=== PATIENT | female | born 1955 | race Caucasian/White ===

== ENCOUNTER → 2016-09-30 | Outpatient (CLI) | payer BC ==
[2016-09-30 11:46] LABS: Basophils # (A) 0.1 k/uL (0-0.2); Basophils % (A) 1 %; CH 28.7; CHCM 32.3; Eosinophils # (A) 0.1 k/uL (0-0.7); Eosinophils % (A) 1 %; HCT 46.2 % (34.0-46.0); HGB 14.9 gm/dL (11.4-16.0); Luc # (Auto) 0.12; Luc % (Auto) 1; Lymphocytes # (A) 3.8 k/uL (1.0-4.8); Lymphocytes % (A) 37 %; MCH 28.7 pg (25.0-35.0); MCHC 32.3 g/dL (31.0-37.0); Mean Platelet Volume 8.8; Monocytes # (A) 0.5 k/uL (0-1.0); Monocytes % (A) 4 %; Neutrophils # (A) 5.8 k/uL (1.3-7.7); Neutrophils % (A) 56 %; RBC 5.19 m/uL (3.80-5.40); RDW 12.9 % (11.5-15.5); WBC 10.4 k/uL (3.8-10.6); WBC (Perox) 10.03
[2016-09-30 12:04] LABS: Prothrombin Time 10.1 sec (9.0-12.0)
[2016-09-30 12:06] LABS: ALT 67 U/L (9-52); AST 30 U/L (14-36); Alkaline Phosphatase 97 U/L (38-126); Anion Gap 10 mmol/L; Blood Urea Nitrogen 25 mg/dL (7-17); Calcium 9.7 mg/dL (8.4-10.2); Carbon Dioxide 28 mmol/L (22-30); Chloride 104 mmol/L (98-107); Glucose 110 mg/dL (74-99); Non-African American GFR(MDRD) 56 (>60 ml/min/1.73 sqM); Potassium 4.3 mmol/L (3.5-5.1); Sodium 142 mmol/L (137-145); Total Bilirubin 0.9 mg/dL (0.2-1.3); Total Protein 7.3 g/dL (6.3-8.2)
[2016-09-30 12:08] LABS: Partial Thromboplastin Time 20.8 sec (22.0-30.0)
[2016-09-30 14:03] LABS: Hemoglobin A1C 6.3 % (4.2-6.1)
== END | disposition home or self-care (01) ==
LOC: LABPAT 10:56
PROVIDERS: ATTEND Family Medicine
DX: Z01.812 Encounter for preprocedural laboratory examination (principal); E11.9 Type 2 diabetes mellitus without complications; E55.9 Vitamin D deficiency, unspecified; Z01.810 Encounter for preprocedural cardiovascular examination
CPT/HCPCS: 80053; 82306; 83036; 85025; 85610; 85730; 87070

== ENCOUNTER → 2016-10-07 | Outpatient (CLI) | payer BC | END | disposition home or self-care (01) | LOC: LABWHC1 11:02 | PROVIDERS: ATTEND Family Medicine | DX: R94.5 Abnormal results of liver function studies (principal) | CPT/HCPCS: 36415; 84460; 86850; 86900; 86901 ==

== ENCOUNTER → 2016-10-09 | Outpatient (CLI) | payer BC ==
--- NOTE | 2016-10-10 10:12 | XR ---
EXAMINATION TYPE: XR chest 2V DATE OF EXAM: 10/09/2016 5:15 PM COMPARISON: NONE HISTORY: Preprocedural exam, preop TECHNIQUE: Frontal and lateral views of the chest are obtained. FINDINGS: There is no focal air space opacity, pleural effusion, or pneumothorax seen. The cardiac silhouette size is within normal limits. Surgical clips present in the right upper quadrant. The os seous structures are intact. IMPRESSION: No acute cardiopulmonary process.
== END | disposition home or self-care (01) ==
LOC: RADXRMAIN 16:48
PROVIDERS: ATTEND Family Medicine
DX: Z01.818 Encounter for other preprocedural examination (principal)
CPT/HCPCS: 71020

== ENCOUNTER 2016-10-17 07:44 | Inpatient (IN) | payer BC ==
[2016-10-16 08:54] VITALS: BMI 40.3
[~2016-10-17 07:44] MED LIST: ACETAMINOPHEN TAB 500 MG TAB PO ONE; DEXAMETHASONE SOD PHOSPHATE 10 MG/ML 1 ML VIAL IV ONE; HYDROmorphone 1 MG/ML 1 ML SYRINGE IVP PRN; LACTATED RINGERS 1,000 ML IV SCH; LIDOCAINE 1% 20 ML VIAL (10MG/ML) FOR IV START INTRADERMA PRN; MELOXICAM 7.5 MG TAB PO ONE; MIDAZOLAM 2 MG/2 ML VIAL IV PRN; ONDANSETRON 4 MG/2 ML VIAL IVP ONE; SCOPOLAMINE 1.5MG/72HR PATCH TRANSDERM ONE; TRANEXAMIC ACID 1,000 MG in SODIUM CHLORIDE 0.9% 100 ML IVPB ONE; ceFAZolin 2 GM in SODIUM CHLORIDE 0.9% 100 ML IVPB ONE
[2016-10-17] MEDS ORDERED: VANCOMYCIN 1,500 MG in SODIUM CHLORIDE 0.9% 250 ML IVPB STA (10:03)
[2016-10-17] MEDS ORDERED: MIDAZOLAM 2 MG/2 ML VIAL IV ONE (12:51)
[2016-10-17] MEDS ORDERED: HYDROmorphone (PF) 1 MG/ML ONE (14:06)
[2016-10-17] MEDS ORDERED: ePHEDrine 50 MG/ML 1 ML AMP ONE (14:06)
[2016-10-17] MEDS ORDERED: ONDANSETRON 4 MG/2 ML VIAL ONE (14:06)
[2016-10-17] MEDS ORDERED: SODIUM CHLORIDE 0.9% IRRIG 1,000 ML BTL IRRIGATION ONE (14:06)
[2016-10-17] MEDS ORDERED: SODIUM CHLORIDE 0.9% 100 ML BAG ONE (14:06)
[2016-10-17] MEDS ORDERED: PROPOFOL 10 MG/ML 20 ML VIAL IV ONE (14:06)
[2016-10-17] MEDS ORDERED: TRANEXAMIC ACID 1,000 MG/10 ML VIAL ONE (14:06)
[2016-10-17] MEDS ORDERED: PHENYLEPHRINE-0.9% NACL SYG 1 MG/10 ML SYRINGE ONE (14:06)
[2016-10-17] MEDS ORDERED: MIDAZOLAM 2 MG/2 ML VIAL ONE (14:06)
[2016-10-17] MEDS ORDERED: HEPARIN SODIUM,PORCINE 10,000 UNIT/ML 1 ML VIAL ONE (14:06)
[2016-10-17] MEDS ORDERED: ceFAZolin 3,000 MG in SODIUM CHLORIDE 0.9% IRRIGATIO 3,000 ML IRRIGATION ONE (14:43)
[2016-10-17] MEDS: ROPIVACAINE 246.25 MG, EPINEPHrine 0.5 MG, KETOROLAC 30 MG, cloNIDine HCL/PF 80 MCG, WA... MISCELLANE ONE ×10 (14:49→15:41)
[2016-10-17] MEDS ORDERED: LACTATED RINGERS 1,000 ML IV ONE ×2 (14:59→15:45)
--- NOTE | 2016-10-17 16:01 | P.OP ---
Date of Procedure: 10/17/16 Preoperative Diagnosis: Severe osteoarthritis of the right hip Postoperative Diagnosis: Severe osteoarthritis of the right hip Procedure(s) Performed: Right total hip arthroplasty with a direct anterior approach Implants: Starkey and nephew Anthology stem size 3 standard Starkey & Nephew R3, 3 hole acetabular shell, 52 mm Starkey [employer] Nephew reflection 6.5 mm cancellus screw, 25 mm 2 Starkey [employer] Nephew R3, XLPE 20 acetabular liner Starkey & Nephew Oxinium femoral head 36 m, +12 All components were press-fit. The articulation is ceramic on polyethylene. Anesthesia: spinal Surgeon: Brody Barcenas Director Women #1: Guillermina Cagle Estimated Blood Loss (ml): 500 (199 returned with cell saver) Pathology: other (Femoral head) Condition: stable Disposition: PACU Indications for Procedure: After failure of conservative treatment we discussed the surgical and nonsurgical treatment options at length. Patient wishes to proceed with a total hip arthroplasty with a direct anterior approach. Complications specific to this procedure were discussed at length, including but not limited to infection, leg length discrepancy, dislocation, and nerve injury. Patient is aware of all these complications and informed consent was obtained Operative Findings: The operative findings are consistent with severe osteoarthritis of the right hip. Description of Procedure: Patient was seen and evaluated in the preoperative area, consent was reviewed, and the surgical site was marked with a skin marker. Patient was then brought to the operating room and given prophylactic antibiotics intravenously. 1 g of Tranexamic acid was also given. A spinal anesthetic was administered by the anesthesia department. A [place] catheter was then placed by the nursing staff. The patient was then placed on the hana table with the bony prominences well- padded. The hip area was then prepped and draped in usual sterile fashion. A universal timeout was then performed, which confirmed the patient's name, surgical site, ALLERGIES, and procedure being performed. Next the incision site was located at 1 cm distal and 1 cm lateral to the anterior superior iliac spine. The skin and subcutaneous tissues were sharply incised. Incision was carefully dissected down to the fascia overlying the tensor fascia brandy muscle. This fascia was then incised in line with the incision. Next, using blunt finger dissection, the tensor fascia brandy muscle was dissected off its investing fascia. The muscle was then carefully retracted laterally with a cobra retractor over the lateral neck of the femur. Next, the circumflex vessels were identified and cauterized using the AquaMantis device. The anterior hip capsule was then exposed. The capsule was then opened and an inverted T fashion. Retention sutures were placed in the inferior arms of the capsule. Cobra retractors were then placed intracapsularly. The proximal femur was then visualized. The femoral neck was then osteotomized appropriate level above the lesser trochanter. Small amount of traction was placed with the hana table. A small wedge of bone was then removed from the remaining femoral head. Next, using a corkscrew femoral head was easily removed from the acetabulum. On gross visual inspection, the femoral head had complete loss of articular cartilage in multiple periarticular osteophytes. Attention was then turned to the acetabulum. the acetabulum was exposed and any remaining labrum was excised. Sequential reaming of the acetabulum was performed using fluoroscopic guidance. When the appropriate size was reached, a trial was then placed. The position and fit of the trial was checked with fluoroscopy. The trial was then removed. Then, using fluoroscopic guidance, the final implant was impacted at 20 of anteversion and 40 of abduction, and fully seated in the acetabulum. 2 screws were then placed in the acetabulum. Again fluoroscopy was used to check position of the screws. Next, the liner was then impacted, with a 20 elevated liner located in the anterior superior quadrant. Component locking was confirmed. Attention was then directed to the femur. With the aid of the Olimpia table, the femur was externally rotated to approximately 130, extended, and abducted under the opposite leg. A side hook was then placed under the proximal femur, and the side hook elevator was used to elevate the proximal femur. Retractors were then placed. A capsular release was performed, as well as a release of the conjoined tendon, which afforded excellent visualization of the proximal femur. Next, a box osteotome was used to lateralize the proximal femur. A laborer steel handling was then used to locate the femoral canal. Sequential broaching was then performed with appropriate size which afforded excellent fixation in the proximal femur. The calcar was then planed. A trial was then placed with appropriate head and neck, and the hip was gently reduced with the aid of the Olimpia table. Fluoroscopy was then used to check position of the components, as well as to ensure equal leg lengths. The hip was then gently dislocated and the trials were then removed. Final implants were then impacted and the hip was again reduced. Final fluoroscopic x-rays confirmed that the components were in anatomic position, as well as equal leg lengths. The hip was also taken through range of motion, and found to be stable. The hip was then copiously irrigated with antibiotic solution with pulsatile lavage. The hip was then irrigated with Irrisept solution. The soft tissues were then injected with ropivacaine solution. A second dose of 1 g of Tranexamic acid was given. the fascia was then closed with 2-0 strata fix suture. The subcutaneous tissue was closed with 3-0 Vicryl. The subcuticular tissue was closed with 30 strata fix suture. The skin was then closed with Dermabond tape. The patient was then transferred to the recovery room in stable condition. The Asst. Guillermina Cagle was required due to the complexity of surgery, and the need for skilled surgical services director for positioning, draping, exposure, retraction, and closure of the wound.and closure of the wound.
[2016-10-17] MEDS ORDERED: HYDROmorphone 1 MG/ML 1 ML SYRINGE IVP PRN ×3 (16:20)
[2016-10-17] MEDS ORDERED: NALOXONE 0.4 MG/ML 1 ML VIAL IV PRN (16:20)
[2016-10-17] MEDS ORDERED: DIAZEPAM 5 MG TAB PO PRN ×2 (16:20)
[2016-10-17] MEDS ORDERED: HYDROcodone/APAP 5-325MG 1 EACH TAB PO PRN ×2 (16:20)
[2016-10-17] MEDS ORDERED: ONDANSETRON 4 MG/2 ML VIAL IVP PRN (16:20)
[2016-10-17] MEDS ORDERED: MAGNESIUM HYDROXIDE 2,400 MG/10 ML CUP PO PRN (16:20)
--- NOTE | 2016-10-17 16:53 | XR ---
EXAMINATION TYPE: XR Hip Limited RT DATE OF EXAM: 10/17/2016 4:43 PM COMPARISON: NONE HISTORY: 61-year-old female status post hip surgery, assess surgical alignment FINDINGS: Frontal view shows postsurgical changes of right hip total arthroplasty. Both acetabular cup and femo ral short stem components of the prosthesis are well seated without periprosthetic fracture. Alignmen t is grossly anatomic. Some soft tissue gas related to recent operation. IMPRESSION: Uncomplicated postoperative appearance right total hip arthroplasty.
[2016-10-17] MEDS: SENNOSIDES-DOCUSATE SODIUM 1 EACH TAB PO SCH (19:37)
[2016-10-17] MEDS: SODIUM CHLORIDE 0.9% 1,000 ML IV SCH (19:38)
[2016-10-17] MEDS: ASPIRIN 325 MG TAB PO SCH (20:25)
[2016-10-17] MEDS: ceFAZolin 2 GM in SODIUM CHLORIDE 0.9% 100 ML IVPB SCH (23:52)
[2016-10-18] MEDS: SODIUM CHLORIDE 0.9% 1,000 ML IV SCH ×2 (04:33→21:52)
--- NOTE | 2016-10-18 07:41 | XR ---
EXAMINATION TYPE: XR Hip Complete RT DATE OF EXAM: 10/17/2016 4:09 PM COMPARISON: NONE HISTORY: Postop There is a prosthetic hip in near anatomic alignment. There is soft tissue edema and emphysema. IMPRESSION: 1. Postoperative change. Appears in near-anatomic alignment.
--- NOTE | 2016-10-18 07:42 | FL ---
EXAMINATION TYPE: FL guidance operating room DATE OF EXAM: 10/17/2016 4:09 PM HISTORY: Flouroscopy time 60 seconds of fluoroscopy provided. IMPRESSION: 1. Fluoroscopy time.
[2016-10-18 08:16] LABS: Basophils % (A) 0 %; CH 28.5; CHCM 31.6; Eosinophils % (A) 0 %; HCT 29.5 % (34.0-46.0); HDW 2.32; Luc # (Auto) 0.11; Luc % (Auto) 1; Lymphocytes # (A) 2.2 k/uL (1.0-4.8); Lymphocytes % (A) 25 %; MCV 90.5 fL (80.0-100.0); Mean Platelet Volume 7.7; Monocytes # (A) 0.4 k/uL (0-1.0); Monocytes % (A) 5 %; Neutrophils # (A) 6.1 k/uL (1.3-7.7); Neutrophils % (A) 69 %; RBC 3.25 m/uL (3.80-5.40); RDW 13.5 % (11.5-15.5); WBC 8.8 k/uL (3.8-10.6)
[2016-10-18 08:20] LABS: HGB 9.4 gm/dL (11.4-16.0)
--- NOTE | 2016-10-18 09:07 | P.PN ---
Subjective Principal diagnosis: s/p JADE right This is a pleasant 61 year old female status post right total hip arthroplasty. Today's postoperative day #1. The patient complains of some burning at her proximal incision. She's not yet been up ambulating with physical therapy. She states that she's had some difficulty with pain control. She otherwise denies any other complaints. No fevers, chills, shortness of breath or lightheadedness. Objective - Vital Signs Vital signs: Vital Signs Temp 97.4 F L 10/18/16 02:00 Pulse 65 10/18/16 02:00 Resp 18 10/18/16 02:00 BP 106/50 10/18/16 02:00 Pulse Ox 97 10/18/16 02:00 Intake & Output 10/17/16 10/18/16 10/18/16 18:59 06:59 18:59 Intake Total 2802 875 Output Total 670 420 Balance 2132 455 Weight 106.594 kg Intake: IV 2802 875 Sodium Chloride 0.9% 1, 675 000 ml @ 75 mls/hr IV . [id number] [facility] Rx#:[id number] ceFAZolin 2 gm In Sodium 200 Chloride 0.9% 100 ml @ 100 mls/hr IVPB ONCE ONE Rx#:[id number] Output: Urine 170 420 Estimated Blood Loss 500 - Exam The patient does not appear in acute distress. Alert and orientated 3. Dressing is clean dry and intact. Incision appears fine with no erythema or active drainage. Calf is soft and nontender. She is able to perform active knee motion. Good foot and ankle motion without difficulty. Sensation and circulatory status is intact. - Labs CBC & Chem 7: 10/18/16 07:08 Labs: Abnormal Lab Results - Last 24 Hours (Table) 10/18/16 Range/Units 07:08 RBC 3.25 L (3.80-5.40) m/uL Hgb 9.4 L D (11.4-16.0) gm/dL Hct 29.5 L (34.0-46.0) % Assessment and Plan (1) Primary osteoarthritis of right hip Status: Acute (2) Status post right hip replacement Status: Acute Plan: Continue with routine postoperative care. We'll increase her [place] to 7.5 mg. Anticoagulation with aspirin. Appreciate input from medicine. Anticipate discharge to home with home care likely tomorrow.
[2016-10-18] MEDS ORDERED: HYDROcodone/APAP 7.5-325MG 1 EACH TAB PO PRN (09:09)
[2016-10-18] MEDS: MELOXICAM 7.5 MG TAB PO SCH (09:58)
[2016-10-18] MEDS: ASPIRIN 325 MG TAB PO SCH ×2 (09:58→21:50)
[2016-10-18] MEDS: ceFAZolin 2 GM in SODIUM CHLORIDE 0.9% 100 ML IVPB SCH (09:59)
[2016-10-18] MEDS: hydrOXYzine PAMOATE 25 MG CAP PO PRN ×3 (10:03→23:47)
[2016-10-18] MEDS: HYDROcodone/APAP 7.5-325MG 1 EACH TAB PO PRN ×3 (10:04→23:46)
[2016-10-18] MEDS ORDERED: ALBUTEROL NEBULIZED 2.5 MG/3 ML INHALATION PRN (14:42)
[2016-10-18] MEDS: SENNOSIDES-DOCUSATE SODIUM 1 EACH TAB PO SCH (21:50)
[2016-10-18] MEDS: ALPRAZolam 0.25 MG TAB PO SCH (21:52)
--- NOTE | 2016-10-18 21:57 | CONS ---
DATE OF CONSULTATION: REASON FOR CONSULTATION: Recommendations regarding antihypertensive medications. Patient is a very pleasant female who came in for right hip arthroplasty. Patient successfully underwent surgery. Patient is clinically doing well. Patient does have history of hypertension. Patient is hypotensive at this point of time. Patient underwent right hip arthroplasty. Patient denied any fever or chills. Patient denied nausea, vomiting, dysuria. REVIEW OF SYSTEMS: CONSTITUTIONAL: No fever, no malaise, no fatigue. HEENT: No recent visual problems or hearing problems. Denied any sore throat. CARDIOVASCULAR: No chest pain, orthopnea, PND, no palpitations, no syncope. PULMONARY: No shortness of breath, no cough, no hemoptysis. GASTROINTESTINAL: No diarrhea, no nausea, no vomiting, no abdominal pain. Normoactive bowel sounds. NEUROLOGICAL: No headaches, no weakness, no numbness. HEMATOLOGICAL: Denies any bleeding or petechiae. GENITOURINARY: Denies any burning micturition, frequency, or urgency. MUSCULOSKELETAL/RHEUMATOLOGICAL: Denies any joint pain, swelling, or any muscle pain. ENDOCRINE: Denies any polyuria or polydipsia. The rest of the 14 point review of systems is negative. Home medications include: 1. Alprazolam. 2. Albuterol. 3. Aspirin. 4. Cholecalciferol. 5. Hydrocodone/acetaminophen. 6. Lisinopril. 7. Hydrochlorothiazide. 8. Omeprazole. 9. Senna. Past medical history is significant for: 1. Asthma without any acute exacerbation at present. 2. Gastroesophageal reflux disease. 3. Hyperlipidemia. 4. Hypertension. 5. Osteoarthritis. 6. section. 7. Cholecystectomy. 8. Hernia repair. 9. Joint replacement surgery. 10. Anxiety disorder. Patient never smoked. Denied any alcohol abuse or any drug abuse. FAMILY HISTORY: Significant for cancer. PHYSICAL EXAMINATION: VITAL SIGNS: Temperature 98.0. Pulse of 70, respiratory rate of 16. Blood pressure is 114/55. Saturating at 98% on 2 L of oxygen by nasal cannula. GENERAL: The patient is alert and oriented x3, not in any acute distress. Well developed, well nourished. HEENT: Pupils are round and equally reacting to light. EOMI. No scleral icterus. No conjunctival pallor. Normocephalic, atraumatic. No pharyngeal erythema. No thyromegaly. CARDIOVASCULAR: S1 and S2 present. No murmurs, rubs, or gallops. PULMONARY: Chest is clear to auscultation, no wheezing or crackles. ABDOMEN: Soft, nontender, nondistended, normoactive bowel sounds. No palpable organomegaly. MUSCULOSKELETAL: Defer to Orthopedic Surgery. EXTREMITIES: No cyanosis, clubbing, or pedal edema. NEUROLOGICAL: Gross neurological examination did not reveal any focal deficits. SKIN: No rashes. LABORATORY DATA: Hemoglobin is 9.4. ASSESSMENT AND PLAN: 1. Right hip arthroplasty with possible mild acute blood loss anemia from surgery. 2. Hypertension. Patient is actually hypotensive, which is not unexpected post surgery. Patient is on IV fluids, which can be continued at this point of time. Hold off on lisinopril and hydrochlorothiazide at this point of time. Will decide on continuation or complete discontinuation of these medications upon discharge. 3. Gastroesophageal reflux disease. 4. Asthma without any acute exacerbation. 5. Hyperlipidemia. For above-mentioned chronic medical problems, I can go ahead and continue her home medications. Regarding right hip arthroplasty, pain management and DVT prophylaxis as per primary service. Thank you for letting me participate in this patient's care. Will continue to follow the patient on an as-needed basis. Patient's primary care physician is Dr. Sukumar White.
[2016-10-19] MEDS: hydrOXYzine PAMOATE 25 MG CAP PO PRN (05:52)
[2016-10-19] MEDS: HYDROcodone/APAP 7.5-325MG 1 EACH TAB PO PRN ×3 (05:52→20:08)
[2016-10-19] MEDS: ASPIRIN 325 MG TAB PO SCH ×2 (08:20→19:32)
[2016-10-19] MEDS: MELOXICAM 7.5 MG TAB PO SCH (08:20)
[2016-10-19] MEDS: PANTOPRAZOLE 40 MG TABLET PO SCH (08:21)
--- NOTE | 2016-10-19 08:21 | P.PN ---
Subjective Principal diagnosis: Right total hip arthroplasty This is a 61 year-old female post right total hip arthroplasty. This is post- op day 2. The patient was evaluated at the bedside today. The patient denies nausea, vomiting, abdominal pain, shortness of breath, and chest pain this morning. She states her pain is controlled better this morning. The patient has been up with physical therapy but she says she is moving slowly. She wishes to spend one more day in the hospital since she does not have anyone at home to help her and to make sure her pain is controlled. Objective - Vital Signs Vital signs: Vital Signs Temp 98.1 F 10/19/16 07:00 Pulse 68 10/19/16 07:00 Resp 17 10/19/16 07:00 BP 103/51 10/19/16 07:00 Pulse Ox 96 10/19/16 07:00 Intake & Output 10/18/16 10/19/16 10/19/16 18:59 06:59 18:59 Intake Total 1210 Output Total 350 400 Balance 860 -400 Intake: IV 450 Sodium Chloride 0.9% 1, 450 000 ml @ 75 mls/hr IV . [id number] [facility] Rx#:[id number] Intake, IV Titration 100 Amount ceFAZolin 2 gm In Sodium 100 Chloride 0.9% 100 ml @ 100 mls/hr IVPB Q8HR [facility] Rx#:[id number] Oral 660 Output: Urine 350 400 Uretheral ([place]) 350 Other: Voiding Method Toilet Toilet # Voids 2 - Exam The patient does not appear in acute distress. Alert and orientated x3. Dressing is clean dry and intact. Incision appears fine with no erythema or active drainage. Calf is soft and nontender. Good foot and ankle motion without difficulty. Sensation and circulatory status is intact. - Labs CBC & Chem 7: 10/18/16 07:08 Labs: Abnormal Lab Results - Last 24 Hours (Table) 10/18/16 Range/Units 07:08 RBC 3.25 L (3.80-5.40) m/uL Hgb 9.4 L D (11.4-16.0) gm/dL Hct 29.5 L (34.0-46.0) % Assessment and Plan (1) Primary osteoarthritis of right hip Status: Acute (2) Status post right hip replacement Status: Acute Plan: 1. Continue pain control 2. Anticoagulation with Aspirin 3. Continue physical therapy and ambulation 4. Anticipate discharge home with homecare tomorrow
[2016-10-19] MEDS: SODIUM CHLORIDE 0.9% 1,000 ML IV SCH ×2 (08:22→19:22)
[2016-10-19] MEDS: ALPRAZolam 0.25 MG TAB PO SCH ×2 (08:22→19:28)
[2016-10-19 14:16] VITALS: RESP 16
[2016-10-19] MEDS: SENNOSIDES-DOCUSATE SODIUM 1 EACH TAB PO SCH (19:32)
[2016-10-20] MEDS: HYDROcodone/APAP 7.5-325MG 1 EACH TAB PO PRN ×3 (01:13→15:04)
[2016-10-20 07:20] LABS: Basophils % (A) 1 %; CH 28.3; Eosinophils # (A) 0.4 k/uL (0-0.7); Eosinophils % (A) 5 %; HCT 29.4 % (34.0-46.0); HDW 2.27; HGB 9.4 gm/dL (11.4-16.0); Hypochromasia Slight; Luc # (Auto) 0.19; Luc % (Auto) 2; Lymphocytes # (A) 3.1 k/uL (1.0-4.8); Lymphocytes % (A) 39 %; MCH 29.2 pg (25.0-35.0); MCHC 31.9 g/dL (31.0-37.0); MCV 91.7 fL (80.0-100.0); Mean Platelet Volume 7.3; Monocytes # (A) 0.5 k/uL (0-1.0); Monocytes % (A) 6 %; Neutrophils # (A) 3.8 k/uL (1.3-7.7); Neutrophils % (A) 47 %; RBC 3.21 m/uL (3.80-5.40); RDW 13.2 % (11.5-15.5); WBC (Perox) 8.81
--- NOTE | 2016-10-20 07:45 | P.DS ---
Providers Date of admission: 10/17/16 07:44 Expected date of discharge: 10/20/16 Attending physician: Brody Barcenas Consults: 10/17/16 16:20 Consult Physician Routine Consulting Provider: Shahab Andrade Consult Reason/Comments: medical management Do you want consulting provider notified?: Yes Primary care physician: Sukumar White - Discharge Diagnosis(es) (1) Primary osteoarthritis of right hip Current Visit: Yes Status: Acute (2) Status post right hip replacement Current Visit: Yes Status: Acute Hospital Course: This is a pleasant 61-year-old female last seen in our office with complaints of right hip pain. The patient has known history of degenerative arthritis of the right hip. After discussion and consideration the patient elected to proceed with right total hip arthroplasty. The patient was seen preoperatively medically cleared for surgery by her primary care physician. Patient was admitted to [facility] on 10/17/2016 and underwent right total hip arthroplasty. The procedure was performed without competitions or sequelae. The patient has done well postoperatively. She is been progressing with physical therapy. Her pain is been reasonably controlled. She is seen and evaluated at bedside today. She complains of some burning at the incision. Her pain is controlled. Vital signs are stable. Incision looks fine with no erythema or active drainage. Dermabond dressing is intact. She does have a linear blister approximately 2 cm in length along the lateral aspect of the prineo tape at the mid incision. There is moderate soft tissue swelling and ecchymosis as expected postoperatively. Thigh and calf are soft and nontender. She has sustained dorsiflexion plantar flexion. Dorsalis pedis pulse 2+ out of 4+. Sensation is intact. Patient is orthopedically stable for discharge to home with home care today. Pertinent Studies: Laboratory Tests 10/18/16 10/20/16 07:08 06:34 WBC 8.8 8.0 RBC 3.25 L 3.21 L Hgb 9.4 L D 9.4 L Hct 29.5 L 29.4 L MCV 90.5 Patient Condition at Discharge: Good Plan - Discharge Summary New Discharge Prescriptions: Aspirin 325 mg PO BID #60 tab HYDROcodone/APAP 7.5-325MG [[place] 7.5] 1 - 2 each PO Q6HR PRN #90 tab PRN Reason: Pain Sennosides-Docusate Sodium [Senokot-S] 2 tab PO DAILY #60 tablet Discharge Medication List ALPRAZolam [Xanax] 0.25 mg PO BID 10/16/16 [History] Albuterol Sulfate [Proair Hfa] 2 puff INHALATION RT-Q6H PRN 10/16/16 [History] Cholecalciferol [Vitamin D3] 2,000 unit PO DAILY 10/16/16 [History] Lisinopril-Hctz 10-12.5 mg [Zestoretic 10-12.5] 1 tab PO DAILY 10/16/16 [History ] Omeprazole 20 mg PO DAILY 10/16/16 [History] Aspirin 325 mg PO BID #60 tab 10/18/16 [Rx] HYDROcodone/APAP 7.5-325MG [[place] 7.5] 1 - 2 each PO Q6HR PRN #90 tab 10/18/16 [ Rx] Sennosides-Docusate Sodium [Senokot-S] 2 tab PO DAILY #60 tablet 10/18/16 [Rx] Follow up Appointment(s)/Referral(s): Brody Barcenas DO [Doctor of Osteopathic Medicine] - 11/02/16 8:30 am Activity/Diet/Wound Care/Special Instructions: Weightbearing as tolerated with walker Daily dressing changes Keep incision clean and dry [facility] with questions or concerns [phone] Discharge Disposition: HOME WITH HOME HEALTH SERVICES
[2016-10-20] MEDS: ASPIRIN 325 MG TAB PO SCH (09:56)
[2016-10-20] MEDS: ALPRAZolam 0.25 MG TAB PO SCH (09:56)
[2016-10-20] MEDS: PANTOPRAZOLE 40 MG TABLET PO SCH (09:56)
[2016-10-20] MEDS: MELOXICAM 7.5 MG TAB PO SCH (09:56)
[2016-10-20] MEDS: SODIUM CHLORIDE 0.9% 1,000 ML IV SCH (12:28)
[2016-10-20 15:21] VITALS: BP 156/73; PULSE 78; TEMP 97.6
--- NOTE | 2016-10-20 19:16 | PN ---
Patient is admitted after right hip arthroplasty. Patient successfully underwent surgery and patient's blood pressure is doing well. Patient will continue on her home medications. Patient has a small blister because of the tape, for which patient was given Keflex by Orthopedic Surgery. I do not believe we need to do any further intervention at this point of time. REVIEW OF SYSTEMS: CARDIOVASCULAR: No chest pain, no orthopnea, no PND, no palpitations. PULMONARY: Denied any shortness of breath. No cough or hemoptysis. GASTROINTESTINAL: No diarrhea, nausea or vomiting. No abdominal pain. Normoactive bowel sounds. NEUROLOGIC: No headaches, no weakness, no numbness. DERMATOLOGIC: As described in HPI. Medications were reviewed. PHYSICAL EXAMINATION: VITAL SIGNS: Temperature 97.6, pulse of 78, respiratory rate of 16, blood pressure 156/73. Saturating at 95% on room air. GENERAL: The patient is alert and oriented x3, not in any acute distress. Well developed, well nourished. HEENT: Pupils are round and equally reacting to light. EOMI. No scleral icterus. No conjunctival pallor. Normocephalic, atraumatic. No pharyngeal erythema. No thyromegaly. CARDIOVASCULAR: S1 and S2 present. No murmurs, rubs, or gallops. PULMONARY: Chest is clear to auscultation, no wheezing or crackles. ABDOMEN: Soft, nontender, nondistended, normoactive bowel sounds. No palpable organomegaly. MUSCULOSKELETAL: Defer to Orthopedic surgery. Patient's surgical site area appears clean. EXTREMITIES: No cyanosis, clubbing, or pedal edema. NEUROLOGICAL: Gross neurological examination did not reveal any focal deficits. DERMATOLOGIC: As mentioned above. Laboratory data was reviewed. ASSESSMENT AND PLAN: 1. Right hip arthroplasty with possible acute blood loss anemia. 2. Hypertension. 3. Gastroesophageal reflux disease. 4. Asthma. 5. Hyperlipidemia. 6. Rash/injury secondary to tape, for which patient is getting Keflex, although patient does not have any cellulitis. Discharge medication reconciliation was reviewed. Patient is okay to be discharged from medical perspective. No further recommendations at this point of time. Patient will need to follow with her primary care physician, Dr. Sukumar White, in about a week.
== END 2016-10-20 20:00 | disposition home health service (06) | DRG 470 ==
LOC: 2ORMAIN 07:44 → 3SUR 16:16
PROVIDERS: ADMIT Orthopaedic Surgery; ATTEND Orthopaedic Surgery
PROC: 0SR904A Replacement of Right Hip Joint with Ceramic on Polyethylene Synthetic Substitute, Uncemented, Open Approach (ICD-10-PCS; principal; 2016-10-17 09:10)
DX: M16.11 Unilateral primary osteoarthritis, right hip (principal); I10 Essential (primary) hypertension; E78.5 Hyperlipidemia, unspecified; Z88.5 Allergy status to narcotic agent; Z79.899 Other long term (current) drug therapy; F41.9 Anxiety disorder, unspecified; J45.909 Unspecified asthma, uncomplicated; K21.9 Gastro-esophageal reflux disease without esophagitis; Z79.82 Long term (current) use of aspirin; L24.5 Irritant contact dermatitis due to other chemical products; T50.995A Adverse effect of other drugs, medicaments and biological substances, initial encounter
CPT/HCPCS: 73501; 73502; 85025; 86850; 86891; 86900; 86901; 88300; 94760

== ENCOUNTER → 2016-11-29 | Outpatient (CLI) | payer BC ==
[2016-11-29 16:16] LABS: Basophils # (A) 0.1 k/uL (0-0.2); Basophils % (A) 1 %; CH 27.6; CHCM 31.8; Eosinophils # (A) 0.1 k/uL (0-0.7); Eosinophils % (A) 1 %; HCT 38.4 % (34.0-46.0); HDW 2.84; Hypochromasia Slight; Luc # (Auto) 0.34; Luc % (Auto) 3; Lymphocytes # (A) 2.5 k/uL (1.0-4.8); Lymphocytes % (A) 22 %; MCHC 33.2 g/dL (31.0-37.0); MCV 87.2 fL (80.0-100.0); Mean Platelet Volume 7.9; Monocytes # (A) 0.5 k/uL (0-1.0); Monocytes % (A) 4 %; Neutrophils # (A) 7.9 k/uL (1.3-7.7); Neutrophils % (A) 69 %; RDW 13.6 % (11.5-15.5); WBC 11.4 k/uL (3.8-10.6)
[2016-11-29 16:20] LABS: HGB 12.7 gm/dL (11.4-16.0)
[2016-11-29 20:39] LABS: Erythrocyte Sedimentation Rate 62 mm/hr (0-20)
== END | disposition home or self-care (01) ==
LOC: LABWHC1 15:51
PROVIDERS: ATTEND Orthopaedic Surgery
DX: M25.551 Pain in right hip (principal); M16.11 Unilateral primary osteoarthritis, right hip; Z47.1 Aftercare following joint replacement surgery; Z96.641 Presence of right artificial hip joint
CPT/HCPCS: 36415; 85025; 85652; 86140

== ENCOUNTER 2016-11-30 22:47 | Inpatient (IN) | payer BC ==
[2016-11-30] MEDS ORDERED: SODIUM CHLORIDE 0.9% 1,000 ML IV ONE (23:12)
[2016-11-30] MEDS ORDERED: HYDROcodone/APAP 10-325MG 1 EACH TAB PO ONE (23:13)
[2016-11-30] MEDS: SODIUM CHLORIDE 0.9% 1,000 ML IV SCH (23:52)
--- NOTE | 2016-12-01 00:08 | XR ---
EXAMINATION TYPE: XR Hip Complete RT DATE OF EXAM: 12/01/2016 12:02 AM COMPARISON: 10/17/2016 HISTORY: Hip pain TECHNIQUE: 2 views FINDINGS: AP and frog-leg views show a right hip prosthesis. Components appear in anatomic position. I see no fracture. IMPRESSION: Right hip prosthesis without change in appearance compared to last exam.
[2016-12-01 00:22] LABS: Basophils % (A) 0 %; CH 27.3; CHCM 31.5; Eosinophils # (A) 0.1 k/uL (0-0.7); Eosinophils % (A) 0 %; HDW 2.84; HGB 11.9 gm/dL (11.4-16.0); Hypochromasia Slight; Luc # (Auto) 0.29; Luc % (Auto) 1; Lymphocytes # (A) 2.9 k/uL (1.0-4.8); Lymphocytes % (A) 13 %; MCH 27.3 pg (25.0-35.0); MCHC 31.4 g/dL (31.0-37.0); Mean Platelet Volume 7.8; Monocytes % (A) 5 %; Neutrophils # (A) 18.2 k/uL (1.3-7.7); Neutrophils % (A) 81 %; RBC 4.36 m/uL (3.80-5.40); RDW 13.4 % (11.5-15.5); WBC 22.6 k/uL (3.8-10.6); WBC (Perox) 23.48
--- NOTE | 2016-12-01 00:35 | ED ---
Wound/Laceration HPI - General Chief Complaint: Wound/Laceration Stated Complaint: Hip Pain Time Seen by Provider: 11/30/16 22:58 Source: patient Mode of arrival: ambulatory Limitations: no limitations - History of Present Illness Initial Comments: The patient is a 61-year-old female who presents to ED with a chief complaint of right hip wound. Patient states that she had hip replacement surgery performed on Oct 17. This was performed by Dr. Barcenas (sp?) via anterior approach. The patient states that she initially developed redness around the surgical site this past week. She followed up with Dr. Barcenas in his office and he prescribed a Prednisone taper as well as Keflex 500 mg 4 times a day. The patient states that she has taken 2 doses of prednisone as well as 6 doses of Keflex. She notes that the redness in her leg hasn't increased in size since she started these medications. She denies any purulent drainage in this area but states that her pain has grown worse. The patient notes that she has been having fevers and chills. Patient states that she's been feeling more fatigued than usual. She notes that her hemoglobin A1c was borderline in the past but that she has not officially been diagnosed with diabetes. Patient denies any cough or shortness of breath. Denies any chest pain. Denies any nausea, vomiting, diarrhea. She does note that she has been having increased urinary frequency recently. - Related Data Home Medications Medication Instructions Recorded Confirmed ALPRAZolam [Xanax] 0.25 - 0.5 mg PO BID PRN 10/16/16 11/30/16 Albuterol Sulfate [Proair Hfa] 2 puff INHALATION RT-Q6H PRN 10/16/16 11/30/16 Cholecalciferol [Vitamin D3] 2,000 unit PO DAILY 10/16/16 11/30/16 Lisinopril-Hctz 10-12.5 mg 1 tab PO DAILY 10/16/16 11/30/16 [Zestoretic 10-12.5] Cephalexin [Keflex] 500 mg PO QID 11/30/16 11/30/16 HYDROcodone/APAP 7.5-325MG [[place] 1 tab PO Q4-6H PRN 11/30/16 11/30/16 7.5] predniSONE See Taper PO DAILY 11/30/16 11/30/16 Allergies Allergy/AdvReac Type Severity Reaction Status Date / Time morphine Allergy Severe turn red, Verified 11/30/16 23:22 skin peels, SOB, feels like burning inside adhesive tape Allergy red welts, Verified 11/30/16 23:22 fitzgerald meperidine [From Demerol] Allergy headaches Verified 11/30/16 23:22 Review of Systems ROS Statement: Those systems with pertinent positive or pertinent negative responses have been documented in the HPI. ROS Other: All systems not noted in ROS Statement are negative. Constitutional: Reports: fever, chills. Denies: weakness Eyes: Denies: eye pain ENT: Denies: ear pain, throat pain Respiratory: Denies: cough, dyspnea, wheezes, stridor Cardiovascular: Denies: chest pain, palpitations, dyspnea on exertion Endocrine: Reports: fatigue Gastrointestinal: Denies: abdominal pain, nausea, vomiting, diarrhea, constipation Genitourinary: Reports: urgency, dysuria, frequency. Denies: hematuria Musculoskeletal: Denies: back pain Skin: Reports: change in color (erythema surround site of recent hip surgery), other (swelling and tenderness in region of recent hip replacement surgery) Neurological: Denies: headache, weakness, numbness, paresthesias, confusion Psychiatric: Denies: anxiety, depression Past Medical History Past Medical History: Asthma, GERD/Reflux, Hyperlipidemia, Hypertension, Osteoarthritis (OA) Additional Past Medical History / Comment(s): hx palpitations, reactive airway disease, hx pancreatitis, History of Any Multi-Drug Resistant Organisms: None Reported Past Surgical History: Section, Cholecystectomy, Hernia Repair, Joint Replacement Additional Past Surgical History / Comment(s): total left hip replacement Past Anesthesia/Blood Transfusion Reactions: Family History of Problems w/ Anesthesia, Postoperative Nausea & Vomiting (PONV) Additional Past Anesthesia/Blood Transfusion Reaction / Comment(s): dad-had CVA during back surgery , sister-PONV Past Psychological History: Anxiety Smoking Status: Never smoker Past Alcohol Use History: Rare Past Drug Use History: None Reported - Past Family History Brother(s) Family Medical History: Cancer General Exam Limitations: no limitations General appearance: alert, in no apparent distress Head exam: Present: atraumatic, normocephalic Eye exam: Present: normal appearance, PERRL, EOMI, other (patient wears glasses) . Absent: scleral icterus, conjunctival injection Pupils: Present: normal accommodation ENT exam: Present: normal exam, mucous membranes dry Neck exam: Present: normal inspection, full ROM. Absent: tenderness Respiratory exam: Present: normal lung sounds bilaterally. Absent: respiratory distress, wheezes, rales, rhonchi, stridor Cardiovascular Exam: Present: normal rhythm, tachycardia, normal heart sounds GI/Abdominal exam: Present: soft. Absent: distended, tenderness, guarding, rebound Extremities exam: Present: other (Large amount of erythema surrounding surgical scar from recent hip replacement surgery. This area is tender to palpation) Back exam: Present: normal inspection, full ROM Neurological exam: Present: alert, oriented X3 Psychiatric exam: Present: normal affect, normal mood Skin exam: Present: warm, dry, erythema, other (erythema noted on anterior aspect of right hip around site of past surgery) Course Vital Signs 11/30/16 22:49 Temperature 98.5 F Pulse Rate 101 H Respiratory 18 Rate Blood Pressure 134/60 O2 Sat by Pulse 96 Oximetry Medical Decision Making - Medical Decision Making Patient is a 61-year-old female who presents to the ED with a chief complaint of right-sided hip pain. Patient notes that she has also had erythema and swelling in this region. Patient states that this has grown worse over the course of the past week. Patient states she followed up with her orthopedic doctor yesterday and was prescribed Prednisone as well as Keflex. Patient states that she's been taking these medications as directed; however, the erythema continues to spread. Patient is borderline diabetic. States that she' s been having fevers and chills. Patient does also state urinary frequency and dysuria. Concern for possible infection status post right hip replacement. Check x-ray of right hip. Bolus patient with IV fluids. Check CBC, BMP, mag. Check ESR and CRP. Provide patient with morphine for pain control. Check urinalysis and urine culture as well. 1:03 AM Spoke with patient and updated her of findings. The patient's WBC count has doubled over the course of the past 24 hours. Suspect infection in the right hip. Will cover with Zosyn and Vancomycin. Spoke with Dr. Pennington in the ED regarding case and he recommended CT R Hip, which I will order at this point in time. Patient will need to be hospitalized for further evaluation by Dr. Barcenas and treatment of infection. - Lab Data Result diagrams: 11/30/16 23:45 11/30/16 23:45 Lab Results 11/30/16 11/30/16 11/30/16 Range/Units 23:45 23:45 23:45 WBC 22.6 H (3.8-10.6) k/uL RBC 4.36 (3.80-5.40) m/uL Hgb 11.9 (11.4-16.0) gm/dL Hct 38.0 (34.0-46.0) % MCV 87.0 (80.0-100.0) fL MCH 27.3 (25.0-35.0) pg MCHC 31.4 (31.0-37.0) g/dL RDW 13.4 (11.5-15.5) % Plt Count 574 H (150-450) k/uL Neutrophils % 81 % Lymphocytes % 13 % Monocytes % 5 % Eosinophils % 0 % Basophils % 0 % Neutrophils # 18.2 H (1.3-7.7) k/uL Lymphocytes # 2.9 (1.0-4.8) k/uL Monocytes # 1.0 (0-1.0) k/uL Eosinophils # 0.1 (0-0.7) k/uL Basophils # 0.0 (0-0.2) k/uL Hypochromasia Slight PT (9.0-12.0) sec INR (<1.1) APTT (22.0-30.0) sec Sodium 144 (137-145) mmol/L Potassium 4.2 (3.5-5.1) mmol/L Chloride 104 (98-107) mmol/L Carbon Dioxide 26 (22-30) mmol/L Anion Gap 14 mmol/L BUN 30 H (7-17) mg/dL Creatinine 1.20 H (0.52-1.04) mg/dL Est GFR (MDRD) Af Amer 56 (>60 ml/min/1.73 sqM) Est GFR (MDRD) Non-Af 46 (>60 ml/min/1.73 sqM) Glucose 127 H (74-99) mg/dL Plasma Lactic Acid Oziel 1.4 (0.7-2.0) mmol/L Calcium 10.3 H (8.4-10.2) mg/dL Magnesium 2.0 (1.6-2.3) mg/dL Total Bilirubin 0.4 (0.2-1.3) mg/dL AST 14 (14-36) U/L ALT 23 (9-52) U/L Alkaline Phosphatase 105 (38-126) U/L C-Reactive Protein 79.3 H (<10.0) mg/L Total Protein 7.6 (6.3-8.2) g/dL Albumin 4.2 (3.5-5.0) g/dL Urine Color Urine Appearance (Clear) Urine pH (5.0-8.0) Ur Specific [place] (1.001-1.035) Urine Protein (Negative) Urine Glucose (UA) (Negative) Urine Ketones (Negative) Urine Blood (Negative) Urine Nitrite (Negative) Urine Bilirubin (Negative) Urine Urobilinogen (<2.0) mg/dL Ur Leukocyte Esterase (Negative) Urine RBC (0-5) /hpf Urine WBC (0-5) /hpf Ur Squamous Epith Cells (0-4) /hpf Urine Bacteria (None) /hpf Hyaline Casts (0-2) /lpf Urine Mucus (None) /hpf 11/30/16 11/30/16 Range/Units 23:45 23:55 WBC (3.8-10.6) k/uL RBC (3.80-5.40) m/uL Hgb (11.4-16.0) gm/dL Hct (34.0-46.0) % MCV (80.0-100.0) fL MCH (25.0-35.0) pg MCHC (31.0-37.0) g/dL RDW (11.5-15.5) % Plt Count (150-450) k/uL Neutrophils % % Lymphocytes % % Monocytes % % Eosinophils % % Basophils % % Neutrophils # (1.3-7.7) k/uL Lymphocytes # (1.0-4.8) k/uL Monocytes # (0-1.0) k/uL Eosinophils # (0-0.7) k/uL Basophils # (0-0.2) k/uL Hypochromasia PT 9.8 (9.0-12.0) sec INR 1.0 (<1.1) APTT 22.9 (22.0-30.0) sec Sodium (137-145) mmol/L Potassium (3.5-5.1) mmol/L Chloride (98-107) mmol/L Carbon Dioxide (22-30) mmol/L Anion Gap mmol/L BUN (7-17) mg/dL Creatinine (0.52-1.04) mg/dL Est GFR (MDRD) Af Amer (>60 ml/min/1.73 sqM) Est GFR (MDRD) Non-Af (>60 ml/min/1.73 sqM) Glucose (74-99) mg/dL Plasma Lactic Acid Oziel (0.7-2.0) mmol/L Calcium (8.4-10.2) mg/dL Magnesium (1.6-2.3) mg/dL Total Bilirubin (0.2-1.3) mg/dL AST (14-36) U/L ALT (9-52) U/L Alkaline Phosphatase (38-126) U/L C-Reactive Protein (<10.0) mg/L Total Protein (6.3-8.2) g/dL Albumin (3.5-5.0) g/dL Urine Color Yellow Urine Appearance Cloudy H (Clear) Urine pH 5.5 (5.0-8.0) Ur Specific [place] 1.030 (1.001-1.035) Urine Protein 1+ H (Negative) Urine Glucose (UA) Negative (Negative) Urine Ketones Negative (Negative) Urine Blood Negative (Negative) Urine Nitrite Negative (Negative) Urine Bilirubin Negative (Negative) Urine Urobilinogen 2.0 (<2.0) mg/dL Ur Leukocyte Esterase Negative (Negative) Urine RBC 2 (0-5) /hpf Urine WBC 2 (0-5) /hpf Ur Squamous Epith Cells 9 H (0-4) /hpf Urine Bacteria Occasional H (None) /hpf Hyaline Casts 36 H (0-2) /lpf Urine Mucus Occasional H (None) /hpf Disposition Clinical Impression: Cellulitis, Sepsis Disposition: ADMITTED IP TO THIS HOSP Condition: Good Time of Disposition: 01:05 Decision to Admit Reason: Admit from EC Decision Date: 12/01/16 Decision Time: 01:05
[2016-12-01] MEDS ORDERED: IV VANCOMYCIN PER PHARMACY 1 EACH MISC MISCELLANE PRN (00:36)
[2016-12-01 00:45] LABS: C Reactive Protein 79.3 mg/L (<10.0); Calcium 10.3 mg/dL (8.4-10.2); Partial Thromboplastin Time 22.9 sec (22.0-30.0); Potassium 4.2 mmol/L (3.5-5.1); Prothrombin Time 9.8 sec (9.0-12.0); Total Bilirubin 0.4 mg/dL (0.2-1.3); Total Protein 7.6 g/dL (6.3-8.2)
[2016-12-01 00:54] LABS: Appearance,Urine Cloudy (Clear); Bacteria,Urine Occasional /hpf; Bilirubin,Urine Negative (Negative); Glucose,Urine (UA) Negative (Negative); Ketones,Urine Negative (Negative); Leukocyte Esterase,Urine Negative (Negative); Mucus,Urine Occasional /hpf; Nitrite,Urine Negative (Negative); PH, Urine 5.5 (5.0-8.0); Particle Count 7870; Protein,Urine 1+ (Negative); RBC,Urine 2 /hpf (0-5); Squamous Epithelial Cell,Urine 9 /hpf (0-4); UA Billing (MACRO vs. MICRO) MICRO; WBC,Urine 2 /hpf (0-5)
[2016-12-01] MEDS ORDERED: VANCOMYCIN 1,750 MG in SODIUM CHLORIDE 0.9% 250 ML IVPB ONE (01:00)
[2016-12-01] MEDS ORDERED: NALOXONE 0.4 MG/ML 1 ML VIAL IV PRN (01:07)
[2016-12-01] MEDS ORDERED: HYDROcodone/APAP 5-325MG 1 EACH TAB PO PRN (01:07)
[2016-12-01 01:43] LABS: Erythrocyte Sedimentation Rate 80 mm/hr (0-20)
--- NOTE | 2016-12-01 01:59 | CT ---
EXAM: CT Right Lower Extremity Without Intravenous Contrast, Hip. CLINICAL HISTORY: Reason: Infection of right hip, cellulitis v abscess TECHNIQUE: Axial computed tomography images of the right hip without intravenous contrast. CTDI is 46.00 mGy and DLP is 1466.40 mGy-cm This CT exam was performed using one or more of the following dose reduction techniques: automated exposure control, adjustment of the mA and/or kV according to patient size, and/or use of iterative reconstruction technique. COMPARISON: Right hip radiographs of the same evening FINDINGS: Bones/joints: Evaluation is limited by right hip replacement hardware artifact. Allowing for this the osseous structures appear intact without acute fracture or dislocation. The hardware appears intact. Soft tissues: There does appear to be abnormality in the soft tissues anterior to the proximal femur, where there is a region of slight hypodensity on the order of 4.9 x 3.6 cm on axial image 52, and that itself does not demonstrate the same appearance as adjacent musculature. There is some fat stranding that is seen extending inferior to this level within the anterior compartment of the thigh. IMPRESSION: Possible fluid collection in the soft tissues anterior to the proximal femur, of uncertain chronicity and may in part be postoperative; the differential for which could include a hematoma or seroma although an abscess is not excluded the appropriate clinical setting. Correlate clinically to guide further imaging follow-up as clinically indicated.
[2016-12-01] MEDS ORDERED: PIPERACILLIN-TAZOBACTAM 3.375 GM in DEXTROSE/WATER 1 50ML.BAG IVPB ONE (02:00)
[2016-12-01] MEDS ORDERED: HYDROcodone/APAP 7.5-325MG 1 EACH TAB PO PRN (08:39)
--- NOTE | 2016-12-01 09:06 | P.CNOR ---
History of Present Illness - HPI Consult date: 12/01/16 History of present illness: This is a 61-year-old female who is status post total right hip arthroplasty with anterior approach by Dr. Brody Barcenas on 10/17/2016. She has been followed in the office over the past week or so with increased swelling and redness to the right hip. She was placed on antibiotics and prednisone. She states that she has had little improvement and feels that the redness is increasing. She is admitted through the emergency department last evening for IV antibiotics. We're consulted for orthopedic evaluation. Past Medical History Past Medical History: Asthma, GERD/Reflux, Hyperlipidemia, Hypertension, Osteoarthritis (OA) Additional Past Medical History / Comment(s): hx palpitations, reactive airway disease, hx pancreatitis, History of Any Multi-Drug Resistant Organisms: None Reported Past Surgical History: Section, Cholecystectomy, Hernia Repair, Joint Replacement Additional Past Surgical History / Comment(s): total left hip replacement December 2011, Right Hip replacement October 2016 Past Anesthesia/Blood Transfusion Reactions: Family History of Problems w/ Anesthesia, Postoperative Nausea & Vomiting (PONV) Additional Past Anesthesia/Blood Transfusion Reaction / Comm: dad-had CVA during back surgery , sister-PONV Past Psychological History: Anxiety Smoking Status: Never smoker Past Alcohol Use History: Rare Past Drug Use History: None Reported - Past Family History Brother(s) Family Medical History: Cancer Medications and Allergies Home Medications Medication Instructions Recorded Confirmed Type ALPRAZolam [Xanax] 0.25 - 0.5 mg PO BID PRN 10/16/16 11/30/16 History Albuterol Sulfate [Proair Hfa] 2 puff INHALATION RT-Q6H PRN 10/16/16 11/30/16 History Cholecalciferol [Vitamin D3] 2,000 unit PO DAILY 10/16/16 11/30/16 History Lisinopril-Hctz 10-12.5 mg 1 tab PO DAILY 10/16/16 11/30/16 History [Zestoretic 10-12.5] Cephalexin [Keflex] 500 mg PO QID 11/30/16 11/30/16 History HYDROcodone/APAP 7.5-325MG [[place] 1 tab PO Q4-6H PRN 11/30/16 11/30/16 History 7.5] predniSONE See Taper PO DAILY 11/30/16 11/30/16 History Allergies Allergy/AdvReac Type Severity Reaction Status Date / Time morphine Allergy Severe turn red, Verified 11/30/16 23:22 skin peels, SOB, feels like burning inside adhesive tape Allergy red welts, Verified 11/30/16 23:22 fitzgerald meperidine [From Demerol] Allergy headaches Verified 11/30/16 23:22 Physical Examination This is a pleasant 61-year-old female in no acute distress. She is alert and oriented 3. Exam of the right right hip reveals swelling, erythema and increased warmth to the large area about the anterior lateral hip. Incision is well-healed. There is no drainage. There is minimal pain with logroll of the hip. The patient is able to flex and rotate the hip independently with minimal discomfort. She has full foot and ankle motion without difficulty or pain. Neurovascular status to the right lower extremity is intact. Results - Labs Result Diagrams: 11/30/16 23:45 11/30/16 23:45 Assessment and Plan (1) Cellulitis Status: Acute (2) Status post right hip replacement Status: Acute Plan: The clinical findings are discussed the patient. She'll be taken to surgery today for incision and drainage as well as irrigation with antibiotic solution of the right hip. We will consult infectious disease for IV antibiotic management.
[2016-12-01] MEDS ORDERED: ALBUTEROL NEBULIZED 2.5 MG/3 ML INHALATION PRN (09:23)
[2016-12-01] MEDS ORDERED: ALPRAZolam 0.5 MG TAB PO PRN (09:23)
[2016-12-01] MEDS: LISINOPRIL-HCTZ 10-12.5 MG 1 EACH TAB PO SCH (10:00)
[2016-12-01] MEDS ORDERED: HYDROmorphone 1 MG/ML 1 ML SYRINGE IVP PRN ×3 (12:04→13:51)
[2016-12-01] MEDS ORDERED: IV FLUID CONTINUATION 200 ML IV ONE (12:34)
[2016-12-01] MEDS ORDERED: DEXAMETHASONE SOD PHOS (MDV) 100 MG/10 ML VIAL IV ONE (12:48)
[2016-12-01] MEDS ORDERED: ONDANSETRON 4 MG/2 ML VIAL IVP ONE (12:48)
[2016-12-01] MEDS ORDERED: fentaNYL (PF) 50 MCG/ML 2 ML AMP ONE (12:59)
[2016-12-01] MEDS ORDERED: PROPOFOL 10 MG/ML 20 ML VIAL IV ONE (12:59)
[2016-12-01] MEDS ORDERED: SUCCINYLCHOLINE CHLORIDE VIAL 200 MG/10 ML VIAL IV ONE (12:59)
[2016-12-01] MEDS ORDERED: MIDAZOLAM 2 MG/2 ML VIAL ONE (12:59)
[2016-12-01] MEDS ORDERED: ceFAZolin 3,000 MG in SODIUM CHLORIDE 0.9% IRRIGATIO 3,000 ML IRRIGATION ONE (13:22)
--- NOTE | 2016-12-01 13:36 | P.OP ---
Date of Procedure: 12/01/16 Preoperative Diagnosis: Hematoma right hip Postoperative Diagnosis: Seromoma right hip Procedure(s) Performed: Incision and drainage of superficial seroma right hip Anesthesia: ARACELY Surgeon: Brody Barcenas Pesticide Chemist #1: Guillermina Cagle Estimated Blood Loss (ml): 100 Pathology: other (Cultures 2) Condition: stable Disposition: PACU Indications for Procedure: This is a 61-year-old female who had a total hip arthroplasty done on 2016 she did well postoperatively, but on Sunday presented to the office with pain and swelling in her right thigh. She had mild redness and swelling around her incision site, no drainage. She was placed on Keflex and instructed to come to the emergency room if the redness increased. She presented yesterday with increased swelling and redness to her right thigh and was then admitted. After discussing the surgical and nonsurgical treatment options with her at length, I recommended an incision and drainage of her right thigh with cultures to rule out an infection. Informed consent was obtained. Operative Findings: The operative findings show a large hematoma of her right hip. Description of Procedure: Patient was seen and evaluated in the preoperative area. The consent was reviewed and her right hip was marked with a skin marker. The patient was then brought to the operating room and given a general anesthetic by the anesthesia department. The right hip was then prepped and draped in usual sterile fashion. A universal timeout was then performed, which confirmed the patient's name, ALLERGIES, surgical site, and consent. The hip was then opened using the prior incision skin and subcutaneous tissue sharply incised. A large seroma was encountered and evacuated. There was NO evidence of purulence. Cultures were then obtained. The Seroma appeared to be only superficial. The fascia was then opened overlying the hip as well. No fluid or purulence was encountered in the hip joint. Deep cultures were obtained. Next, using 3000 L of antibiotic solution, the hip was irrigated with pulsatile lavage. After thorough irrigation, a medium suction drain was placed. The fascia was then closed with 2-0 Vicryl. The skin was closed with 3 -0 Vicryl followed by jade. A sterile dressing was then applied and patient was transferred to the recovery room in stable condition. Asst. JUANCHO Vega was required due the complexity surgery the need for skilled surgical supply assistant.
[2016-12-01] MEDS ORDERED: hydrOXYzine PAMOATE 25 MG CAP PO PRN ×2 (13:51)
[2016-12-01] MEDS ORDERED: ONDANSETRON 4 MG/2 ML VIAL IVP PRN (13:51)
[2016-12-01] MEDS ORDERED: SENNOSIDES-DOCUSATE SODIUM 1 EACH TAB PO PRN (13:51)
[2016-12-01] MEDS: HYDROmorphone 1 MG/ML 1 ML SYRINGE IVP ONE ×2 (13:54→14:00)
[2016-12-01] MEDS ORDERED: LACTATED RINGERS 1,000 ML IV ONE (14:16)
[2016-12-01 14:20] VITALS: BMI 40.1
[2016-12-01] MEDS: HYDROmorphone 1 MG/ML 1 ML SYRINGE IVP PRN ×2 (16:40→20:24)
[2016-12-01] MEDS: SODIUM CHLORIDE 0.9% 1,000 ML IV SCH ×3 (16:45→23:35)
--- NOTE | 2016-12-01 18:26 | P.CONS ---
History of Present Illness - Reason for Consult Consult date: 12/01/16 - Chief Complaint Pain right hip with fever - History of Present Illness 61-year-old female who presents to hospital with increasing pain and swelling and erythema to the right anterior hip area radiating through her thigh to her buttocks. It associated with fever and chill. Increasing pain and becoming quite uncomfortable. The patient does have a history of the 2016 right total hip arthroplasty via the anterior approach. She does relate that this hip was felt a bit different than the left hip. The left apparently was done with a bit of robotic assistance through a standard lateral incision. Anterior incision was elicited full and uncomfortable after surgery. She's now developed evidence of the acute change. She was seen in the outpatient setting and given a burst of steroid and antibiotic therapy. This did not allow improvement, actually had significant worsening and She Is Now Admitted. Going to the Operating Room for Incision and Drainage to the Site. Is noted she's had some fever and chills and redness and discomfort of the site. She however is not having difficulties with the left total hip arthroplasty. And she is denying difficult such as headache, visual change, [place] mild discomforts, dysphagia, chest pains or pressures, no shortness of breath breath cough or sputum production, no nausea or emesis or diarrhea recurred. No urinary symptoms. Review of Systems HEENT:Denies headache or acute visual change. Denies sinus or mouth discomforts. Denies neck stiffness or pain. Denies significant oral cavity pain. Denies difficulty on swallowing. Lungs: Denies significant shortness of breath, cough, sputum production, or hemoptysis. Cardiovascular: Denies significant shortness of breath, chest pain, chest wall pain, orthopnea, dyspnea on exertion, syncope Gastrointestinal:Denies nausea, vomiting, diarrhea, constipation, hematemesis, melena, hematochezia. No no significant change of bowel habit noticed. Musculoskeletal: As per the HPI Skin: As per the HPI Neuro: Denies headache or visual change. Denies any new onset weakness or difficulty with ambulation. Denies falls or seizures. Psychiatric:Denies anxiety or depression. Endocrine: Denies significant fatigue, denies significant weight loss or weight gain. Past Medical History Past Medical History: Asthma, GERD/Reflux, Hyperlipidemia, Hypertension, Osteoarthritis (OA) Additional Past Medical History / Comment(s): hx palpitations, reactive airway disease, hx pancreatitis, History of Any Multi-Drug Resistant Organisms: None Reported Past Surgical History: Section, Cholecystectomy, Hernia Repair, Joint Replacement Additional Past Surgical History / Comment(s): total left hip replacement December 2011, Right Hip replacement October 2016 Past Anesthesia/Blood Transfusion Reactions: Family History of Problems w/ Anesthesia, Postoperative Nausea & Vomiting (PONV) Additional Past Anesthesia/Blood Transfusion Reaction / Comm: dad-had CVA during back surgery , sister-PONV Past Psychological History: Anxiety Additional Psychological History / Comment(s): for 10 years. Continues to work for a [employer]. No tobacco use. No recreational drug use. No international travel. No animal exposures. Does have exposure to her 2 grandchildren. Smoking Status: Never smoker Past Alcohol Use History: Rare Past Drug Use History: None Reported - Past Family History Brother(s) Family Medical History: Cancer Medications and Allergies Home Medications and Allergies Comment(s): Current Medications Hydrocodone Bitart/Acetaminophen ([place] 7.5-325) 2 each PO Q6H PRN PRN Reason: Pain Scale 6 to 10 Hydrocodone Bitart/Acetaminophen ([place] 7.5-325) 1 each PO Q6H PRN PRN Reason: Pain Scale 1 to 5 Albuterol Sulfate (Ventolin Nebulized) 2.5 mg INHALATION RT-Q6H PRN PRN Reason: Shortness Of Breath Alprazolam (Xanax) 0.5 mg PO BID PRN PRN Reason: Anxiety Aspirin (Aspirin) 325 mg PO BID [facility] Cholecalciferol (Vitamin D3) 2,000 unit PO DAILY [facility] Enoxaparin Sodium (Lovenox) 40 mg SQ DAILY [facility] Lisinopril/HCTZ (Zestoretic 10-12.5) 1 each PO DAILY [facility] Last Admin: 12/01/16 10:00 Dose: Not Given Hydromorphone HCl (Dilaudid) 0.25 mg IVP Q3HR PRN PRN Reason: Pain Scale 1 to 3 Hydromorphone HCl (Dilaudid) 0.5 mg IVP Q3HR PRN PRN Reason: Pain Scale 4 to 6 Hydromorphone HCl (Dilaudid) 1 mg IVP Q3HR PRN PRN Reason: Pain Scale 7 to 10 Last Admin: 12/01/16 16:40 Dose: 1 mg Hydroxyzine Pamoate (Vistaril) 50 mg PO Q6HR PRN PRN Reason: Moderate Nausea/Anxiety Hydroxyzine Pamoate (Vistaril) 25 mg PO Q6HR PRN PRN Reason: Mild Nausea/Anxiety Sodium Chloride (Saline 0.9%) 1,000 mls @ 125 mls/hr IV .Q8H [facility] Last Admin: 12/01/16 16:45 Dose: Not Given Vancomycin HCl 1,750 mg/ (Sodium Chloride) 250 mls @ 125 mls/hr IVPB Q16H [facility] Naloxone HCl (Narcan) 0.2 mg IV Q2M PRN PRN Reason: Opioid Reversal Ondansetron HCl (Zofran) 4 mg IVP DAILY PRN PRN Reason: Nausea And Vomiting Pantoprazole Sodium (Protonix) 40 mg PO AC-BRKFST HEMA Senna/Docusate Sodium (Senokot-S) 2 each PO HS PRN PRN Reason: Constipation Home Medications Medication Instructions Recorded Confirmed Type ALPRAZolam [Xanax] 0.25 - 0.5 mg PO BID PRN 10/16/16 11/30/16 History Albuterol Sulfate [Proair Hfa] 2 puff INHALATION RT-Q6H PRN 10/16/16 11/30/16 History Cholecalciferol [Vitamin D3] 2,000 unit PO DAILY 10/16/16 11/30/16 History Lisinopril-Hctz 10-12.5 mg 1 tab PO DAILY 10/16/16 11/30/16 History [Zestoretic 10-12.5] Cephalexin [Keflex] 500 mg PO QID 11/30/16 11/30/16 History HYDROcodone/APAP 7.5-325MG [[place] 1 tab PO Q4-6H PRN 11/30/16 11/30/16 History 7.5] predniSONE See Taper PO DAILY 11/30/16 11/30/16 History Allergies Allergy/AdvReac Type Severity Reaction Status Date / Time morphine Allergy Severe turn red, Verified 11/30/16 23:22 skin peels, SOB, feels like burning inside adhesive tape Allergy red welts, Verified 11/30/16 23:22 fitzgerald meperidine [From Demerol] Allergy headaches Verified 11/30/16 23:22 Physical Exam Vitals: Vital Signs Temp Pulse Pulse Pulse Pulse Pulse Resp 12/01/16 15:20 72 12/01/16 15:00 70 12/01/16 14:19 73 16 12/01/16 14:05 71 16 12/01/16 13:50 97.8 F 77 20 12/01/16 12:42 98.2 F 78 16 12/01/16 07:00 97.6 F 74 18 12/01/16 03:18 97.9 F 69 16 12/01/16 02:11 97.3 F L 72 18 BP BP BP Pulse Ox 12/01/16 15:20 115/62 12/01/16 15:00 116/82 96 12/01/16 14:19 140/64 97 12/01/16 14:05 127/60 97 12/01/16 13:50 127/60 97 12/01/16 12:42 144/63 94 L 12/01/16 07:00 126/70 97 12/01/16 03:18 111/63 95 12/01/16 02:11 127/60 98 Intake and Output 12/01/16 12/01/16 12/01/16 06:59 14:59 22:59 Intake Total 1451 Output Total 100 Balance 1351 Intake: IV 1451 Sodium Chloride 0.9% 1, 1200 000 ml @ 125 mls/hr IV . Q8H [facility] Rx#:[id number] Output: Estimated Blood Loss 100 Other: Voiding Method Toilet # Voids 1 4 Weight 106 kg 106 kg Patient Weight 12/02/16 06:59 Weight 106 kg Pleasant 61-year-old woman who does have obesity, is uncomfortable because of her hip but does not appear to be acutely ill HEENT: Anicteric conjunctiva are pink and moist nasal mucosa grossly intact without significant lesions, there is no thrush. Neck: The neck is supple without significant lymphadenopathy or thyromegaly. Lungs: Good bilateral air entry without significant crackles or wheezing. There is no significant bronchial sounds. There is no egophony or dullness. Heart: Regular rate and rhythm with an audible S1-S2, no S3 no S4. There is no significant murmur click or rub, PMI was nondisplaced. Abdomen: Obese, Positive bowel sounds soft and nontender without palpable masses or organomegaly. There was no guarding or rebound. Extremities: The upper extremities have excellent pulses they are symmetric, no significant petechiae or telangiectasia. No splinter hemorrhages were noted. The left lower extremity shows the well healed incision from her prior left total hip arthroplasty. Evidence of any inflammation or tenderness at the site. Right leg shows evidence of the prior right total hip arthroplasty. Surgical incision is well-healed. There is some surrounding erythema but does track laterally. It is warm and tender to touch. She has minimal tenderness to range of motion to the leg. [place] is only minimally tender. There are no open lesions or blisters. Neuro: Awake alert oriented to person place and time. There are no acute new gross focal sensory motor deficits. Results CBC & Chem 7: 11/30/16 23:45 11/30/16 23:45 Labs: Laboratory Results WBC 22.6 k/uL (3.8-10.6) H 11/30/16 23:45 RBC 4.36 m/uL (3.80-5.40) 11/30/16 23:45 Hgb 11.9 gm/dL (11.4-16.0) 11/30/16 23:45 Hct 38.0 % (34.0-46.0) 11/30/16 23:45 MCV 87.0 fL (80.0-100.0) 11/30/16 23:45 MCH 27.3 pg (25.0-35.0) 11/30/16 23:45 MCHC 31.4 g/dL (31.0-37.0) 11/30/16 23:45 RDW 13.4 % (11.5-15.5) 11/30/16 23:45 Plt Count 574 k/uL (150-450) H 11/30/16 23:45 Neutrophils % 81 % 11/30/16 23:45 Lymphocytes % 13 % 11/30/16 23:45 Monocytes % 5 % 11/30/16 23:45 Eosinophils % 0 % 11/30/16 23:45 Basophils % 0 % 11/30/16 23:45 Neutrophils # 18.2 k/uL (1.3-7.7) H 11/30/16 23:45 Lymphocytes # 2.9 k/uL (1.0-4.8) 11/30/16 23:45 Monocytes # 1.0 k/uL (0-1.0) 11/30/16 23:45 Eosinophils # 0.1 k/uL (0-0.7) 11/30/16 23:45 Basophils # 0.0 k/uL (0-0.2) 11/30/16 23:45 Hypochromasia Slight 11/30/16 23:45 ESR 80 mm/hr (0-20) H 11/30/16 23:45 PT 9.8 sec (9.0-12.0) 11/30/16 23:45 INR 1.0 (<1.1) 11/30/16 23:45 APTT 22.9 sec (22.0-30.0) 11/30/16 23:45 Sodium 144 mmol/L (137-145) 11/30/16 23:45 Potassium 4.2 mmol/L (3.5-5.1) 11/30/16 23:45 Chloride 104 mmol/L (98-107) 11/30/16 23:45 Carbon Dioxide 26 mmol/L (22-30) 11/30/16 23:45 Anion Gap 14 mmol/L 11/30/16 23:45 BUN 30 mg/dL (7-17) H 11/30/16 23:45 Creatinine 1.20 mg/dL (0.52-1.04) H 11/30/16 23:45 Est GFR (MDRD) Af Amer 56 (>60 ml/min/1.73 sqM) 11/30/16 23:45 Est GFR (MDRD) Non-Af 46 (>60 ml/min/1.73 sqM) 11/30/16 23:45 Glucose 127 mg/dL (74-99) H 11/30/16 23:45 Plasma Lactic Acid [place]iel 1.4 mmol/L (0.7-2.0) 11/30/16 23:45 Calcium 10.3 mg/dL (8.4-10.2) H 11/30/16 23:45 Magnesium 2.0 mg/dL (1.6-2.3) 11/30/16 23:45 Total Bilirubin 0.4 mg/dL (0.2-1.3) 11/30/16 23:45 AST 14 U/L (14-36) 11/30/16 23:45 ALT 23 U/L (9-52) 11/30/16 23:45 Alkaline Phosphatase 105 U/L (38-126) 11/30/16 23:45 C-Reactive Protein 79.3 mg/L (<10.0) H 11/30/16 23:45 Total Protein 7.6 g/dL (6.3-8.2) 11/30/16 23:45 Albumin 4.2 g/dL (3.5-5.0) 11/30/16 23:45 Urine Color Yellow 11/30/16 23:55 Urine Appearance Cloudy (Clear) H 11/30/16 23:55 Urine pH 5.5 (5.0-8.0) 11/30/16 23:55 Ur Specific [place] 1.030 (1.001-1.035) 11/30/16 23:55 Urine Protein 1+ (Negative) H 11/30/16 23:55 Urine Glucose (UA) Negative (Negative) 11/30/16 23:55 Urine Ketones Negative (Negative) 11/30/16 23:55 Urine Blood Negative (Negative) 11/30/16 23:55 Urine Nitrite Negative (Negative) 11/30/16 23:55 Urine Bilirubin Negative (Negative) 11/30/16 23:55 Urine Urobilinogen 2.0 mg/dL (<2.0) 11/30/16 23:55 Ur Leukocyte Esterase Negative (Negative) 11/30/16 23:55 Urine RBC 2 /hpf (0-5) 11/30/16 23:55 Urine WBC 2 /hpf (0-5) 11/30/16 23:55 Ur Squamous Epith Cells 9 /hpf (0-4) H 11/30/16 23:55 Urine Bacteria Occasional /hpf (None) H 11/30/16 23:55 Hyaline Casts 36 /lpf (0-2) H 11/30/16 23:55 Urine Mucus Occasional /hpf (None) H 11/30/16 23:55 Microbiology 11/30/16 23:55 Urine,Voided Urine Culture - Preliminary Assessment and Plan (1) Status post right hip replacement Status: Acute (2) Cellulitis of right hip Narrative/Plan: Pleasant 61 year old female presents to emergency center with complaints of significant pain and discomfort to her right hip. It has markedly increased over time despite a course of antibiotic and steroid therapy. She's having increasing erythema and discomfort and constantly has been admitted for further intervention. She'll go to the operative today for an incision and drainage in for evaluation to the site. Imaging study reveals evidence of a more superficial process. We discussed the possibility of some fat necrosis into her somewhat generous fat layer as a potential etiology. Seroma, abscess or deeper infection are all possibilities. She however is without significant fever here in hospital. She does have leukocytosis however she also did get a burst of steroid therapy before admission. Given the high risk at this time for a deep infection antibiotic therapy with vancomycin is being utilized for now until there is further data. Cultures will be followed CBC will be followed Pain control appears to be adequate with addition of some Dilaudid which she is tolerated in the past but not morphine Protein supplementation as indicated and we will monitor. Status: Acute
[2016-12-01] MEDS: ENOXAPARIN 40 MG/0.4 ML SYRINGE SQ SCH (20:26)
[2016-12-01] MEDS: PANTOPRAZOLE 40 MG TABLET PO SCH (20:26)
[2016-12-01] MEDS: ASPIRIN 325 MG TAB PO SCH (20:44)
[2016-12-01] MEDS: VANCOMYCIN 1,750 MG in SODIUM CHLORIDE 0.9% 250 ML IVPB SCH (21:38)
[2016-12-02] MEDS ORDERED: HYDROmorphone 1 MG/ML 1 ML SYRINGE ONE (02:40)
[2016-12-02] MEDS: PANTOPRAZOLE 40 MG TABLET PO SCH (07:43)
[2016-12-02] MEDS: HYDROmorphone 1 MG/ML 1 ML SYRINGE IVP PRN ×3 (07:43→23:18)
[2016-12-02] MEDS: LISINOPRIL-HCTZ 10-12.5 MG 1 EACH TAB PO SCH (07:44)
[2016-12-02] MEDS: ENOXAPARIN 40 MG/0.4 ML SYRINGE SQ SCH (07:44)
[2016-12-02] MEDS: CHOLECALCIFEROL 1,000 UNIT TAB PO SCH (07:44)
[2016-12-02] MEDS: ASPIRIN 325 MG TAB PO SCH ×2 (07:44→20:11)
[2016-12-02 08:19] LABS: Basophils # (A) 0.1 k/uL (0-0.2); Basophils % (A) 1 %; CH 27.1; CHCM 30.6; Eosinophils # (A) 0.1 k/uL (0-0.7); Eosinophils % (A) 1 %; HCT 30.8 % (34.0-46.0); HDW 2.79; Hypochromasia Moderate; Luc # (Auto) 0.22; Luc % (Auto) 2; Lymphocytes # (A) 3.1 k/uL (1.0-4.8); Lymphocytes % (A) 25 %; MCH 27.5 pg (25.0-35.0); MCV 88.8 fL (80.0-100.0); Mean Platelet Volume 8.5; Monocytes # (A) 0.5 k/uL (0-1.0); Monocytes % (A) 4 %; Neutrophils # (A) 8.3 k/uL (1.3-7.7); Neutrophils % (A) 68 %; RBC 3.47 m/uL (3.80-5.40); RDW 13.5 % (11.5-15.5); WBC 12.4 k/uL (3.8-10.6); WBC (Perox) 12.96
--- NOTE | 2016-12-02 08:28 | HP ---
DATE OF ADMISSION: 12/01/2016 PRESENTING COMPLAINT: Infected right hip incision. HISTORY OF PRESENTING COMPLAINT: This is a 61-year-old patient of Dr. White, who underwent on 10/17/[address] Barcenas right total hip arthroplasty with a direct anterior approach. Patient had some swelling post surgery, which was felt to be normal. The patient in the last 3 to 4 days started having increasing swelling, redness of the area, went and saw Dr. Barcenas. He put her on Keflex and prednisone and Lasix three to four days continued to worse. The patient started developing chills, fever and decided to come in. Patient is taken to the OR today by Dr. Barcenas and I&D of seroma was carried out. Patient has a drain in place. Patient's chronic stable medical conditions include asthma, GERD, hyperlipidemia, hypertension, osteoarthritis. REVIEW OF SYSTEMS: CONSTITUTIONAL: Tired. HEENT: None. RESPIRATORY: None. CARDIOVASCULAR: None. GASTROINTESTINAL: Heartburn. GENITOURINARY: None. MUSCULOSKELETAL: Aches and pains in the joints. DERMATOLOGICAL: Redness of the right hip incision joints. PSYCHIATRY: None. NEUROLOGICAL: None. Past medical history of asthma, GERD, hyperlipidemia, hypertension, osteoarthritis. PAST SURGICAL HISTORY: , cholecystectomy, hernia repair, left total hip replacement, right total hip replacement in October 2016. SOCIAL HISTORY: Nonsmoker, anxious, employed. FAMILY HISTORY: Cancer type unknown. HOME MEDICATIONS: 1. Prednisone taper for the last 4 days. 2. Zestoretic 10/12.5, 1 tablets p.o. daily. 3. [place] 7.5, 1 tablet q.4 p.r.n. 4. Vitamin D3 2000 units p.o. daily. 5. Keflex 500 mg p.o. q.i.d. 6. ProAir 2 puffs q.6 p.r.n. 7. Xanax 0.25 to 0.5 mg p.o. b.i.d. p.r.n. ALLERGIES TO MORPHINE, ADHESIVE TAPE AND DEMEROL. On examination, vital signs on presentation: Temperature 98.5, pulse 101, respiration 18, blood pressure 130/60, pulse ox 96% room air. GENERAL APPEARANCE: Well built, BMI of 40.1, sitting up, tired appearing. EYES: Pupils equal. Conjunctivae normal. HEENT: Oral cavity normal. NECK: JVD not raised. Mass not palpable. RESPIRATORY: Effort normal. Lungs are clear. CARDIOVASCULAR: First and second sounds normal. No edema. ABDOMEN: Soft, nontender. Liver and spleen not palpable. LYMPHATIC: No lymph node palpable in neck or axillae. PSYCHIATRY: Alert and oriented x3. Mood and affect normal. EXTREMITIES: Patient has a dressing over the right lateral hip with Hemovac drain in place. INVESTIGATIONS: White count 22.6, hemoglobin 11.9, platelets 574. Potassium 4.2. BUN 30, creatinine 1.2. ASSESSMENT: 1. Infected right hip incision site with cellulitis. Underlying seroma has been removed with incision and drainage and has a drain in place. 2. Morbid obesity, body mass index 40.1. 3. Mild intermittent asthma. 4. Gastroesophageal reflux disease. 5. Hyperlipidemia. 6. Essential hypertension. 7. Primary osteoarthritis of multiple joints, bilateral. PLAN: Patient is currently on vancomycin. Home medications are resumed. Care was discussed with the patient. Consultation was made to Dr. Barcenas from orthopedics and Dr. Cartagena from ID. Questions were answered. Will give DVT prophylaxis.
[2016-12-02 08:32] LABS: HGB 9.5 gm/dL (11.4-16.0)
[2016-12-02 08:39] LABS: Anion Gap 11 mmol/L; Blood Urea Nitrogen 22 mg/dL (7-17); Calcium 8.7 mg/dL (8.4-10.2); Carbon Dioxide 22 mmol/L (22-30); Chloride 107 mmol/L (98-107); Glucose 133 mg/dL (74-99); Magnesium 1.9 mg/dL (1.6-2.3); Non-African American GFR(MDRD) >60 (>60 ml/min/1.73 sqM); Potassium 4.3 mmol/L (3.5-5.1); Sodium 140 mmol/L (137-145)
[2016-12-02] MEDS: SODIUM CHLORIDE 0.9% 1,000 ML IV SCH ×3 (08:41→17:49)
--- NOTE | 2016-12-02 11:33 | P.PN ---
Progress Note - Text Patient is a very pleasant 61-year-old female who is seen and examined at bedside for follow-up evaluation after undergoing incision and drainage of superficial seroma of the right hip performed by Dr. Brody Barcenas yesterday, 12/02/2016. Postoperatively, patient is having some discomfort at the surgical site but states her pain has been well-controlled. She's been taking Dilaudid as prescribed as needed for relief of her symptoms. She's been able to ambulate without significant difficulty. Her dressing has remained clean, dry, and intact. A drain at the surgical site remains intact as well. She continues to be followed by Dr. Cartagena in infectious disease and Dr. Busby in medicine. She has no new complaints this morning. Physical Exam Total Hip Arthroplasty: Status post surgical day number 1 Patient is examined sitting at the bedside Patient is awake and alert, and oriented 3 Vital signs stable Good chest excursion with deep inspiration and expiration Abdomen soft nontender No signs or symptoms of DVT; no calf pain Dressing of the right hip is clean, dry, and intact; no erythema, purulence, or signs of infection Drain intact at the right hip incision site Full range of motion of ankles bilaterally Dorsiflexion, plantarflexion, and extensor hallucis longus positive sustained bilaterally Neurovascularly intact bilateral lower extremities Capillary refill less than 2 seconds bilateral lower extremities Assessment: Status post day 1 incision and drainage of right hip seroma Status post right hip total arthroplasty performed on 10/17/2016 Plan: 1. Patient to continue to be weight-bear as tolerated on the lower extremity; patient may work with physical therapy to increase mobility and ambulation 2. Continue pain control 3. We will plan to keep her drain intact over the weekend 4. Dr. Busby in Medicine to continue following the patient for their other medical issues 5. Dr. Cartagena in infectious disease to continue following the patient 6. We'll continue to follow the patient 7. Patient will most likely remain in the hospital over the weekend with plans to discharge to home as early as this coming Sunday 8. Patient can follow-up with Dr. Brody Barcenas at [facility] following discharge
[2016-12-02] MEDS: HYDROcodone/APAP 7.5-325MG 1 EACH TAB PO PRN (13:14)
[2016-12-02] MEDS: VANCOMYCIN 1,750 MG in SODIUM CHLORIDE 0.9% 250 ML IVPB SCH (14:06)
--- NOTE | 2016-12-02 19:47 | PN ---
DATE OF SERVICE: 12/02/2016 PRESENTING COMPLAINT: Infected right hip incision. INTERVAL HISTORY: Patient is status post infected right hip incision. Some amount was drained. Hemovac remains in place. Some pain is present. The patient out of bed. No fever. Tolerating a diet. Review of systems done for constitutional, cardiovascular, GI, pulmonary; relevant findings as above. Current medications include IV vancomycin. On examination, temperature 98.3, pulse 80, respiration 16, blood pressure 100/50, pulse ox 97% on room air. GENERAL APPEARANCE: Sitting up, comfortable. Eyes: Pupils equal. Conjunctivae normal. NECK: JVD not raised. Mass not palpable. RESPIRATORY: Effort normal. LUNGS: Clear. CARDIOVASCULAR: First and second sounds normal. No edema. ABDOMEN: Soft, nontender. Liver and spleen not palpable. EXTREMITIES: Dressing over the right hip incision with Hemovac drain in place. INVESTIGATIONS: White count 12.4, hemoglobin 9.5, potassium 4.3, BUN 22, creatinine 0.91. Blood cultures negative. Wound cultures pending. ASSESSMENT: 1. Infected right hip incision site with cellulitis ( ) amount that was drained. Hemovac in place. Cultures are pending. 2. Morbid obesity, body mass index of 40.1. 3. Mild intermittent asthma. 4. Gastroesophageal reflux disease. 5. Hyperlipidemia. 6. Essential hypertension. 7. Primary osteoarthritis multiple joints, bilateral. PLAN: Care was discussed with the patient. Await culture results. In the meantime, continue current medication and treatment plan.
[2016-12-03] MEDS: HYDROmorphone 1 MG/ML 1 ML SYRINGE IVP PRN (04:02)
[2016-12-03] MEDS: VANCOMYCIN 1,750 MG in SODIUM CHLORIDE 0.9% 250 ML IVPB SCH ×2 (05:35→22:26)
[2016-12-03] MEDS: ASPIRIN 325 MG TAB PO SCH ×2 (07:55→20:41)
[2016-12-03] MEDS: PANTOPRAZOLE 40 MG TABLET PO SCH (07:55)
[2016-12-03] MEDS: LISINOPRIL-HCTZ 10-12.5 MG 1 EACH TAB PO SCH (07:55)
[2016-12-03] MEDS: ENOXAPARIN 40 MG/0.4 ML SYRINGE SQ SCH (07:56)
[2016-12-03] MEDS: SODIUM CHLORIDE 0.9% 1,000 ML IV SCH ×3 (08:22→19:15)
[2016-12-03] MEDS: CHOLECALCIFEROL 1,000 UNIT TAB PO SCH (09:01)
[2016-12-03] MEDS: HYDROcodone/APAP 7.5-325MG 1 EACH TAB PO PRN ×2 (09:42→19:15)
--- NOTE | 2016-12-03 11:30 | P.PN ---
Progress Note - Text Patient is a very pleasant 61-year-old female who is seen and examined at bedside for follow-up evaluation after undergoing incision and drainage of superficial seroma of the right hip performed by Dr. Brody Barcenas Sunday, . Postoperatively, patient continues to have some discomfort at the surgical site but states her pain has been well-controlled with Dilaudid IV. Pain was attempted to be controlled with oral medications but was not providing adequate relief of her symptoms. She's been able to ambulate without significant difficulty. Her dressing has remained clean, dry, and intact. Drain at the surgical site was accidentally removed yesterday while the patient was ambulating. She continues to be followed by Dr. Cartagena in infectious disease and Dr. Busby in medicine. She has no new complaints this morning. She continues to receive IV vancomycin as prescribed. Physical Exam S/P Total Hip Arthroplasty with incision and drainage of seroma: Status post surgical day number 1 Patient is examined sitting at the bedside Patient is awake and alert, and oriented 3 Vital signs stable Good chest excursion with deep inspiration and expiration Abdomen soft nontender No signs or symptoms of DVT; no calf pain Dressing of the right hip is clean, dry, and intact; no erythema, purulence, or signs of infection [place] intact over the incision and the right hip with no active drainage; no evidence of significant erythema, purulence, or drainage; no obvious sign of infection. Drain previously removed at the right hip incision site Full range of motion of ankles bilaterally Dorsiflexion, plantarflexion, and extensor hallucis longus positive sustained bilaterally Neurovascularly intact bilateral lower extremities Capillary refill less than 2 seconds bilateral lower extremities Pertinent studies: Anaerobic culture: Preliminary results show no growth after 24 hours Gram stain: Preliminary results show rare polymorphonuclear leukocytes, rare gram-positive cocci, and rare gram-negative bacilli Blood culture: No growth after 48 hours Assessment: Status post day 2 incision and drainage of right hip seroma Status post right hip total arthroplasty performed on 10/17/2016 Plan: 1. Patient to continue to be weight-bear as tolerated on the lower extremity; patient may work with physical therapy to increase mobility and ambulation 2. Continue pain control; patient currently needing Dilaudid IV for pain control 3. Dr. Busby in Medicine to continue following the patient for their other medical issues 4. Dr. Cartagena in infectious disease to continue following the patient; patient will continue vancomycin IV per recommendations 5. We'll continue to follow the patient 6. Patient will most likely remain in the hospital over the weekend with plans to discharge to home as early as this coming Sunday 7. Patient can follow-up with Dr. Brody Barcenas at [facility] following discharge
[2016-12-03] MEDS ORDERED: LACTULOSE 20 GM/30 ML CUP PO ONE (15:05)
--- NOTE | 2016-12-03 17:54 | P.PN ---
Subjective Principal diagnosis: Pain right hip with fever 61-year-old female who presents to hospital with increasing pain and swelling and erythema to the right anterior hip area radiating through her thigh to her buttocks. It associated with fever and chill. Increasing pain and becoming quite uncomfortable. The patient does have a history of the 2016 right total hip arthroplasty via the anterior approach. She does relate that this hip was felt a bit different than the left hip. The left apparently was done with a bit of robotic assistance through a standard lateral incision. Anterior incision was elicited full and uncomfortable after surgery. She's now developed evidence of the acute change. She was seen in the outpatient setting and given a burst of steroid and antibiotic therapy. This did not allow improvement, actually had significant worsening and She Is Now Admitted. Going to the Operating Room for Incision and Drainage to the Site. Is noted she's had some fever and chills and redness and discomfort of the site. She however is not having difficulties with the left total hip arthroplasty. And she is denying difficult such as headache, visual change, Salazar mild discomforts, dysphagia, chest pains or pressures, no shortness of breath breath cough or sputum production, no nausea or emesis or diarrhea recurred. No urinary symptoms. Was taken to the operating room for incision and drainage of the site. Fortunately a seroma was found. No evidence of any gross purulence was found. No evidence of any involvement down to the hip joint. Patient is now doing somewhat better. The pain and swelling to the thigh is improved. She's having no fever, chills or rigors. Objective - Vital Signs Vital signs: Vital Signs Temp 96.5 F L 12/03/16 15:34 Pulse 87 12/03/16 15:34 Resp 16 12/03/16 15:34 BP 140/62 12/03/16 15:34 Pulse Ox 94 L 12/03/16 15:34 Intake & Output 12/02/16 12/03/16 12/03/16 18:59 06:59 18:59 Intake Total 500 Output Total 90 Balance -90 500 Intake: Oral 500 Output: Drainage 90 Right Hip 90 Other: Voiding Method Toilet Toilet # Voids 1 1 3 - Exam Pleasant 61-year-old woman who does have obesity, is uncomfortable because of her hip but does not appear to be acutely ill HEENT: Anicteric conjunctiva are pink and moist nasal mucosa grossly intact without significant lesions, there is no thrush. Neck: The neck is supple without significant lymphadenopathy or thyromegaly. Lungs: Good bilateral air entry without significant crackles or wheezing. There is no significant bronchial sounds. There is no egophony or dullness. Heart: Regular rate and rhythm with an audible S1-S2, no S3 no S4. There is no significant murmur click or rub, PMI was nondisplaced. Abdomen: Obese, Positive bowel sounds soft and nontender without palpable masses or organomegaly. There was no guarding or rebound. Extremities: The upper extremities have excellent pulses they are symmetric, no significant petechiae or telangiectasia. No splinter hemorrhages were noted. The left lower extremity shows the well healed incision from her prior left total hip arthroplasty. Evidence of any inflammation or tenderness at the site. Right leg shows evidence of the recent surgical incision and drainage. The MECHELLE drain has fallen out. The firmness to the thighs improved. The warmth and erythema and tenderness of also improved Neuro: Awake alert oriented to person place and time. There are no acute new gross focal sensory motor deficits. - Labs CBC & Chem 7: 12/02/16 07:42 12/02/16 07:42 Labs: Microbiology - Last 24 Hours (Table) 12/01/16 13:25 Gram Stain - Preliminary Hip - Right Wound Culture - Preliminary 12/01/16 13:25 Anaerobic Culture - Preliminary Hip - Right 12/01/16 13:25 Gram Stain - Preliminary Hip - Right Wound Culture - Preliminary Laboratory Results WBC 12.4 k/uL (3.8-10.6) H 12/02/16 07:42 RBC 3.47 m/uL (3.80-5.40) L 12/02/16 07:42 Hgb 9.5 gm/dL (11.4-16.0) L D 12/02/16 07:42 Hct 30.8 % (34.0-46.0) L 12/02/16 07:42 MCV 88.8 fL (80.0-100.0) 12/02/16 07:42 MCH 27.5 pg (25.0-35.0) 12/02/16 07:42 MCHC 31.0 g/dL (31.0-37.0) 12/02/16 07:42 RDW 13.5 % (11.5-15.5) 12/02/16 07:42 Plt Count 448 k/uL (150-450) 12/02/16 07:42 Neutrophils % 68 % 12/02/16 07:42 Lymphocytes % 25 % 12/02/16 07:42 Monocytes % 4 % 12/02/16 07:42 Eosinophils % 1 % 12/02/16 07:42 Basophils % 1 % 12/02/16 07:42 Neutrophils # 8.3 k/uL (1.3-7.7) H 12/02/16 07:42 Lymphocytes # 3.1 k/uL (1.0-4.8) 12/02/16 07:42 Monocytes # 0.5 k/uL (0-1.0) 12/02/16 07:42 Eosinophils # 0.1 k/uL (0-0.7) 12/02/16 07:42 Basophils # 0.1 k/uL (0-0.2) 12/02/16 07:42 Hypochromasia Moderate 12/02/16 07:42 ESR 80 mm/hr (0-20) H 11/30/16 23:45 PT 9.8 sec (9.0-12.0) 11/30/16 23:45 INR 1.0 (<1.1) 11/30/16 23:45 APTT 22.9 sec (22.0-30.0) 11/30/16 23:45 Sodium 140 mmol/L (137-145) 12/02/16 07:42 Potassium 4.3 mmol/L (3.5-5.1) 12/02/16 07:42 Chloride 107 mmol/L (98-107) 12/02/16 07:42 Carbon Dioxide 22 mmol/L (22-30) 12/02/16 07:42 Anion Gap 11 mmol/L 12/02/16 07:42 BUN 22 mg/dL (7-17) H 12/02/16 07:42 Creatinine 0.91 mg/dL (0.52-1.04) 12/02/16 07:42 Est GFR (MDRD) Af Amer >60 (>60 ml/min/1.73 sqM) 12/02/16 07:42 Est GFR (MDRD) Non-Af >60 (>60 ml/min/1.73 sqM) 12/02/16 07:42 Glucose 133 mg/dL (74-99) H 12/02/16 07:42 Plasma Lactic Acid [place]iel 1.4 mmol/L (0.7-2.0) 11/30/16 23:45 Calcium 8.7 mg/dL (8.4-10.2) 12/02/16 07:42 Magnesium 1.9 mg/dL (1.6-2.3) 12/02/16 07:42 Total Bilirubin 0.4 mg/dL (0.2-1.3) 11/30/16 23:45 AST 14 U/L (14-36) 11/30/16 23:45 ALT 23 U/L (9-52) 11/30/16 23:45 Alkaline Phosphatase 105 U/L (38-126) 11/30/16 23:45 C-Reactive Protein 79.3 mg/L (<10.0) H 11/30/16 23:45 Total Protein 7.6 g/dL (6.3-8.2) 11/30/16 23:45 Albumin 4.2 g/dL (3.5-5.0) 11/30/16 23:45 Urine Color Yellow 11/30/16 23:55 Urine Appearance Cloudy (Clear) H 11/30/16 23:55 Urine pH 5.5 (5.0-8.0) 11/30/16 23:55 Ur Specific [employer] 1.030 (1.001-1.035) 11/30/16 23:55 Urine Protein 1+ (Negative) H 11/30/16 23:55 Urine Glucose (UA) Negative (Negative) 11/30/16 23:55 Urine Ketones Negative (Negative) 11/30/16 23:55 Urine Blood Negative (Negative) 11/30/16 23:55 Urine Nitrite Negative (Negative) 11/30/16 23:55 Urine Bilirubin Negative (Negative) 11/30/16 23:55 Urine Urobilinogen 2.0 mg/dL (<2.0) 11/30/16 23:55 Ur Leukocyte Esterase Negative (Negative) 11/30/16 23:55 Urine RBC 2 /hpf (0-5) 11/30/16 23:55 Urine WBC 2 /hpf (0-5) 11/30/16 23:55 Ur Squamous Epith Cells 9 /hpf (0-4) H 11/30/16 23:55 Urine Bacteria Occasional /hpf (None) H 11/30/16 23:55 Hyaline Casts 36 /lpf (0-2) H 11/30/16 23:55 Urine Mucus Occasional /hpf (None) H 11/30/16 23:55 Microbiology 12/01/16 13:25 Hip - Right Gram Stain - Preliminary 12/01/16 13:25 Hip - Right Wound Culture - Preliminary 12/01/16 13:25 Hip - Right Anaerobic Culture - Preliminary 12/01/16 00:45 Blood Blood Culture - Preliminary No Growth after 48 hours 11/30/16 23:45 Blood Blood Culture - Preliminary No Growth after 48 hours 12/01/16 13:25 Hip - Right Gram Stain - Preliminary 12/01/16 13:25 Hip - Right Wound Culture - Preliminary 11/30/16 23:55 Urine,Voided Urine Culture - Final 12/01/16 13:25 Hip - Right Anaerobic Culture - Preliminary Assessment and Plan (1) Status post right hip replacement Status: Acute (2) Cellulitis of right hip Narrative/Plan: Pleasant 61 year old female presents to emergency center with complaints of significant pain and discomfort to her right hip. It has markedly increased over time despite a course of antibiotic and steroid therapy. She's having increasing erythema and discomfort and constantly has been admitted for further intervention. She'll go to the operative today for an incision and drainage in for evaluation to the site. Imaging study reveals evidence of a more superficial process. We discussed the possibility of some fat necrosis into her somewhat generous fat layer as a potential etiology. Seroma, abscess or deeper infection are all possibilities. She however is without significant fever here in hospital. She does have leukocytosis however she also did get a burst of steroid therapy before admission. Given the high risk at this time for a deep infection antibiotic therapy with vancomycin is being utilized for now until there is further data. Cultures will be followed The significant leukocytosis is improving has decreased to 12.4. She's had some anemia develop with her surgery and fluids. The significant cellulitis of the thigh is responding well to current antibiotic therapy. If cultures do remain negative with a not be planning on outpatient intravenous antibiotic therapy. Status: Acute
[2016-12-03] MEDS ORDERED: VANCOMYCIN TROUGH DUE 1 EACH MISC MISCELLANE ONE (21:00)
[2016-12-04] MEDS: HYDROcodone/APAP 7.5-325MG 1 EACH TAB PO PRN ×3 (04:29→21:09)
[2016-12-04] MEDS: PANTOPRAZOLE 40 MG TABLET PO SCH (08:27)
[2016-12-04] MEDS: LISINOPRIL-HCTZ 10-12.5 MG 1 EACH TAB PO SCH (08:28)
[2016-12-04] MEDS: CHOLECALCIFEROL 1,000 UNIT TAB PO SCH (08:28)
[2016-12-04] MEDS: ASPIRIN 325 MG TAB PO SCH ×2 (08:28→21:09)
[2016-12-04] MEDS: ENOXAPARIN 40 MG/0.4 ML SYRINGE SQ SCH (08:28)
[2016-12-04 09:40] LABS: Anion Gap 9 mmol/L; Blood Urea Nitrogen 13 mg/dL (7-17); Calcium 8.9 mg/dL (8.4-10.2); Carbon Dioxide 26 mmol/L (22-30); Chloride 108 mmol/L (98-107); Glucose 107 mg/dL (74-99); Non-African American GFR(MDRD) 59 (>60 ml/min/1.73 sqM); Potassium 4.6 mmol/L (3.5-5.1); Sodium 143 mmol/L (137-145)
--- NOTE | 2016-12-04 09:49 | PN ---
DATE OF SERVICE: 12/03/2016 PRESENTING COMPLAINT: Infected right hip incision. INTERVAL HISTORY: Patient is status post infected right hip incision and seroma was drained. Pain and swelling has gone down. Patient walking better. No fever, tolerating a diet. Patient has not had a bowel movement for four or five days. Patient sister and brother in law at the bedside. Review systems done for constitutional, cardiovascular, GI pertinent relevant findings above. Patient up to the bathroom. Current medications are reviewed and include IV vancomycin. On examination, temperature 96.5, pulse 87, respiration 16, blood pressure 140/62, pulse ox 94% on room air. GENERAL APPEARANCE: Sitting up, comfortable. EYES: Pupils equal. Conjunctivae normal. NECK: JVD not raised. Mass not palpable. RESPIRATORY: Effort normal. Lungs are clear. CARDIOVASCULAR: First and second sounds normal. No edema. ABDOMEN: Soft, nontender. Liver and spleen not palpable. EXTREMITIES: Dressing of the right hip, decreased redness and swelling. INVESTIGATIONS: No blood work from today. Blood cultures were negative. Wound cultures are coming back negative until now. ASSESSMENT: 1. Infected right hip incision site with cellulitis and seroma that was drained, clinically continues to improve. 2. Morbid obesity, body mass index 40.1. 3. Mild intermittent asthma. 4. Gastroesophageal reflux disease. 5. Hyperlipidemia. 6. Essential hypertension. 7. Primary osteoarthritis, multiple joints bilateral. PLAN: ( ) negative. Overall doing much better. Hopefully patient can be switched over to oral antibiotics as soon as there is no deep infection and also cultures are rather benign appearing. Repeat labs in the morning.
[2016-12-04 09:50] LABS: Basophils % (A) 0 %; CH 26.6; CHCM 29.9; Eosinophils # (A) 0.4 k/uL (0-0.7); Eosinophils % (A) 4 %; HCT 32.4 % (34.0-46.0); HDW 2.81; Hypochromasia Marked; Luc # (Auto) 0.11; Luc % (Auto) 1; Lymphocytes # (A) 3.8 k/uL (1.0-4.8); Lymphocytes % (A) 37 %; MCH 27.5 pg (25.0-35.0); MCHC 30.8 g/dL (31.0-37.0); Mean Platelet Volume 8.8; Monocytes # (A) 0.4 k/uL (0-1.0); Monocytes % (A) 4 %; Neutrophils # (A) 5.5 k/uL (1.3-7.7); Neutrophils % (A) 53 %; RBC 3.64 m/uL (3.80-5.40); RDW 13.3 % (11.5-15.5); WBC 10.2 k/uL (3.8-10.6); WBC (Perox) 10.63
--- NOTE | 2016-12-04 11:54 | P.PN ---
Subjective Principal diagnosis: Status post I&D right hip This is a pleasant 61-year-old female who is status post I&D of the right hip. Today's postoperative day #3. The patient was seen and evaluated at bedside with Dr. Brody Barcenas. Patient has no new complaints at this time. She's been up ambulating. Objective - Vital Signs Vital signs: Vital Signs Temp 96.6 F L 12/04/16 07:00 Pulse 82 12/04/16 07:00 Resp 19 12/04/16 08:00 BP 164/78 12/04/16 07:00 Pulse Ox 95 12/04/16 07:00 Intake & Output 12/03/16 12/04/16 12/04/16 18:59 06:59 18:59 Other: Voiding Method Toilet Toilet # Voids 3 2 # Bowel Movements 2 - Exam The patient does not appear in acute distress. She is alert and orientated 3. Breathing appears nonlabored. Dressing is clean dry and intact. She has good active range of motion at her foot and ankle. Calf is soft. Sensation and circulatory status is intact. Gram stain findings are noted. No growth is noted to date. Final cultures are pending. - Labs CBC & Chem 7: 12/04/16 08:18 12/04/16 08:18 Labs: Abnormal Lab Results - Last 24 Hours (Table) 12/04/16 12/04/16 Range/Units 08:18 08:18 RBC 3.64 L (3.80-5.40) m/uL Hgb 10.0 L (11.4-16.0) gm/dL Hct 32.4 L (34.0-46.0) % MCHC 30.8 L (31.0-37.0) g/dL Plt Count 502 H (150-450) k/uL Chloride 108 H (98-107) mmol/L Glucose 107 H (74-99) mg/dL Microbiology - Last 24 Hours (Table) 12/01/16 13:25 Gram Stain - Final Hip - Right Wound Culture - Final 12/01/16 13:25 Anaerobic Culture - Preliminary Hip - Right 12/01/16 13:25 Gram Stain - Final Hip - Right Wound Culture - Final 12/01/16 13:25 Anaerobic Culture - Preliminary Hip - Right Assessment and Plan (1) Cellulitis of right hip Status: Acute (2) Status post right hip replacement Status: Acute Plan: The patient is status post incision and drainage of the right hip. Dr. Cartagena is following the patient closely. We will await final cultures. Antibiotics on discharge will be determined by infectious disease. Continue with weightbearing as tolerated. Aspirin 325 mg twice a day.
[2016-12-04] MEDS: SODIUM CHLORIDE 0.9% 1,000 ML IV SCH ×3 (12:07→21:10)
[2016-12-04] MEDS: VANCOMYCIN 1,750 MG in SODIUM CHLORIDE 0.9% 250 ML IVPB SCH (14:39)
--- NOTE | 2016-12-04 20:29 | P.PN ---
Subjective Principal diagnosis: Pain right hip with fever 61-year-old female who presents to hospital with increasing pain and swelling and erythema to the right anterior hip area radiating through her thigh to her buttocks. It associated with fever and chill. Increasing pain and becoming quite uncomfortable. The patient does have a history of the 2016 right total hip arthroplasty via the anterior approach. She does relate that this hip was felt a bit different than the left hip. The left apparently was done with a bit of robotic assistance through a standard lateral incision. Anterior incision was elicited full and uncomfortable after surgery. She's now developed evidence of the acute change. She was seen in the outpatient setting and given a burst of steroid and antibiotic therapy. This did not allow improvement, actually had significant worsening and She Is Now Admitted. Going to the Operating Room for Incision and Drainage to the Site. Is noted she's had some fever and chills and redness and discomfort of the site. She however is not having difficulties with the left total hip arthroplasty. And she is denying difficult such as headache, visual change, Salazar mild discomforts, dysphagia, chest pains or pressures, no shortness of breath breath cough or sputum production, no nausea or emesis or diarrhea recurred. No urinary symptoms. Was taken to the operating room for incision and drainage of the site. Fortunately a seroma was found. No evidence of any gross purulence was found. No evidence of any involvement down to the hip joint. Patient is now doing somewhat better. The pain and swelling to the thigh is improved. She's having no fever, chills or rigors. Cultures remained negative. Objective - Vital Signs Vital signs: Vital Signs Temp 98.8 F 12/04/16 15:00 Pulse 78 12/04/16 15:00 Resp 19 12/04/16 15:00 BP 145/67 12/04/16 15:00 Pulse Ox 94 L 12/04/16 15:00 Intake & Output 12/04/16 12/04/16 12/05/16 06:59 18:59 06:59 Intake Total 2250 Balance 2250 Intake: IV 800 Sodium Chloride 0.9% 1, 800 000 ml @ 125 mls/hr IV . Q8H [facility] Rx#:[id number] Intake, IV Titration 250 Amount Vancomycin 1,750 mg In 250 Sodium Chloride 0.9% 250 ml @ 125 mls/hr IVPB Q16H [facility] Rx#:[id number] Oral 1200 Other: Voiding Method Toilet # Voids 2 3 # Bowel Movements 2 - Exam Pleasant 61-year-old woman who does have obesity, is uncomfortable because of her hip but does not appear to be acutely ill HEENT: Anicteric conjunctiva are pink and moist nasal mucosa grossly intact without significant lesions, there is no thrush. Neck: The neck is supple without significant lymphadenopathy or thyromegaly. Lungs: Good bilateral air entry without significant crackles or wheezing. There is no significant bronchial sounds. There is no egophony or dullness. Heart: Regular rate and rhythm with an audible S1-S2, no S3 no S4. There is no significant murmur click or rub, PMI was nondisplaced. Abdomen: Obese, Positive bowel sounds soft and nontender without palpable masses or organomegaly. There was no guarding or rebound. Extremities: The upper extremities have excellent pulses they are symmetric, no significant petechiae or telangiectasia. No splinter hemorrhages were noted. The left lower extremity shows the well healed incision from her prior left total hip arthroplasty. Evidence of any inflammation or tenderness at the site. Right leg shows evidence of the recent surgical incision and drainage. The MECHELLE drain has fallen out. The firmness to the thighs improved. The warmth and erythema and tenderness of also improved the extensive edema to the right thigh is definitely improved there is no much softer tissue turgor. Neuro: Awake alert oriented to person place and time. There are no acute new gross focal sensory motor deficits. - Labs CBC & Chem 7: 12/04/16 08:18 12/04/16 08:18 Labs: Abnormal Lab Results - Last 24 Hours (Table) 12/04/16 12/04/16 Range/Units 08:18 08:18 RBC 3.64 L (3.80-5.40) m/uL Hgb 10.0 L (11.4-16.0) gm/dL Hct 32.4 L (34.0-46.0) % MCHC 30.8 L (31.0-37.0) g/dL Plt Count 502 H (150-450) k/uL Chloride 108 H (98-107) mmol/L Glucose 107 H (74-99) mg/dL Microbiology - Last 24 Hours (Table) 12/01/16 13:25 Gram Stain - Final Hip - Right Wound Culture - Final 12/01/16 13:25 Anaerobic Culture - Preliminary Hip - Right 12/01/16 13:25 Gram Stain - Final Hip - Right Wound Culture - Final Laboratory Results WBC 10.2 k/uL (3.8-10.6) 12/04/16 08:18 RBC 3.64 m/uL (3.80-5.40) L 12/04/16 08:18 Hgb 10.0 gm/dL (11.4-16.0) L 12/04/16 08:18 Hct 32.4 % (34.0-46.0) L 12/04/16 08:18 MCV 89.0 fL (80.0-100.0) 12/04/16 08:18 MCH 27.5 pg (25.0-35.0) 12/04/16 08:18 MCHC 30.8 g/dL (31.0-37.0) L 12/04/16 08:18 RDW 13.3 % (11.5-15.5) 12/04/16 08:18 Plt Count 502 k/uL (150-450) H 12/04/16 08:18 Neutrophils % 53 % 12/04/16 08:18 Lymphocytes % 37 % 12/04/16 08:18 Monocytes % 4 % 12/04/16 08:18 Eosinophils % 4 % 12/04/16 08:18 Basophils % 0 % 12/04/16 08:18 Neutrophils # 5.5 k/uL (1.3-7.7) 12/04/16 08:18 Lymphocytes # 3.8 k/uL (1.0-4.8) 12/04/16 08:18 Monocytes # 0.4 k/uL (0-1.0) 12/04/16 08:18 Eosinophils # 0.4 k/uL (0-0.7) 12/04/16 08:18 Basophils # 0.0 k/uL (0-0.2) 12/04/16 08:18 Hypochromasia Marked 12/04/16 08:18 ESR 80 mm/hr (0-20) H 11/30/16 23:45 PT 9.8 sec (9.0-12.0) 11/30/16 23:45 INR 1.0 (<1.1) 11/30/16 23:45 APTT 22.9 sec (22.0-30.0) 11/30/16 23:45 Sodium 143 mmol/L (137-145) 12/04/16 08:18 Potassium 4.6 mmol/L (3.5-5.1) 12/04/16 08:18 Chloride 108 mmol/L (98-107) H 12/04/16 08:18 Carbon Dioxide 26 mmol/L (22-30) 12/04/16 08:18 Anion Gap 9 mmol/L 12/04/16 08:18 BUN 13 mg/dL (7-17) 12/04/16 08:18 Creatinine 0.97 mg/dL (0.52-1.04) 12/04/16 08:18 Est GFR (MDRD) Af Amer >60 (>60 ml/min/1.73 sqM) 12/04/16 08:18 Est GFR (MDRD) Non-Af 59 (>60 ml/min/1.73 sqM) 12/04/16 08:18 Glucose 107 mg/dL (74-99) H 12/04/16 08:18 Plasma Lactic Acid Zoiel 1.4 mmol/L (0.7-2.0) 11/30/16 23:45 Calcium 8.9 mg/dL (8.4-10.2) 12/04/16 08:18 Magnesium 1.9 mg/dL (1.6-2.3) 12/02/16 07:42 Total Bilirubin 0.4 mg/dL (0.2-1.3) 11/30/16 23:45 AST 14 U/L (14-36) 11/30/16 23:45 ALT 23 U/L (9-52) 11/30/16 23:45 Alkaline Phosphatase 105 U/L (38-126) 11/30/16 23:45 C-Reactive Protein 79.3 mg/L (<10.0) H 11/30/16 23:45 Total Protein 7.6 g/dL (6.3-8.2) 11/30/16 23:45 Albumin 4.2 g/dL (3.5-5.0) 11/30/16 23:45 Urine Color Yellow 11/30/16 23:55 Urine Appearance Cloudy (Clear) H 11/30/16 23:55 Urine pH 5.5 (5.0-8.0) 11/30/16 23:55 Ur Specific [place] 1.030 (1.001-1.035) 11/30/16 23:55 Urine Protein 1+ (Negative) H 11/30/16 23:55 Urine Glucose (UA) Negative (Negative) 11/30/16 23:55 Urine Ketones Negative (Negative) 11/30/16 23:55 Urine Blood Negative (Negative) 11/30/16 23:55 Urine Nitrite Negative (Negative) 11/30/16 23:55 Urine Bilirubin Negative (Negative) 11/30/16 23:55 Urine Urobilinogen 2.0 mg/dL (<2.0) 11/30/16 23:55 Ur Leukocyte Esterase Negative (Negative) 11/30/16 23:55 Urine RBC 2 /hpf (0-5) 11/30/16 23:55 Urine WBC 2 /hpf (0-5) 11/30/16 23:55 Ur Squamous Epith Cells 9 /hpf (0-4) H 11/30/16 23:55 Urine Bacteria Occasional /hpf (None) H 11/30/16 23:55 Hyaline Casts 36 /lpf (0-2) H 11/30/16 23:55 Urine Mucus Occasional /hpf (None) H 11/30/16 23:55 Vancomycin Trough 16.2 ug/mL 12/03/16 21:02 Microbiology 12/01/16 13:25 Hip - Right Gram Stain - Final 12/01/16 13:25 Hip - Right Wound Culture - Final 12/01/16 00:45 Blood Blood Culture - Preliminary No Growth after 72 hours 11/30/16 23:45 Blood Blood Culture - Preliminary No Growth after 72 hours 12/01/16 13:25 Hip - Right Anaerobic Culture - Preliminary 12/01/16 13:25 Hip - Right Gram Stain - Final 12/01/16 13:25 Hip - Right Wound Culture - Final 12/01/16 13:25 Hip - Right Anaerobic Culture - Preliminary 11/30/16 23:55 Urine,Voided Urine Culture - Final Assessment and Plan (1) Status post right hip replacement Status: Acute (2) Cellulitis of right hip Narrative/Plan: Pleasant 61 year old female presents to emergency center with complaints of significant pain and discomfort to her right hip. It has markedly increased over time despite a course of antibiotic and steroid therapy. She's having increasing erythema and discomfort and constantly has been admitted for further intervention. She'll go to the operative today for an incision and drainage in for evaluation to the site. Imaging study reveals evidence of a more superficial process. We discussed the possibility of some fat necrosis into her somewhat generous fat layer as a potential etiology. Seroma, abscess or deeper infection are all possibilities. She however is without significant fever here in hospital. She does have leukocytosis however she also did get a burst of steroid therapy before admission. Given the high risk at this time for a deep infection antibiotic therapy with vancomycin is being utilized for now until there is further data. Cultures remain negative. The significant leukocytosis is improving has decreased to 10.2. She's had some anemia develop with her surgery and fluids. The significant cellulitis of the thigh is responding well to current antibiotic therapy. If cultures do remain negative will not be planning on outpatient intravenous antibiotic therapy. Status: Acute
[2016-12-05] MEDS: VANCOMYCIN 1,750 MG in SODIUM CHLORIDE 0.9% 250 ML IVPB SCH ×2 (05:10→21:01)
[2016-12-05] MEDS: SODIUM CHLORIDE 0.9% 1,000 ML IV SCH ×3 (05:11→16:46)
--- NOTE | 2016-12-05 08:17 | P.PN ---
Subjective Principal diagnosis: Status post I&D right hip This is a pleasant 61-year-old female who is status post I&D of the right hip. Today's postoperative day #4. The patient was seen and evaluated at bedside. Patient has no new complaints at this time. She's been up ambulating. She continues to have improvement. Objective - Vital Signs Vital signs: Vital Signs Temp 97.1 F L 12/04/16 23:02 Pulse 80 12/04/16 23:02 Resp 19 12/04/16 23:02 BP 117/53 12/04/16 23:02 Pulse Ox 94 L 12/04/16 23:02 Intake & Output 12/04/16 12/05/16 12/05/16 18:59 06:59 18:59 Intake Total 2250 300 Balance 2250 300 Intake: IV 800 Sodium Chloride 0.9% 1, 800 000 ml @ 125 mls/hr IV . Q8H [facility] Rx#:[id number] Intake, IV Titration 250 Amount Vancomycin 1,750 mg In 250 Sodium Chloride 0.9% 250 ml @ 125 mls/hr IVPB Q16H [facility] Rx#:[id number] Oral 1200 300 Other: Voiding Method Toilet # Voids 3 1 - Exam The patient does not appear in acute distress. She is alert and orientated 3. Breathing appears nonlabored. Dressing is clean dry and intact. Incision looks well healing with jade intact. There is no active drainage. Erythema appears much improved since her admission. She has good active range of motion at her foot and ankle. Calf is soft. Sensation and circulatory status is intact. Gram stain findings are noted. No growth is noted to date. Final cultures are pending. - Labs CBC & Chem 7: 12/04/16 08:18 12/04/16 08:18 Labs: Abnormal Lab Results - Last 24 Hours (Table) 12/04/16 12/04/16 Range/Units 08:18 08:18 RBC 3.64 L (3.80-5.40) m/uL Hgb 10.0 L (11.4-16.0) gm/dL Hct 32.4 L (34.0-46.0) % MCHC 30.8 L (31.0-37.0) g/dL Plt Count 502 H (150-450) k/uL Chloride 108 H (98-107) mmol/L Glucose 107 H (74-99) mg/dL Microbiology - Last 24 Hours (Table) 12/01/16 13:25 Gram Stain - Final Hip - Right Wound Culture - Final Assessment and Plan (1) Cellulitis of right hip Status: Acute (2) Status post right hip replacement Status: Acute Plan: The patient is status post incision and drainage of the right hip. Dr. Cartagena is following the patient closely. We will await final cultures. Antibiotics on discharge will be determined by infectious disease. Continue with weightbearing as tolerated. Aspirin 325 mg twice a day.
[2016-12-05] MEDS: CHOLECALCIFEROL 1,000 UNIT TAB PO SCH (08:22)
[2016-12-05] MEDS: ENOXAPARIN 40 MG/0.4 ML SYRINGE SQ SCH (08:22)
[2016-12-05] MEDS: PANTOPRAZOLE 40 MG TABLET PO SCH (08:23)
[2016-12-05] MEDS: ASPIRIN 325 MG TAB PO SCH ×2 (08:23→21:02)
[2016-12-05] MEDS: LISINOPRIL-HCTZ 10-12.5 MG 1 EACH TAB PO SCH (08:23)
--- NOTE | 2016-12-05 09:57 | PN ---
DATE OF SERVICE: 12/04/2016 PRESENTING COMPLAINT: Infected right hip incision. INTERVAL HISTORY: Patient is status post infected right hip incision and seroma was drained. Patient has some drainage earlier today, though mostly blood tinged and clear. No fever. Pain is better, up to the bathroom. Review of systems done for constitutional, cardiovascular, GI, pulmonary: relevant findings as above. Current medications are reviewed that include IV vancomycin. On examination, temperature 98.8, pulse 72, respirations 19, blood pressure 145/67, pulse ox 94% on room air. GENERAL APPEARANCE: Lying in bed, comfortable. EYES: Pupils equal, conjunctivae normal. NECK: JVD not raised. Mass not palpable. Respiratory effort normal. Lungs are clear. CARDIOVASCULAR: First and second sounds normal. No edema. ABDOMEN: Soft, nontender. Liver and spleen not palpable. PSYCHIATRY: Alert and oriented x3. Mood and affect normal. INVESTIGATIONS: White count 10.2, hemoglobin 10, potassium 4.6, BUN 13, creatinine 0.97. ASSESSMENT: 1. Infected right hip incision site with cellulitis and seroma this was drained. Clinically considered improved. 2. Morbid obesity, body mass index of 40.1. 3. Moderate intermittent asthma. 4. Gastroesophageal reflux disease. 5. Hyperlipidemia. 6. Essential hypertension. 7. Primary osteoarthritis of multiple joints, bilateral. PLAN: Continue the current medication and treatment plan as cultures are again negative. Hopefully, can be sent home on oral antibiotics. Will discuss with Dr. Cartagena.
[2016-12-05] MEDS: HYDROcodone/APAP 7.5-325MG 1 EACH TAB PO PRN (15:11)
[2016-12-05] MEDS ORDERED: FUROSEMIDE 10 MG/ML 2 ML VIAL IV STA (15:36)
[2016-12-05] MEDS ORDERED: FUROSEMIDE 10 MG/ML 2 ML VIAL IV ONE (19:00)
--- NOTE | 2016-12-05 20:31 | PN ---
DATE OF SERVICE: 12/05/2016 PRESENTING COMPLAINT: Infected right hip incision. INTERVAL HISTORY: The patient is status post infected right hip incision. Seroma was drained. The patient is getting IV fluids 120 mL/h and developing edema, especially in the dependent parts. Still having some clear drainage from the incision site, some pain when she walks at the site. Review of systems of done for constitutional, cardiovascular, GI, pulmonary; relevant findings as above. Current medications are reviewed that include IV vancomycin. On physical examination, temperature 97.5, pulse 75, respirations 16, blood pressure 129/85, pulse ox 97% on room air. GENERAL APPEARANCE: Sitting up in bed, comfortable. EYES: Pupils equal. Conjunctivae normal. NECK: JVD not raised. Mass not palpable. RESPIRATORY: Effort normal. Lungs are clear. CARDIOVASCULAR: First and second sounds normal. Dependent edema is present, including the thigh area. ABDOMEN: Soft, nontender. Liver and spleen not palpable. PSYCHIATRY: Alert and oriented x3. Mood and affect were normal. INVESTIGATIONS: No blood work from today. ASSESSMENT: 1. Infected right hip incision with cellulitis and seroma. This was drained. 2. Acute fluid overload from IV fluids, including dependent edema and swelling. 3. Morbid obesity, body mass index of 40.1. 4. Moderate intermittent asthma. 5. Gastroesophageal reflux disease. 6. Hyperlipidemia. 7. Essential hypertension. 8. Primary osteoarthritis of multiple joints, bilateral. PLAN: Will cut back the IV fluids to maintain at 20 mL/h. Will give IV Lasix x2. Electrolytes in the morning. Care was discussed with the patient.
--- NOTE | 2016-12-05 22:01 | P.PN ---
Subjective Principal diagnosis: Pain right hip with fever 61-year-old female who presents to hospital with increasing pain and swelling and erythema to the right anterior hip area radiating through her thigh to her buttocks. It associated with fever and chill. Increasing pain and becoming quite uncomfortable. The patient does have a history of the 2016 right total hip arthroplasty via the anterior approach. She does relate that this hip was felt a bit different than the left hip. The left apparently was done with a bit of robotic assistance through a standard lateral incision. Anterior incision was elicited full and uncomfortable after surgery. She's now developed evidence of the acute change. She was seen in the outpatient setting and given a burst of steroid and antibiotic therapy. This did not allow improvement, actually had significant worsening and She Is Now Admitted. Going to the Operating Room for Incision and Drainage to the Site. Is noted she's had some fever and chills and redness and discomfort of the site. She however is not having difficulties with the left total hip arthroplasty. And she is denying difficult such as headache, visual change, [place] mild discomforts, dysphagia, chest pains or pressures, no shortness of breath breath cough or sputum production, no nausea or emesis or diarrhea recurred. No urinary symptoms. Was taken to the operating room for incision and drainage of the site. Fortunately a seroma was found. No evidence of any gross purulence was found. No evidence of any involvement down to the hip joint. Patient is now doing somewhat better. The pain and swelling to the thigh is improved. She's having no fever, chills or rigors. Cultures remained negative. Is having some muscle spasms to her right thigh and hip area. It limits her time tubulus up in the chair and also affects her ambulation a bit. Sitting in drainage from the hip is improved today. Objective - Vital Signs Vital signs: Vital Signs Temp 97.5 F L 12/05/16 15:00 Pulse 75 12/05/16 15:00 Resp 16 12/05/16 15:00 BP 149/85 12/05/16 15:00 Pulse Ox 97 12/05/16 15:00 Intake & Output 12/05/16 12/05/16 12/06/16 06:59 18:59 06:59 Intake Total 300 1200 Balance 300 1200 Weight 106 kg Intake: Oral 300 1200 Other: # Voids 1 3 - Exam Pleasant 61-year-old woman who does have obesity, is uncomfortable because of her hip but does not appear to be acutely ill HEENT: Anicteric conjunctiva are pink and moist nasal mucosa grossly intact without significant lesions, there is no thrush. Neck: The neck is supple without significant lymphadenopathy or thyromegaly. Lungs: Good bilateral air entry without significant crackles or wheezing. There is no significant bronchial sounds. There is no egophony or dullness. Heart: Regular rate and rhythm with an audible S1-S2, no S3 no S4. There is no significant murmur click or rub, PMI was nondisplaced. Abdomen: Obese, Positive bowel sounds soft and nontender without palpable masses or organomegaly. There was no guarding or rebound. Extremities: The upper extremities have excellent pulses they are symmetric, no significant petechiae or telangiectasia. No splinter hemorrhages were noted. The left lower extremity shows the well healed incision from her prior left total hip arthroplasty. Evidence of any inflammation or tenderness at the site. Right leg shows evidence of the recent surgical incision and drainage. The MECHELLE drain has fallen out. The firmness to the thighs improved. The warmth and erythema and tenderness of also improved the extensive edema to the right thigh is improved there is much softer tissue turgor. Dressing is removed and there is not copious amounts of drainage noting on it as they were yesterday. The site is not very tender to touch. Neuro: Awake alert oriented to person place and time. There are no acute new gross focal sensory motor deficits. - Labs CBC & Chem 7: 12/04/16 08:18 12/04/16 08:18 Labs: Microbiology - Last 24 Hours (Table) 12/01/16 13:25 Anaerobic Culture - Final Hip - Right Microbiology 12/01/16 13:25 Hip - Right Anaerobic Culture - Final 12/01/16 00:45 Blood Blood Culture - Preliminary No Growth after 96 hours 11/30/16 23:45 Blood Blood Culture - Preliminary No Growth after 96 hours 12/01/16 13:25 Hip - Right Gram Stain - Final 12/01/16 13:25 Hip - Right Wound Culture - Final 12/01/16 13:25 Hip - Right Anaerobic Culture - Preliminary 12/01/16 13:25 Hip - Right Gram Stain - Final 12/01/16 13:25 Hip - Right Wound Culture - Final 11/30/16 23:55 Urine,Voided Urine Culture - Final Assessment and Plan (1) Status post right hip replacement Status: Acute (2) Cellulitis of right hip Narrative/Plan: Pleasant 61 year old female presents to emergency center with complaints of significant pain and discomfort to her right hip. It has markedly increased over time despite a course of antibiotic and steroid therapy. She's having increasing erythema and discomfort and constantly has been admitted for further intervention. She'll go to the operative today for an incision and drainage in for evaluation to the site. Imaging study reveals evidence of a more superficial process. We discussed the possibility of some fat necrosis into her somewhat generous fat layer as a potential etiology. Seroma, abscess or deeper infection are all possibilities. She however is without significant fever here in hospital. She does have leukocytosis however she also did get a burst of steroid therapy before admission. Given the high risk at this time for a deep infection antibiotic therapy with vancomycin is being utilized for now until there is further data. Cultures remain negative. The significant leukocytosis is improving has decreased to 10.2. She's had some anemia develop with her surgery and fluids. The significant cellulitis of the thigh is responding well to current antibiotic therapy. If cultures do remain negative will not be planning on outpatient intravenous antibiotic therapy. Patient is having some difficulties with muscle spasm. Flexeril is added to hopefully improve her discomforts. Status: Acute
[2016-12-05] MEDS: CYCLOBENZAPRINE 10 MG TAB PO SCH (23:04)
[2016-12-06] MEDS: PANTOPRAZOLE 40 MG TABLET PO SCH (08:11)
[2016-12-06] MEDS: CHOLECALCIFEROL 1,000 UNIT TAB PO SCH (08:11)
[2016-12-06] MEDS: ASPIRIN 325 MG TAB PO SCH (08:11)
[2016-12-06] MEDS: LISINOPRIL-HCTZ 10-12.5 MG 1 EACH TAB PO SCH (08:11)
[2016-12-06] MEDS: CYCLOBENZAPRINE 10 MG TAB PO SCH (08:11)
[2016-12-06] MEDS: HYDROcodone/APAP 7.5-325MG 1 EACH TAB PO PRN ×2 (08:12→15:17)
--- NOTE | 2016-12-06 08:17 | P.PN ---
Subjective Principal diagnosis: Status post I&D right hip This is a pleasant 61-year-old female who is status post I&D of the right hip. Today's postoperative day #5. The patient was seen and evaluated at bedside with Dr. Barcenas. Patient did have some spasm and Flexeril was added. She's been up ambulating. She continues to have improvement. Objective - Vital Signs Vital signs: Vital Signs Temp 97.5 F L 12/06/16 07:00 Pulse 85 12/06/16 07:00 Resp 20 12/06/16 07:00 BP 123/48 12/06/16 07:00 Pulse Ox 96 12/06/16 07:00 Intake & Output 12/05/16 12/06/16 12/06/16 18:59 06:59 18:59 Intake Total 1200 1020 Balance 1200 1020 Weight 106 kg Intake: Oral 1200 1020 Other: # Voids 3 2 - Exam The patient does not appear in acute distress. She is alert and orientated 3. Breathing appears nonlabored. Dressing is clean dry and intact. Incision looks well healing with jade intact. There is no active drainage. Erythema appears much improved since her admission. She has good active range of motion at her foot and ankle. Calf is soft. Sensation and circulatory status is intact. Gram stain findings are noted. No growth is noted to date. Final cultures are pending. - Labs CBC & Chem 7: 12/04/16 08:18 12/04/16 08:18 Labs: Microbiology - Last 24 Hours (Table) 12/01/16 13:25 Anaerobic Culture - Final Hip - Right 12/01/16 13:25 Anaerobic Culture - Final Hip - Right Assessment and Plan (1) Cellulitis of right hip Status: Acute (2) Status post right hip replacement Status: Acute Plan: The patient is status post incision and drainage of the right hip. Dr. Cartagena is following the patient closely. We will await final cultures. Antibiotics on discharge will be determined by infectious disease. Continue with weightbearing as tolerated. Aspirin 325 mg twice a day. The patient may be discharged to home once discharge antibiotics are arranged. She'll follow-up in the office with Dr. Barcenas in 1 week.
[2016-12-06 09:01] LABS: Basophils % (A) 0 %; CH 26.8; CHCM 30.4; Eosinophils # (A) 0.6 k/uL (0-0.7); Eosinophils % (A) 6 %; HCT 30.4 % (34.0-46.0); HDW 2.72; HGB 9.2 gm/dL (11.4-16.0); Hypochromasia Moderate; Luc # (Auto) 0.16; Luc % (Auto) 2; Lymphocytes # (A) 2.4 k/uL (1.0-4.8); Lymphocytes % (A) 25 %; MCH 26.7 pg (25.0-35.0); MCHC 30.2 g/dL (31.0-37.0); MCV 88.4 fL (80.0-100.0); Mean Platelet Volume 8.6; Monocytes # (A) 0.4 k/uL (0-1.0); Monocytes % (A) 4 %; Neutrophils % (A) 63 %; RBC 3.43 m/uL (3.80-5.40); RDW 13.6 % (11.5-15.5); WBC 9.6 k/uL (3.8-10.6); WBC (Perox) 9.84
[2016-12-06 09:23] LABS: Anion Gap 9 mmol/L; Blood Urea Nitrogen 15 mg/dL (7-17); Calcium 9.1 mg/dL (8.4-10.2); Carbon Dioxide 30 mmol/L (22-30); Chloride 103 mmol/L (98-107); Glucose 166 mg/dL (74-99); Non-African American GFR(MDRD) 57 (>60 ml/min/1.73 sqM); Potassium 4.3 mmol/L (3.5-5.1); Sodium 142 mmol/L (137-145)
[2016-12-06] MEDS ORDERED: FUROSEMIDE 10 MG/ML 2 ML VIAL IV STA (11:08)
[2016-12-06] MEDS ORDERED: FUROSEMIDE 10 MG/ML 2 ML VIAL IV ONE (14:00)
[2016-12-06] MEDS: VANCOMYCIN 1,750 MG in SODIUM CHLORIDE 0.9% 250 ML IVPB SCH ×2 (14:05→14:38)
[2016-12-06 15:17] VITALS: BP 121/56; PULSE 88; RESP 18; TEMP 97.6
[2016-12-06] MEDS: SODIUM CHLORIDE 0.9% 1,000 ML IV SCH (16:31)
[2016-12-06 16:39] LABS: Calcium 9.6 mg/dL (8.4-10.2); Potassium 4.6 mmol/L (3.5-5.1)
--- NOTE | 2016-12-06 22:45 | P.PN ---
Subjective Principal diagnosis: Pain right hip with fever 61-year-old female who presents to hospital with increasing pain and swelling and erythema to the right anterior hip area radiating through her thigh to her buttocks. It associated with fever and chill. Increasing pain and becoming quite uncomfortable. The patient does have a history of the 2016 right total hip arthroplasty via the anterior approach. She does relate that this hip was felt a bit different than the left hip. The left apparently was done with a bit of robotic assistance through a standard lateral incision. Anterior incision was elicited full and uncomfortable after surgery. She's now developed evidence of the acute change. She was seen in the outpatient setting and given a burst of steroid and antibiotic therapy. This did not allow improvement, actually had significant worsening and She Is Now Admitted. Going to the Operating Room for Incision and Drainage to the Site. Is noted she's had some fever and chills and redness and discomfort of the site. She however is not having difficulties with the left total hip arthroplasty. And she is denying difficult such as headache, visual change, [place] mild discomforts, dysphagia, chest pains or pressures, no shortness of breath breath cough or sputum production, no nausea or emesis or diarrhea recurred. No urinary symptoms. Was taken to the operating room for incision and drainage of the site. Fortunately a seroma was found. No evidence of any gross purulence was found. No evidence of any involvement down to the hip joint. Patient is now doing somewhat better. The pain and swelling to the thigh is improved. She's having no fever, chills or rigors. Cultures remained negative. Is having some muscle spasms to her right thigh and hip area. It limits her time up in the chair and also affects her ambulation a bit. Flexeril added with improvement. drainage from the hip is improved today. Objective - Vital Signs Vital signs: Vital Signs Temp 97.6 F 12/06/16 15:00 Pulse 88 12/06/16 16:00 Resp 18 12/06/16 16:00 BP 121/56 12/06/16 15:00 Pulse Ox 98 12/06/16 15:00 Intake & Output 12/06/16 12/06/16 12/07/16 06:59 18:59 06:59 Intake Total 1020 640 Balance 1020 640 Intake: Oral 1020 640 Other: Voiding Method Toilet # Voids 2 3 - Exam Pleasant 61-year-old woman who does have obesity, is uncomfortable because of her hip but does not appear to be acutely ill HEENT: Anicteric conjunctiva are pink and moist nasal mucosa grossly intact without significant lesions, there is no thrush. Neck: The neck is supple without significant lymphadenopathy or thyromegaly. Lungs: Good bilateral air entry without significant crackles or wheezing. There is no significant bronchial sounds. There is no egophony or dullness. Heart: Regular rate and rhythm with an audible S1-S2, no S3 no S4. There is no significant murmur click or rub, PMI was nondisplaced. Abdomen: Obese, Positive bowel sounds soft and nontender without palpable masses or organomegaly. There was no guarding or rebound. Extremities: The upper extremities have excellent pulses they are symmetric, no significant petechiae or telangiectasia. No splinter hemorrhages were noted. The left lower extremity shows the well healed incision from her prior left total hip arthroplasty. Evidence of any inflammation or tenderness at the site. Right leg shows evidence of the recent surgical incision and drainage. The MECHELLE drain has fallen out. The firmness to the thighs improved. The warmth and erythema and tenderness of also improved the extensive edema to the right thigh is improved there is much softer tissue turgor. Dressing is removed and there is not copious amounts of drainage noting on it as they were yesterday. The site is not very tender to touch. Neuro: Awake alert oriented to person place and time. There are no acute new gross focal sensory motor deficits. - Labs CBC & Chem 7: 12/06/16 08:00 12/06/16 16:09 Labs: Abnormal Lab Results - Last 24 Hours (Table) 12/06/16 12/06/16 12/06/16 Range/Units 08:00 08:00 16:09 RBC 3.43 L (3.80-5.40) m/uL Hgb 9.2 L (11.4-16.0) gm/dL Hct 30.4 L (34.0-46.0) % MCHC 30.2 L (31.0-37.0) g/dL Plt Count 534 H (150-450) k/uL Carbon Dioxide 35 H (22-30) mmol/L BUN 18 H (7-17) mg/dL Creatinine 1.27 H (0.52-1.04) mg/dL Glucose 166 H 114 H (74-99) mg/dL Microbiology - Last 24 Hours (Table) 12/01/16 13:25 Anaerobic Culture - Final Hip - Right Laboratory Results WBC 9.6 k/uL (3.8-10.6) 12/06/16 08:00 RBC 3.43 m/uL (3.80-5.40) L 12/06/16 08:00 Hgb 9.2 gm/dL (11.4-16.0) L 12/06/16 08:00 Hct 30.4 % (34.0-46.0) L 12/06/16 08:00 MCV 88.4 fL (80.0-100.0) 12/06/16 08:00 MCH 26.7 pg (25.0-35.0) 12/06/16 08:00 MCHC 30.2 g/dL (31.0-37.0) L 12/06/16 08:00 RDW 13.6 % (11.5-15.5) 12/06/16 08:00 Plt Count 534 k/uL (150-450) H 12/06/16 08:00 Neutrophils % 63 % 12/06/16 08:00 Lymphocytes % 25 % 12/06/16 08:00 Monocytes % 4 % 12/06/16 08:00 Eosinophils % 6 % 12/06/16 08:00 Basophils % 0 % 12/06/16 08:00 Neutrophils # 6.0 k/uL (1.3-7.7) 12/06/16 08:00 Lymphocytes # 2.4 k/uL (1.0-4.8) 12/06/16 08:00 Monocytes # 0.4 k/uL (0-1.0) 12/06/16 08:00 Eosinophils # 0.6 k/uL (0-0.7) 12/06/16 08:00 Basophils # 0.0 k/uL (0-0.2) 12/06/16 08:00 Hypochromasia Moderate 12/06/16 08:00 ESR 80 mm/hr (0-20) H 11/30/16 23:45 PT 9.8 sec (9.0-12.0) 11/30/16 23:45 INR 1.0 (<1.1) 11/30/16 23:45 APTT 22.9 sec (22.0-30.0) 11/30/16 23:45 Sodium 141 mmol/L (137-145) 12/06/16 16:09 Potassium 4.6 mmol/L (3.5-5.1) 12/06/16 16:09 Chloride 99 mmol/L (98-107) 12/06/16 16:09 Carbon Dioxide 35 mmol/L (22-30) H 12/06/16 16:09 Anion Gap 7 mmol/L 12/06/16 16:09 BUN 18 mg/dL (7-17) H 12/06/16 16:09 Creatinine 1.27 mg/dL (0.52-1.04) H 12/06/16 16:09 Est GFR (MDRD) Af Amer 52 (>60 ml/min/1.73 sqM) 12/06/16 16:09 Est GFR (MDRD) Non-Af 43 (>60 ml/min/1.73 sqM) 12/06/16 16:09 Glucose 114 mg/dL (74-99) H 12/06/16 16:09 Plasma Lactic Acid [place] 1.4 mmol/L (0.7-2.0) 11/30/16 23:45 Calcium 9.6 mg/dL (8.4-10.2) 12/06/16 16:09 Magnesium 1.9 mg/dL (1.6-2.3) 12/02/16 07:42 Total Bilirubin 0.4 mg/dL (0.2-1.3) 11/30/16 23:45 AST 14 U/L (14-36) 11/30/16 23:45 ALT 23 U/L (9-52) 11/30/16 23:45 Alkaline Phosphatase 105 U/L (38-126) 11/30/16 23:45 C-Reactive Protein 79.3 mg/L (<10.0) H 11/30/16 23:45 Total Protein 7.6 g/dL (6.3-8.2) 11/30/16 23:45 Albumin 4.2 g/dL (3.5-5.0) 11/30/16 23:45 Urine Color Yellow 11/30/16 23:55 Urine Appearance Cloudy (Clear) H 11/30/16 23:55 Urine pH 5.5 (5.0-8.0) 11/30/16 23:55 Ur Specific [place] 1.030 (1.001-1.035) 11/30/16 23:55 Urine Protein 1+ (Negative) H 11/30/16 23:55 Urine Glucose (UA) Negative (Negative) 11/30/16 23:55 Urine Ketones Negative (Negative) 11/30/16 23:55 Urine Blood Negative (Negative) 11/30/16 23:55 Urine Nitrite Negative (Negative) 11/30/16 23:55 Urine Bilirubin Negative (Negative) 11/30/16 23:55 Urine Urobilinogen 2.0 mg/dL (<2.0) 11/30/16 23:55 Ur Leukocyte Esterase Negative (Negative) 11/30/16 23:55 Urine RBC 2 /hpf (0-5) 11/30/16 23:55 Urine WBC 2 /hpf (0-5) 11/30/16 23:55 Ur Squamous Epith Cells 9 /hpf (0-4) H 11/30/16 23:55 Urine Bacteria Occasional /hpf (None) H 11/30/16 23:55 Hyaline Casts 36 /lpf (0-2) H 11/30/16 23:55 Urine Mucus Occasional /hpf (None) H 11/30/16 23:55 Vancomycin Trough 16.2 ug/mL 12/03/16 21:02 Microbiology 12/01/16 00:45 Blood Blood Culture - Preliminary No Growth after 120 hours 11/30/16 23:45 Blood Blood Culture - Preliminary No Growth after 120 hours 12/01/16 13:25 Hip - Right Anaerobic Culture - Final 12/01/16 13:25 Hip - Right Anaerobic Culture - Final 12/01/16 13:25 Hip - Right Gram Stain - Final 12/01/16 13:25 Hip - Right Wound Culture - Final 12/01/16 13:25 Hip - Right Gram Stain - Final 12/01/16 13:25 Hip - Right Wound Culture - Final 11/30/16 23:55 Urine,Voided Urine Culture - Final Assessment and Plan (1) Status post right hip replacement Status: Acute (2) Cellulitis of right hip Narrative/Plan: Pleasant 61 year old female presents to emergency center with complaints of significant pain and discomfort to her right hip. It has markedly increased over time despite a course of antibiotic and steroid therapy. She's having increasing erythema and discomfort and constantly has been admitted for further intervention. She'll go to the operative today for an incision and drainage in for evaluation to the site. Imaging study reveals evidence of a more superficial process. We discussed the possibility of some fat necrosis into her somewhat generous fat layer as a potential etiology. Seroma, abscess or deeper infection are all possibilities. She however is without significant fever here in hospital. She does have leukocytosis however she also did get a burst of steroid therapy before admission. Given the high risk at this time for a deep infection antibiotic therapy with vancomycin is being utilized for now until there is further data. Cultures remain negative. The significant leukocytosis is improving has decreased to 10.2. She's had some anemia develop with her surgery and fluids. The significant cellulitis of the thigh is responding well to current antibiotic therapy. If cultures do remain negative will not be planning on outpatient intravenous antibiotic therapy. Patient is having some difficulties with muscle spasm. Flexeril was added with improvement. Going home today, course of doxycycline to finish treatment of cellulitis which is much improved no evidence of joint infection. Status: Acute
[2016-12-07] MEDS ORDERED: VANCOMYCIN TROUGH DUE 1 EACH MISC MISCELLANE ONE (05:00)
--- NOTE | 2016-12-08 19:04 | DS ---
DATE OF ADMISSION: 12/01/2016 DATE OF DISCHARGE: 12/06/2016 FINAL DIAGNOSES: 1. Infected right hip incision with cellulitis and seroma, status post I&D. 2. Acute fluid overload from IV fluids, responded well to diuresis. 3. Morbid obesity, body mass index 40.1. 4. Moderate intermittent asthma. 5. Gastroesophageal reflux disease. 6. Hyperlipidemia. 7. Essential hypertension. 8. Primary osteoarthritis of multiple joints, bilateral. CONSULTATION: 1. Dr. Cartagena from Infectious Disease. 2. Dr. Barcenas from Orthopedics. HOSPITAL COURSE: This very pleasant 61-year-old patient underwent on 10/17/[address] Barcenas a right total hip arthroplasty with direct anterior approach. Patient developed cellulitis and seroma. Then I&D was carried out. It was felt that there is no infection deep down. Patient responded well to antibiotics and drained initially. At the time of discharge, up and about, no fever, no white count. Care was discussed with the patient. On exam, lungs are clear. CARDIOVASCULAR: First and second sounds normal. DISCHARGE MEDICATIONS: 1. Xanax 0.25 to 0.5 p.o. b.i.d. p.r.n. 2. ProAir 2 puffs q.6 p.r.n. 3. Vitamin D3 2000 units p.o. daily. 4. Zestoretic 06/21.5, 1 tablet p.o. daily. 5. Ida 7.5, 1 tablet p.o. q.4 p.r.n. 6. Aspirin 325 p.o. b.i.d. 7. Flexeril 10 mg p.o. t.i.d. p.r.n. 8. Doxycycline 100 mg p.o. b.i.d. 14 tablets. 9. Ida 7.5, 1 to 2 tablets q.6 p.r.n. 10. Senokot-S 2 tabs p.o. daily. Follow with Dr. White on 12/08/16. Follow up with Dr. Barcenas 12/13/16. Discharge planning more 35 minutes including discussion.
== END 2016-12-06 19:01 | disposition home or self-care (01) | DRG 920 ==
LOC: EC 22:47 → 4MS4W 12-01 01:07
PROVIDERS: ADMIT Hospitalist; ATTEND Hospitalist
PROC: 3E1U38Z Irrigation of Joints using Irrigating Substance, Percutaneous Approach (ICD-10-PCS; principal; 2016-12-01 08:35)
PROC: 0JCL0ZZ Extirpation of Matter from Right Upper Leg Subcutaneous Tissue and Fascia, Open Approach (ICD-10-PCS; principal; 2016-12-01 08:35)
DX: L76.34 Postprocedural seroma of skin and subcutaneous tissue following other procedure (principal); T81.4XXA Infection following a procedure, initial encounter; Z68.41 Body mass index [BMI] 40.0-44.9, adult; L03.115 Cellulitis of right lower limb; E87.70 Fluid overload, unspecified; I10 Essential (primary) hypertension; E66.01 Morbid (severe) obesity due to excess calories; D64.9 Anemia, unspecified; E78.5 Hyperlipidemia, unspecified; J45.20 Mild intermittent asthma, uncomplicated; K21.9 Gastro-esophageal reflux disease without esophagitis; M15.9 Polyosteoarthritis, unspecified; R73.03 Prediabetes; Z96.643 Presence of artificial hip joint, bilateral; Y83.8 Other surgical procedures as the cause of abnormal reaction of the patient, or of later complication, without mention of misadventure at the time of the procedure; Z79.899 Other long term (current) drug therapy; Z88.5 Allergy status to narcotic agent
CPT/HCPCS: 36415; 73502; 80048; 80053; 80202; 81001; 83605; 83735; 85025; 85610; 85652; 85730; 86140; 87040; 87070; 87075; 87086; 87205; 96360; 96365; 99285

== ENCOUNTER → 2016-12-08 | Outpatient (CLI) | payer BC ==
[2016-12-08 15:29] LABS: Basophils # (A) 0.1 k/uL (0-0.2); Basophils % (A) 1 %; CHCM 30.6; Eosinophils # (A) 0.4 k/uL (0-0.7); Eosinophils % (A) 4 %; HCT 36.6 % (34.0-46.0); HDW 2.63; Hypochromasia Moderate; Luc # (Auto) 0.22; Luc % (Auto) 2; Lymphocytes # (A) 3.5 k/uL (1.0-4.8); Lymphocytes % (A) 35 %; MCH 26.6 pg (25.0-35.0); MCV 88.6 fL (80.0-100.0); Mean Platelet Volume 8.7; Monocytes # (A) 0.5 k/uL (0-1.0); Monocytes % (A) 5 %; Neutrophils # (A) 5.2 k/uL (1.3-7.7); Neutrophils % (A) 53 %; RBC 4.13 m/uL (3.80-5.40); RDW 13.7 % (11.5-15.5); WBC 9.9 k/uL (3.8-10.6); WBC (Perox) 10.09
[2016-12-08 15:38] LABS: Calcium 9.9 mg/dL (8.4-10.2); Potassium 4.4 mmol/L (3.5-5.1)
[2016-12-08 20:11] LABS: Erythrocyte Sedimentation Rate 93 mm/hr (0-20)
== END ==
LOC: LABWHC1 14:33
PROVIDERS: ATTEND Family Medicine
DX: D72.829 Elevated white blood cell count, unspecified (principal); I10 Essential (primary) hypertension
CPT/HCPCS: 36415; 80048; 85025; 85652; 86140

== ENCOUNTER → 2016-12-20 | Outpatient (CLI) | payer BC ==
[2016-12-20 10:24] LABS: Basophils % (A) 0 %; CH 26.5; CHCM 29.8; Eosinophils # (A) 0.5 k/uL (0-0.7); Eosinophils % (A) 5 %; HCT 35.4 % (34.0-46.0); HDW 2.74; HGB 10.8 gm/dL (11.4-16.0); Hypochromasia Marked; Luc # (Auto) 0.19; Luc % (Auto) 2; Lymphocytes # (A) 2.8 k/uL (1.0-4.8); Lymphocytes % (A) 29 %; MCH 27.2 pg (25.0-35.0); MCHC 30.5 g/dL (31.0-37.0); MCV 89.3 fL (80.0-100.0); Mean Platelet Volume 7.5; Monocytes # (A) 0.3 k/uL (0-1.0); Monocytes % (A) 3 %; Neutrophils # (A) 5.9 k/uL (1.3-7.7); Neutrophils % (A) 61 %; RBC 3.97 m/uL (3.80-5.40); RDW 13.8 % (11.5-15.5); WBC 9.7 k/uL (3.8-10.6); WBC (Perox) 10.64
[2016-12-20 11:01] LABS: Anion Gap 10 mmol/L; Blood Urea Nitrogen 25 mg/dL (7-17); C Reactive Protein 7.7 mg/L (<10.0); Carbon Dioxide 28 mmol/L (22-30); Chloride 106 mmol/L (98-107); Glucose 118 mg/dL (74-99); Non-African American GFR(MDRD) 57 (>60 ml/min/1.73 sqM); Potassium 4.6 mmol/L (3.5-5.1); Sodium 144 mmol/L (137-145)
[2016-12-20 12:50] LABS: Erythrocyte Sedimentation Rate 44 mm/hr (0-20)
== END ==
LOC: LABWHC1 09:59
PROVIDERS: ATTEND Family Medicine
DX: R89.9 Unspecified abnormal finding in specimens from other organs, systems and tissues (principal)
CPT/HCPCS: 36415; 80048; 85025; 85652; 86140

== ENCOUNTER → 2017-01-02 | Outpatient (CLI) | payer BC ==
[2017-01-02 11:28] LABS: Anion Gap 10 mmol/L; Blood Urea Nitrogen 30 mg/dL (7-17); Calcium 9.6 mg/dL (8.4-10.2); Carbon Dioxide 26 mmol/L (22-30); Chloride 106 mmol/L (98-107); Glucose 112 mg/dL (74-99); Iron 32 ug/dL (37-170); Non-African American GFR(MDRD) >60 (>60 ml/min/1.73 sqM); Potassium 4.3 mmol/L (3.5-5.1); Sodium 142 mmol/L (137-145)
[2017-01-02 11:35] LABS: CH 26.3; CHCM 30.7; HCT 35.8 % (34.0-46.0); HDW 2.92; HGB 11.2 gm/dL (11.4-16.0); Hypochromasia Moderate; MCHC 31.4 g/dL (31.0-37.0); MCV 85.8 fL (80.0-100.0); Mean Platelet Volume 7.7; RBC 4.17 m/uL (3.80-5.40); RDW 13.6 % (11.5-15.5); WBC 9.9 k/uL (3.8-10.6)
[2017-01-02 11:37] LABS: % Iron Saturation 10.8 % (20-50); Total Iron Binding Capacity 296 ug/dL (265-497)
== END | disposition home or self-care (01) ==
LOC: LABWHC1 10:59
PROVIDERS: ATTEND Family Medicine
DX: D64.9 Anemia, unspecified (principal); I10 Essential (primary) hypertension
CPT/HCPCS: 36415; 80048; 82728; 83540; 83550; 85027

== ENCOUNTER → 2017-01-19 | Outpatient (CLI) | payer BC ==
--- NOTE | 2017-01-19 16:37 | CT ---
EXAMINATION TYPE: CT hip RT wo con DATE OF EXAM: 01/19/2017 4:27 PM COMPARISON: Previous study dated 12/01/2016 HISTORY: Patient complains of continued right hip pain since surgery for hip replacement in October. CT DLP: 1051 mGycm Automated exposure control for dose reduction was used. FINDINGS: The patient's prosthetic hip is causing significant beam hardening artifact throughout the study. This is similar in appearance to the previous study. There is scarring in the lateral aspect of the upper thigh likely due to the patient's hip replacemen t. There has developed an incompletely visualized 3 x 4 cm fluid collection at the site of the scar. This is more apparent than on the previous study and may represent hematoma or small seroma. The flui d collection anterior to the proximal femoral component of the prosthesis has decreased in appearance from the previous study. No acute osseous lesion is seen. IMPRESSION: 1. STATUS POST RIGHT HIP ARTHROPLASTY. 2. ENLARGING FLUID COLLECTION IN THE LATERAL ASPECT OF THE LEFT KNEE IN THE PATIENT'S SCAR. 3. PREVIOUSLY DESCRIBED FLUID COLLECTION IN THE ANTERIOR PORTION OF THE THIGH HAS DECREASED IN CONSPI CUITY IN COMPARISON WITH THE PREVIOUS STUDY.
== END | disposition home or self-care (01) ==
LOC: RADCTMAIN 15:51
PROVIDERS: ATTEND Orthopaedic Surgery
DX: Z47.1 Aftercare following joint replacement surgery (principal); M25.551 Pain in right hip; M25.462 Effusion, left knee; Z96.641 Presence of right artificial hip joint

== ENCOUNTER → 2017-02-15 | Outpatient (CLI) | payer BC ==
[2017-02-15 12:03] LABS: Basophils % (A) 1 %; CH 25.1; CHCM 30.2; Eosinophils # (A) 0.3 k/uL (0-0.7); Eosinophils % (A) 3 %; HCT 36.6 % (34.0-46.0); HDW 2.55; HGB 11.4 gm/dL (11.4-16.0); Hypochromasia Marked; Luc # (Auto) 0.14; Luc % (Auto) 2; Lymphocytes # (A) 2.4 k/uL (1.0-4.8); Lymphocytes % (A) 32 %; MCH 25.9 pg (25.0-35.0); MCHC 31.1 g/dL (31.0-37.0); MCV 83.4 fL (80.0-100.0); Mean Platelet Volume 6.8; Monocytes # (A) 0.3 k/uL (0-1.0); Monocytes % (A) 4 %; Neutrophils # (A) 4.5 k/uL (1.3-7.7); Neutrophils % (A) 59 %; RBC 4.39 m/uL (3.80-5.40); RDW 14.8 % (11.5-15.5); WBC 7.6 k/uL (3.8-10.6)
[2017-02-15 13:11] LABS: Anion Gap 7 mmol/L; Blood Urea Nitrogen 20 mg/dL (7-17); C Reactive Protein 16.5 mg/L (<10.0); Calcium 9.8 mg/dL (8.4-10.2); Carbon Dioxide 27 mmol/L (22-30); Chloride 109 mmol/L (98-107); Glucose 109 mg/dL (74-99); Non-African American GFR(MDRD) 57 (>60 ml/min/1.73 sqM); Potassium 4.5 mmol/L (3.5-5.1); Sodium 143 mmol/L (137-145)
[2017-02-15 13:34] LABS: Erythrocyte Sedimentation Rate 47 mm/hr (0-20)
[2017-02-15 20:39] LABS: Hemoglobin A1C 6.7 % (4.2-6.1)
== END | disposition home or self-care (01) ==
LOC: LABWHC1 11:35
PROVIDERS: ATTEND Family Medicine
DX: M79.651 Pain in right thigh (principal); E11.9 Type 2 diabetes mellitus without complications
CPT/HCPCS: 36415; 80048; 83036; 85025; 85652; 86140

== ENCOUNTER → 2017-02-15 | Outpatient (CLI) | payer BC ==
--- NOTE | 2017-02-15 15:27 | CT ---
EXAMINATION TYPE: CT hip RT wo con DATE OF EXAM: 02/15/2017 COMPARISON: 01/19/2017 HISTORY: 61-year-old female with right sided hip pain. Follow up per patient TECHNIQUE: Contiguous axial scanning of the right hip without IV contrast. Coronal and sagittal recon structions performed. CT DLP: 1408 mGycm Automated exposure control for dose reduction was used. FINDINGS: There is postsurgical change with scar along the anterolateral aspect of the right hip with underlyin g right hip total arthroplasty. The thickened collection along the posterior margin of the scar located just anterolateral to the gre ater trochanter overlying the superficial fascia shows decrease in size now measuring 2.2 cm wide by 3.3 cm AP by 4.5 cm craniocaudal. There is limitation and definite assessment of size due to extensiv e beam hardening artifact from the patient's bilateral hip arthroplasties. Previous measurements are estimated at 4.0 x 2.7 x 5.7 cm. The right hip arthroplasty itself appears grossly uncomplicated. No acute fracture or periostitis/ost eolysis. A stable prominent 1.6 cm right external iliac chain lymph node shows a large fatty hilum. IMPRESSION: 1. POSTSURGICAL CHANGES OF PATIENT'S ANTERIOR RIGHT HIP REPLACEMENT. 2. THE PREVIOUS FLUID COLLECTION ALONG THE POSTERIOR MARGIN OF THE SCAR LOCATED ANTEROLATERAL TO THE GREATER TROCHANTER SHOWS DECREASE IN SIZE NOW MEASURING 4.5 CM VERSUS 5.7 CM, PREVIOUSLY. POSTOPERATI VE SEROMA/HEMATOMA ARE FAVORED. CLINICALLY CORRELATE. FOLLOW-UP INDICATED. 3. OTHERWISE, THE UNDERLYING RIGHT HIP TOTAL ARTHROPLASTY IS UNCOMPLICATED.
== END | disposition home or self-care (01) ==
LOC: RADCTMAIN 11:50
PROVIDERS: ATTEND Orthopaedic Surgery
DX: M25.551 Pain in right hip (principal); Z96.641 Presence of right artificial hip joint; Z47.1 Aftercare following joint replacement surgery

== ENCOUNTER → 2017-03-09 | Outpatient (CLI) | payer BC ==
[2017-03-09 12:59] LABS: Basophils % (A) 0 %; CH 25.2; CHCM 31.6; Eosinophils # (A) 0.2 k/uL (0-0.7); Eosinophils % (A) 2 %; HCT 35.6 % (34.0-46.0); HDW 2.53; HGB 11.8 gm/dL (11.4-16.0); Hypochromasia Slight; Luc # (Auto) 0.11; Luc % (Auto) 1; Lymphocytes # (A) 2.9 k/uL (1.0-4.8); Lymphocytes % (A) 31 %; MCH 26.6 pg (25.0-35.0); MCHC 33.3 g/dL (31.0-37.0); MCV 79.9 fL (80.0-100.0); Mean Platelet Volume 8.2; Monocytes # (A) 0.4 k/uL (0-1.0); Monocytes % (A) 5 %; Neutrophils # (A) 5.8 k/uL (1.3-7.7); Neutrophils % (A) 61 %; RBC 4.45 m/uL (3.80-5.40); RDW 15.2 % (11.5-15.5); WBC 9.4 k/uL (3.8-10.6); WBC (Perox) 8.94
[2017-03-09 13:25] LABS: Anion Gap 11 mmol/L; Blood Urea Nitrogen 24 mg/dL (7-17); C Reactive Protein 19.9 mg/L (<10.0); Calcium 9.8 mg/dL (8.4-10.2); Carbon Dioxide 24 mmol/L (22-30); Chloride 107 mmol/L (98-107); Glucose 112 mg/dL (74-99); Non-African American GFR(MDRD) 57 (>60 ml/min/1.73 sqM); Potassium 4.3 mmol/L (3.5-5.1); Sodium 142 mmol/L (137-145)
[2017-03-09 14:03] LABS: Erythrocyte Sedimentation Rate 43 mm/hr (0-20)
== END | disposition home or self-care (01) ==
LOC: LABWHC1 12:17
PROVIDERS: ATTEND Family Medicine
DX: G89.18 Other acute postprocedural pain (principal)
CPT/HCPCS: 36415; 80048; 85025; 85652; 86140

== ENCOUNTER 2017-03-30 13:43 | Day surgery (SDC) | payer BC ==
[2017-03-26 10:56] VITALS: BMI 41.5
[~2017-03-30 13:43] MED LIST changes: -ACETAMINOPHEN TAB 500 MG TAB PO ONE; -HYDROmorphone 1 MG/ML 1 ML SYRINGE IVP PRN; -LIDOCAINE 1% 20 ML VIAL (10MG/ML) FOR IV START INTRADERMA PRN; -MELOXICAM 7.5 MG TAB PO ONE; -MIDAZOLAM 2 MG/2 ML VIAL IV PRN; +Pre Op ABX Message 1 EACH MISC MISCELLANE ONE; -SCOPOLAMINE 1.5MG/72HR PATCH TRANSDERM ONE; -TRANEXAMIC ACID 1,000 MG in SODIUM CHLORIDE 0.9% 100 ML IVPB ONE; -ceFAZolin 2 GM in SODIUM CHLORIDE 0.9% 100 ML IVPB ONE
[2017-03-30] MEDS ORDERED: LIDOCAINE 1% 20 ML VIAL (10MG/ML) FOR IV START SQ ONE (14:38)
[2017-03-30 14:45] LABS: Glucose,Whole Blood 104 mg/dL (75-99)
[2017-03-30] MEDS ORDERED: ceFAZolin 2 GM in SODIUM CHLORIDE 0.9% 100 ML IVPB STA (16:16)
[2017-03-30] MEDS ORDERED: SUCCINYLCHOLINE CHLORIDE 100 MG/5 ML SYR IV ONE (17:13)
[2017-03-30] MEDS ORDERED: LIDOCAINE 1% INJ 10MG/ML (20 ML MDV) ONE (17:13)
[2017-03-30] MEDS ORDERED: MIDAZOLAM 2 MG/2 ML VIAL ONE (17:13)
[2017-03-30] MEDS ORDERED: PROPOFOL 10 MG/ML 20 ML VIAL IV ONE (17:13)
[2017-03-30] MEDS ORDERED: fentaNYL (PF) 50 MCG/ML 2 ML AMP ONE (17:13)
--- NOTE | 2017-03-30 17:47 | P.OP ---
Date of Procedure: 03/30/17 Preoperative Diagnosis: Seroma right hip Postoperative Diagnosis: Seroma right hip Procedure(s) Performed: Incision and drainage right hip Implants: Anesthesia: spinal Surgeon: Brody Barcenas 3D Modeler #1: Mary Anna Estimated Blood Loss (ml): 25 Pathology: other (cultres x2) Condition: stable Disposition: PACU Indications for Procedure: This is a 61-year-old female who had a right total hip arthroplasty performed in October. She's had difficulty ever since her surgery with pain and immobility. After her surgery she did develop a large seroma on the anterior aspect of her thigh which was brought to the operating room and drained. This was then cultured and found to have no growth. The fluid at that time was clear. She continued to have pain on the lateral side of her leg and sequential CAT scans show a seroma on the lateral aspect of her hip. After failing conservative treatment she wishes to proceed with an incision and drainage of the seroma. So far there is been no indication that her right hip arthroplasty is infected. The plan will be to culture the fluid found on the lateral side of the hip. Informed consent was obtained. Operative Findings: The operative findings are consistent with a seroma on the lateral side of her right hip Description of Procedure: Patient was seen and evaluated in the preoperative area, consent was reviewed and the operative site was marked with a skin marker. Patient was then brought to the operating room and given 2 g of Ancef intravenously. A spinal anesthetic was administered by the anesthesia department. Patient was then placed in a lateral decubitus position and held with a pegboard. The bony prominences were well-padded and an axillary roll was placed. The hip was then prepped and draped in the usual sterile fashion. A universal timeout was then performed which confirmed the patient's name, surgical site, ALLERGIES, and procedure. A lateral incision centered over the seroma was performed.. Skin and subcutaneous tissues were sharply incised. The incision was carefully dissected down to the fascia. There was no evidence of a seroma. The area was cultured 2. There is no evidence of purulent material or a sinus tract. This was then irrigated with pulsatile lavage. Wound was then closed with 2-0 Vicryl followed by 3-0 strata fix and Dermabond for the skin. 3D Modeler JUANCHO Sanchez was required due to the complexity of surgery the need for skilled surgical instrument repair specialist. She assisted with positioning the patient , draping the patient, retraction during the surgery, and closure of the wound.
[2017-03-30] MEDS ORDERED: LACTATED RINGERS 1,000 ML IV ONE (17:48)
[2017-03-30] MEDS: HYDROmorphone 1 MG/ML 1 ML SYRINGE IVP ONE ×6 (18:19→19:00)
[2017-03-30] MEDS ORDERED: KETOROLAC 30 MG/ML 1 ML VIAL IVP ONE (18:44)
[2017-03-30] MEDS ORDERED: ONDANSETRON 4 MG/2 ML VIAL IVP ONE (19:00)
[2017-03-30 19:21] LABS: Glucose,Whole Blood 136 mg/dL (75-99)
[2017-03-30] MEDS ORDERED: METOCLOPRAMIDE 5 MG/ML 2 ML VIAL IVP ONE (19:43)
[2017-03-30 20:04] VITALS: RESP 18
[2017-03-30 20:08] VITALS: TEMP 97.5
[2017-03-30] MEDS ORDERED: SCOPOLAMINE 1.5MG/72HR PATCH TRANSDERM ONE (20:21)
[2017-03-30] MEDS ORDERED: PROMETHAZINE INJ 25 MG/ML 1 ML VIAL IVPB ONE (20:22)
[2017-03-30 21:34] VITALS: BP 116/60; PULSE 62
== END 2017-03-30 21:31 | disposition home or self-care (01) ==
LOC: OR 13:43 → EDSTATUS 16:40 → OR 21:31
PROVIDERS: ATTEND Orthopaedic Surgery
DX: L76.34 Postprocedural seroma of skin and subcutaneous tissue following other procedure (principal); Z96.641 Presence of right artificial hip joint; I10 Essential (primary) hypertension; E78.5 Hyperlipidemia, unspecified; J45.909 Unspecified asthma, uncomplicated; E11.9 Type 2 diabetes mellitus without complications; M19.90 Unspecified osteoarthritis, unspecified site; K21.9 Gastro-esophageal reflux disease without esophagitis; Z79.1 Long term (current) use of non-steroidal anti-inflammatories (NSAID); Z79.891 Long term (current) use of opiate analgesic; Z79.899 Other long term (current) drug therapy; Z88.5 Allergy status to narcotic agent; Z91.09 Other allergy status, other than to drugs and biological substances
CPT/HCPCS: 87070; 87205; 87075; 10140; J1100; J2550; J2765; J2405; J1885; J1170

== ENCOUNTER → 2017-04-25 | Outpatient (CLI) | payer BC ==
--- NOTE | 2017-04-25 16:06 | US ---
EXAMINATION TYPE: US bladder DATE OF EXAM: 04/25/2017 COMPARISON: NONE CLINICAL HISTORY: 61-year-old female with R32 urinary incontinence. TECHNIQUE: Multiple sonographic images of the bladder were obtained. FINDINGS: The bladder is initially partially urine distended. Neither ureteral jet is seen during the course of the exam. Post Void Residual Volume: 1.3 mL IMPRESSION: No sonographic evidence for urinary retention. Complete to near complete bladder emptying.
== END | disposition home or self-care (01) ==
LOC: RADUSWWP 14:32
PROVIDERS: ATTEND Family Medicine
DX: R32 Unspecified urinary incontinence (principal)
CPT/HCPCS: 76857

== ENCOUNTER → 2017-07-19 | Outpatient (CLI) | payer BC ==
[2017-07-19 15:19] LABS: CHCM 30.8; HCT 40.6 % (34.0-46.0); HDW 2.47; HGB 12.7 gm/dL (11.4-16.0); Hypochromasia Slight; MCH 27.6 pg (25.0-35.0); MCHC 31.4 g/dL (31.0-37.0); MCV 87.9 fL (80.0-100.0); Mean Platelet Volume 7.2; RBC 4.61 m/uL (3.80-5.40); RDW 14.8 % (11.5-15.5); WBC 8.4 k/uL (3.8-10.6)
[2017-07-19 15:31] LABS: ALT 28 U/L (9-52); AST 15 U/L (14-36); Anion Gap 9 mmol/L; Blood Urea Nitrogen 16 mg/dL (7-17); C Reactive Protein 19.8 mg/L (<10.0); Calcium 9.9 mg/dL (8.4-10.2); Carbon Dioxide 28 mmol/L (22-30); Chloride 106 mmol/L (98-107); Cholesterol 220 mg/dL (<200); Glucose 110 mg/dL (74-99); HDL Cholesterol 65 mg/dL (40-60); Non-African American GFR(MDRD) 51 (>60 ml/min/1.73 sqM); Potassium 4.1 mmol/L (3.5-5.1); Sodium 143 mmol/L (137-145)
[2017-07-19 17:37] LABS: Erythrocyte Sedimentation Rate 43 mm/hr (0-20)
[2017-07-19 19:43] LABS: Urine Creatinine 94.1 mg/dL
== END | disposition home or self-care (01) ==
LOC: LABWHC1 14:51
PROVIDERS: ATTEND Family Medicine
DX: Z00.00 Encounter for general adult medical examination without abnormal findings (principal); E55.9 Vitamin D deficiency, unspecified; E78.5 Hyperlipidemia, unspecified; E11.9 Type 2 diabetes mellitus without complications; M25.551 Pain in right hip
CPT/HCPCS: 36415; 80048; 80061; 82043; 82306; 82570; 83036; 84450; 84460; 85027; 85652; 86140; 86803

== ENCOUNTER → 2017-07-23 | Outpatient (CLI) | payer BC ==
--- NOTE | 2017-07-25 08:01 | MM ---
Reason for exam: screening (asymptomatic). Last mammogram was performed 4 years ago. History: Patient is postmenopausal. Physical Findings: Nurse did not find any significant physical abnormalities on exam. MG Screening Mammo w CAD Bilateral CC and MLO view(s) were taken. Prior study comparison: July 25, 2013, bilateral digital screening mammo w/CAD. Asymmetric density superior left breast at a middle depth is new. ASSESSMENT: Incomplete: need additional imaging evaluation, BI-RAD 0 RECOMMENDATION: Special view mammogram of the left breast. If lesion persists on supplemental views, image directed ultrasound is recommended. [facility] will attempt to contact patient to return for supplemental views and ultrasound if indicated.
== END | disposition home or self-care (01) ==
LOC: RADMAMWWP 13:48
PROVIDERS: ATTEND Family Medicine
DX: Z12.31 Encounter for screening mammogram for malignant neoplasm of breast (principal)

== ENCOUNTER → 2017-07-26 | Outpatient (CLI) | payer BC ==
--- NOTE | 2017-07-26 11:26 | MM ---
Reason for exam: additional evaluation requested from abnormal screening. Last mammogram was performed less than 1 month ago. History: Patient is postmenopausal. Physical Findings: Nurse did not find any significant physical abnormalities on exam. MG Work Up Mamm w CAD LT LM and spot compression MLO view(s) were taken of the left breast. Prior study comparison: July 23, 2017, bilateral MG screening mammo w CAD. July 25, 2013, bilateral digital screening mammo w/CAD. There are scattered fibroglandular densities. No suspicious abnormality. The prior suspicious left breast asymmetry resolves on the additional views and appear as fibroglandular tissue. These results were verbally communicated with the patient and result sheet given to the patient on 07/26/17. ASSESSMENT: Negative, BI-RAD 1 RECOMMENDATION: Return to routine screening mammogram schedule for both breasts.
== END | disposition home or self-care (01) ==
LOC: RADMAMWWP 10:15
PROVIDERS: ATTEND Family Medicine
DX: R92.8 Other abnormal and inconclusive findings on diagnostic imaging of breast (principal)

== ENCOUNTER → 2017-08-31 | Outpatient (CLI) | payer BC ==
[2017-09-01 13:44] LABS: Ionized Calcium 5.3 mg/dL (4.5-5.3)
[2017-09-01 15:12] LABS: Calcium 10.5 mg/dL (8.4-10.2); Potassium 3.9 mmol/L (3.5-5.1)
== END | disposition home or self-care (01) ==
LOC: LABWHC1 16:22
PROVIDERS: ATTEND Family Medicine
DX: E83.52 Hypercalcemia (principal); N18.2 Chronic kidney disease, stage 2 (mild)
CPT/HCPCS: 36415; 80048; 82330; 83970

== ENCOUNTER → 2017-09-12 | Outpatient (CLI) | payer BC ==
[2017-09-12 17:19] LABS: Basophils % (A) 1 %; Eosinophils # (A) 0.1 k/uL (0-0.7); Eosinophils % (A) 2 %; HCT 41.9 % (34.0-46.0); Hypochromasia Slight; Lymphocytes # (A) 1.8 k/uL (1.0-4.8); Lymphocytes % (A) 25 %; MCHC 30.9 g/dL (31.0-37.0); MCV 87.2 fL (80.0-100.0); Monocytes # (A) 0.4 k/uL (0-1.0); Monocytes % (A) 5 %; Neutrophils # (A) 4.9 k/uL (1.3-7.7); Neutrophils % (A) 66 %; Platelet Count 416 k/uL (150-450); RBC 4.81 m/uL (3.80-5.40); WBC 7.4 k/uL (3.8-10.6)
[2017-09-12 18:33] LABS: Erythrocyte Sedimentation Rate 40 mm/hr (0-20)
== END | disposition home or self-care (01) ==
LOC: LABWHC1 16:51
PROVIDERS: ATTEND Orthopaedic Surgery
DX: M25.559 Pain in unspecified hip (principal)
CPT/HCPCS: 36415; 85025; 85652; 86140

== ENCOUNTER → 2017-09-19 | Outpatient (CLI) | payer BC ==
[2017-09-19 18:01] LABS: Anion Gap 9 mmol/L; Blood Urea Nitrogen 21 mg/dL (7-17); Calcium 9.7 mg/dL (8.4-10.2); Carbon Dioxide 29 mmol/L (22-30); Chloride 106 mmol/L (98-107); Glucose 105 mg/dL (74-99); Potassium 4.1 mmol/L (3.5-5.1); Sodium 144 mmol/L (137-145)
== END | disposition home or self-care (01) ==
LOC: LABWHC1 16:58
PROVIDERS: ATTEND Family Medicine
DX: R89.9 Unspecified abnormal finding in specimens from other organs, systems and tissues (principal)
CPT/HCPCS: 36415; 80048

== ENCOUNTER → 2017-10-03 | Outpatient (CLI) | payer BC ==
[2017-10-03 15:17] LABS: Basophils # (A) 0.1 k/uL (0-0.2); Basophils % (A) 1 %; Eosinophils # (A) 0.1 k/uL (0-0.7); Eosinophils % (A) 1 %; HCT 42.4 % (34.0-46.0); HGB 13.1 gm/dL (11.4-16.0); Hypochromasia Moderate; Lymphocytes # (A) 2.9 k/uL (1.0-4.8); Lymphocytes % (A) 36 %; MCH 26.5 pg (25.0-35.0); MCHC 30.9 g/dL (31.0-37.0); MCV 85.6 fL (80.0-100.0); Mean Platelet Volume 7.7; Monocytes # (A) 0.3 k/uL (0-1.0); Monocytes % (A) 4 %; Neutrophils # (A) 4.6 k/uL (1.3-7.7); Neutrophils % (A) 57 %; Platelet Count 373 k/uL (150-450); RBC 4.96 m/uL (3.80-5.40); RDW 15.1 % (11.5-15.5)
[2017-10-03 15:24] LABS: Albumin 4.3 g/dL (3.5-5.0); Calcium 10.1 mg/dL (8.4-10.2); Potassium 4.4 mmol/L (3.5-5.1); Total Bilirubin 0.6 mg/dL (0.2-1.3); Total Protein 7.5 g/dL (6.3-8.2)
== END | disposition home or self-care (01) ==
LOC: LABWHC1 15:02
PROVIDERS: ATTEND Family Medicine
DX: R10.13 Epigastric pain (principal)
CPT/HCPCS: 36415; 80053; 82150; 83690; 85025

== ENCOUNTER → 2017-10-08 | Outpatient (CLI) | payer BC ==
--- NOTE | 2017-10-08 11:57 | FL ---
EXAMINATION TYPE: FL UGI DATE OF EXAM: 10/08/2017 COMPARISON: Prior upper GI study July 25, 2013. HISTORY: Chronic epigastric pain and nausea. On nursing home reflux medication with some relief TECHNIQUE: A double contrast UGI study is attempted. Preprocedure privacy attorney image is acquired 3post proc edure images are performed. A total of 26 images are saved to PACS system during procedure. A total o f 33 seconds of fluoroscopic time was utilized. FINDINGS: Optometric Technician image of the abdomen shows no gross abnormality. Cholecystectomy clips are redemonst rated. Metallic hardware from bilateral hip arthroplasty is now seen. Oval density right L4-L5 level is of uncertain etiology possible large phlebolith. Exam is noted suboptimal as patient coughed up crystals making essentially a single contrast study. T he esophagus shows satisfactory motility and emptying into the stomach. No evidence of fixed hiatal hernia or stricture noted. The stomach shows increased prominence of gastric folds in the fundus. No rakan ulcer disease is pre sent. No suspicious intraluminal mass identified. No significant gastroesophageal reflux was seen du ring real time performance of this study. There is however reflux noted on post procedure images. The duodenal bulb, sweep, and proximal small bowel loops are unremarkable. IMPRESSION: Suboptimal study, moderate fundal gastritis felt present. Gastroesophageal reflux redemon strated. No fixed hiatal hernia is seen.
== END | disposition home or self-care (01) ==
LOC: RADFLMAIN 10:25
PROVIDERS: ATTEND Family Medicine
DX: K21.9 Gastro-esophageal reflux disease without esophagitis (principal)
CPT/HCPCS: 74240

== ENCOUNTER → 2017-10-16 | Outpatient (CLI) | payer BC ==
[2017-10-16 16:29] LABS: ALT 37 U/L (9-52); AST 15 U/L (14-36); GGT 30 U/L (12-43)
== END | disposition home or self-care (01) ==
LOC: LABWHC1 15:48
PROVIDERS: ATTEND Family Medicine
DX: R74.8 Abnormal levels of other serum enzymes (principal)
CPT/HCPCS: 36415; 82977; 84450; 84460

== ENCOUNTER → 2017-11-05 | Outpatient (CLI) | payer BC ==
--- NOTE | 2017-11-05 12:13 | CT ---
EXAMINATION TYPE: CT hip RT wo con DATE OF EXAM: 11/05/2017 COMPARISON: 02/15/2017 HISTORY: Pain, ever since hip replacement CT DLP: 646.2 mGycm Automated exposure control for dose reduction was used. TECHNIQUE: Axial images at 3 mm thick sections. Reconstructed images in the coronal plane. FINDINGS: No acute fractures are evident. No lucency adjacent to the prosthesis is evident. There is beam harde leila artifact causing some limitation during this examination. Portions of the pelvis included within the [id number] are unremarkable. Musculature in the upper r ight thigh is unremarkable. IMPRESSION: UNREMARKABLE CT RIGHT HIP WITH PROSTHESIS
== END | disposition home or self-care (01) ==
LOC: RADCTMAIN 11:45
PROVIDERS: ATTEND Orthopaedic Surgery
DX: Z47.1 Aftercare following joint replacement surgery (principal); M25.551 Pain in right hip; E11.9 Type 2 diabetes mellitus without complications; Z96.641 Presence of right artificial hip joint

== ENCOUNTER → 2017-11-06 | Outpatient (CLI) | payer BC ==
--- NOTE | 2017-11-06 15:30 | US ---
EXAMINATION TYPE: US kidneys/renal and bladder DATE OF EXAM: 11/06/2017 COMPARISON: US of bladder CLINICAL HISTORY: N18.3 Chronic Kidney disease, Stage 3. EXAM MEASUREMENTS: Right Kidney: 11.4 x 4.2 x 4.6 cm Left Kidney: 10.2 x 4.4 x 4.6 cm Right Kidney: No hydronephrosis or masses seen Left Kidney: No hydronephrosis or masses seen Bladder: wnl Bilateral Jets seen: Yes There is no evidence for hydronephrosis at this point in time. No nephrolithiasis is seen. No emily s are identified. The urinary bladder is anechoic. Bilateral ureteral jets are seen. IMPRESSION: No sonographic evidence of hydronephrosis, nephrolithiasis or medical renal disease.
== END | disposition home or self-care (01) ==
LOC: RADUSWWP 14:52
PROVIDERS: ATTEND Family Medicine
DX: N18.3 Chronic kidney disease, stage 3 (moderate) (principal)
CPT/HCPCS: 76770

== ENCOUNTER → 2017-11-13 | Outpatient (CLI) | payer BC ==
[2017-11-13 15:51] LABS: HCT 40.3 % (34.0-46.0); HGB 12.8 gm/dL (11.4-16.0); MCH 26.5 pg (25.0-35.0); MCHC 31.8 g/dL (31.0-37.0); MCV 83.4 fL (80.0-100.0); Mean Platelet Volume 7.7; Platelet Count 427 k/uL (150-450); RBC 4.83 m/uL (3.80-5.40); WBC 9.5 k/uL (3.8-10.6)
[2017-11-13 16:10] LABS: Calcium 10.2 mg/dL (8.4-10.2)
[2017-11-13 16:15] LABS: Potassium 4.2 mmol/L (3.5-5.1)
[2017-11-13 21:16] LABS: Hemoglobin A1C 6.2 % (4.0-6.0)
== END | disposition home or self-care (01) ==
LOC: LABWHC1 15:26
PROVIDERS: ATTEND Family Medicine
DX: E11.22 Type 2 diabetes mellitus with diabetic chronic kidney disease (principal); N18.3 Chronic kidney disease, stage 3 (moderate)
CPT/HCPCS: 36415; 80048; 83036; 85027

== ENCOUNTER → 2018-05-02 | Outpatient (CLI) | payer BC ==
[2018-05-02 16:00] LABS: Basophils % (A) 0 %; Eosinophils # (A) 0.2 k/uL (0-0.7); Eosinophils % (A) 3 %; HGB 11.5 gm/dL (11.4-16.0); Hypochromasia Slight; Lymphocytes # (A) 2.7 k/uL (1.0-4.8); Lymphocytes % (A) 37 %; MCH 25.7 pg (25.0-35.0); MCHC 30.4 g/dL (31.0-37.0); MCV 84.7 fL (80.0-100.0); Mean Platelet Volume 8.1; Monocytes # (A) 0.3 k/uL (0-1.0); Monocytes % (A) 4 %; Neutrophils % (A) 54 %; Platelet Count 419 k/uL (150-450); RBC 4.49 m/uL (3.80-5.40); RDW 14.9 % (11.5-15.5); WBC 7.4 k/uL (3.8-10.6)
[2018-05-02 16:21] LABS: Calcium 9.5 mg/dL (8.4-10.2); Potassium 4.5 mmol/L (3.5-5.1)
[2018-05-03 02:20] LABS: Hemoglobin A1C 6.3 % (4.0-6.0)
== END | disposition home or self-care (01) ==
LOC: LABWHC1 14:50
PROVIDERS: ATTEND Family Medicine
DX: E11.22 Type 2 diabetes mellitus with diabetic chronic kidney disease (principal); I12.9 Hypertensive chronic kidney disease with stage 1 through stage 4 chronic kidney disease, or unspecified chronic kidney disease; N18.2 Chronic kidney disease, stage 2 (mild); E55.9 Vitamin D deficiency, unspecified; E78.00 Pure hypercholesterolemia, unspecified
CPT/HCPCS: 36415; 80048; 80061; 82306; 83036; 84450; 84460; 85025

== ENCOUNTER → 2018-07-23 | Outpatient (CLI) | payer BC ==
[2018-07-23 15:09] LABS: HCT 40.1 % (34.0-46.0); HGB 12.6 gm/dL (11.4-16.0); Hypochromasia Slight; MCH 27.1 pg (25.0-35.0); MCHC 31.4 g/dL (31.0-37.0); MCV 86.2 fL (80.0-100.0); Mean Platelet Volume 7.2; Platelet Count 426 k/uL (150-450); RBC 4.65 m/uL (3.80-5.40); RDW 14.4 % (11.5-15.5); WBC 8.5 k/uL (3.8-10.6)
[2018-07-23 15:31] LABS: Appearance,Urine Cloudy (Clear); Bacteria,Urine Rare /hpf; Bilirubin,Urine Negative (Negative); Blood,Urine Negative (Negative); Color,Urine Yellow; Glucose,Urine (UA) Negative (Negative); Ketones,Urine Negative (Negative); Leukocyte Esterase,Urine Moderate (Negative); Mucus,Urine Rare /hpf; Nitrite,Urine Negative (Negative); PH, Urine 5.5 (5.0-8.0); Protein,Urine Negative (Negative); RBC,Urine 4 /hpf (0-5); Squamous Epithelial Cell,Urine 9 /hpf (0-4); Urobilinogen,Urine <2.0 mg/dL (<2.0); WBC,Urine 5 /hpf (0-5)
[2018-07-23 19:43] LABS: Albumin 4.3 g/dL (3.80-4.90); Albumin/Globulin Ratio 1.79 (1.20-2.10); Calcium 9.3 mg/dL (8.7-10.3); Globulin 2.4 g/dL (2.1-3.7); LDL Cholesterol,Calculated 133.6 mg/dL (0.0-131.0); Potassium 4.6 mmol/L (3.5-5.5); Total Bilirubin 0.5 mg/dL (0.3-1.2); Total Protein 6.7 g/dL (6.2-8.2); VLDL Calculation 20.4 mg/dL (5.00-40.00)
[2018-07-24 00:14] LABS: Hemoglobin A1C 6.6 % (4.0-6.0)
== END | disposition home or self-care (01) ==
LOC: LABWHC1 14:40
PROVIDERS: ATTEND Family Medicine
DX: Z00.00 Encounter for general adult medical examination without abnormal findings (principal); E11.9 Type 2 diabetes mellitus without complications
CPT/HCPCS: 36415; 80053; 80061; 81001; 82043; 82306; 82570; 83036; 85027

== ENCOUNTER → 2018-08-05 | Outpatient (CLI) | payer BC ==
--- NOTE | 2018-08-05 14:58 | CT ---
EXAMINATION TYPE: CT brain wo con DATE OF EXAM: 08/05/2018 COMPARISON: None HISTORY: JOSEPH, fall and struck back of head last week CT DLP: 1171 mGycm Automated exposure control for dose reduction was used. TECHNIQUE: CT scan of the head is performed without contrast. FINDINGS: There is no acute intracranial hemorrhage, mass effect, or midline shift identified. There is a focal area of hypoattenuation of the hilliard-white junction of the left occipital lobe such as on series 3 im age 28. Remainder of the hilliard-white interface is unremarkable and maintained. No suspicious extra-axi al fluid collection is seen. The ventricles and sulci are mildly prominent compatible with mild age-r elated volume loss. The globes are intact and the visualized sinuses are clear. Ventricles are noted to be low-lying. IMPRESSION: 1. No acute intracranial hemorrhage or midline shift. 2. Focal area of hypoattenuation within the left occipital lobe at the hilliard-white junction could rela te to posttraumatic contusion or infarct. MRI brain and clinical neurologic exam recommended for furt her evaluation. Findings were discussed with the ordering provider Nicolasa Yen on 08/05/18.
== END ==
LOC: RADCTMAIN 14:12
PROVIDERS: ATTEND Physician Assistant
DX: R94.02 Abnormal brain scan (principal)
CPT/HCPCS: 70450

== ENCOUNTER → 2018-08-05 | Outpatient (CLI) | payer BC ==
--- NOTE | 2018-08-07 10:10 | MM ---
Reason for exam: screening (asymptomatic). Last mammogram was performed 1 year ago. History: Patient is postmenopausal. Physical Findings: A clinical breast exam by your physician is recommended on an annual basis and results should be correlated with mammographic findings. MG Screening Mammo w CAD Bilateral CC and MLO view(s) were taken. Prior study comparison: July 26, 2017, left breast MG work up mamm w CAD LT. July 23, 2017, bilateral MG screening mammo w CAD. The breast tissue is almost entirely fat. No significant changes when compared with prior studies. ASSESSMENT: Benign, BI-RAD 2 RECOMMENDATION: Routine screening mammogram of both breasts in 1 year.
== END | disposition home or self-care (01) ==
LOC: RADMAMWWP 15:22
PROVIDERS: ATTEND Family Medicine
DX: Z12.31 Encounter for screening mammogram for malignant neoplasm of breast (principal)
CPT/HCPCS: 77067

== ENCOUNTER → 2018-08-08 | Outpatient (CLI) | payer BC ==
--- NOTE | 2018-08-09 01:38 | MR ---
EXAMINATION TYPE: MR brain wo/w con DATE OF EXAM: 08/08/2018 COMPARISON: Correlation CT abdomen 08/05/2018 HISTORY: 63-year-old female contusion along the back of the head after fall, pain TECHNIQUE: Multiplanar, multisequence images of the brain and brainstem were acquired before and aft er administration of 10 mL IV Gadavist. Diffusion weighted imaging is performed. FINDINGS: No evidence for acute infarction, hemorrhage, mass, mass effect, midline shift, herniation, effacemen t of basal cisterns, or extra-axial fluid collection. There is mild age-related supratentorial volume loss. The ventricles and sulci are age-appropriate. Major intracranial flow voids are intact. The left vertebral artery is dominant T2/FLAIR weighted sequences show mild scattered burden of bright white matter change in the subcortic al region of the posterior hemispheres, likely relating to changes of chronic small vessel ischemic d isease. T2*gradient sequence shows no susceptibility artifact to suggest prior intracranial bleeding. Midline structures demonstrate normal morphology. There is 5 mm of cerebellar tonsillar ectopia with crowding of the foramen magnum but no rakan tonsillar beaking. Post contrast images demonstrate no evidence of pathologic enhancement. Dural venous sinuses are pat ent. Moderate mucosal thickening ethmoid air cells. Globes are intact. IMPRESSION: 1. Mild atrophy and mild changes of chronic small vessel ischemic disease. No acute intracranial abno rmality seen. No abnormal edema or evidence of prior microbleed. 2. 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 This is indeterminate betwee n benign cerebellar tonsillar ectopia and Chiari I malformation. Further clinical correlation for any long-standing/chronic symptoms in this patient is recommended.
== END | disposition home or self-care (01) ==
LOC: RADMRIMAIN 15:13
PROVIDERS: ATTEND Family Medicine
DX: S00.93XD Contusion of unspecified part of head, subsequent encounter (principal)
CPT/HCPCS: 70553; A9585

== ENCOUNTER → 2019-07-30 | Outpatient (CLI) | payer MEDICARE ==
[2019-07-30 13:40] LABS: HCT 38.3 % (34.0-46.0); HGB 12.5 gm/dL (11.4-16.0); Hypochromasia Slight; MCH 28.5 pg (25.0-35.0); MCHC 32.5 g/dL (31.0-37.0); MCV 87.7 fL (80.0-100.0); Mean Platelet Volume 6.2; Platelet Count 437 k/uL (150-450); RBC 4.37 m/uL (3.80-5.40); RDW 13.6 % (11.5-15.5); WBC 9.1 k/uL (3.8-10.6)
[2019-07-30 15:12] LABS: Appearance,Urine Clear (Clear); Bilirubin,Urine Negative (Negative); Blood,Urine Small (Negative); Color,Urine Yellow; Glucose,Urine (UA) Negative (Negative); Ketones,Urine Negative (Negative); Leukocyte Esterase,Urine Negative (Negative); Mucus,Urine Rare /hpf; Nitrite,Urine Negative (Negative); Protein,Urine Negative (Negative); RBC,Urine 14 /hpf (0-5); Specific Gravity,Urine 1.022 (1.001-1.035); Squamous Epithelial Cell,Urine 6 /hpf (0-4); Urobilinogen,Urine <2.0 mg/dL (<2.0); WBC,Urine 3 /hpf (0-5)
[2019-07-30 20:24] LABS: African American GFR (CKD) 70.4 (60.0-200.0); Albumin 4.2 g/dL (3.80-4.90); Albumin/Globulin Ratio 1.75 (1.60-3.17); Anion Gap 7.4 mmol/L (4.00-12.00); Calcium 9.3 mg/dL (8.7-10.3); Carbon Dioxide 27.6 mmol/L (21.6-31.8); Chol/HDL Ratio 3.73; Globulin 2.4 g/dL (1.6-3.3); LDL Cholesterol,Calculated 130.4 mg/dL (0.0-131.0); Non-African American GFR(CKD) 60.8 (60.0-200.0); Potassium 4.2 mmol/L (3.5-5.5); Total Bilirubin 0.4 mg/dL (0.3-1.2); Total Protein 6.6 g/dL (6.2-8.2); VLDL Calculation 19.6 mg/dL (5.00-40.00)
[2019-07-31 00:53] LABS: Hemoglobin A1C 6.8 % (4.0-6.0)
== END | disposition home or self-care (01) ==
LOC: LABWHC1 12:06
PROVIDERS: ATTEND Family Medicine
DX: Z00.00 Encounter for general adult medical examination without abnormal findings (principal)
CPT/HCPCS: 36415; 80053; 80061; 81001; 82043; 82306; 82570; 83036; 84443; 85027

== ENCOUNTER → 2019-11-11 | Outpatient (CLI) | payer MEDICARE ==
[2019-11-11 16:25] LABS: Appearance,Urine Cloudy (Clear); Bacteria,Urine Occasional /hpf; Bilirubin,Urine Negative (Negative); Blood,Urine Negative (Negative); Color,Urine Yellow; Glucose,Urine (UA) Negative (Negative); Hyaline Casts,Urine 1 /lpf (0-2); Ketones,Urine Negative (Negative); Leukocyte Esterase,Urine Large (Negative); Mucus,Urine Rare /hpf; Nitrite,Urine Negative (Negative); PH, Urine 5.5 (5.0-8.0); Protein,Urine Negative (Negative); RBC,Urine 6 /hpf (0-5); Specific Gravity,Urine 1.013 (1.001-1.035); Squamous Epithelial Cell,Urine 8 /hpf (0-4); Urobilinogen,Urine <2.0 mg/dL (<2.0); WBC,Urine 7 /hpf (0-5)
[2019-11-11 16:51] LABS: Basophils % (A) 0 %; Eosinophils # (A) 0.1 k/uL (0-0.7); Eosinophils % (A) 2 %; HCT 38.2 % (34.0-46.0); HGB 12.1 gm/dL (11.4-16.0); Lymphocytes # (A) 2.3 k/uL (1.0-4.8); Lymphocytes % (A) 30 %; MCH 27.4 pg (25.0-35.0); MCHC 31.7 g/dL (31.0-37.0); MCV 86.3 fL (80.0-100.0); Mean Platelet Volume 7.8; Monocytes # (A) 0.3 k/uL (0-1.0); Monocytes % (A) 4 %; Neutrophils # (A) 4.8 k/uL (1.3-7.7); Neutrophils % (A) 63 %; Platelet Count 421 k/uL (150-450); RBC 4.42 m/uL (3.80-5.40); RDW 13.9 % (11.5-15.5); WBC 7.6 k/uL (3.8-10.6)
[2019-11-11 23:18] LABS: African American GFR (CKD) 69.9 (60.0-200.0); Anion Gap 8.2 mmol/L (4.00-12.00); Calcium 9.9 mg/dL (8.7-10.3); Carbon Dioxide 26.8 mmol/L (21.6-31.8); Chol/HDL Ratio 3.82; LDL Cholesterol,Calculated 133.4 mg/dL (0.0-131.0); Non-African American GFR(CKD) 60.3 (60.0-200.0); Potassium 3.9 mmol/L (3.5-5.5); VLDL Calculation 24.6 mg/dL (5.00-40.00)
[2019-11-12 01:27] LABS: Hemoglobin A1C 6.8 % (4.0-6.0)
[2019-11-12 02:28] LABS: Urine Creatinine 102.6 mg/dL
== END | disposition home or self-care (01) ==
LOC: LABWHC1 15:19
PROVIDERS: ATTEND Family Medicine
DX: E11.9 Type 2 diabetes mellitus without complications (principal); I10 Essential (primary) hypertension; E78.00 Pure hypercholesterolemia, unspecified
CPT/HCPCS: 36415; 80048; 80061; 81001; 82043; 82570; 83036; 84450; 84460; 85025

== ENCOUNTER → 2020-12-08 | Outpatient (CLI) | payer MEDICARE ==
[2020-12-08 16:43] LABS: Appearance,Urine Cloudy (Clear); Bacteria,Urine Rare /hpf; Bilirubin,Urine Negative (Negative); Blood,Urine Negative (Negative); Color,Urine Yellow; Glucose,Urine (UA) Negative (Negative); Ketones,Urine Negative (Negative); Leukocyte Esterase,Urine Small (Negative); Mucus,Urine Rare /hpf; Nitrite,Urine Negative (Negative); PH, Urine 5.5 (5.0-8.0); Protein,Urine Negative (Negative); RBC,Urine 1 /hpf (0-5); Specific Gravity,Urine 1.025 (1.001-1.035); Squamous Epithelial Cell,Urine 9 /hpf (0-4); Urobilinogen,Urine <2.0 mg/dL (<2.0); WBC,Urine 4 /hpf (0-5)
[2020-12-08 22:59] LABS: HCT 43.1 % (37.2-46.3); HGB 13.1 g/dL (12.0-15.0); MCHC 30.4 g/dL (32.0-37.0); MCV 88.7 fL (80.0-97.0); Mean Platelet Volume 11.5 fL (9.5-12.2); Platelet Count 432 X 10*3/uL (140-440); RBC 4.86 X 10*6/uL (4.10-5.20); RDW 14.7 % (11.5-14.5); WBC 9.81 X 10*3/uL (4.50-10.00)
[2020-12-09 02:12] LABS: Hemoglobin A1C 6.8 % (4.0-6.0)
[2020-12-09 05:02] LABS: Urine Creatinine 172.7 mg/dL
[2020-12-09 05:14] LABS: African American GFR (CKD) 69.4 (60.0-200.0); Albumin 4.4 g/dL (3.80-4.90); Albumin/Globulin Ratio 1.83 (1.60-3.17); Anion Gap 9.7 mmol/L (4.00-12.00); Calcium 9.8 mg/dL (8.7-10.3); Carbon Dioxide 25.3 mmol/L (21.6-31.8); Chol/HDL Ratio 4.12; Globulin 2.4 g/dL (1.6-3.3); LDL Cholesterol,Calculated 136.2 mg/dL (0.0-131.0); Non-African American GFR(CKD) 59.9 (60.0-200.0); Potassium 4.4 mmol/L (3.5-5.5); Total Bilirubin 0.5 mg/dL (0.3-1.2); Total Protein 6.8 g/dL (6.2-8.2); VLDL Calculation 25.8 mg/dL (5.00-40.00)
== END | disposition home or self-care (01) ==
LOC: LABWHC1 15:23
PROVIDERS: ATTEND Family Medicine
DX: Z00.01 Encounter for general adult medical examination with abnormal findings (principal); E11.9 Type 2 diabetes mellitus without complications
CPT/HCPCS: 36415; 80053; 80061; 81001; 82043; 82306; 82570; 83036; 85027

== ENCOUNTER → 2022-08-14 | Outpatient (CLI) | payer MEDICARE ==
[2022-08-14 23:49] LABS: HCT 45.9 % (37.2-46.3); HGB 14.8 g/dL (12.0-15.0); MCH 29.4 pg (27.0-32.0); MCHC 32.2 g/dL (32.0-37.0); MCV 91.3 fL (80.0-97.0); Mean Platelet Volume 11.8 fL (9.5-12.2); NRBC Per 100 WBC 0 /100 WBCS (0.0-0.0); Platelet Count 479 X 10*3/uL (140-440); RBC 5.03 X 10*6/uL (4.10-5.20); RDW 13.5 % (11.5-14.5); WBC 8.67 X 10*3/uL (4.50-10.00)
[2022-08-14 23:56] LABS: ALT 22 U/L (8-44); AST 18 U/L (13-35); African American GFR (CKD) 72.6 (60.0-200.0); Albumin 4.3 g/dL (3.8-4.9); Albumin/Globulin Ratio 1.59 (1.60-3.17); Alkaline Phosphatase 107 U/L (41-126); BUN/Creat Ratio 19.83 Ratio (12.00-20.00); Blood Urea Nitrogen 18.9 mg/dL (9.0-27.0); Calcium 10.1 mg/dL (8.7-10.3); Carbon Dioxide 25.6 mmol/L (20.0-27.5); Chloride 105 mmol/L (96-109); Chol/HDL Ratio 3.73 Ratio; Globulin 2.7 g/dL (1.6-3.3); Glucose 104 mg/dL (70-110); LDL Cholesterol,Calculated 165.4 mg/dL (0.0-131.0); Non-African American GFR(CKD) 62.6 (60.0-200.0); Potassium 4.1 mmol/L (3.5-5.5); Sodium 142 mmol/L (135-145); VLDL Calculation 19.68 mg/dL (5.00-40.00)
[2022-08-15 04:24] LABS: Microalbumin Creatinine Ratio <30 mg/g Creat (0-30); Urine Creatinine 27.7 mg/dL (28.0-217.0)
[2022-08-15 04:41] LABS: Appearance,Urine Clear (Clear); Bilirubin,Urine Negative (Negative); Blood,Urine Negative (Negative); Color,Urine Yellow (Yellow); Ketones,Urine Negative (Negative); Nitrite,Urine Negative (Negative); Specific Gravity,Urine 1.005 (1.001-1.030); Urobilinogen,Urine 0.2 (0.2,1.0)
[2022-08-15 04:49] LABS: Bacteria,Urine None Seen /HPF (None Seen)
== END | disposition home or self-care (01) ==
LOC: LABWHC1 16:11
PROVIDERS: ATTEND Family Medicine
DX: Z00.01 Encounter for general adult medical examination with abnormal findings (principal); I10 Essential (primary) hypertension; E78.00 Pure hypercholesterolemia, unspecified; E11.9 Type 2 diabetes mellitus without complications; E55.9 Vitamin D deficiency, unspecified; E66.9 Obesity, unspecified
CPT/HCPCS: 36415; 80053; 80061; 81001; 82043; 82306; 82570; 83036; 84443; 85027

== ENCOUNTER → 2022-12-25 | Outpatient (CLI) | payer MEDICARE ==
--- NOTE | 2022-12-25 15:07 | US ---
EXAMINATION TYPE: US extremity nonvasc mass RT DATE OF EXAM: 12/25/2022 COMPARISON: NONE CLINICAL INDICATION: Female, 67 years old with history of R22.41 SWELLING, MASS AND LUMP; Hx of right hip replacement 2017. Palpable and redness at right lateral thigh at area of hip scar. TECHNIQUE: FINDINGS: Multiple images of area of concern scanned. Complex fluid collection seen that extends de ep = 8.1 x 4.1 x 6.2 cm. Superficial inflammation seen. IMPRESSION: 1. Complex cystic collection at the site of concern which may reflect an underlying abscess. Correlat e clinically.
[2022-12-25 22:34] LABS: Basophils # (A) 0.04 X 10*3/uL (0.00-0.10); Basophils % (A) 0.4 %; Eosinophils # (A) 0.06 X 10*3/uL (0.04-0.35); Eosinophils % (A) 0.6 %; HGB 14.1 g/dL (12.0-15.0); Immature Grans, Automated 0.3 %; Lymphocytes # (A) 2.28 X 10*3/uL (0.90-5.00); Lymphocytes % (A) 23.7 %; MCH 28.4 pg (27.0-32.0); MCHC 31.3 g/dL (32.0-37.0); MCV 90.5 fL (80.0-97.0); Mean Platelet Volume 11.4 fL (9.5-12.2); Monocytes # (A) 0.53 X 10*3/uL (0.20-1.00); Monocytes % (A) 5.5 %; NRBC Per 100 WBC 0 /100 WBCS (0.0-0.0); Neutrophils % (A) 69.5 %; Platelet Count 527 X 10*3/uL (140-440); RBC 4.97 X 10*6/uL (4.10-5.20); WBC 9.64 X 10*3/uL (4.50-10.00)
[2022-12-26 10:36] LABS: Lyme IgG/IgM 0.31 Index
== END | disposition home or self-care (01) ==
LOC: RADUSWWP 13:23
PROVIDERS: ATTEND Family Medicine
DX: R22.41 Localized swelling, mass and lump, right lower limb (principal); L03.90 Cellulitis, unspecified; A26.0 Cutaneous erysipeloid
CPT/HCPCS: 36415; 85025; 86618

== ENCOUNTER → 2022-12-25 | Outpatient (CLI) | payer MEDICARE ==
--- NOTE | 2022-12-25 19:49 | CT ---
EXAMINATION TYPE: CT hip RT w con DATE OF EXAM: 12/25/2022 COMPARISON: HISTORY: Hematoma vs abscess right thigh, marked by radiopaque BB CT DLP: 1271.2 mGycm Automated exposure control for dose reduction was used. Contrast: None Technique: Axial images 3 mm thick sections. Reconstructed images in the coronal and sagittal plane. This is compared with 11/05/2017 FINDINGS: There is a right femoral hip prosthesis present which causes beam hardening artifact in some limitati on in the evaluation portions of the exam. There is a curvilinear soft tissue density extending anterior to the hip prosthesis through the muscu lature and extending towards the skin surface were a BB marker is there is skin thickening diffusely through this region. Findings are suspicious for underlying abscess. Differential could include serom a. This may communicate with the joint space. Area measures 6.6 x 2.2 x 5.9 cm in maximum dimensions. Cortical erosion adjacent to the femoral prosthesis or within the proximal femur is not identified. IMPRESSION: 1. LARGE HYPODENSE COLLECTION WITH SURROUNDING HYPERINTENSITY AND INFLAMMATORY TYPE CHANGES SUSPICIOU S FOR ANTERIOR RIGHT HIP ABSCESS. THIS EXTENDS TO THE JOINT SPACE AND TO THE SKIN SURFACE AT THE AREA MARKED BY THE BB.
== END | disposition home or self-care (01) ==
LOC: RADCTMAIN 17:25
PROVIDERS: ATTEND Orthopaedic Surgery
DX: M25.551 Pain in right hip (principal); E11.9 Type 2 diabetes mellitus without complications; J45.909 Unspecified asthma, uncomplicated; K21.9 Gastro-esophageal reflux disease without esophagitis; E78.5 Hyperlipidemia, unspecified; Z68.41 Body mass index [BMI] 40.0-44.9, adult; Z96.641 Presence of right artificial hip joint
CPT/HCPCS: 82565; 84520; 36415; 73701; Q9967

== ENCOUNTER 2022-12-26 12:03 | Inpatient (IN) | payer MEDICARE ==
[~2022-12-26 12:03] MED LIST changes: -DEXAMETHASONE SOD PHOSPHATE 10 MG/ML 1 ML VIAL IV ONE; -LACTATED RINGERS 1,000 ML IV SCH; -ONDANSETRON 4 MG/2 ML VIAL IVP ONE
[2022-12-26] MEDS ORDERED: ONDANSETRON 4 MG/2 ML VIAL ONE (12:47)
[2022-12-26] MEDS ORDERED: SCOPOLAMINE 1 MG/72 HR PATCH TRANSDERM ONE (12:50)
[2022-12-26] MEDS ORDERED: DEXAMETHASONE SOD PHOSPHATE 4 MG/ML 1 ML VIAL IVP ONE (12:50)
[2022-12-26 12:54] LABS: Glucose,Whole Blood 121 mg/dL (70-110)
[2022-12-26] MEDS ORDERED: MIDAZOLAM 2 MG/2 ML VIAL IVP ONE (12:55)
[2022-12-26] MEDS ORDERED: SUCCINYLCHOLINE CHLORIDE 200 MG/10 ML VIAL IV ONE (12:56)
[2022-12-26] MEDS ORDERED: LIDOCAINE 2% INJ 20 MG/ML (2 ML VIAL) ONE (12:56)
[2022-12-26] MEDS ORDERED: MIDAZOLAM 2 MG/2 ML VIAL ONE (12:56)
[2022-12-26] MEDS ORDERED: PROPOFOL 10 MG/ML 20 ML VIAL IV ONE (12:56)
[2022-12-26] MEDS ORDERED: HYDROmorphone (PF) 1 MG/ML ONE (12:56)
[2022-12-26] MEDS ORDERED: fentaNYL (PF) 50 MCG/ML 2 ML AMP ONE (12:56)
[2022-12-26] MEDS ORDERED: LACTATED RINGERS 1,000 ML IV ONE ×2 (12:59→15:24)
[2022-12-26] MEDS ORDERED: VANCOMYCIN 1,000 MG VIAL MISCELLANE ONE (13:31)
[2022-12-26] MEDS ORDERED: TOBRAMYCIN SULFATE 1.2 GM VIAL MISCELLANE ONE (13:32)
--- NOTE | 2022-12-26 13:55 | P.OP ---
Date of Procedure: 12/26/22 Preoperative Diagnosis: Infection right total hip arthroplasty Postoperative Diagnosis: Infection right total hip arthroplasty Procedure(s) Performed: 1. Incision and drainage right total hip arthroplasty 2. Placement of Stimulan antibiotic beads Implants: Stimulan antibiotic beads with 1 g of vancomycin 1 g of tobramycin Anesthesia: ARACELY Surgeon: Brody Barcenas Tank Calibrator #1: Mary Anna Estimated Blood Loss (ml): 20 Pathology: other (Cultures 2) Condition: stable Disposition: PACU Indications for Procedure: This is a 67-year-old female has had a prior right total hip arthroplasty performed in 2017. She presented to the office yesterday with a reddened area at the distal aspect of her incision on her right thigh. She was not complaining of pain in her hip just pain on the thigh when the reddened area was touched. She had no fever or chills at that time. A stat computed tomography scan of her hip was then ordered which was read out as abscess in her right thigh communicating with the right total hip arthroplasty. She was then brought to the OR today for an incision and drainage of her right hip with placement of antibiotic beads. Informed consent was obtained. Operative Findings: The operative findings showed a moderate amount of purulent material under the skin of the reddened area. There was a tract down to the right total hip arthroplasty from the abscess. Description of Procedure: The patient was seen and evaluated in the preoperative area and the consent was reviewed. The operative site was marked with a skin marker. The patient verified the procedure and operative site. The patient was then brought to the operating room and the preoperative antibiotics were held until after cultures were obtained.. A general anesthetic was administered by the anesthesia department. The patient was then placed on the [place] table with the bony prominences well-padded. The hip area was then prepped with a ChloraPrep solution and draped in the usual sterile fashion. A universal timeout was then performed, which confirmed the patient's name, surgical site, ALLERGIES, and procedure being performed on the consent. The skin was then incised over the area of redness sharply with a knife. Incision was carried down through subcutaneous tissue and a moderate amount of purulent material was encountered. This purulent material was cultured 2. There area was copiously irrigated with antibiotic solution via pulsatile lavage. The wound was then explored tract was then found passing down to the right total hip. This was then irrigated with antibiotic solution as well. After a thorough irrigation was performed. The wound was then bathed in a Betadine solution for 10 minutes. While this was being done, the antibiotics were mixed on the back table using the Stimulan solution as well as 1 g of tobramycin and 1 g of vancomycin. After the antibiotic beads had hardened there removed from her hardening trace. The Betadine was then irrigated out of the wound and the antibiotic beads were then placed from the hip to the superficial wound. The subcutaneous tissue was closed with 3-0 Vicryl. The subcuticular tissue was closed with 3-0 strata fix suture. The skin was then closed with Exofin skin glue. After the glue and dried, and Optifoam silver impregnated dressing was applied. The patient was then transferred to the recovery room in stable condition. The print shop assistant JUANCHO Sanchez was required due to the complexity of surgery, and the need for skilled rn neurosurgical for positioning, draping, exposure, retraction, and closure of the wound.
[2022-12-26] MEDS ORDERED: HYDROmorphone 0.5 MG/0.5 ML SYRINGE IVP PRN ×2 (13:56)
[2022-12-26] MEDS ORDERED: NALOXONE 0.4 MG/ML 1 ML VIAL IV PRN (13:56)
[2022-12-26] MEDS ORDERED: MAGNESIUM HYDROXIDE 2,400 MG/10 ML CUP PO PRN (13:56)
[2022-12-26] MEDS ORDERED: VANCOMYCIN IV PER PHARMACY 1 EACH MISC MISCELLANE PRN (14:03)
[2022-12-26] MEDS ORDERED: ACETAMINOPHEN TAB 325 MG TAB PO PRN (14:04)
[2022-12-26] MEDS: HYDROmorphone 0.5 MG/0.5 ML SYRINGE IVP PRN (14:26)
[2022-12-26] MEDS ORDERED: HYDROmorphone 0.5 MG/0.5 ML SYRINGE IVP ONE (14:43)
[2022-12-26] MEDS: SODIUM CHLORIDE 0.9% 1,000 ML IV SCH (16:08)
[2022-12-26] MEDS: ONDANSETRON 4 MG/2 ML VIAL IVP PRN (16:12)
[2022-12-26] MEDS: VANCOMYCIN 1,750 MG in SODIUM CHLORIDE 0.9% 500 ML 500 ML IVPB SCH (16:27)
[2022-12-26] MEDS ORDERED: ALBUTEROL NEBULIZED 2.5 MG/3 ML INHALATION PRN (17:39)
--- NOTE | 2022-12-26 20:56 | P.CONS ---
History of Present Illness - Reason for Consult Consult date: 12/26/22 Medical management Requesting physician: Brody Barcenas - Chief Complaint Painful red swelling on the right thigh - History of Present Illness This is a pleasant 67-year-old patient follows with Dr. White. Chronic stable medical conditions include asthma, GERD, hypertension, hyperlipidemia, osteoarthritis. Diet controlled diabetes. Patient had right total hip arthroplasty back in 2017. 2 weeks following that patient developed infected right hip incision with cellulitis and seroma and ID was carried out. Subsequently patient did well. For 2 weeks patient noticed some swelling on the same area. Subsequently she notices area of redness and increased warmth. Went down to her family doctor and was referred here. To get an ultrasound/CT scanner. Today patient underwent I&D of the right total hip arthroplasty. Still on antibiotic beads were placed. I'll 1 g vancomycin 1 g tobramycin. Postprocedure laying in bed. Pain control. No fever and chills. Review of systems: GEN.: Tired EYES: None HEENT: None NECK: None RESPIRATORY: None CARDIOVASCULAR: None GASTROINTESTINAL: None GENITOURINARY: None MUSCULOSKELETAL: Joint pain LYMPHATICS: None HEMATOLOGICAL: None PSYCHIATRY: None NEUROLOGICAL: None Past medical history to include: Asthma, GERD, hypertension, hyperlipidemia, diet-controlled diabetes, osteoarthritis Social history: Used to work before. No smoking or alcohol Physical examination: VITAL SIGNS: 97.9, 81, 17, 138/62, 97% on 2 L GENERAL: BMI 37.6, declining but awake not in distress. EYES: Pupils equal. Conjunctiva normal. HEENT: External appearance of nose and ears normal, oral cavity grossly normal. NECK: JVD not raised; masses not palpable. HEART: First and second heart sounds are normal; no edema. LUNGS: Respiratory rate normal; clear to auscultation. ABDOMEN: Soft, nontender, liver spleen not palpable, no masses palpable. PSYCH: Alert and oriented x3; mood and affect normal. MUSCULOSKELETAL:No Clubbing/cyanosis;muscles-grossly intact. OA. Dressing over the right hip incision. NEUROLOGICAL: Cranial nerves grossly intact; no facial asymmetry, power and sensation grossly intact. LYMPHATICS: No lymph nodes palpable in the axilla and neck INVESTIGATIONS, reviewed in the clinical context: CRP 2.8 12/25/2022: White count 9.6 hemoglobin 14.1 platelets 527 BUN 21 and creatinine 1.06 Assessment and plan: -Infected right total hip arthroplasty I&D carried out with antibiotic beads on vancomycin and tobramycin placed -Intermittent asthma Pro-air 2 puffs every 6 when necessary -Essential hypertension Zestoretic 10/12.5 daily -GERD Prilosec 20 mg daily -Obesity BMI 37.6 Weight loss measures Care was discussed with the patient. Questions answered. Subcu Lovenox for DVT prophylaxis Thank you Dr. Barcenas Past Medical History Past Medical History: Asthma, Diabetes Mellitus, GERD/Reflux, Hyperlipidemia, Hypertension, Osteoarthritis (OA) Additional Past Medical History / Comment(s): hx palpitations, reactive airway disease, hx pancreatitis, History of Any Multi-Drug Resistant Organisms: None Reported Past Surgical History: Section, Cholecystectomy, Hernia Repair, Joint Replacement Additional Past Surgical History / Comment(s): total left hip replacement December 2011, Right Hip replacement Febur2016 Past Anesthesia/Blood Transfusion Reactions: Family History of Problems w/ Anesthesia, Postoperative Nausea & Vomiting (PONV) Additional Past Anesthesia/Blood Transfusion Reaction / Comm: dad-had CVA during back surgery , sister-PONV Smoking Status: Never smoker - Past Family History Brother(s) Family Medical History: Cancer Medications and Allergies Home Medications Medication Instructions Recorded Confirmed Type Albuterol Sulfate [Proair Hfa] 2 puff INHALATION RT-Q6H PRN 10/16/16 12/26/22 History Cholecalciferol [Vitamin D3 (25 2,000 unit PO DAILY 10/16/16 12/26/22 History Mcg = 1000 Iu)] Lisinopril-Hctz 10-12.5 mg 1 tab PO DAILY 10/16/16 12/26/22 History [Zestoretic 10-12.5] Omeprazole [PriLOSEC] 20 mg PO AC-BRKFST 03/26/17 12/26/22 History valACYclovir HCL [Valtrex] 2,000 mg PO Q12HR PRN 03/26/17 12/26/22 History Doxycycline [Vibramycin] 100 mg PO DAILY 12/26/22 12/26/22 History Multivit with Calcium,Iron,Min 1 tab PO DAILY 12/26/22 12/26/22 History [Women's Multivitamin] Allergies Allergy/AdvReac Type Severity Reaction Status Date / Time morphine Allergy Severe turn red, Verified 12/26/22 12:19 skin peels, SOB, feels like burning inside adhesive tape Allergy red welts, Verified 12/26/22 12:19 fitzgerald ibuprofen [From Advil] Allergy Itching Verified 12/26/22 12:21 meperidine [From Demerol] Allergy headaches Verified 12/26/22 12:19 gabapentin AdvReac Swelling Verified 12/26/22 12:21 Physical Exam Vitals: Vital Signs Temp Pulse Resp BP Pulse Ox 12/26/22 16:22 97.9 F 81 17 188/69 92 L 12/26/22 15:30 72 16 138/62 97 12/26/22 15:15 67 16 135/60 97 12/26/22 15:00 72 16 151/70 97 12/26/22 14:45 65 16 131/61 98 12/26/22 14:30 70 16 153/68 98 12/26/22 14:15 69 16 158/68 98 12/26/22 13:59 98.5 F 75 16 144/64 98 Intake and Output 12/26/22 12/26/22 12/26/22 06:59 14:59 22:59 Intake Total 850 700 Output Total 20 Balance 830 700 Intake: IV 850 700 Output: Estimated Blood Loss 20 Other: # Voids 1 Weight 99.3 kg 99.3 kg Results Labs: Abnormal Lab Results - Last 24 Hours (Table) 12/26/22 12/26/22 12/26/22 Range/Units 12:53 18:50 18:50 ESR 52 H (0-20) mm/hr POC Glucose (mg/dL) 121 H (70-110) mg/dL C-Reactive Protein 2.8 H (<1.0) mg/dL
[2022-12-26 21:55] LABS: Glucose,Whole Blood 169 mg/dL (70-110)
[2022-12-26] MEDS: ENOXAPARIN 40 MG/0.4 ML SYRINGE SQ SCH (22:50)
[2022-12-26] MEDS: SENNOSIDES-DOCUSATE SODIUM 1 EACH TAB PO SCH (22:50)
[2022-12-27] MEDS: SODIUM CHLORIDE 0.9% 1,000 ML IV SCH ×2 (04:49→17:47)
[2022-12-27 06:09] LABS: Glucose,Whole Blood 117 mg/dL (70-110)
[2022-12-27] MEDS: PANTOPRAZOLE 40 MG TABLET PO SCH (06:48)
--- NOTE | 2022-12-27 07:47 | P.PN ---
Subjective Progress Note Date: 12/27/22 Principal diagnosis: Infection right hip. Status post incision and drainage right hip. This is a 67-year-old female who is status post incision and drainage of the right hip for abscess with tracking into the hip. She has no new complaints or concerns today. Vital signs are stable. Cultures are pending. Objective - Vital Signs Vital signs: Vital Signs Temp 98.2 F 12/27/22 02:00 Pulse 55 L 12/27/22 02:00 Resp 16 12/27/22 02:00 BP 104/52 12/27/22 02:00 Pulse Ox 99 12/27/22 02:00 FiO2 Intake & Output 12/26/22 12/27/22 12/27/22 18:59 06:59 18:59 Intake Total 1550 Output Total 20 Balance 1530 Weight 99.3 kg Intake: IV 1550 Output: Estimated Blood Loss 20 Other: Voiding Method Toilet # Voids 1 2 - Exam This is a pleasant 67-year-old female in no acute distress. She is alert and oriented 3. Exam of the right hip reveals that her dressing is clean, dry and intact. She has full foot ankle motion without difficulty or pain. Neurovascular status to the right lower extremity is intact. - Labs Labs: Abnormal Lab Results - Last 24 Hours (Table) 12/26/22 12/26/22 12/26/22 Range/Units 12:53 18:50 18:50 ESR 52 H (0-20) mm/hr POC Glucose (mg/dL) 121 H (70-110) mg/dL C-Reactive Protein 2.8 H (<1.0) mg/dL 12/26/22 12/27/22 Range/Units 21:54 06:08 ESR (0-20) mm/hr POC Glucose (mg/dL) 169 H 117 H (70-110) mg/dL C-Reactive Protein (<1.0) mg/dL Microbiology - Last 24 Hours (Table) 12/26/22 14:00 Wound Culture - Preliminary Hip - Right 12/26/22 13:42 Anaerobic Culture - Preliminary Hip - Right 12/26/22 14:00 Anaerobic Culture - Preliminary Hip - Right 12/26/22 13:42 Wound Culture - Preliminary Hip - Right Assessment and Plan (1) Infection of right prosthetic hip joint Current Visit: Yes Status: Acute Code(s): T84.51XA - INFECT/INFLM REACTION DUE TO INTERNAL RIGHT HIP PROSTH, INIT SNOMED Code(s): 000201541 (2) Cellulitis of right hip Current Visit: No Status: Acute Code(s): L03.115 - CELLULITIS OF RIGHT LOWER LIMB SNOMED Code(s): 25435113070356796 (3) Status post right hip replacement Current Visit: No Status: Acute Code(s): Z96.641 - PRESENCE OF RIGHT ARTIFICIAL HIP JOINT SNOMED Code(s): 755413601 Plan: Clinical findings are discussed with the patient. We are awaiting evaluation with infectious disease. We are awaiting cultures as well. Continue current care.
[2022-12-27] MEDS: LISINOPRIL-HCTZ 10-12.5 MG 1 EACH TAB PO SCH (08:18)
[2022-12-27] MEDS: MULTIVITAMINS, THERA 1 EACH TAB PO SCH (08:18)
[2022-12-27] MEDS: ENOXAPARIN 40 MG/0.4 ML SYRINGE SQ SCH (08:19)
[2022-12-27] MEDS: CHOLECALCIFEROL 25 MCG (1000 IU) TABLET PO SCH (08:19)
[2022-12-27 10:58] LABS: Basophils # (A) 0.03 X 10*3/uL (0.00-0.10); Basophils % (A) 0.2 %; Eosinophils # (A) 0.06 X 10*3/uL (0.04-0.35); Eosinophils % (A) 0.5 %; HCT 36.7 % (37.2-46.3); HGB 11.4 g/dL (12.0-15.0); Immature Grans, Automated 0.2 %; Lymphocytes # (A) 3.23 X 10*3/uL (0.90-5.00); Lymphocytes % (A) 26.9 %; MCHC 31.1 g/dL (32.0-37.0); MCV 90.2 fL (80.0-97.0); Mean Platelet Volume 10.9 fL (9.5-12.2); Monocytes # (A) 0.82 X 10*3/uL (0.20-1.00); Monocytes % (A) 6.8 %; NRBC Per 100 WBC 0 /100 WBCS (0.0-0.0); Neutrophils # (A) 7.85 X 10*3/uL (1.80-7.70); Neutrophils % (A) 65.4 %; Platelet Count 462 X 10*3/uL (140-440); RBC 4.07 X 10*6/uL (4.10-5.20); RDW 14.2 % (11.5-14.5); WBC 12.02 X 10*3/uL (4.50-10.00)
[2022-12-27] MEDS: HYDROcodone/APAP 5-325MG 1 EACH TAB PO PRN ×2 (11:01→19:18)
[2022-12-27 11:02] LABS: Anion Gap 7.6 mmol/L (10.00-18.00); BUN/Creat Ratio 16.73 Ratio (12.00-20.00); Blood Urea Nitrogen 18.4 mg/dL (9.0-27.0); Calcium 9.8 mg/dL (8.7-10.3); Carbon Dioxide 25.4 mmol/L (20.0-27.5); Non-African American GFR(CKD) 52.6 (60.0-200.0); Potassium 4.6 mmol/L (3.5-5.5)
[2022-12-27 11:20] LABS: Glucose,Whole Blood 139 mg/dL (70-110)
[2022-12-27] MEDS: VANCOMYCIN 1,750 MG in SODIUM CHLORIDE 0.9% 500 ML 500 ML IVPB SCH (15:38)
[2022-12-27 17:04] LABS: Glucose,Whole Blood 114 mg/dL (70-110)
--- NOTE | 2022-12-27 17:21 | P.PN ---
Progress Note - Text Progress Note Date: 12/27/22 - Chief Complaint Painful red swelling on the right thigh Hospital course: This is a pleasant 67-year-old patient follows with Dr. White. Chronic stable medical conditions include asthma, GERD, hypertension, hyperlipidemia, osteoarthritis. Diet controlled diabetes. Patient had right total hip arthroplasty back in 2016. 2 weeks following that patient developed infected right hip incision with cellulitis and seroma and ID was carried out. Subsequently patient did well. For 2 weeks patient noticed some swelling on the same area. Subsequently she notices area of redness and increased warmth. Went down to her family doctor and was referred here. To get an ultrasound/CT scanner. Today patient underwent I&D of the right total hip arthroplasty. Still on antibiotic beads were placed. I'll 1 g vancomycin 1 g tobramycin. Postproce dure laying in bed. Pain control. No fever and chills. December 27: Sitting up in a chair. Pain control. Did ambulate in the hallway. No nausea vomiting no fever. IV vancomycin. Discussed Active Medications Acetaminophen (Acetaminophen Tab 325 Mg Tab) 650 mg PO Q8H PRN PRN Reason: Fever and/ or Pain Stop: 01/25/23 14:05 Hydrocodone Bitart/Acetaminophen (Hydrocodone/Apap 5-325mg 1 Each Tab) 1 each PO Q6HR PRN PRN Reason: Pain Scale 1 to 5 Stop: 01/25/23 14:04 Last Admin: 12/27/22 11:01 Dose: 1 each Hydrocodone Bitart/Acetaminophen (Hydrocodone/Apap 5-325mg 1 Each Tab) 2 each PO Q6HR PRN PRN Reason: Pain Scale 6 to 10 Stop: 01/25/23 14:04 Albuterol Sulfate (Albuterol Nebulized 2.5 Mg/3 Ml) 2.5 mg INHALATION RT-Q6H PRN PRN Reason: Shortness Of Breath Cholecalciferol (Cholecalciferol 25 Mcg (1000 Iu) Tablet) 50 mcg PO DAILY [facility] Last Admin: 12/27/22 08:19 Dose: 50 mcg Enoxaparin Sodium (Enoxaparin 40 Mg/0.4 Ml Syringe) 40 mg SQ DAILY [facility] Last Admin: 12/27/22 08:19 Dose: 40 mg Lisinopril/HCTZ (Lisinopril-Hctz 10-12.5 Mg 1 Each Tab) 1 each PO DAILY [facility] Last Admin: 12/27/22 08:18 Dose: 1 each Hydromorphone HCl (Hydromorphone 0.5 Mg/0.5 Ml Syringe) 0.125 mg IVP Q3HR PRN PRN Reason: Pain Scale 1 to 3 Stop: 01/25/23 13:57 Hydromorphone HCl (Hydromorphone 0.5 Mg/0.5 Ml Syringe) 0.5 mg IVP Q3HR PRN PRN Reason: Pain Scale 7 to 10 Stop: 01/25/23 13:57 Last Admin: 12/26/22 14:26 Dose: 0.5 mg Hydromorphone HCl (Hydromorphone 0.5 Mg/0.5 Ml Syringe) 0.25 mg IVP Q3HR PRN PRN Reason: Pain Scale 4 to 6 Stop: 01/25/23 13:57 Sodium Chloride (Saline 0.9%) 1,000 mls @ 70 mls/hr IV .[id number] [facility] Stop: 01/25/23 14:01 Last Admin: 12/27/22 04:49 Dose: 70 mls/hr Vancomycin HCl 1,750 mg/ (Sodium Chloride) 500 mls @ 167 mls/hr IVPB Q24H [facility] Stop: 01/25/23 16:01 Last Admin: 12/27/22 15:38 Dose: 167 mls/hr Magnesium Hydroxide (Magnesium Hydroxide 2,400 Mg/10 Ml Cup) 2,400 mg PO DAILY PRN PRN Reason: Constipation Stop: 01/25/23 13:57 Multivitamins (Multivitamins, Thera 1 Each Tab) 1 each PO DAILY [facility] Last Admin: 12/27/22 08:18 Dose: 1 each Naloxone HCl (Naloxone 0.4 Mg/Ml 1 Ml Vial) 0.2 mg IV Q2M PRN PRN Reason: Opioid Reversal Stop: 01/25/23 13:57 Ondansetron HCl (Ondansetron 4 Mg/2 Ml Vial) 4 mg IVP Q8H PRN PRN Reason: Nausea And Vomiting Stop: 01/25/23 13:57 Last Admin: 12/26/22 16:12 Dose: 4 mg Pantoprazole Sodium (Pantoprazole 40 Mg Tablet) 40 mg PO -BRKFST [facility] Last Admin: 12/27/22 06:48 Dose: 40 mg Senna/Docusate Sodium (Sennosides-Docusate Sodium 1 Each Tab) 2 each PO HS [facility] Stop: 01/25/23 21:01 Last Admin: 12/26/22 22:50 Dose: 2 each Past medical history to include: Asthma, GERD, hypertension, hyperlipidemia, diet-controlled diabetes, osteoarthritis Social history: Used to work before. No smoking or alcohol Physical examination: VITAL SIGNS: 97.6, 56, 16, 133/72, 100% room air GENERAL: BMI 37.6, up in a chair, comfortable EYES: Pupils equal. Conjunctiva normal. HEENT: External appearance of nose and ears normal, oral cavity grossly normal. NECK: JVD not raised; masses not palpable. HEART: First and second heart sounds are normal; no edema. LUNGS: Respiratory rate normal; clear to auscultation. ABDOMEN: Soft, nontender, liver spleen not palpable, no masses palpable. PSYCH: Alert and oriented x3; mood and affect normal. MUSCULOSKELETAL:No Clubbing/cyanosis;muscles-grossly intact. OA. Dressing over the right hip incision. INVESTIGATIONS, reviewed in the clinical context: December 27: White count 12.02 hemoglobin 11.4 platelets 462 potassium 4.6 creatinine 1.1 CRP 2.8 12/25/2022: White count 9.6 hemoglobin 14.1 platelets 527 BUN 21 and creatinine 1.06 Assessment and plan: -Infected right total hip arthroplasty I&D carried out with antibiotic beads on vancomycin and tobramycin placed -Intermittent asthma Pro-air 2 puffs every 6 when necessary -Essential hypertension Zestoretic 12.5 daily -GERD Prilosec 20 mg daily -Obesity BMI 37.6 Weight loss measures Continue current medications. Discussed.. Questions answered. Activity as tolerated Thank you Dr. Barcenas
[2022-12-27] MEDS: SENNOSIDES-DOCUSATE SODIUM 1 EACH TAB PO SCH (20:26)
[2022-12-27 21:02] LABS: Glucose,Whole Blood 133 mg/dL (70-110)
--- NOTE | 2022-12-27 21:44 | P.CONS ---
History of Present Illness - Reason for Consult Consult date: 12/27/22 Infection of the right total hip Requesting physician: Mary Anna - Chief Complaint Right hip pain and swelling x 2 weeks - History of Present Illness Patient is a 67-year-old female with a past medical his significant for right hip replacement in 2016 patient mention she did have an episode of cellulitis after surgery and did have I&D however there was no extension of the infection down to the artificial hip cultures were negative she was treated with IV antibiotics subsequently finished a course of oral antibiotics patient now presenting to the hospital with concern for right hip lump that she noticed about 2 weeks ago and the parents are having increasing swelling and redness and warmth to touch patient has been evaluated by her PCP and the patient did receive a dose of Rocephin and called a prescription for doxycycline patient subsequently has been referred to be evaluated by her orthopedics patient did have a CT of the hip completed on 12/25/2022 large hypodense collection with surrounding hyperintensity and inflammatory type changes suspicious for abscess patient was admitted to hospital taken to the OR yesterday afternoon has been diagnosed with infection of the right total hip arthroplasty patient is status post I&D and drainage of the right hip arthroplasty placement of antibiotic beads patient was started on vancomycin infectious disease was consulted for further management of antibiotic therapy patient denies any fever or any chills no fever has been recorded since admission to the hospital has been complaining of pain to the right hip area initially was mostly the leg is sharp about 6-8 out of 10 no radiation with associated swelling redness but no drainage patient did have a white count of 12.02 sed rate of 52 creatinine is 1.1 CRP is 2.8 cultures obtained from the right hip's are currently pending blood cultures are pending as well Review of Systems Positive point has been mentioned in the HPI rest of the systems are negative Past Medical History Past Medical History: Asthma, Diabetes Mellitus, GERD/Reflux, Hyperlipidemia, Hypertension, Osteoarthritis (OA) Additional Past Medical History / Comment(s): hx palpitations, reactive airway disease, hx pancreatitis, History of Any Multi-Drug Resistant Organisms: None Reported Past Surgical History: Section, Cholecystectomy, Hernia Repair, Joint Replacement Additional Past Surgical History / Comment(s): total left hip replacement December 2011, Right Hip replacement October 2016 Past Anesthesia/Blood Transfusion Reactions: Family History of Problems w/ Ane sthesia, Postoperative Nausea & Vomiting (PONV) Additional Past Anesthesia/Blood Transfusion Reaction / Comm: dad-had CVA during back surgery , sister-PONV Smoking Status: Never smoker - Past Family History Brother(s) Family Medical History: Cancer Medications and Allergies Home Medications Medication Instructions Recorded Confirmed Type Albuterol Sulfate [Proair Hfa] 2 puff INHALATION RT-Q6H PRN 10/16/16 12/26/22 History Cholecalciferol [Vitamin D3 (25 2,000 unit PO DAILY 10/16/16 12/26/22 History Mcg = 1000 Iu)] Omeprazole [PriLOSEC] 20 mg PO AC-BRKFST 03/26/17 12/26/22 History valACYclovir HCL [Valtrex] 2,000 mg PO Q12HR PRN 03/26/17 12/26/22 History Doxycycline [Vibramycin] 100 mg PO DAILY 12/26/22 12/26/22 History Multivit with Calcium,Iron,Min 1 tab PO DAILY 12/26/22 12/26/22 History [Women's Multivitamin] HYDROcodone/APAP 5-325MG [[place] 1 - 2 tab PO Q6HR PRN #32 tab 12/28/22 Rx 5-325] Sennosides [Senokot] 2 tab PO DAILY PRN #60 tablet 12/28/22 Rx lisinopriL [Prinivil] 10 mg PO DAILY #30 tab 01/04/23 Rx cefTRIAXone [Rocephin] 2,000 mg IVP Q24HR #39 each 01/05/23 Rx Allergies Allergy/AdvReac Type Severity Reaction Status Date / Time morphine Allergy Severe turn red, Verified 12/26/22 12:19 skin peels, SOB, feels like burning inside adhesive tape Allergy red welts, Verified 12/26/22 12:19 fitzgerald ibuprofen [From Advil] Allergy Itching Verified 12/26/22 12:21 meperidine [From Demerol] Allergy headaches Verified 12/26/22 12:19 gabapentin AdvReac Swelling Verified 12/26/22 12:21 Physical Exam Vitals: Vital Signs Temp Pulse Resp BP Pulse Ox 12/27/22 07:21 97.6 F 55 L 17 131/70 98 12/27/22 02:00 98.2 F 55 L 16 104/52 99 12/26/22 20:00 97.4 F L 76 16 144/77 95 12/26/22 16:22 97.9 F 81 17 188/69 92 L 12/26/22 15:30 72 16 138/62 97 12/26/22 15:15 67 16 135/60 97 12/26/22 15:00 72 16 151/70 97 12/26/22 14:45 65 16 131/61 98 12/26/22 14:30 70 16 153/68 98 12/26/22 14:15 69 16 158/68 98 12/26/22 13:59 98.5 F 75 16 144/64 98 Intake and Output 12/26/22 12/27/22 12/27/22 22:59 06:59 14:59 Intake Total 700 Balance 700 Intake: IV 700 Other: Voiding Method Toilet # Voids 1 2 Weight 99.3 kg GENERAL DESCRIPTION: Elderly female lying in bed, no distress. No tachypnea or accessory muscle of respiration use. HEENT: Shows Pallor , no scleral icterus. Oral mucous membrane is dry. NECK: Trachea central, no thyromegaly. LUNGS: Unlabored breathing. Clear to auscultation anteriorly. No wheeze or crackle. HEART: S1, S2, regular rate and rhythm. No loud murmur ABDOMEN: Soft, no tenderness , guarding or rigidity, no organomegaly EXTREMITIES: Right hip is currently dressed no drainage on the dressing. SKIN: No rash, no masses palpable. NEUROLOGICAL: The patient is awake, alert, oriented x3, mood and affect normal. Results CBC & Chem 7: 01/01/23 06:26 01/01/23 06:26 Labs: Abnormal Lab Results - Last 24 Hours (Table) 12/26/22 12/26/22 12/26/22 Range/Units 18:50 18:50 21:54 WBC (4.50-10.00) X 10*3/uL RBC (4.10-5.20) X 10*6/uL Hgb (12.0-15.0) g/dL Hct (37.2-46.3) % MCHC (32.0-37.0) g/dL Plt Count (140-440) X 10*3/uL Neutrophils # (1.80-7.70) X 10*3/uL ESR 52 H (0-20) mm/hr Anion Gap (10.00-18.00) mmol/L Est GFR (CKD-EPI)NonAf (60.0-200.0) Glucose (70-110) mg/dL POC Glucose (mg/dL) 169 H (70-110) mg/dL C-Reactive Protein 2.8 H (<1.0) mg/dL 12/27/22 12/27/22 12/27/22 Range/Units 06:08 06:33 06:33 WBC 12.02 H (4.50-10.00) X 10*3/uL RBC 4.07 L (4.10-5.20) X 10*6/uL Hgb 11.4 L (12.0-15.0) g/dL Hct 36.7 L (37.2-46.3) % MCHC 31.1 L (32.0-37.0) g/dL Plt Count 462 H (140-440) X 10*3/uL Neutrophils # 7.85 H (1.80-7.70) X 10*3/uL ESR (0-20) mm/hr Anion Gap 7.60 L (10.00-18.00) mmol/L Est GFR (CKD-EPI)NonAf 52.6 L (60.0-200.0) Glucose 118 H (70-110) mg/dL POC Glucose (mg/dL) 117 H (70-110) mg/dL C-Reactive Protein (<1.0) mg/dL 12/27/22 Range/Units 11:19 WBC (4.50-10.00) X 10*3/uL RBC (4.10-5.20) X 10*6/uL Hgb (12.0-15.0) g/dL Hct (37.2-46.3) % MCHC (32.0-37.0) g/dL Plt Count (140-440) X 10*3/uL Neutrophils # (1.80-7.70) X 10*3/uL ESR (0-20) mm/hr Anion Gap (10.00-18.00) mmol/L Est GFR (CKD-EPI)NonAf (60.0-200.0) Glucose (70-110) mg/dL POC Glucose (mg/dL) 139 H (70-110) mg/dL C-Reactive Protein (<1.0) mg/dL Microbiology - Last 24 Hours (Table) 12/26/22 13:42 Gram Stain - Preliminary Hip - Right Wound Culture - Preliminary 12/26/22 14:00 Gram Stain - Preliminary Hip - Right Wound Culture - Preliminary 12/26/22 13:42 Anaerobic Culture - Preliminary Hip - Right 12/26/22 14:00 Anaerobic Culture - Preliminary Hip - Right Assessment and Plan (1) Infection of right prosthetic hip joint Current Visit: Yes Status: Acute Priority: Medium Code(s): T84.51XA - INFECT/INFLM REACTION DUE TO INTERNAL RIGHT HIP PROSTH, INIT SNOMED Code(s): 261695501 Plan: 1patient presented hospital with right hip pain swelling in this patient with abnormal CT concerning for right hip cellulitis and abscess patient is status post washout of the right hip area and placement of antibiotic beads with concern for possible infected hardware could be related to gram-positive skin emre such as strep and Staph aureus less likely gram-negative infection 2-patient has been educated about her condition especially if the hardware is infected we will not be able to cure it with the removal of the infected hardware and the patient may need to be on suppressive antibiotic therapy for long time, possibly lifelong 3-vancomycin pharmacy to dose with a target trough of 15 while watching kidney f unction and Vanco trough closely. 4-patient will need a PICC line and outpatient antibiotic this was discussed with the case liner We will follow on clinical condition and cultures to further adjust medication if needed Thank you for this consultation we will follow the patient along with you Time with Patient: Greater than 30
[2022-12-28 06:10] LABS: Glucose,Whole Blood 113 mg/dL (70-110)
[2022-12-28] MEDS: PANTOPRAZOLE 40 MG TABLET PO SCH (06:38)
[2022-12-28] MEDS: HYDROcodone/APAP 5-325MG 1 EACH TAB PO PRN ×2 (06:43→14:19)
[2022-12-28] MEDS: CHOLECALCIFEROL 25 MCG (1000 IU) TABLET PO SCH (09:33)
[2022-12-28] MEDS: LISINOPRIL-HCTZ 10-12.5 MG 1 EACH TAB PO SCH (09:33)
[2022-12-28] MEDS: ENOXAPARIN 40 MG/0.4 ML SYRINGE SQ SCH (09:33)
[2022-12-28] MEDS: MULTIVITAMINS, THERA 1 EACH TAB PO SCH (09:34)
[2022-12-28 11:11] LABS: Glucose,Whole Blood 137 mg/dL (70-110)
--- NOTE | 2022-12-28 12:32 | P.PN ---
Subjective Progress Note Date: 12/28/22 This is a 67-year-old female who is status post incision and drainage right total hip arthroplasty with placement of Stimulan antibiotic beads. This is postoperative day #2 and patient is seen and evaluated at bedside today. Patient states that her pain is well-controlled and she denies any new complaints today. Objective - Vital Signs Vital signs: Vital Signs Temp 97.6 F 12/28/22 07:40 Pulse 55 L 12/28/22 07:40 Resp 19 12/28/22 07:40 BP 145/70 12/28/22 07:40 Pulse Ox 97 12/28/22 07:40 FiO2 Intake & Output 12/27/22 12/28/22 12/28/22 18:59 06:59 18:59 Intake Total 118 Balance 118 Intake: Oral 118 Other: Voiding Method Toilet Toilet # Voids 5 3 # Bowel Movements 1 - Exam Vital signs are stable. Patient is in no acute distress and is alert and oriented 3. Calf is soft and nontender to palpation. Dressing is clean, dry, and intact. Patient has full foot and ankle motion without pain or difficulty. Sensation intact. Neurovascular status and circulatory status are intact. - Labs CBC & Chem 7: 12/27/22 06:33 12/28/22 06:18 Labs: Abnormal Lab Results - Last 24 Hours (Table) 12/27/22 12/27/22 12/28/22 Range/Units 17:03 21:00 06:05 Creatinine (0.52-1.04) mg/dL POC Glucose (mg/dL) 114 H 133 H 113 H (70-110) mg/dL 12/28/22 12/28/22 Range/Units 06:18 11:10 Creatinine 1.11 H (0.52-1.04) mg/dL POC Glucose (mg/dL) 137 H (70-110) mg/dL Microbiology - Last 24 Hours (Table) 12/26/22 18:55 Blood Culture - Preliminary Blood 12/26/22 13:42 Gram Stain - Preliminary Hip - Right Wound Culture - Preliminary 12/26/22 14:00 Gram Stain - Preliminary Hip - Right Wound Culture - Preliminary Assessment and Plan Assessment: Status post incision and drainage right total hip arthroplasty with placement of Stimulan antibiotic beads. (1) Infection of right prosthetic hip joint Current Visit: Yes Status: Acute Code(s): T84.51XA - INFECT/INFLM REACTION DUE TO INTERNAL RIGHT HIP PROSTH, INIT SNOMED Code(s): 920176445 Plan: 1. Cultures are pending. 2. Antibiotics per infectious disease. 3. Leave dressing in place for 7 days. 4. Continue routine postoperative care and pain control. 5. Patient may discharge home once discharge antibiotics are determined by infectious disease.
--- NOTE | 2022-12-28 15:34 | P.PN ---
Progress Note - Text Progress Note Date: 12/28/22 - Chief Complaint Painful red swelling on the right thigh Hospital course: This is a pleasant 67-year-old patient follows with Dr. White. Chronic stable medical conditions include asthma, GERD, hypertension, hyperlipidemia, osteoarthritis. Diet controlled diabetes. Patient had right total hip arthroplasty back in 2016. 2 weeks following that patient developed infected right hip incision with cellulitis and seroma and ID was carried out. Subsequently patient did well. For 2 weeks patient noticed some swelling on the same area. Subsequently she notices area of redness and increased warmth. Went down to her family doctor and was referred here. To get an ultrasound/CT scanner. Today patient underwent I&D of the right total hip arthroplasty. Still on antibiotic beads were placed. I'll 1 g vancomycin 1 g tobramycin. Postproce dure laying in bed. Pain control. No fever and chills. December 27: Sitting up in a chair. Pain control. Did ambulate in the hallway. No nausea vomiting no fever. IV vancomycin. Discussed December 28: Some pain at the infection site. Ambulating. No fever no chills. Tolerating a diet. IV vancomycin. Followed by ID. Cultures pending. Active Medications Acetaminophen (Acetaminophen Tab 325 Mg Tab) 650 mg PO Q8H PRN PRN Reason: Fever and/ or Pain Stop: 01/25/23 14:05 Hydrocodone Bitart/Acetaminophen (Hydrocodone/Apap 5-325mg 1 Each Tab) 1 each PO Q6HR PRN PRN Reason: Pain Scale 1 to 5 Stop: 01/25/23 14:04 Last Admin: 12/27/22 19:18 Dose: 1 each Hydrocodone Bitart/Acetaminophen (Hydrocodone/Apap 5-325mg 1 Each Tab) 2 each PO Q6HR PRN PRN Reason: Pain Scale 6 to 10 Stop: 01/25/23 14:04 Last Admin: 12/28/22 14:19 Dose: 2 each Albuterol Sulfate (Albuterol Nebulized 2.5 Mg/3 Ml) 2.5 mg INHALATION RT-Q6H PRN PRN Reason: Shortness Of Breath Cholecalciferol (Cholecalciferol 25 Mcg (1000 Iu) Tablet) 50 mcg PO DAILY [facility] Last Admin: 12/28/22 09:33 Dose: 50 mcg Enoxaparin Sodium (Enoxaparin 40 Mg/0.4 Ml Syringe) 40 mg SQ DAILY [facility] Last Admin: 12/28/22 09:33 Dose: 40 mg Lisinopril/HCTZ (Lisinopril-Hctz 10-12.5 Mg 1 Each Tab) 1 each PO DAILY [facility] Last Admin: 12/28/22 09:33 Dose: 1 each Hydromorphone HCl (Hydromorphone 0.5 Mg/0.5 Ml Syringe) 0.125 mg IVP Q3HR PRN PRN Reason: Pain Scale 1 to 3 Stop: 01/25/23 13:57 Hydromorphone HCl (Hydromorphone 0.5 Mg/0.5 Ml Syringe) 0.5 mg IVP Q3HR PRN PRN Reason: Pain Scale 7 to 10 Stop: 01/25/23 13:57 Last Admin: 12/26/22 14:26 Dose: 0.5 mg Hydromorphone HCl (Hydromorphone 0.5 Mg/0.5 Ml Syringe) 0.25 mg IVP Q3HR PRN PRN Reason: Pain Scale 4 to 6 Stop: 01/25/23 13:57 Sodium Chloride (Saline 0.9%) 1,000 mls @ 70 mls/hr IV .[id number] [facility] Stop: 01/25/23 14:01 Last Admin: 12/27/22 17:47 Dose: Not Given Vancomycin HCl 1,750 mg/ (Sodium Chloride) 500 mls @ 167 mls/hr IVPB Q24H [facility] Stop: 01/25/23 16:01 Last Admin: 12/27/22 15:38 Dose: 167 mls/hr Magnesium Hydroxide (Magnesium Hydroxide 2,400 Mg/10 Ml Cup) 2,400 mg PO DAILY PRN PRN Reason: Constipation Stop: 01/25/23 13:57 Miscellaneous Information (Vancomycin Trough Due 1 Each Misc) 1 each MISCELLANE ONCE ONE Stop: 12/30/22 15:01 Multivitamins (Multivitamins, Thera 1 Each Tab) 1 each PO DAILY [facility] Last Admin: 12/28/22 09:34 Dose: 1 each Naloxone HCl (Naloxone 0.4 Mg/Ml 1 Ml Vial) 0.2 mg IV Q2M PRN PRN Reason: Opioid Reversal Stop: 01/25/23 13:57 Ondansetron HCl (Ondansetron 4 Mg/2 Ml Vial) 4 mg IVP Q8H PRN PRN Reason: Nausea And Vomiting Stop: 01/25/23 13:57 Last Admin: 12/26/22 16:12 Dose: 4 mg Pantoprazole Sodium (Pantoprazole 40 Mg Tablet) 40 mg PO AC-BRKFST [facility] Last Admin: 12/28/22 06:38 Dose: 40 mg Senna/Docusate Sodium (Sennosides-Docusate Sodium 1 Each Tab) 2 each PO HS [facility] Stop: 01/25/23 21:01 Last Admin: 12/27/22 20:26 Dose: 2 each Past medical history to include: Asthma, GERD, hypertension, hyperlipidemia, diet-controlled diabetes, osteoarthritis Social history: Used to work before. No smoking or alcohol Physical examination: VITAL SIGNS: 98, 55, 19, 134/62, 98% room air GENERAL: BMI 37.6, up in a chair, comfortable EYES: Pupils equal. Conjunctiva normal. HEENT: External appearance of nose and ears normal, oral cavity grossly normal. NECK: JVD not raised; masses not palpable. HEART: First and second heart sounds are normal; no edema. LUNGS: Respiratory rate normal; clear to auscultation. ABDOMEN: Soft, nontender, liver spleen not palpable, no masses palpable. PSYCH: Alert and oriented x3; mood and affect normal. MUSCULOSKELETAL:No Clubbing/cyanosis;muscles-grossly intact. OA. Dressing over the right hip incision. INVESTIGATIONS, reviewed in the clinical context: December 27: White count 12.02 hemoglobin 11.4 platelets 462 potassium 4.6 creatinine 1.1 CRP 2.8 12/25/2022: White count 9.6 hemoglobin 14.1 platelets 527 BUN 21 and creatinine 1.06 Assessment and plan: -Infected right total hip arthroplasty I&D carried out with antibiotic beads on vancomycin and tobramycin placed. Now on IV vancomycin. Cultures pending. -Intermittent asthma Pro-air 2 puffs every 6 when necessary -Essential hypertension Zestoretic 1012.5 daily -GERD Prilosec 20 mg daily -Obesity BMI 37.6 Weight loss measures Discussed. Await cultures. Activity as tolerated. Thank you Dr. Barcenas
--- NOTE | 2022-12-28 15:36 | P.PN ---
Subjective Progress Note Date: 12/28/22 Principal diagnosis: Right hip septic arthritis Patient is a 67 year female with a past medical history significant for right hip replacement in 2017 presented to hospital with right hip area swelling pain of 2 weeks patient did have abnormal CT of the right hip concern ing for abscess and the patient is status post drainage of the abscess which was extended on to the hardware and antibiotic bead placement along with deep culture On today's evaluation had that is 12/28/2022, the patient denies having any fever or any chills, the patient pain to the right hip area is currently controlled, patient denies having any chest pain or shortness of cough no nausea no vomiting no abdominal pain or diarrhea Objective - Vital Signs Vital signs: Vital Signs Temp 98.0 F 12/28/22 12:19 Pulse 53 L 12/28/22 12:19 Resp 19 12/28/22 12:19 BP 134/62 12/28/22 12:19 Pulse Ox 98 12/28/22 12:19 FiO2 Intake & Output 12/27/22 12/28/22 12/28/22 18:59 06:59 18:59 Intake Total 118 Balance 118 Intake: Oral 118 Other: Voiding Method Toilet Toilet # Voids 5 3 # Bowel Movements 1 - Exam GENERAL DESCRIPTION: An elderly female up in the chair in no distress RESPIRATORY SYSTEM: Unlabored breathing , decreased breath sounds at bases HEART: S1 S2 regular rate and rhythm , ABDOMEN: Soft , no tenderness EXTREMITIES: No edema feet - Labs CBC & Chem 7: 12/27/22 06:33 12/28/22 06:18 Labs: Abnormal Lab Results - Last 24 Hours (Table) 12/27/22 12/27/22 12/28/22 Range/Units 17:03 21:00 06:05 Creatinine (0.52-1.04) mg/dL POC Glucose (mg/dL) 114 H 133 H 113 H (70-110) mg/dL 12/28/22 12/28/22 Range/Units 06:18 11:10 Creatinine 1.11 H (0.52-1.04) mg/dL POC Glucose (mg/dL) 137 H (70-110) mg/dL Microbiology - Last 24 Hours (Table) 12/26/22 18:55 Blood Culture - Preliminary Blood 12/26/22 13:42 Gram Stain - Preliminary Hip - Right Wound Culture - Preliminary 12/26/22 14:00 Gram Stain - Preliminary Hip - Right Wound Culture - Preliminary Assessment and Plan (1) Infection of right prosthetic hip joint Current Visit: Yes Status: Acute Code(s): T84.51XA - INFECT/INFLM REACTION DUE TO INTERNAL RIGHT HIP PROSTH, INIT SNOMED Code(s): 122956385 Plan: 1patient presented hospital with right hip pain swelling in this patient with abnormal CT concerning for right hip cellulitis and abscess patient is status post washout of the right hip area and placement of antibiotic beads with c oncern for possible infected hardware could be related to gram-positive skin emre such as strep and Staph aureus less likely gram-negative infection 2-patient to continue with pharmacy to dose with a target trough of 15 while watching kidney function and Vanco trough closely, we will add Rocephin for gram-negative coverage while waiting for the cultures to finalize 3we will order PICC line for outpatient IV antibiotic therapy Time with Patient: Less than 30
[2022-12-28] MEDS: VANCOMYCIN 1,750 MG in SODIUM CHLORIDE 0.9% 500 ML 500 ML IVPB SCH (17:08)
[2022-12-28 17:28] LABS: Glucose,Whole Blood 95 mg/dL (70-110)
[2022-12-28] MEDS: SENNOSIDES-DOCUSATE SODIUM 1 EACH TAB PO SCH (20:32)
[2022-12-29] MEDS: PANTOPRAZOLE 40 MG TABLET PO SCH (05:30)
[2022-12-29 07:05] LABS: Glucose,Whole Blood 114 mg/dL (70-110)
[2022-12-29 07:48] LABS: Basophils % (A) 1 %; Eosinophils # (A) 0.2 k/uL (0-0.7); Eosinophils % (A) 2 %; HCT 39.2 % (34.0-46.0); HGB 12.7 gm/dL (11.4-16.0); Lymphocytes # (A) 2.6 k/uL (1.0-4.8); Lymphocytes % (A) 32 %; MCH 29.1 pg (25.0-35.0); MCHC 32.5 g/dL (31.0-37.0); MCV 89.6 fL (80.0-100.0); Mean Platelet Volume 8.1; Monocytes # (A) 0.4 k/uL (0-1.0); Monocytes % (A) 5 %; Neutrophils # (A) 4.7 k/uL (1.3-7.7); Neutrophils % (A) 59 %; Platelet Count 462 k/uL (150-450); RBC 4.38 m/uL (3.80-5.40); RDW 13.6 % (11.5-15.5)
[2022-12-29 07:53] LABS: Prothrombin Time 10.4 sec (9.0-12.0)
[2022-12-29 08:05] LABS: African American GFR (CKD) 57 (>60 ml/min/1.73 sqM); Anion Gap 6 mmol/L; Blood Urea Nitrogen 20 mg/dL (7-17); Carbon Dioxide 28 mmol/L (22-30); Chloride 106 mmol/L (98-107); Glucose 116 mg/dL (74-99); Non-African American GFR(CKD) 49 (>60 ml/min/1.73 sqM); Potassium 4.4 mmol/L (3.5-5.1); Sodium 140 mmol/L (137-145)
[2022-12-29] MEDS ORDERED: LIDOCAINE 1% INJ 10MG/ML (5 ML VIAL-PF) SQ ONE (09:00)
--- NOTE | 2022-12-29 09:35 | IR ---
PICC LINE PLACEMENT: HISTORY: Infection requiring long-term antibiotic therapy PROCEDURE: Ultrasound and fluoroscopic guidance of PICC line placement. STEAM PRESSURE CHAMBER OPERATOR: Dr. Guillen COMPLICATIONS: None ANESTHESIA: 1. 1% Lidocaine locally. FINDINGS/TECHNIQUE: The procedure was explained to the patient. The risks, complications, benefits and alternatives were discussed and any questions were answered. Informed consent was obtained. The patient was placed supine on the fluoroscopic table and prepped and draped in the usual sterile fash ion. Utilizing a 21 gauge needle and sonographic and fluoroscopic guidance, access in the left basil ic vein was achieved and there is placement of a 0.018 guidewire. The vein is patent. A 4-F. sheath was placed over the guidewire. The guidewire and dilator were removed and a 4-F. PICC line was plac ed through the sheath with the tip at the level of the SVC. The sheath was removed, the catheter was flushed and sutured into position. The patient was stable throughout the procedure and remained sta ble upon discharge from the Department of Radiology. The vein puncture was patent under ultrasound. A hilliard scale image was obtained to document patency of the vein punctured. All elements of the maximal barrier technique were utilized. FLUOROSCOPY TIME: 0.4 IMPRESSION: Successful PICC line placement under ultrasound and fluoroscopic guidance.
[2022-12-29] MEDS: MULTIVITAMINS, THERA 1 EACH TAB PO SCH (10:07)
[2022-12-29] MEDS: CHOLECALCIFEROL 25 MCG (1000 IU) TABLET PO SCH (10:07)
[2022-12-29] MEDS: LISINOPRIL-HCTZ 10-12.5 MG 1 EACH TAB PO SCH (10:07)
[2022-12-29] MEDS: ENOXAPARIN 40 MG/0.4 ML SYRINGE SQ SCH (10:07)
--- NOTE | 2022-12-29 10:49 | P.PN ---
Subjective Progress Note Date: 12/29/22 This is a 67-year-old female who is status post incision and drainage right total hip arthroplasty with placement of Stimulan antibiotic beads. This is postoperative day #3 and patient is seen and evaluated at bedside today. Patient states that her pain is well-controlled, but her incision started draining this morning. Patient states that she did a lot of walking yesterday. Objective - Vital Signs Vital signs: Vital Signs Temp 97.5 F L 12/29/22 08:00 Pulse 78 12/29/22 08:00 Resp 18 12/29/22 08:00 BP 157/94 12/29/22 08:00 Pulse Ox 94 L 12/29/22 08:00 FiO2 Intake & Output 12/28/22 12/29/22 12/29/22 18:59 06:59 18:59 Intake Total 118 Balance 118 Intake: Oral 118 Other: Voiding Method Toilet Toilet Toilet - Exam Vital signs are stable. Patient is in no acute distress and is alert and oriented 3. Calf is soft and nontender to palpation. Incision is intact with mild serosanguineous drainage present. Patient has full foot and ankle motion without pain or difficulty. Sensation intact. Neurovascular status and circulatory status are intact. - Labs CBC & Chem 7: 12/29/22 07:26 12/29/22 07:26 Labs: Abnormal Lab Results - Last 24 Hours (Table) 12/28/22 12/29/22 12/29/22 Range/Units 11:10 07:02 07:26 Plt Count (150-450) k/uL BUN 20 H (7-17) mg/dL Creatinine 1.17 H (0.52-1.04) mg/dL Glucose 116 H (74-99) mg/dL POC Glucose (mg/dL) 137 H 114 H (70-110) mg/dL 12/29/22 Range/Units 07:26 Plt Count 462 H (150-450) k/uL BUN (7-17) mg/dL Creatinine (0.52-1.04) mg/dL Glucose (74-99) mg/dL POC Glucose (mg/dL) (70-110) mg/dL Microbiology - Last 24 Hours (Table) 12/26/22 18:55 Blood Culture - Preliminary Blood 12/26/22 14:00 Anaerobic Culture - Preliminary Hip - Right 12/26/22 13:42 Anaerobic Culture - Preliminary Hip - Right 12/26/22 13:42 Gram Stain - Preliminary Hip - Right Wound Culture - Preliminary 12/26/22 14:00 Gram Stain - Preliminary Hip - Right Wound Culture - Preliminary Assessment and Plan Assessment: Status post incision and drainage right total hip arthroplasty with placement of Stimulan antibiotic beads. (1) Infection of right prosthetic hip joint Current Visit: Yes Status: Acute Code(s): T84.51XA - INFECT/INFLM REACTION DUE TO INTERNAL RIGHT HIP PROSTH, INIT SNOMED Code(s): 135311341 Plan: 1. Cultures are pending. 2. Antibiotics per infectious disease. Patient has PICC line placed. 3. Daily dressing changes. May reapply optifoam before discharge if drainage has stopped. 4. Continue routine postoperative care and pain control. 5. Patient may discharge home once discharge antibiotics are determined by infectious disease.
[2022-12-29 11:05] LABS: Glucose,Whole Blood 134 mg/dL (70-110)
[2022-12-29 15:57] LABS: Glucose,Whole Blood 124 mg/dL (70-110)
[2022-12-29] MEDS: VANCOMYCIN 1,750 MG in SODIUM CHLORIDE 0.9% 500 ML 500 ML IVPB SCH (16:16)
--- NOTE | 2022-12-29 16:33 | P.PN ---
Progress Note - Text Progress Note Date: 12/29/22 - Chief Complaint Painful red swelling on the right thigh Hospital course: This is a pleasant 67-year-old patient follows with Dr. White. Chronic stable medical conditions include asthma, GERD, hypertension, hyperlipidemia, osteoarthritis. Diet controlled diabetes. Patient had right total hip arthroplasty back in 2016. 2 weeks following that patient developed infected right hip incision with cellulitis and seroma and ID was carried out. Subsequently patient did well. For 2 weeks patient noticed some swelling on the same area. Subsequently she notices area of redness and increased warmth. Went down to her family doctor and was referred here. To get an ultrasound/CT scanner. Today patient underwent I&D of the right total hip arthroplasty. Still on antibiotic beads were placed. I'll 1 g vancomycin 1 g tobramycin. Postproce dure laying in bed. Pain control. No fever and chills. December 27: Sitting up in a chair. Pain control. Did ambulate in the hallway. No nausea vomiting no fever. IV vancomycin. Discussed December 28: Some pain at the infection site. Ambulating. No fever no chills. Tolerating a diet. IV vancomycin. Followed by ID. Cultures pending. December 29: Patient is some dark drainage from the incision site. Possibly old blood. No fever no chills. Mild tenderness. Has been ambulating. Continue antibiotics. Cultures pending. Active Medications Acetaminophen (Acetaminophen Tab 325 Mg Tab) 650 mg PO Q8H PRN PRN Reason: Fever and/ or Pain Stop: 01/25/23 14:05 Hydrocodone Bitart/Acetaminophen (Hydrocodone/Apap 5-325mg 1 Each Tab) 1 each PO Q6HR PRN PRN Reason: Pain Scale 1 to 5 Stop: 01/25/23 14:04 Last Admin: 12/27/22 19:18 Dose: 1 each Hydrocodone Bitart/Acetaminophen (Hydrocodone/Apap 5-325mg 1 Each Tab) 2 each PO Q6HR PRN PRN Reason: Pain Scale 6 to 10 Stop: 01/25/23 14:04 Last Admin: 12/28/22 14:19 Dose: 2 each Albuterol Sulfate (Albuterol Nebulized 2.5 Mg/3 Ml) 2.5 mg INHALATION RT-Q6H PRN PRN Reason: Shortness Of Breath Cholecalciferol (Cholecalciferol 25 Mcg (1000 Iu) Tablet) 50 mcg PO DAILY [facility] Last Admin: 12/29/22 10:07 Dose: 50 mcg Enoxaparin Sodium (Enoxaparin 40 Mg/0.4 Ml Syringe) 40 mg SQ DAILY [facility] Last Admin: 12/29/22 10:07 Dose: 40 mg Lisinopril/HCTZ (Lisinopril-Hctz 10-12.5 Mg 1 Each Tab) 1 each PO DAILY [facility] Last Admin: 12/29/22 10:07 Dose: 1 each Hydromorphone HCl (Hydromorphone 0.5 Mg/0.5 Ml Syringe) 0.125 mg IVP Q3HR PRN PRN Reason: Pain Scale 1 to 3 Stop: 01/25/23 13:57 Hydromorphone HCl (Hydromorphone 0.5 Mg/0.5 Ml Syringe) 0.5 mg IVP Q3HR PRN PRN Reason: Pain Scale 7 to 10 Stop: 01/25/23 13:57 Last Admin: 12/26/22 14:26 Dose: 0.5 mg Hydromorphone HCl (Hydromorphone 0.5 Mg/0.5 Ml Syringe) 0.25 mg IVP Q3HR PRN PRN Reason: Pain Scale 4 to 6 Stop: 01/25/23 13:57 Sodium Chloride (Saline 0.9%) 1,000 mls @ 70 mls/hr IV .[id number] [facility] Stop: 01/25/23 14:01 Last Admin: 12/27/22 17:47 Dose: Not Given Vancomycin HCl 1,750 mg/ (Sodium Chloride) 500 mls @ 167 mls/hr IVPB Q24H [facility] Stop: 01/25/23 16:01 Last Admin: 12/29/22 16:16 Dose: 167 mls/hr Ceftriaxone Sodium 2 gm/ (Sodium Chloride) 50 mls @ 100 mls/hr IVPB Q24HR [facility]; Protocol Last Admin: 12/29/22 10:07 Dose: 100 mls/hr Magnesium Hydroxide (Magnesium Hydroxide 2,400 Mg/10 Ml Cup) 2,400 mg PO DAILY PRN PRN Reason: Constipation Stop: 01/25/23 13:57 Miscellaneous Information (Vancomycin Trough Due 1 Each Misc) 1 each MISCELLANE ONCE ONE Stop: 12/30/22 15:01 Multivitamins (Multivitamins, Thera 1 Each Tab) 1 each PO DAILY [facility] Last Admin: 12/29/22 10:07 Dose: 1 each Naloxone HCl (Naloxone 0.4 Mg/Ml 1 Ml Vial) 0.2 mg IV Q2M PRN PRN Reason: Opioid Reversal Stop: 01/25/23 13:57 Ondansetron HCl (Ondansetron 4 Mg/2 Ml Vial) 4 mg IVP Q8H PRN PRN Reason: Nausea And Vomiting Stop: 01/25/23 13:57 Last Admin: 12/26/22 16:12 Dose: 4 mg Pantoprazole Sodium (Pantoprazole 40 Mg Tablet) 40 mg PO AC-BRKFST [facility] Last Admin: 12/29/22 05:30 Dose: 40 mg Senna/Docusate Sodium (Sennosides-Docusate Sodium 1 Each Tab) 2 each PO HS [facility] Stop: 01/25/23 21:01 Last Admin: 12/28/22 20:32 Dose: 2 each Past medical history to include: Asthma, GERD, hypertension, hyperlipidemia, diet-controlled diabetes, osteoarthritis Social history: Used to work before. No smoking or alcohol Physical examination: VITAL SIGNS: 97.5, 78, 18, 157/94, 94% room air GENERAL: BMI 37.6, up in a chair, comfortable EYES: Pupils equal. Conjunctiva normal. HEENT: External appearance of nose and ears normal, oral cavity grossly normal. NECK: JVD not raised; masses not palpable. HEART: First and second heart sounds are normal; no edema. LUNGS: Respiratory rate normal; clear to auscultation. ABDOMEN: Soft, nontender, liver spleen not palpable, no masses palpable. PSYCH: Alert and oriented x3; mood and affect normal. MUSCULOSKELETAL:No Clubbing/cyanosis;muscles-grossly intact. OA. Dressing site slight swelling. Minimal tenderness INVESTIGATIONS, reviewed in the clinical context: December 29: White count 8 hemoglobin 12.7 platelets was 62 potassium 4.4 BUN 20 creatinine 1.17 December 27: White count 12.02 hemoglobin 11.4 platelets 462 potassium 4.6 creatinine 1.1 CRP 2.8 12/25/2022: White count 9.6 hemoglobin 14.1 platelets 527 BUN 21 and creatinine 1.06 Assessment and plan: -Infected right total hip arthroplasty I&D carried out with antibiotic beads on vancomycin and tobramycin placed. Now on IV vancomycin. Cultures pending. -Intermittent asthma Pro-air 2 puffs every 6 when necessary -Essential hypertension Zestoretic 06/21.5 daily -GERD Prilosec 20 mg daily -Obesity BMI 37.6 Weight loss measures Discussed. Continue vancomycin. Activity as tolerated. Thank you Dr. Barcenas
[2022-12-29] MEDS: SENNOSIDES-DOCUSATE SODIUM 1 EACH TAB PO SCH (20:32)
[2022-12-30] MEDS: PANTOPRAZOLE 40 MG TABLET PO SCH (05:32)
[2022-12-30 06:12] LABS: Glucose,Whole Blood 121 mg/dL (70-110)
[2022-12-30] MEDS: MULTIVITAMINS, THERA 1 EACH TAB PO SCH (09:32)
[2022-12-30] MEDS: CHOLECALCIFEROL 25 MCG (1000 IU) TABLET PO SCH (09:33)
[2022-12-30] MEDS: LISINOPRIL-HCTZ 10-12.5 MG 1 EACH TAB PO SCH (09:33)
[2022-12-30] MEDS: ENOXAPARIN 40 MG/0.4 ML SYRINGE SQ SCH (09:34)
[2022-12-30] MEDS: SODIUM CHLORIDE 0.9% 1,000 ML IV SCH ×3 (09:36→13:34)
--- NOTE | 2022-12-30 09:57 | P.PN ---
Subjective Progress Note Date: 12/30/22 Principal diagnosis: Status post right hip I&D This is a 67 year-old female post right total hip I&D. This is post-op day 4. The patient was evaluated at the bedside today. The patient denies nausea, vomiting, abdominal pain, shortness of breath, and chest pain this morning. She states her pain is controlled at this time. The patient has been up to the bathroom with minimal assistance. PICC line has been placed. Objective - Vital Signs Vital signs: Vital Signs Temp 98.2 F 12/30/22 07:52 Pulse 65 12/30/22 07:52 Resp 16 12/30/22 07:52 BP 134/73 12/30/22 07:52 Pulse Ox 96 12/30/22 07:52 FiO2 Intake & Output 12/29/22 12/30/22 12/30/22 18:59 06:59 18:59 Intake Total 1100 Balance 1100 Intake: Intake, IV Titration 550 Amount Vancomycin 1,750 mg In 500 Sodium Chloride 0.9% 500 ml 500 ml @ 167 mls/hr IVPB Q24H [facility] Rx#: [id number] cefTRIAXone 2 gm In 50 Sodium Chloride 0.9% 50 ml @ 100 mls/hr IVPB Q24HR [facility] Rx#:[id number] Oral 550 Other: Voiding Method Toilet Toilet # Voids 4 2 - Exam The patient does not appear in acute distress. Alert and orientated x3. Dressing with moderate amount of serosanginous drainage. New dressing applied today. Incision appears fine with no erythema or active drainage. Calf is soft and nontender. Good foot and ankle motion without difficulty. Sensation and circulatory status is intact. - Labs CBC & Chem 7: 12/29/22 07:26 12/30/22 06:54 Labs: Abnormal Lab Results - Last 24 Hours (Table) 12/29/22 12/29/22 12/30/22 Range/Units 11:04 15:56 06:06 POC Glucose (mg/dL) 134 H 124 H 121 H (70-110) mg/dL Microbiology - Last 24 Hours (Table) 12/26/22 18:55 Blood Culture - Preliminary Blood 12/26/22 13:42 Gram Stain - Final Hip - Right Wound Culture - Final 12/26/22 14:00 Gram Stain - Final Hip - Right Wound Culture - Final 12/26/22 14:00 Anaerobic Culture - Preliminary Hip - Right 12/26/22 13:42 Anaerobic Culture - Preliminary Hip - Right Assessment and Plan (1) Cellulitis of right hip Current Visit: No Status: Acute Code(s): L03.115 - CELLULITIS OF RIGHT LOWER LIMB SNOMED Code(s): 08005266180264034 (2) Status post right hip replacement Current Visit: No Status: Acute Code(s): Z96.641 - PRESENCE OF RIGHT ARTIFICIAL HIP JOINT SNOMED Code(s): 781191995 Plan: 1. Continue pain control 2. Anticoagulation with Lovenox per internal medicine. 3. Continue ambulation 4. Anticipate discharge home when antibiotics are determined by Dr. Pennington.
[2022-12-30 11:29] LABS: Glucose,Whole Blood 132 mg/dL (70-110)
[2022-12-30] MEDS ORDERED: VANCOMYCIN TROUGH DUE 1 EACH MISC MISCELLANE ONE (15:00)
[2022-12-30 16:25] LABS: Glucose,Whole Blood 133 mg/dL (70-110)
[2022-12-30] MEDS ORDERED: VANCOMYCIN 1,500 MG in SODIUM CHLORIDE 0.9% 500 ML 500 ML IVPB SCH (17:00)
--- NOTE | 2022-12-30 17:33 | P.PN ---
Subjective Progress Note Date: 12/30/22 Patient is evaluated today on the medical floor. Patient is postoperative day #4 I & D of the right hip. Patient reports some spontaneous drainage of the right hip incision yesterday and since then the pain has improved today. There isn't much induration surrounding the incision. Patient has PICC line in place and plan for DC on IV antibitoics most likely pending finalized cultures. Kidney function has improved. Review of Systems Constitutional: Denied any fatigue denied any fever. Cardio vascular: denied any chest pain, palpitations Gastrointestinal: denied any nausea, vomiting, diarrhea Pulmonary: Denied any shortness of breath cough Neurologic denied any new focal deficits All inpatient medications were reviewed and appropriate changes in these medications as dictated in the interval history and assessment and plan. PHYSICAL EXAMINATION: GENERAL: The patient is alert and oriented x3, not in any acute distress. Well developed, well nourished. HEENT: Pupils are round and equally reacting to light. EOMI. No scleral icterus. No conjunctival pallor. Normocephalic, atraumatic. No pharyngeal erythema. No thyromegaly. CARDIOVASCULAR: S1 and S2 present. No murmurs, rubs, or gallops. PULMONARY: Chest is clear to auscultation, no wheezing or crackles. ABDOMEN: Soft, nontender, nondistended, normoactive bowel sounds. No palpable organomegaly. MUSCULOSKELETAL: No joint swelling or deformity. EXTREMITIES: No cyanosis, clubbing, or pedal edema. NEUROLOGICAL: Gross neurological examination did not reveal any focal deficits. SKIN: No rashes. Assessment and Plan Assessment -Infected right total hip arthroplasty, I&D carried out with antibiotic beads on vancomycin and tobramycin placed. Now on IV vancomycin. Cultures pending. -Intermittent asthma -Essential hypertension -GERD -Obesity BMI 37.6 GI prophylaxis DVT prophylaxis FUll Code Plan Continue current IV antibiotics pending final I and D culture with infectious disease following for final discharge antibiotics. Continue all other supportive care. The impression and plan of care has been dictated by Liat Huang, Nurse Practitioner as directed. Dr. Lupe MD I have performed a history and physical examination and medical decision making of this patient, discussed the same with the dictator, and agree with the dictators assessment and plan as written, documented as a scribe. Based on total visit time, I have performed more than 50% of this visit. Objective - Vital Signs Vital signs: Vital Signs Temp 98.2 F 12/30/22 07:52 Pulse 65 12/30/22 07:52 Resp 16 12/30/22 07:52 BP 134/73 12/30/22 07:52 Pulse Ox 96 12/30/22 07:52 FiO2 Intake & Output 12/29/22 12/30/22 12/30/22 18:59 06:59 18:59 Intake Total 1100 Balance 1100 Intake: Intake, IV Titration 550 Amount Vancomycin 1,750 mg In 500 Sodium Chloride 0.9% 500 ml 500 ml @ 167 mls/hr IVPB Q24H [facility] Rx#: [id number] cefTRIAXone 2 gm In 50 Sodium Chloride 0.9% 50 ml @ 100 mls/hr IVPB Q24HR [facility] Rx#:[id number] Oral 550 Other: Voiding Method Toilet Toilet # Voids 4 2 - Labs CBC & Chem 7: 12/29/22 07:26 12/30/22 06:54 Labs: Abnormal Lab Results - Last 24 Hours (Table) 12/29/22 12/29/22 12/30/22 Range/Units 11:04 15:56 06:06 POC Glucose (mg/dL) 134 H 124 H 121 H (70-110) mg/dL Microbiology - Last 24 Hours (Table) 12/26/22 18:55 Blood Culture - Preliminary Blood 12/26/22 13:42 Gram Stain - Final Hip - Right Wound Culture - Final 12/26/22 14:00 Gram Stain - Final Hip - Right Wound Culture - Final 12/26/22 14:00 Anaerobic Culture - Preliminary Hip - Right 12/26/22 13:42 Anaerobic Culture - Preliminary Hip - Right Assessment and Plan Time with Patient: Less than 30
[2022-12-30] MEDS: VANCOMYCIN 1,750 MG in SODIUM CHLORIDE 0.9% 500 ML 500 ML IVPB SCH (18:01)
[2022-12-30] MEDS: SENNOSIDES-DOCUSATE SODIUM 1 EACH TAB PO SCH (20:13)
[2022-12-30 21:56] LABS: Glucose,Whole Blood 125 mg/dL (70-110)
--- NOTE | 2022-12-30 22:38 | P.PN ---
Subjective Progress Note Date: 12/29/22 Principal diagnosis: Right hip septic arthritis Patient is a 67 year female with a past medical history significant for right hip replacement in 2017 presented to hospital with right hip area swelling pain of 2 weeks patient did have abnormal CT of the right hip concern ing for abscess and the patient is status post drainage of the abscess which was extended on to the hardware and antibiotic bead placement along with deep culture On today's evaluation had that is 12/29/2022, the patient remains to be afebrile, the patient pain to the right hip area is controlled with the current medication, patient denies having any chest pain or shortness of cough no nausea no vomiting no abdominal pain or diarrhea Objective - Vital Signs Vital signs: Vital Signs Temp 97.5 F L 12/29/22 08:00 Pulse 78 12/29/22 08:00 Resp 18 12/29/22 08:00 BP 157/94 12/29/22 08:00 Pulse Ox 94 L 12/29/22 08:00 FiO2 Intake & Output 12/28/22 12/29/22 12/29/22 18:59 06:59 18:59 Intake Total 118 Balance 118 Intake: Oral 118 Other: Voiding Method Toilet Toilet - Exam GENERAL DESCRIPTION: An elderly female up in the chair in no distress RESPIRATORY SYSTEM: Unlabored breathing , decreased breath sounds at bases HEART: S1 S2 regular rate and rhythm , ABDOMEN: Soft , no tenderness EXTREMITIES: No edema feet - Labs CBC & Chem 7: 12/29/22 07:26 12/30/22 06:54 Labs: Abnormal Lab Results - Last 24 Hours (Table) 12/28/22 12/29/22 12/29/22 Range/Units 11:10 07:02 07:26 Plt Count (150-450) k/uL BUN 20 H (7-17) mg/dL Creatinine 1.17 H (0.52-1.04) mg/dL Glucose 116 H (74-99) mg/dL POC Glucose (mg/dL) 137 H 114 H (70-110) mg/dL 12/29/22 Range/Units 07:26 Plt Count 462 H (150-450) k/uL BUN (7-17) mg/dL Creatinine (0.52-1.04) mg/dL Glucose (74-99) mg/dL POC Glucose (mg/dL) (70-110) mg/dL Microbiology - Last 24 Hours (Table) 12/26/22 18:55 Blood Culture - Preliminary Blood 12/26/22 14:00 Anaerobic Culture - Preliminary Hip - Right 12/26/22 13:42 Anaerobic Culture - Preliminary Hip - Right 12/26/22 13:42 Gram Stain - Preliminary Hip - Right Wound Culture - Preliminary 12/26/22 14:00 Gram Stain - Preliminary Hip - Right Wound Culture - Preliminary Assessment and Plan (1) Infection of right prosthetic hip joint Current Visit: Yes Status: Acute Code(s): T84.51XA - INFECT/INFLM REACTION DUE TO INTERNAL RIGHT HIP PROSTH, INIT SNOMED Code(s): 577728449 Plan: 1patient presented hospital with right hip pain swelling in this patient with abnormal CT concerning for right hip cellulitis and abscess patient is status post washout of the right hip area and placement of antibiotic beads with concern for possible infected hardware could be related to gram-positive skin emre such as strep and Staph aureus less likely gram-negative infection 2-patient to continue with pharmacy to dose with a target trough of 15 while watching kidney function and Vanco trough closely, along with Rocephin for gram- negative coverage while waiting for the cultures to finalize and monitor clinical course closely Time with Patient: Less than 30
--- NOTE | 2022-12-30 22:40 | P.PN ---
Subjective Progress Note Date: 12/30/22 Principal diagnosis: Right hip septic arthritis Patient is a 67 year female with a past medical history significant for right hip replacement in 2017 presented to hospital with right hip area swelling pain of 2 weeks patient did have abnormal CT of the right hip concern ing for abscess and the patient is status post drainage of the abscess which was extended on to the hardware and antibiotic bead placement along with deep culture On today's evaluation had that is 12/30/2022, the patient continues to be afebrile, the patient pain to the right hip area has decreased in intensity however the patient did have drainage from the right hip site, patient denies having any chest pain or shortness of cough no nausea no vomiting no abdominal pain or diarrhea Objective - Vital Signs Vital signs: Vital Signs Temp 98.2 F 12/30/22 07:52 Pulse 65 12/30/22 07:52 Resp 16 12/30/22 07:52 BP 134/73 12/30/22 07:52 Pulse Ox 96 12/30/22 07:52 FiO2 Intake & Output 12/29/22 12/30/22 12/30/22 18:59 06:59 18:59 Intake Total 1100 Balance 1100 Intake: Intake, IV Titration 550 Amount Vancomycin 1,750 mg In 500 Sodium Chloride 0.9% 500 ml 500 ml @ 167 mls/hr IVPB Q24H [facility] Rx#: [id number] cefTRIAXone 2 gm In 50 Sodium Chloride 0.9% 50 ml @ 100 mls/hr IVPB Q24HR [facility] Rx#:[id number] Oral 550 Other: Voiding Method Toilet Toilet # Voids 4 2 - Exam GENERAL DESCRIPTION: An elderly female up in the chair in no distress RESPIRATORY SYSTEM: Unlabored breathing , decreased breath sounds at bases HEART: S1 S2 regular rate and rhythm , ABDOMEN: Soft , no tenderness EXTREMITIES: Right hip incision is currently dressed Exam completed with the help of LABORATORY COORDINATOR - Labs CBC & Chem 7: 12/29/22 07:26 12/30/22 06:54 Labs: Abnormal Lab Results - Last 24 Hours (Table) 12/29/22 12/29/22 12/30/22 Range/Units 11:04 15:56 06:06 POC Glucose (mg/dL) 134 H 124 H 121 H (70-110) mg/dL Microbiology - Last 24 Hours (Table) 12/26/22 13:42 Gram Stain - Final Hip - Right Wound Culture - Final 12/26/22 14:00 Gram Stain - Final Hip - Right Wound Culture - Final 12/26/22 18:55 Blood Culture - Preliminary Blood 12/26/22 14:00 Anaerobic Culture - Preliminary Hip - Right 12/26/22 13:42 Anaerobic Culture - Preliminary Hip - Right Assessment and Plan (1) Infection of right prosthetic hip joint Current Visit: Yes Status: Acute Code(s): T84.51XA - INFECT/INFLM REACTION DUE TO INTERNAL RIGHT HIP PROSTH, INIT SNOMED Code(s): 074937389 Plan: 1patient presented hospital with right hip pain swelling in this patient with abnormal CT concerning for right hip cellulitis and abscess patient is status post washout of the right hip area and placement of antibiotic beads with concern for possible infected hardware could be related to gram-positive skin emre such as strep and Staph aureus less likely gram-negative infection 2-patient culture has been negative so far making MRSA to be less likely pathogen with a question of possible strep and the patient is in the antibiotic in the outpatient setting may have caused the culture to be negative we will continue the patient on Rocephin however discontinue vancomycin This was telehealth visit Time with Patient: Less than 30
[2022-12-31] MEDS: PANTOPRAZOLE 40 MG TABLET PO SCH (05:36)
[2022-12-31 06:09] LABS: Glucose,Whole Blood 142 mg/dL (70-110)
--- NOTE | 2022-12-31 09:33 | P.PN ---
Subjective Progress Note Date: 12/31/22 Principal diagnosis: Status post right hip I&D This is a 67 year-old female post right total hip I&D. This is post-op day 5. The patient was evaluated at the bedside today. The patient denies nausea, vomiting, abdominal pain, shortness of breath, and chest pain this morning. She states her pain is controlled at this time. The patient has been up to the bathroom with minimal assistance. PICC line has been placed. Objective - Vital Signs Vital signs: Vital Signs Temp 97.9 F 12/31/22 07:48 Pulse 63 12/31/22 07:48 Resp 16 12/31/22 07:48 BP 159/75 12/31/22 07:48 Pulse Ox 98 12/31/22 07:48 FiO2 Intake & Output 12/30/22 12/31/22 12/31/22 18:59 06:59 18:59 Other: Voiding Method Toilet Toilet Toilet # Voids 1 2 - Exam The patient does not appear in acute distress. Alert and orientated x3. Dressing with moderate amount of purulent drainage. New dressing applied today. Incision appears fine with no erythema or active drainage. Calf is soft and nontender. Good foot and ankle motion without difficulty. Sensation and circulatory status is intact. - Labs CBC & Chem 7: 12/29/22 07:26 12/31/22 06:09 Labs: Abnormal Lab Results - Last 24 Hours (Table) 12/30/22 12/30/22 12/30/22 Range/Units 11:28 16:24 21:53 Creatinine (0.52-1.04) mg/dL POC Glucose (mg/dL) 132 H 133 H 125 H (70-110) mg/dL 12/31/22 12/31/22 Range/Units 06:08 06:09 Creatinine 1.05 H (0.52-1.04) mg/dL POC Glucose (mg/dL) 142 H (70-110) mg/dL Microbiology - Last 24 Hours (Table) 12/26/22 18:55 Blood Culture - Preliminary Blood Assessment and Plan (1) Cellulitis of right hip Current Visit: No Status: Acute Code(s): L03.115 - CELLULITIS OF RIGHT LOWER LIMB SNOMED Code(s): 97254453547778151 (2) Status post right hip replacement Current Visit: No Status: Acute Code(s): Z96.641 - PRESENCE OF RIGHT ARTIFICIAL HIP JOINT SNOMED Code(s): 625605182 Plan: 1. Continue pain control 2. Keep hip incision clean and dry. 3. Anticoagulation with Lovenox per internal medicine. 4. Continue ambulation 5. Anticipate discharge home when antibiotics are determined by Dr. Pennington.
[2022-12-31] MEDS: metroNIDAZOLE 500 MG TAB PO SCH ×3 (10:16→20:56)
[2022-12-31] MEDS: CHOLECALCIFEROL 25 MCG (1000 IU) TABLET PO SCH (10:16)
[2022-12-31] MEDS: MULTIVITAMINS, THERA 1 EACH TAB PO SCH (10:16)
[2022-12-31] MEDS: ENOXAPARIN 40 MG/0.4 ML SYRINGE SQ SCH (10:17)
[2022-12-31] MEDS: LISINOPRIL-HCTZ 10-12.5 MG 1 EACH TAB PO SCH (10:17)
[2022-12-31 10:29] LABS: Basophils # (A) 0.06 X 10*3/uL (0.00-0.10); Basophils % (A) 0.7 %; Eosinophils # (A) 0.31 X 10*3/uL (0.04-0.35); Eosinophils % (A) 3.8 %; HCT 35.9 % (37.2-46.3); HGB 11.1 g/dL (12.0-15.0); Immature Grans, Automated 0.2 %; Lymphocytes # (A) 2.51 X 10*3/uL (0.90-5.00); MCHC 30.9 g/dL (32.0-37.0); MCV 90.7 fL (80.0-97.0); Mean Platelet Volume 11.4 fL (9.5-12.2); Monocytes # (A) 0.54 X 10*3/uL (0.20-1.00); Monocytes % (A) 6.7 %; NRBC Per 100 WBC 0 /100 WBCS (0.0-0.0); Neutrophils # (A) 4.66 X 10*3/uL (1.80-7.70); Neutrophils % (A) 57.6 %; Platelet Count 449 X 10*3/uL (140-440); RBC 3.96 X 10*6/uL (4.10-5.20); RDW 14.1 % (11.5-14.5)
[2022-12-31 11:21] LABS: Glucose,Whole Blood 130 mg/dL (70-110)
[2022-12-31] MEDS: SODIUM CHLORIDE 0.9% 1,000 ML IV SCH ×2 (13:16→15:55)
--- NOTE | 2022-12-31 15:35 | P.PN ---
Subjective Progress Note Date: 12/31/22 Patient is evaluated today on the medical floor. Patient is postoperative day #4 I & D of the right hip. Patient reports some spontaneous drainage of the right hip incision yesterday and since then the pain has improved today. There isn't much induration surrounding the incision. Patient has PICC line in place and plan for DC on IV antibitoics most likely pending finalized cultures. Kidney function has improved. 12/31/2022 Patient is evaluated today sitting up in bed. Patient is postoperative day #5 I and D of the right hip. patient reports had more purulent drainage from the right hip incision today. There is continued small area of induration. Wound cultures are negative so far. Vancomycin has been discontinued. Infectious disease following and patient continues on IV ceftriaxone and started on oral flagly TID. White count has normalized. Patient has PICC line in place. Review of Systems Constitutional: Denied any fatigue denied any fever. Cardio vascular: denied any chest pain, palpitations Gastrointestinal: denied any nausea, vomiting, diarrhea Pulmonary: Denied any shortness of breath cough Neurologic denied any new focal deficits All inpatient medications were reviewed and appropriate changes in these medications as dictated in the interval history and assessment and plan. PHYSICAL EXAMINATION: GENERAL: The patient is alert and oriented x3, not in any acute distress. Well developed, well nourished. HEENT: Pupils are round and equally reacting to light. EOMI. No scleral icterus. No conjunctival pallor. Normocephalic, atraumatic. No pharyngeal erythema. No thyromegaly. CARDIOVASCULAR: S1 and S2 present. No murmurs, rubs, or gallops. PULMONARY: Chest is clear to auscultation, no wheezing or crackles. ABDOMEN: Soft, nontender, nondistended, normoactive bowel sounds. No palpable organomegaly. MUSCULOSKELETAL: No joint swelling or deformity. EXTREMITIES: No cyanosis, clubbing, or pedal edema. NEUROLOGICAL: Gross neurological examination did not reveal any focal deficits. SKIN: No rashes. Assessment and Plan Assessment -Infected right total hip arthroplasty, I&D carried out with antibiotic beads on vancomycin and tobramycin placed. Cultures are negative so far. Remains on IV ceftriaxone and oral flagyl with ID following cultures. Patient has reported purulent drainage from the right incision site. -Intermittent asthma history of, with no acute exacerbation -Essential hypertension stable on home medication -GERD -Obesity BMI 37.6 GI prophylaxis DVT prophylaxis FUll Code Plan Continue current IV antibiotics pending final I and D culture with infectious disease following for final discharge antibiotics. Continue all other supportive care. Patient has been up ambulating. PICC line placed. Orthopedics following. The impression and plan of care has been dictated by Liat Huang Nurse Practitioner as directed. Dr. Lupe MD I have performed a history and physical examination and medical decision making of this patient, discussed the same with the dictator, and agree with the dictators assessment and plan as written, documented as a scribe. Based on total visit time, I have performed more than 50% of this visit. Objective - Vital Signs Vital signs: Vital Signs Temp 97.5 F L 12/31/22 13:44 Pulse 75 12/31/22 13:44 Resp 16 12/31/22 13:44 BP 125/66 12/31/22 13:44 Pulse Ox 97 12/31/22 13:44 FiO2 Intake & Output 12/30/22 12/31/22 12/31/22 18:59 06:59 18:59 Other: Voiding Method Toilet Toilet Toilet # Voids 1 2 - Labs CBC & Chem 7: 12/31/22 06:09 12/31/22 06:09 Labs: Abnormal Lab Results - Last 24 Hours (Table) 12/30/22 12/30/22 12/31/22 Range/Units 16:24 21:53 06:08 RBC (4.10-5.20) X 10*6/uL Hgb (12.0-15.0) g/dL Hct (37.2-46.3) % MCHC (32.0-37.0) g/dL Plt Count (140-440) X 10*3/uL Creatinine (0.52-1.04) mg/dL POC Glucose (mg/dL) 133 H 125 H 142 H (70-110) mg/dL 12/31/22 12/31/22 12/31/22 Range/Units 06:09 06:09 11:20 RBC 3.96 L (4.10-5.20) X 10*6/uL Hgb 11.1 L (12.0-15.0) g/dL Hct 35.9 L (37.2-46.3) % MCHC 30.9 L (32.0-37.0) g/dL Plt Count 449 H (140-440) X 10*3/uL Creatinine 1.05 H (0.52-1.04) mg/dL POC Glucose (mg/dL) 130 H (70-110) mg/dL Microbiology - Last 24 Hours (Table) 12/26/22 14:00 Anaerobic Culture - Final Hip - Right 12/26/22 13:42 Anaerobic Culture - Final Hip - Right 12/26/22 18:55 Blood Culture - Preliminary Blood Assessment and Plan Time with Patient: Less than 30
[2022-12-31] MEDS: SODIUM CHLORIDE 0.9% 500 ML 500 ML IV SCH (16:30)
[2022-12-31 16:31] LABS: Glucose,Whole Blood 96 mg/dL (70-110)
--- NOTE | 2022-12-31 20:34 | P.PN ---
Subjective Progress Note Date: 12/31/22 Principal diagnosis: Right hip septic arthritis Patient is a 67 year female with a past medical history significant for right hip replacement in 2017 presented to hospital with right hip area swelling pain of 2 weeks patient did have abnormal CT of the right hip concern ing for abscess and the patient is status post drainage of the abscess which was extended on to the hardware and antibiotic bead placement along with deep culture On today's evaluation had that is 12/31/2022, the patient remains to be afebrile, the patient pain to the right hip area has decreased in intensity however the patient did have purulent drainage from the right hip site moderate in amount, patient denies having any chest pain or shortness of cough no nausea no vomiting no abdominal pain or diarrhea Objective - Vital Signs Vital signs: Vital Signs Temp 98.3 F 12/31/22 01:59 Pulse 70 12/31/22 01:59 Resp 16 12/31/22 01:59 BP 143/65 12/31/22 01:59 Pulse Ox 96 12/31/22 01:59 FiO2 Intake & Output 12/30/22 12/31/22 12/31/22 18:59 06:59 18:59 Other: Voiding Method Toilet Toilet # Voids 1 2 - Exam GENERAL DESCRIPTION: An elderly female up in the chair in no distress RESPIRATORY SYSTEM: Unlabored breathing , decreased breath sounds at bases HEART: S1 S2 regular rate and rhythm , ABDOMEN: Soft , no tenderness EXTREMITIES: Right hip incision did have some purulent drainage Exam completed with the help of BLOW PIT OPERATOR - Labs CBC & Chem 7: 12/31/22 06:09 12/31/22 06:09 Labs: Abnormal Lab Results - Last 24 Hours (Table) 12/30/22 12/30/22 12/30/22 Range/Units 11:28 16:24 21:53 Creatinine (0.52-1.04) mg/dL POC Glucose (mg/dL) 132 H 133 H 125 H (70-110) mg/dL 12/31/22 12/31/22 Range/Units 06:08 06:09 Creatinine 1.05 H (0.52-1.04) mg/dL POC Glucose (mg/dL) 142 H (70-110) mg/dL Microbiology - Last 24 Hours (Table) 12/26/22 18:55 Blood Culture - Preliminary Blood Assessment and Plan (1) Infection of right prosthetic hip joint Current Visit: Yes Status: Acute Code(s): T84.51XA - INFECT/INFLM REACTION DUE TO INTERNAL RIGHT HIP PROSTH, INIT SNOMED Code(s): 358774769 Plan: 1patient presented hospital with right hip pain swelling in this patient with abnormal CT concerning for right hip cellulitis and abscess patient is status post washout of the right hip area and placement of antibiotic beads with concern for possible infected hardware could be related to gram-positive skin emre such as strep and Staph aureus less likely gram-negative infection 2-patient culture has been negative so far making MRSA to be less likely pathogen however the patient still have purulent drainage is slightly concerning repeat culture should be pain continue with the Rocephin and we will add Flagyl to cover for possible anaerobes and monitor clinical course closely This was telehealth visit Time with Patient: Less than 30
[2022-12-31] MEDS: SENNOSIDES-DOCUSATE SODIUM 1 EACH TAB PO SCH (20:55)
[2022-12-31 20:57] LABS: Glucose,Whole Blood 112 mg/dL (70-110)
[2023-01-01 06:32] LABS: Glucose,Whole Blood 144 mg/dL (70-110)
[2023-01-01] MEDS: PANTOPRAZOLE 40 MG TABLET PO SCH (06:44)
[2023-01-01] MEDS: ONDANSETRON 4 MG/2 ML VIAL IVP PRN (08:47)
[2023-01-01] MEDS: CHOLECALCIFEROL 25 MCG (1000 IU) TABLET PO SCH (09:01)
[2023-01-01] MEDS: MULTIVITAMINS, THERA 1 EACH TAB PO SCH (09:01)
[2023-01-01] MEDS: metroNIDAZOLE 500 MG TAB PO SCH ×3 (09:01→20:25)
[2023-01-01] MEDS: LISINOPRIL-HCTZ 10-12.5 MG 1 EACH TAB PO SCH (09:01)
[2023-01-01] MEDS: ENOXAPARIN 40 MG/0.4 ML SYRINGE SQ SCH (09:01)
--- NOTE | 2023-01-01 10:54 | P.PN ---
Subjective Progress Note Date: 01/01/23 Principal diagnosis: Infection right hip. Status post incision and drainage right hip. This is a 67-year-old female who is status post incision and drainage of the right hip for abscess with tracking into the hip. She has no new complaints or concerns today. Vital signs are stable. Cultures show no growth at 48 hours. Objective - Vital Signs Vital signs: Vital Signs Temp 97.0 F L 01/01/23 07:35 Pulse 74 01/01/23 07:35 Resp 17 01/01/23 08:00 BP 123/55 01/01/23 07:35 Pulse Ox 96 01/01/23 07:35 FiO2 Intake & Output 12/31/22 01/01/23 01/01/23 18:59 06:59 18:59 Other: Voiding Method Toilet Toilet # Voids 3 2 - Exam This is a pleasant 67-year-old female in no acute distress. She is alert and oriented 3. Exam of the right hip reveals that there is slight purulent drainage. No erythema and minimal swelling to the area. She has full foot ankle motion without difficulty or pain. Neurovascular status to the right l ower extremity is intact. - Labs CBC & Chem 7: 12/31/22 06:09 12/31/22 06:09 Labs: Abnormal Lab Results - Last 24 Hours (Table) 12/31/22 12/31/22 01/01/23 Range/Units 11:20 20:55 06:31 POC Glucose (mg/dL) 130 H 112 H 144 H (70-110) mg/dL Microbiology - Last 24 Hours (Table) 12/26/22 18:55 Blood Culture - Final Blood 12/26/22 14:00 Anaerobic Culture - Final Hip - Right 12/26/22 13:42 Anaerobic Culture - Final Hip - Right Assessment and Plan (1) Infection of right prosthetic hip joint Current Visit: Yes Status: Acute Code(s): T84.51XA - INFECT/INFLM REACTION DUE TO INTERNAL RIGHT HIP PROSTH, INIT SNOMED Code(s): 781177409 (2) Cellulitis of right hip Current Visit: No Status: Acute Code(s): L03.115 - CELLULITIS OF RIGHT LOWER LIMB SNOMED Code(s): 89635045591061450 (3) Status post right hip replacement Current Visit: No Status: Acute Code(s): Z96.641 - PRESENCE OF RIGHT ARTIFICIAL HIP JOINT SNOMED Code(s): 581486536 Plan: Clinical findings are discussed with the patient. The patient is evaluated by Dr. Barcenas as well. We will continue to keep an eye on her drainage. No further surgical intervention planned at this time. Continue current care.
[2023-01-01 11:21] LABS: Glucose,Whole Blood 132 mg/dL (70-110)
[2023-01-01 11:24] LABS: Basophils # (A) 0.07 X 10*3/uL (0.00-0.10); Basophils % (A) 0.8 %; C Reactive Protein 1.2 mg/dL (0.00-0.80); Eosinophils # (A) 0.36 X 10*3/uL (0.04-0.35); Eosinophils % (A) 4.1 %; HCT 36.5 % (37.2-46.3); HGB 11.4 g/dL (12.0-15.0); Immature Grans, Automated 0.6 %; Lymphocytes % (A) 28.3 %; MCHC 31.2 g/dL (32.0-37.0); MCV 89.7 fL (80.0-97.0); Monocytes # (A) 0.62 X 10*3/uL (0.20-1.00); NRBC Per 100 WBC 0 /100 WBCS (0.0-0.0); Neutrophils # (A) 5.23 X 10*3/uL (1.80-7.70); Neutrophils % (A) 59.2 %; Platelet Count 431 X 10*3/uL (140-440); RBC 4.07 X 10*6/uL (4.10-5.20); RDW 14.1 % (11.5-14.5); WBC 8.83 X 10*3/uL (4.50-10.00)
[2023-01-01 11:25] LABS: African American GFR (CKD) 66.9 (60.0-200.0); Anion Gap 8.5 mmol/L (10.00-18.00); BUN/Creat Ratio 15.49 Ratio (12.00-20.00); Blood Urea Nitrogen 15.8 mg/dL (9.0-27.0); Calcium 9.7 mg/dL (8.7-10.3); Carbon Dioxide 27.7 mmol/L (20.0-27.5); Non-African American GFR(CKD) 57.7 (60.0-200.0); Potassium 4.2 mmol/L (3.5-5.5)
[2023-01-01] MEDS ORDERED: FLUCONAZOLE 100 MG TAB PO ONE (11:40)
--- NOTE | 2023-01-01 11:44 | P.PN ---
Subjective Progress Note Date: 01/01/23 Principal diagnosis: Right hip septic arthritis Patient is a 67 year female with a past medical history significant for right hip replacement in 2017 presented to hospital with right hip area swelling pain of 2 weeks patient did have abnormal CT of the right hip concern ing for abscess and the patient is status post drainage of the abscess which was extended on to the hardware and antibiotic bead placement along with deep culture On today's evaluation had that is 01/01/2023, the patient continues to be afebrile, the patient pain to the right hip area has decreased in intensity however the patient did have more drainage from the right hip site for the patient has been evaluated by orthopedic surgeon, patient denies having any chest pain or shortness of cough no nausea no vomiting no abdominal pain or diarrhea, patient complaining of symptoms suggestive Vaginal yeast infection Objective - Vital Signs Vital signs: Vital Signs Temp 97.0 F L 01/01/23 07:35 Pulse 74 01/01/23 07:35 Resp 17 01/01/23 08:00 BP 123/55 01/01/23 07:35 Pulse Ox 96 01/01/23 07:35 FiO2 Intake & Output 12/31/22 01/01/23 01/01/23 18:59 06:59 18:59 Other: Voiding Method Toilet Toilet # Voids 3 2 - Exam GENERAL DESCRIPTION: An elderly female up in the chair in no distress RESPIRATORY SYSTEM: Unlabored breathing , decreased breath sounds at bases HEART: S1 S2 regular rate and rhythm , ABDOMEN: Soft , no tenderness EXTREMITIES: Right hip incision did have some drainage was cultured - Labs CBC & Chem 7: 01/01/23 06:26 01/01/23 06:26 Labs: Abnormal Lab Results - Last 24 Hours (Table) 12/31/22 01/01/23 01/01/23 Range/Units 20:55 06:26 06:26 RBC 4.07 L (4.10-5.20) X 10*6/uL Hgb 11.4 L (12.0-15.0) g/dL Hct 36.5 L (37.2-46.3) % MCHC 31.2 L (32.0-37.0) g/dL Immature Gran # 0.05 H (0.00-0.04) X 10*3/uL Eosinophils # 0.36 H (0.04-0.35) X 10*3/uL Carbon Dioxide 27.7 H (20.0-27.5) mmol/L Anion Gap 8.50 L (10.00-18.00) mmol/L Est GFR (CKD-EPI)NonAf 57.7 L (60.0-200.0) Glucose 127 H (70-110) mg/dL POC Glucose (mg/dL) 112 H (70-110) mg/dL C-Reactive Protein 1.20 H (0.00-0.80) mg/dL 01/01/23 01/01/23 Range/Units 06:31 11:19 RBC (4.10-5.20) X 10*6/uL Hgb (12.0-15.0) g/dL Hct (37.2-46.3) % MCHC (32.0-37.0) g/dL Immature Gran # (0.00-0.04) X 10*3/uL Eosinophils # (0.04-0.35) X 10*3/uL Carbon Dioxide (20.0-27.5) mmol/L Anion Gap (10.00-18.00) mmol/L Est GFR (CKD-EPI)NonAf (60.0-200.0) Glucose (70-110) mg/dL POC Glucose (mg/dL) 144 H 132 H (70-110) mg/dL C-Reactive Protein (0.00-0.80) mg/dL Microbiology - Last 24 Hours (Table) 12/26/22 18:55 Blood Culture - Final Blood 12/26/22 14:00 Anaerobic Culture - Final Hip - Right 12/26/22 13:42 Anaerobic Culture - Final Hip - Right Assessment and Plan (1) Infection of right prosthetic hip joint Current Visit: Yes Status: Acute Code(s): T84.51XA - INFECT/INFLM REACTION DUE TO INTERNAL RIGHT HIP PROSTH, INIT SNOMED Code(s): 692824760 Plan: 1patient presented hospital with right hip pain swelling in this patient with abnormal CT concerning for right hip cellulitis and abscess patient is status post washout of the right hip area and placement of antibiotic beads with concern for possible infected hardware could be related to gram-positive skin emre such as strep and Staph aureus less likely gram-negative infection 2-patient culture has been negative so far making MRSA to be less likely pathogen however the patient still have drainage is slightly concerning repeat culture has been obtained today personally, patient continue with the Rocephin and we will add Flagyl to cover for possible anaerobes and monitor clinical course closely 3vaginal yeast infection we'll give her 1 dose of Diflucan
[2023-01-01 14:11] LABS: Erythrocyte Sedimentation Rate 41 mm/Hr (0-30)
[2023-01-01] MEDS: SODIUM CHLORIDE 0.9% 500 ML 500 ML IV SCH (14:41)
--- NOTE | 2023-01-01 15:39 | P.PN ---
Subjective Progress Note Date: 01/01/23 Patient is evaluated today on the medical floor. Patient is postoperative day #4 I & D of the right hip. Patient reports some spontaneous drainage of the right hip incision yesterday and since then the pain has improved today. There isn't much induration surrounding the incision. Patient has PICC line in place and plan for DC on IV antibitoics most likely pending finalized cultures. Kidney function has improved. 12/31/2022 Patient is evaluated today sitting up in bed. Patient is postoperative day #5 I and D of the right hip. patient reports had more purulent drainage from the right hip incision today. There is continued small area of induration. Wound cultures are negative so far. Vancomycin has been discontinued. Infectious disease following and patient continues on IV ceftriaxone and started on oral flagly TID. White count has normalized. Patient has PICC line in place. 01/01/2023 Patient is evaluated today sitting up in bed. Patient is postoperative day #6 I&D of the right hip. Patient had wound recultured today. She continues on same antibiotics. She does complain of some vaginal discharge feels that she may be developing a yeast infection and she was started on oral Diflucan. Fluids have been discontinued. Kidney function is normal today. Review of Systems Constitutional: Denied any fatigue denied any fever. Cardio vascular: denied any chest pain, palpitations Gastrointestinal: denied any nausea, vomiting, diarrhea Pulmonary: Denied any shortness of breath cough Neurologic denied any new focal deficits All inpatient medications were reviewed and appropriate changes in these medications as dictated in the interval history and assessment and plan. PHYSICAL EXAMINATION: GENERAL: The patient is alert and oriented x3, not in any acute distress. Well developed, well nourished. HEENT: Pupils are round and equally reacting to light. EOMI. No scleral icterus. No conjunctival pallor. Normocephalic, atraumatic. No pharyngeal erythema. No thyromegaly. CARDIOVASCULAR: S1 and S2 present. No murmurs, rubs, or gallops. PULMONARY: Chest is clear to auscultation, no wheezing or crackles. ABDOMEN: Soft, nontender, nondistended, normoactive bowel sounds. No palpable organomegaly. MUSCULOSKELETAL: No joint swelling or deformity. EXTREMITIES: No cyanosis, clubbing, or pedal edema. NEUROLOGICAL: Gross neurological examination did not reveal any focal deficits. SKIN: No rashes. Assessment and Plan Assessment -Infected right total hip arthroplasty, I&D carried out with antibiotic beads on vancomycin and tobramycin placed. Cultures are negative so far. Remains on IV ceftriaxone and oral flagyl with ID following cultures. New cultures done today. -Intermittent asthma history of, with no acute exacerbation -Essential hypertension stable on home medication -GERD -Obesity BMI 37.6 GI prophylaxis DVT prophylaxis FUll Code Plan Continue current IV antibiotics pending final I and D culture with infectious disease following for final discharge antibiotics. Continue all other supportive care. Patient has been up ambulating. PICC line placed. Orthopedics following. The impression and plan of care has been dictated by Liat Huang, Nurse Practitioner as directed. Dr. Lupe MD I have performed a history and physical examination and medical decision making of this patient, discussed the same with the dictator, and agree with the dictators assessment and plan as written, documented as a scribe. Based on total visit time, I have performed more than 50% of this visit. Objective - Vital Signs Vital signs: Vital Signs Temp 98.1 F 01/01/23 15:00 Pulse 58 L 01/01/23 15:00 Resp 17 01/01/23 15:00 BP 141/71 01/01/23 15:00 Pulse Ox 95 01/01/23 15:00 FiO2 Intake & Output 12/31/22 01/01/23 01/01/23 18:59 06:59 18:59 Other: Voiding Method Toilet Toilet # Voids 3 2 2 - Labs CBC & Chem 7: 01/01/23 06:26 01/01/23 06:26 Labs: Abnormal Lab Results - Last 24 Hours (Table) 12/31/22 01/01/23 01/01/23 Range/Units 20:55 06:26 06:26 RBC 4.07 L (4.10-5.20) X 10*6/uL Hgb 11.4 L (12.0-15.0) g/dL Hct 36.5 L (37.2-46.3) % MCHC 31.2 L (32.0-37.0) g/dL Immature Gran # 0.05 H (0.00-0.04) X 10*3/uL Eosinophils # 0.36 H (0.04-0.35) X 10*3/uL ESR 41 H (0-30) mm/Hr Carbon Dioxide 27.7 H (20.0-27.5) mmol/L Anion Gap 8.50 L (10.00-18.00) mmol/L Est GFR (CKD-EPI)NonAf 57.7 L (60.0-200.0) Glucose 127 H (70-110) mg/dL POC Glucose (mg/dL) 112 H (70-110) mg/dL C-Reactive Protein 1.20 H (0.00-0.80) mg/dL 01/01/23 01/01/23 Range/Units 06:31 11:19 RBC (4.10-5.20) X 10*6/uL Hgb (12.0-15.0) g/dL Hct (37.2-46.3) % MCHC (32.0-37.0) g/dL Immature Gran # (0.00-0.04) X 10*3/uL Eosinophils # (0.04-0.35) X 10*3/uL ESR (0-30) mm/Hr Carbon Dioxide (20.0-27.5) mmol/L Anion Gap (10.00-18.00) mmol/L Est GFR (CKD-EPI)NonAf (60.0-200.0) Glucose (70-110) mg/dL POC Glucose (mg/dL) 144 H 132 H (70-110) mg/dL C-Reactive Protein (0.00-0.80) mg/dL Microbiology - Last 24 Hours (Table) 12/26/22 18:55 Blood Culture - Final Blood 12/26/22 14:00 Anaerobic Culture - Final Hip - Right 12/26/22 13:42 Anaerobic Culture - Final Hip - Right Assessment and Plan Time with Patient: Less than 30
[2023-01-01 16:46] LABS: Glucose,Whole Blood 112 mg/dL (70-110)
[2023-01-01] MEDS: SENNOSIDES-DOCUSATE SODIUM 1 EACH TAB PO SCH (20:35)
[2023-01-01 20:56] LABS: Glucose,Whole Blood 108 mg/dL (70-110)
[2023-01-02 04:52] LABS: Glucose,Whole Blood 136 mg/dL (70-110)
[2023-01-02] MEDS: PANTOPRAZOLE 40 MG TABLET PO SCH (06:47)
[2023-01-02] MEDS: ONDANSETRON 4 MG/2 ML VIAL IVP PRN (08:40)
[2023-01-02] MEDS: MULTIVITAMINS, THERA 1 EACH TAB PO SCH (08:52)
[2023-01-02] MEDS: CHOLECALCIFEROL 25 MCG (1000 IU) TABLET PO SCH (08:52)
[2023-01-02] MEDS: ENOXAPARIN 40 MG/0.4 ML SYRINGE SQ SCH (08:53)
[2023-01-02] MEDS: LISINOPRIL-HCTZ 10-12.5 MG 1 EACH TAB PO SCH (08:53)
[2023-01-02] MEDS: metroNIDAZOLE 500 MG TAB PO SCH ×3 (08:53→20:48)
--- NOTE | 2023-01-02 10:10 | P.PN ---
Subjective Progress Note Date: 01/02/23 Principal diagnosis: Infection right hip. Status post incision and drainage right hip. This is a 67-year-old female who is status post incision and drainage of the right hip for abscess with tracking into the hip. She has no new complaints or concerns today. Vital signs are stable. Cultures show no growth at 48 hours. Objective - Vital Signs Vital signs: Vital Signs Temp 97.6 F 01/02/23 07:11 Pulse 50 L 01/02/23 07:11 Resp 18 01/02/23 09:10 BP 131/64 01/02/23 07:11 Pulse Ox 97 01/02/23 07:11 FiO2 Intake & Output 01/01/23 01/02/23 01/02/23 18:59 06:59 18:59 Intake Total 250 280 Balance 250 280 Intake: Oral 250 280 Other: Voiding Method Toilet Toilet # Voids 2 2 - Exam This is a pleasant 67-year-old female in no acute distress. She is alert and oriented 3. Exam of the right hip reveals that there is continued purulent drainage. No erythema and minimal swelling to the area. She has full foot ankle motion without difficulty or pain. Neurovascular status to the right lower extremity is intact. - Labs CBC & Chem 7: 01/01/23 06:26 01/01/23 06:26 Labs: Abnormal Lab Results - Last 24 Hours (Table) 01/01/23 01/01/23 01/01/23 Range/Units 06:26 06:26 11:19 RBC 4.07 L (4.10-5.20) X 10*6/uL Hgb 11.4 L (12.0-15.0) g/dL Hct 36.5 L (37.2-46.3) % MCHC 31.2 L (32.0-37.0) g/dL Immature Gran # 0.05 H (0.00-0.04) X 10*3/uL Eosinophils # 0.36 H (0.04-0.35) X 10*3/uL ESR 41 H (0-30) mm/Hr Carbon Dioxide 27.7 H (20.0-27.5) mmol/L Anion Gap 8.50 L (10.00-18.00) mmol/L Est GFR (CKD-EPI)NonAf 57.7 L (60.0-200.0) Glucose 127 H (70-110) mg/dL POC Glucose (mg/dL) 132 H (70-110) mg/dL C-Reactive Protein 1.20 H (0.00-0.80) mg/dL 01/01/23 01/02/23 Range/Units 16:43 04:50 RBC (4.10-5.20) X 10*6/uL Hgb (12.0-15.0) g/dL Hct (37.2-46.3) % MCHC (32.0-37.0) g/dL Immature Gran # (0.00-0.04) X 10*3/uL Eosinophils # (0.04-0.35) X 10*3/uL ESR (0-30) mm/Hr Carbon Dioxide (20.0-27.5) mmol/L Anion Gap (10.00-18.00) mmol/L Est GFR (CKD-EPI)NonAf (60.0-200.0) Glucose (70-110) mg/dL POC Glucose (mg/dL) 112 H 136 H (70-110) mg/dL C-Reactive Protein (0.00-0.80) mg/dL Microbiology - Last 24 Hours (Table) 01/01/23 10:45 Wound Culture - Preliminary Hip - Right 01/01/23 10:45 Anaerobic Culture - Preliminary Hip - Right 12/26/22 18:55 Blood Culture - Final Blood Assessment and Plan (1) Infection of right prosthetic hip joint Current Visit: Yes Status: Acute Code(s): T84.51XA - INFECT/INFLM REACTION DUE TO INTERNAL RIGHT HIP PROSTH, INIT SNOMED Code(s): 037164591 (2) Cellulitis of right hip Current Visit: No Status: Acute Code(s): L03.115 - CELLULITIS OF RIGHT LOWER LIMB SNOMED Code(s): 15518235922471730 (3) Status post right hip replacement Current Visit: No Status: Acute Code(s): Z96.641 - PRESENCE OF RIGHT ARTIFICIAL HIP JOINT SNOMED Code(s): 024588863 Plan: Clinical findings are discussed with the patient. The patient is evaluated by Dr. Barcenas as well. He is planning repeat I&D of the hip today in surgery.
[2023-01-02] MEDS ORDERED: FAMOTIDINE 20 MG/2 ML VIAL IV STA (11:06)
[2023-01-02] MEDS ORDERED: METOCLOPRAMIDE 5 MG/ML 2 ML VIAL IVP STA (11:07)
[2023-01-02 12:12] LABS: Glucose,Whole Blood 121 mg/dL (70-110)
[2023-01-02] MEDS ORDERED: IV FLUID CONTINUATION 1,000 ML IV ONE (13:20)
[2023-01-02 13:39] LABS: Glucose,Whole Blood 116 mg/dL (70-110)
--- NOTE | 2023-01-02 13:57 | P.PN ---
Progress Note - Text Progress Note Date: 01/02/23 After discussing the surgical procedure at length with the patient, I have recommended that in addition to an incision and drainage, polyethylene exchange should be performed in order to do a thorough debridement and washout of the hip. I described this to the patient at length and added to her consent form.
[2023-01-02] MEDS ORDERED: DEXAMETHASONE SOD PHOSPHATE 4 MG/ML 1 ML VIAL IVP ONE (13:59)
[2023-01-02] MEDS ORDERED: fentaNYL (PF) 50 MCG/ML 2 ML AMP ONE (14:05)
[2023-01-02] MEDS ORDERED: PROPOFOL 10 MG/ML 20 ML VIAL IV ONE (14:05)
[2023-01-02] MEDS ORDERED: SUCCINYLCHOLINE CHLORIDE 200 MG/10 ML VIAL IV ONE (14:05)
[2023-01-02] MEDS ORDERED: MIDAZOLAM 2 MG/2 ML VIAL ONE (14:05)
[2023-01-02] MEDS ORDERED: LIDOCAINE 2% INJ 20 MG/ML (2 ML VIAL) ONE (14:05)
[2023-01-02] MEDS ORDERED: ceFAZolin 3,000 MG in SODIUM CHLORIDE 0.9% IRRIGATIO 3,000 ML IRRIGATION ONE (14:09)
[2023-01-02] MEDS ORDERED: LACTATED RINGERS 1,000 ML IV ONE (15:09)
--- NOTE | 2023-01-02 15:22 | P.OP ---
Date of Procedure: 01/02/23 Preoperative Diagnosis: Infection right total hip arthroplasty Postoperative Diagnosis: Infection right total hip arthroplasty Procedure(s) Performed: 1. Incision and drainage right total hip 2. Polyethylene exchange right total hip Implants: [employer] R3, XLPE 20 acetabular liner [employer] Oxinium femoral head 36 m, +12 The articulation is Oxinium on polyethylene. Anesthesia: GETA Surgeon: Brody Barcenas Aviation Technician Aircraft #1: Rudi Redmond Estimated Blood Loss (ml): 400 Pathology: other (Cultures 2) Condition: stable Disposition: PACU Indications for Procedure: This is a 67-year-old female that presented to my office last week with an area of redness and swelling on her right thigh. She's had a prior right total hip arthroplasty in 2017. A computed tomography scan was performed which described an area in the right thigh and hip consistent with an abscess. Last week in an incision and drainage was performed with placement of antibiotic beads. At this point no cultures had been positive. While the patient is been in the hospital she's had continued purulent drainage from the right hip. After discussing the treatment options, I recommended a repeat incision and drainage as well as polyethylene exchange in order to eradicate the infection. Informed consent was obtained. Operative Findings: The operative findings showed superficial pocket of purulence. Upon deeper i nspection of the hip there did not appear to be any purulent pockets or infection deep within the hip joint. Polyethylene exchange was performed as a precautionary measure. Deep cultures were also taken. Description of Procedure: The patient was seen and evaluated in the preoperative area and the consent was reviewed. The operative site was marked with a skin marker. The patient verified the procedure and operative site. The patient was then brought to the operating room. A general anesthetic was administered by the anesthesia department. The patient was then placed on the [place] table with the bony prominences well-padded. The hip area was then prepped with a ChloraPrep solution and draped in the usual sterile fashion. A universal timeout was then performed, which confirmed the patient's name, surgical site, ALLERGIES, and procedure being performed on the consent. Next the incision site was located at 1 cm distal and 4 cm lateral to the anterior superior iliac spine along the prior incision. The skin and subcutaneous tissues were sharply incised. Incision was carefully dissected down to the fascia overlying the tensor fascia brandy muscle. There was a small pocket of purulent appearing material in the superficial tissues. This fascia was then incised in line with the muscle fibers. Care was taken to stay laterally in order to avoid injuring the lateral femoral cutaneous nerve. Next, using blunt finger dissection, the tensor fascia brandy muscle was dissected off its investing fascia. The muscle was then carefully retracted laterally with a cobra retractor over the lateral neck of the femur. Next, the circumflex vessels were identified and cauterized using the Aquamantis device. The anterior hip capsule was then exposed. The capsule was then opened and an inverted T fashion. The retractors were then placed intracapsularly. The retractors were maintained intracapsular throughout the procedure. The proximal femur was then visualized. Cultures were then taken of the deep hip joint. There was no purulence that was encountered deep. Attention was then directed to the femur. With the aid of the [place] table, the femur was externally rotated to approximately 130, extended, and adducted under the opposite leg. A side hook was then placed under the proximal femur, and the side hook elevator was used to elevate the proximal femur while releasing the capsule. The femoral head was then removed from the femoral stem without difficulty. Next, the acetabulum was exposed and the acetabular liner was then removed with the extraction tool. The acetabular component was well seated. Thorough irrigation was then performed with antibiotic solution with pulsatile lavage. A new acetabular liner was then impacted with component locking confirmed. The proximal femurs reexposed and a new femoral head was impacted on the trunnion. Hip was then gently reduced. The hip was then copiously irrigated with antibiotic solution with pulsatile lavage. The fascia was then closed with 2-0 strata fix suture. The subcutaneous tissue was closed with 3-0 Vicryl. The subcuticular tissue was closed with 3-0 strata fix suture. The skin was then closed with Exofin skin glue. After the glue and dried, and Optifoam silver impregnated dressing was applied. The patient was then transferred to the recovery room in stable condition. The medical lab assistant JUANCHO Velez was required due to the complexity of surgery, and the need for skilled surgical coordinator for positioning, draping, exposure, retraction, and closure of the wound.
[2023-01-02] MEDS: SODIUM CHLORIDE 0.9% 500 ML 500 ML IV SCH (15:46)
[2023-01-02] MEDS ORDERED: CALCIUM CARBONATE 500 MG CHEWABLE PO PRN (16:13)
--- NOTE | 2023-01-02 16:18 | P.PN ---
Subjective Progress Note Date: 01/02/23 Patient is evaluated today on the medical floor. Patient is postoperative day #4 I & D of the right hip. Patient reports some spontaneous drainage of the right hip incision yesterday and since then the pain has improved today. There isn't much induration surrounding the incision. Patient has PICC line in place and plan for DC on IV antibitoics most likely pending finalized cultures. Kidney function has improved. 12/31/2022 Patient is evaluated today sitting up in bed. Patient is postoperative day #5 I and D of the right hip. patient reports had more purulent drainage from the right hip incision today. There is continued small area of induration. Wound cultures are negative so far. Vancomycin has been discontinued. Infectious disease following and patient continues on IV ceftriaxone and started on oral flagly TID. White count has normalized. Patient has PICC line in place. 01/01/2023 Patient is evaluated today sitting up in bed. Patient is postoperative day #6 I&D of the right hip. Patient had wound recultured today. She continues on same antibiotics. She does complain of some vaginal discharge feels that she may be developing a yeast infection and she was started on oral Diflucan. Fluids have been discontinued. Kidney function is normal today. 01/02/2023 Patient evaluate today ambulating in the room. Patient is postoperative day #7 I&D of the right hip and patient reports she will be going for a washout of the right hip today. Wound was recultured yesterday and pending. Antibiotics changed to IV ceftriaxone and oral flagyl. Patient reports continued vaginal discharge. Exam reveals some intertrigo the groin and also the abdominal fold more on the left. Nystatin powder to be used BID. patient reports worsening heartburn . Review of Systems Constitutional: Denied any fatigue denied any fever. Cardio vascular: denied any chest pain, palpitations Gastrointestinal: denied any nausea, vomiting, diarrhea Pulmonary: Denied any shortness of breath cough Neurologic denied any new focal deficits All inpatient medications were reviewed and appropriate changes in these medications as dictated in the interval history and assessment and plan. PHYSICAL EXAMINATION: GENERAL: The patient is alert and oriented x3, not in any acute distress. Well developed, well nourished. HEENT: Pupils are round and equally reacting to light. EOMI. No scleral icterus. No conjunctival pallor. Normocephalic, atraumatic. No pharyngeal erythema. No thyromegaly. CARDIOVASCULAR: S1 and S2 present. No murmurs, rubs, or gallops. PULMONARY: Chest is clear to auscultation, no wheezing or crackles. ABDOMEN: Soft, nontender, nondistended, normoactive bowel sounds. No palpable organomegaly. MUSCULOSKELETAL: No joint swelling or deformity. EXTREMITIES: No cyanosis, clubbing, or pedal edema. NEUROLOGICAL: Gross neurological examination did not reveal any focal deficits. SKIN: Bilateral groin intertrigo and also in the abdominal fold. Right hip incision is approximated with small area of induration there is sanguineous discharge. Assessment and Plan Assessment -Infected right total hip arthroplasty, I&D carried out with antibiotic beads on vancomycin and tobramycin placed. Cultures are negative so far. Remains on IV ceftriaxone and oral flagyl with ID following cultures. New cultures done and pending. -Bilateral groin intertrigo -Intermittent asthma history of, with no acute exacerbation -Essential hypertension stable on home medication -GERD -Obesity BMI 37.6 GI prophylaxis DVT prophylaxis FUll Code Plan Continue current IV antibiotics pending final I and D culture with infectious disease following for final discharge antibiotics. Patient scheduled to undergo second I&D of the total right hip today. Nystatin BID to the groin and abdominal fold. The impression and plan of care has been dictated by Liat Huang, Nurse Practitioner as directed. Dr. Lupe MD I have performed a history and physical examination and medical decision making of this patient, discussed the same with the dictator, and agree with the dictators assessment and plan as written, documented as a scribe. Based on total visit time, I have performed more than 50% of this visit. Objective - Vital Signs Vital signs: Vital Signs Temp 97.3 F L 01/02/23 13:45 Pulse 64 01/02/23 13:45 Resp 15 01/02/23 13:45 BP 172/74 01/02/23 13:45 Pulse Ox 100 01/02/23 13:45 FiO2 Intake & Output 01/01/23 01/02/23 01/02/23 18:59 06:59 18:59 Intake Total 009 365 0338 Output Total 400 Balance 250 280 901 Intake: IV 1301 Oral 250 280 Output: Estimated Blood Loss 400 Other: Voiding Method Toilet Toilet # Voids 2 2 2 - Labs CBC & Chem 7: 01/01/23 06:26 01/01/23 06:26 Labs: Abnormal Lab Results - Last 24 Hours (Table) 01/01/23 01/02/23 01/02/23 Range/Units 16:43 04:50 12:11 POC Glucose (mg/dL) 112 H 136 H 121 H (70-110) mg/dL 01/02/23 Range/Units 13:32 POC Glucose (mg/dL) 116 H (70-110) mg/dL Microbiology - Last 24 Hours (Table) 01/01/23 10:45 Gram Stain - Preliminary Hip - Right Wound Culture - Preliminary 01/01/23 10:45 Anaerobic Culture - Preliminary Hip - Right Assessment and Plan Time with Patient: Less than 30
[2023-01-02] MEDS ORDERED: HYDROmorphone 0.5 MG/0.5 ML SYRINGE IVP ONE ×2 (16:21→16:32)
[2023-01-02] MEDS ORDERED: KETOROLAC 15 MG/ML 1 ML VIAL IVP ONE (16:27)
[2023-01-02] MEDS: HYDROmorphone 0.5 MG/0.5 ML SYRINGE IVP PRN ×2 (17:53→20:48)
[2023-01-02 20:31] LABS: Glucose,Whole Blood 175 mg/dL (70-110)
[2023-01-02] MEDS: SENNOSIDES-DOCUSATE SODIUM 1 EACH TAB PO SCH (20:48)
[2023-01-02] MEDS: PANTOPRAZOLE 40 MG/10 ML VIAL IVP SCH (20:48)
[2023-01-02] MEDS: NYSTATIN 100,000 UNIT/GM POWD 15 GM TOPICAL SCH (20:48)
[2023-01-03 06:00] LABS: Glucose,Whole Blood 141 mg/dL (70-110)
[2023-01-03] MEDS: PANTOPRAZOLE 40 MG/10 ML VIAL IVP SCH ×2 (08:17→20:05)
--- NOTE | 2023-01-03 08:38 | P.PN ---
Subjective Progress Note Date: 01/03/23 Principal diagnosis: Infection right hip. Status post incision and drainage right hip2. This is a 67-year-old female who is status post Repeat incision and drainage of the right hip for abscess with tracking into the hip. There was saturation of her dressing last night and a new Optifoam dressing was applied. She has no new complaints or concerns today. Vital signs are stable. Objective - Vital Signs Vital signs: Vital Signs Temp 97.8 F 01/03/23 07:33 Pulse 77 01/03/23 07:33 Resp 18 01/03/23 07:33 BP 126/54 01/03/23 07:33 Pulse Ox 94 L 01/03/23 07:33 FiO2 Intake & Output 01/02/23 01/03/23 01/03/23 18:59 06:59 18:59 Intake Total 1701 Output Total 400 Balance 1301 Intake: IV 1701 Output: Estimated Blood Loss 400 Other: Voiding Method Toilet # Voids 4 2 - Exam This is a pleasant 67-year-old female in no acute distress. She is alert and oriented 3. Exam of the right hip reveals that there is some purulent drainage. No erythema and minimal swelling to the area. She has full foot ankle motion without difficulty or pain. Neurovascular status to the right lower extremity is intact. - Labs CBC & Chem 7: 01/01/23 06:26 01/01/23 06:26 Labs: Abnormal Lab Results - Last 24 Hours (Table) 01/02/23 01/02/23 01/02/23 Range/Units 12:11 13:32 20:29 POC Glucose (mg/dL) 121 H 116 H 175 H (70-110) mg/dL 01/03/23 Range/Units 05:58 POC Glucose (mg/dL) 141 H (70-110) mg/dL Microbiology - Last 24 Hours (Table) 01/01/23 10:45 Gram Stain - Preliminary Hip - Right Wound Culture - Preliminary Assessment and Plan (1) Infection of right prosthetic hip joint Current Visit: Yes Status: Acute Code(s): T84.51XA - INFECT/INFLM REACTION DUE TO INTERNAL RIGHT HIP PROSTH, INIT SNOMED Code(s): 368164061 (2) Cellulitis of right hip Current Visit: No Status: Acute Code(s): L03.115 - CELLULITIS OF RIGHT LOWER LIMB SNOMED Code(s): 52714061114439344 (3) Status post right hip replacement Current Visit: No Status: Acute Code(s): Z96.641 - PRESENCE OF RIGHT ARTIFICIAL HIP JOINT SNOMED Code(s): 769190802 Plan: Clinical findings are discussed with the patient. A prevena wound vac is applied at bedside today. Continue care.
[2023-01-03] MEDS: metroNIDAZOLE 500 MG TAB PO SCH ×3 (08:44→20:05)
[2023-01-03] MEDS: LISINOPRIL-HCTZ 10-12.5 MG 1 EACH TAB PO SCH (08:44)
[2023-01-03] MEDS: CHOLECALCIFEROL 25 MCG (1000 IU) TABLET PO SCH (08:44)
[2023-01-03] MEDS: ENOXAPARIN 40 MG/0.4 ML SYRINGE SQ SCH (08:44)
[2023-01-03] MEDS: MULTIVITAMINS, THERA 1 EACH TAB PO SCH (08:45)
[2023-01-03 11:29] LABS: Glucose,Whole Blood 187 mg/dL (70-110)
[2023-01-03] MEDS: HYDROmorphone 0.5 MG/0.5 ML SYRINGE IVP PRN ×2 (12:32→16:58)
[2023-01-03] MEDS: NYSTATIN 100,000 UNIT/GM POWD 15 GM TOPICAL SCH ×2 (13:32→20:06)
[2023-01-03 14:08] VITALS: BMI 37.5
--- NOTE | 2023-01-03 14:43 | P.PN ---
Subjective Progress Note Date: 01/02/23 Principal diagnosis: Right hip septic arthritis Patient is a 67 year female with a past medical history significant for right hip replacement in 2017 presented to hospital with right hip area swelling pain of 2 weeks patient did have abnormal CT of the right hip concern ing for abscess and the patient is status post drainage of the abscess which was extended on to the hardware and antibiotic bead placement along with deep culture On today's evaluation had that is 01/02/2023, the patient remains to be afebrile, the patient pain to the right hip area has decreased in intensity however the patient did have drainage from the right hip site for the patient has been evaluated by orthopedic surgeon and are pending for repeat I&D this afternoon, patient denies having any chest pain or shortness of cough no nausea no vomiting no abdominal pain or diarrhea Objective - Vital Signs Vital signs: Vital Signs Temp 97.6 F 01/02/23 07:11 Pulse 50 L 01/02/23 07:11 Resp 18 01/02/23 09:10 BP 131/64 01/02/23 07:11 Pulse Ox 97 01/02/23 07:11 FiO2 Intake & Output 01/01/23 01/02/23 01/02/23 18:59 06:59 18:59 Intake Total 250 280 Balance 250 280 Intake: Oral 250 280 Other: Voiding Method Toilet Toilet # Voids 2 2 - Exam GENERAL DESCRIPTION: An elderly female up in the chair in no distress RESPIRATORY SYSTEM: Unlabored breathing , decreased breath sounds at bases HEART: S1 S2 regular rate and rhythm , ABDOMEN: Soft , no tenderness EXTREMITIES: Right hip incision did have some drainage was cultured - Labs CBC & Chem 7: 01/01/23 06:26 01/01/23 06:26 Labs: Abnormal Lab Results - Last 24 Hours (Table) 01/01/23 01/01/23 01/01/23 Range/Units 06:26 06:26 11:19 RBC 4.07 L (4.10-5.20) X 10*6/uL Hgb 11.4 L (12.0-15.0) g/dL Hct 36.5 L (37.2-46.3) % MCHC 31.2 L (32.0-37.0) g/dL Immature Gran # 0.05 H (0.00-0.04) X 10*3/uL Eosinophils # 0.36 H (0.04-0.35) X 10*3/uL ESR 41 H (0-30) mm/Hr Carbon Dioxide 27.7 H (20.0-27.5) mmol/L Anion Gap 8.50 L (10.00-18.00) mmol/L Est GFR (CKD-EPI)NonAf 57.7 L (60.0-200.0) Glucose 127 H (70-110) mg/dL POC Glucose (mg/dL) 132 H (70-110) mg/dL C-Reactive Protein 1.20 H (0.00-0.80) mg/dL 01/01/23 01/02/23 Range/Units 16:43 04:50 RBC (4.10-5.20) X 10*6/uL Hgb (12.0-15.0) g/dL Hct (37.2-46.3) % MCHC (32.0-37.0) g/dL Immature Gran # (0.00-0.04) X 10*3/uL Eosinophils # (0.04-0.35) X 10*3/uL ESR (0-30) mm/Hr Carbon Dioxide (20.0-27.5) mmol/L Anion Gap (10.00-18.00) mmol/L Est GFR (CKD-EPI)NonAf (60.0-200.0) Glucose (70-110) mg/dL POC Glucose (mg/dL) 112 H 136 H (70-110) mg/dL C-Reactive Protein (0.00-0.80) mg/dL Microbiology - Last 24 Hours (Table) 01/01/23 10:45 Wound Culture - Preliminary Hip - Right 01/01/23 10:45 Anaerobic Culture - Preliminary Hip - Right 12/26/22 18:55 Blood Culture - Final Blood Assessment and Plan (1) Infection of right prosthetic hip joint Current Visit: Yes Status: Acute Code(s): T84.51XA - INFECT/INFLM REACTION DUE TO INTERNAL RIGHT HIP PROSTH, INIT SNOMED Code(s): 283363386 Plan: 1patient presented hospital with right hip pain swelling in this patient with abnormal CT concerning for right hip cellulitis and abscess patient is status post washout of the right hip area and placement of antibiotic beads with concern for possible infected hardware could be related to gram-positive skin emre such as strep and Staph aureus less likely gram-negative infection 2-patient culture has been negative so far making MRSA to be less likely pathogen however the patient still have drainage is slightly concerning repeat culture has been obtained on 01/02/2020 which are currently pending patient is going back to the OR and will also repeat culture for now continue with Rocephin and Flagyl Time with Patient: Less than 30
--- NOTE | 2023-01-03 14:45 | P.PN ---
Subjective Progress Note Date: 01/03/23 Principal diagnosis: Right hip septic arthritis Patient is a 67 year female with a past medical history significant for right hip replacement in 2017 presented to hospital with right hip area swelling pain of 2 weeks patient did have abnormal CT of the right hip concern ing for abscess and the patient is status post drainage of the abscess which was extended on to the hardware and antibiotic bead placement along with deep culture, the patient did have a repeat I&D and polyethylene exchange on 01/02/2023 and application of Prevana wound VAC to the incision On today's evaluation had that is 01/03/2023, the patient continues to be afebrile, the patient pain to the right hip area has decreased in intensity still complaining of some heaviness, patient denies having any chest pain shortness with a cough no nausea no vomiting no abdominal pain or diarrhea Objective - Vital Signs Vital signs: Vital Signs Temp 97.8 F 01/03/23 07:33 Pulse 77 01/03/23 07:33 Resp 18 01/03/23 07:33 BP 126/54 01/03/23 07:33 Pulse Ox 94 L 01/03/23 07:33 FiO2 Intake & Output 01/02/23 01/03/23 01/03/23 18:59 06:59 18:59 Intake Total 1701 Output Total 400 Balance 1301 Intake: IV 1701 Output: Estimated Blood Loss 400 Other: Voiding Method Toilet # Voids 4 2 - Exam GENERAL DESCRIPTION: An elderly female up in the chair in no distress RESPIRATORY SYSTEM: Unlabored breathing , decreased breath sounds at bases HEART: S1 S2 regular rate and rhythm , ABDOMEN: Soft , no tenderness EXTREMITIES: Right hip incision is covered with postop prevana wound VAC - Labs CBC & Chem 7: 01/01/23 06:26 01/01/23 06:26 Labs: Abnormal Lab Results - Last 24 Hours (Table) 01/02/23 01/02/23 01/02/23 Range/Units 12:11 13:32 20:29 POC Glucose (mg/dL) 121 H 116 H 175 H (70-110) mg/dL 01/03/23 Range/Units 05:58 POC Glucose (mg/dL) 141 H (70-110) mg/dL Microbiology - Last 24 Hours (Table) 01/01/23 10:45 Gram Stain - Preliminary Hip - Right Wound Culture - Preliminary Assessment and Plan (1) Infection of right prosthetic hip joint Current Visit: Yes Status: Acute Code(s): T84.51XA - INFECT/INFLM REACTION DUE TO INTERNAL RIGHT HIP PROSTH, INIT SNOMED Code(s): 901197759 Plan: 1patient presented hospital with right hip pain swelling in this patient with abnormal CT concerning for right hip cellulitis and abscess patient is status post washout of the right hip area and placement of antibiotic beads with c oncern for possible infected hardware could be related to gram-positive skin emre such as strep and Staph aureus less likely gram-negative infection 2-patient culture has been negative so far making MRSA to be less likely pathogen however the patient did have a more drainage post surgery patient is status post repeat I&D and polyethylene exchange noted. Culture were done and we will continue the patient on Rocephin 2 g daily and oral Flagyl and a close patient follow-up Time with Patient: Less than 30
--- NOTE | 2023-01-03 15:38 | P.PN ---
Subjective Patient is evaluated today on the medical floor. Patient is postoperative day #4 I & D of the right hip. Patient reports some spontaneous drainage of the right hip incision yesterday and since then the pain has improved today. There isn't much induration surrounding the incision. Patient has PICC line in place and plan for DC on IV antibitoics most likely pending finalized cultures. Kidney function has improved. 12/31/2022 Patient is evaluated today sitting up in bed. Patient is postoperative day #5 I and D of the right hip. patient reports had more purulent drainage from the right hip incision today. There is continued small area of induration. Wound cultures are negative so far. Vancomycin has been discontinued. Infectious disease following and patient continues on IV ceftriaxone and started on oral flagly TID. White count has normalized. Patient has PICC line in place. 01/01/2023 Patient is evaluated today sitting up in bed. Patient is postoperative day #6 I&D of the right hip. Patient had wound recultured today. She continues on same antibiotics. She does complain of some vaginal discharge feels that she may be developing a yeast infection and she was started on oral Diflucan. Fluids have been discontinued. Kidney function is normal today. 01/02/2023 Patient evaluate today ambulating in the room. Patient is postoperative day #7 I&D of the right hip and patient reports she will be going for a washout of the right hip today. Wound was recultured yesterday and pending. Antibiotics changed to IV ceftriaxone and oral flagyl. Patient reports continued vaginal discharge. Exam reveals some intertrigo the groin and also the abdominal fold more on the left. Nystatin powder to be used BID. patient reports worsening heartburn . 01/03/2023 patient status post repeat I&D for her right hip abscess and infected total arthroplasty yesterday. Today's postprocedure day #1. Wound VAC in place. Patient feels better Extremities on antibiotic ceftriaxone and Flagyl per ID team. She had vaginal discharge and to see Diflucan and she reports improvement today No dyspepsia today (patient states that she has history of GERD and she had EGD done [address] Leigh, I discussed with the patient the need for o utpatient follow-up with GI service and possible EGD, patient wants to talk and follow-up with her PCP Dr. Cindy velez). Contact information was provided and the discharge instructions She is on nystatin for groin fungal infection Objective - Vital Signs Vital signs: Vital Signs Temp 97.8 F 01/03/23 07:33 Pulse 77 01/03/23 07:33 Resp 18 01/03/23 07:33 BP 126/54 01/03/23 07:33 Pulse Ox 94 L 01/03/23 07:33 FiO2 Intake & Output 01/02/23 01/03/23 01/03/23 18:59 06:59 18:59 Intake Total 1701 Output Total 400 Balance 1301 Intake: IV 1701 Output: Estimated Blood Loss 400 Other: Voiding Method Toilet # Voids 4 2 1 - Exam GENERAL: The patient is alert and oriented x3, not in any acute distress. Well developed, well nourished. HEENT: Pupils are round and equally reacting to light. EOMI. No scleral icterus. No conjunctival pallor. Normocephalic, atraumatic. No pharyngeal erythema. No thyromegaly. CARDIOVASCULAR: S1 and S2 present. No murmurs, rubs, or gallops. PULMONARY: Chest is clear to auscultation, no wheezing or crackles. ABDOMEN: Soft, nontender, nondistended, normoactive bowel sounds. No palpable organomegaly. MUSCULOSKELETAL: No joint swelling or deformity. -EXTREMITIES: No cyanosis, clubbing, or pedal edema. Right hip wound, wound VAC in place, dressing is in place, rest of her exam is deferred to surgery team NEUROLOGICAL: Gross neurological examination did not reveal any focal deficits. SKIN: No rashes. no petechiae. - Labs CBC & Chem 7: 01/01/23 06:26 01/01/23 06:26 Labs: Abnormal Lab Results - Last 24 Hours (Table) 01/02/23 01/02/23 01/03/23 Range/Units 13:32 20:29 05:58 POC Glucose (mg/dL) 116 H 175 H 141 H (70-110) mg/dL 01/03/23 Range/Units 11:27 POC Glucose (mg/dL) 187 H (70-110) mg/dL Microbiology - Last 24 Hours (Table) 01/01/23 10:45 Gram Stain - Preliminary Hip - Right Wound Culture - Preliminary Assessment and Plan Assessment: -Infected right total hip arthroplasty, status post I&D (on 12/26) (repeated on 01/02), with wound VAC in place. -Bilateral groin intertrigo -Intermittent asthma history of, with no acute exacerbation -Essential hypertension stable on home medication -GERD -Obesity BMI 37.6 Plan: Patient's continued with antibiotic provided team, start ceftriaxone and Flagyl She status post left it looks controlled continue with antihypertensive medication surgery orthopedic team, primary team on the case Labs and medication were reviewed.. Continue same treatment. Continue with symptomatic treatment. Resume home medication. Monitor labs and vitals. DVT and GI prophylaxis. Further recommendations as per clinical course of the patient DVT prophylaxis: Subcutaneous Lovenox GI Prophylaxis: Ppi PT/OT: Pending Prognosis is guarded
[2023-01-03 17:03] LABS: Glucose,Whole Blood 130 mg/dL (70-110)
[2023-01-03] MEDS: SODIUM CHLORIDE 0.9% 500 ML 500 ML IV SCH (17:52)
[2023-01-03] MEDS: SENNOSIDES-DOCUSATE SODIUM 1 EACH TAB PO SCH (20:05)
[2023-01-03 20:56] LABS: Glucose,Whole Blood 154 mg/dL (70-110)
[2023-01-03] MEDS: HYDROcodone/APAP 5-325MG 1 EACH TAB PO PRN (21:57)
[2023-01-04 06:21] LABS: Glucose,Whole Blood 111 mg/dL (70-110)
[2023-01-04] MEDS: PANTOPRAZOLE 40 MG/10 ML VIAL IVP SCH ×2 (08:11→21:37)
[2023-01-04] MEDS: ONDANSETRON 4 MG/2 ML VIAL IVP PRN (08:11)
[2023-01-04] MEDS: CHOLECALCIFEROL 25 MCG (1000 IU) TABLET PO SCH (08:11)
[2023-01-04] MEDS: ENOXAPARIN 40 MG/0.4 ML SYRINGE SQ SCH (08:11)
[2023-01-04] MEDS: LISINOPRIL-HCTZ 10-12.5 MG 1 EACH TAB PO SCH (08:13)
[2023-01-04] MEDS: MULTIVITAMINS, THERA 1 EACH TAB PO SCH (08:13)
[2023-01-04] MEDS: metroNIDAZOLE 500 MG TAB PO SCH ×3 (08:13→20:58)
--- NOTE | 2023-01-04 11:17 | P.PN ---
Subjective Progress Note Date: 01/04/23 Principal diagnosis: S/P I and D right hip Patient is pleasant 67 yo female seen at bedside this am. She is POD #2 from repeat I and D with poly exchange of right hip. She has minimal pain at surgical site. She denies numbness, fever, chills, or other. Objective - Vital Signs Vital signs: Vital Signs Temp 98.8 F 01/04/23 07:49 Pulse 72 01/04/23 07:49 Resp 17 01/04/23 07:49 BP 119/69 01/04/23 07:49 Pulse Ox 96 01/04/23 07:49 FiO2 Intake & Output 01/03/23 01/04/23 01/04/23 18:59 06:59 18:59 Weight 99.3 kg Other: # Voids 3 2 - Exam Inspection reveals a benign surgical wound with prevena wound vac in place. There is minimal output. No erythema. Neurovascular status is intact throughout the lower extremity with motor and sensation fully intact. Calf is soft and nontender. 2+ dorsalis pedis pulse and less than 2 second cap refill is present. - Constitutional General appearance: Present: no acute distress - Labs CBC & Chem 7: 01/01/23 06:26 01/01/23 06:26 Labs: Abnormal Lab Results - Last 24 Hours (Table) 01/03/23 01/03/23 01/03/23 Range/Units 11:27 17:02 20:51 POC Glucose (mg/dL) 187 H 130 H 154 H (70-110) mg/dL 01/04/23 Range/Units 06:19 POC Glucose (mg/dL) 111 H (70-110) mg/dL Microbiology - Last 24 Hours (Table) 01/02/23 14:47 Gram Stain - Preliminary Hip - Right Wound Culture - Preliminary 01/02/23 14:46 Gram Stain - Preliminary Hip - Right Wound Culture - Preliminary 01/02/23 14:46 Anaerobic Culture - Preliminary Hip - Right 01/02/23 14:47 Anaerobic Culture - Preliminary Hip - Right 01/01/23 10:45 Anaerobic Culture - Preliminary Hip - Right 01/01/23 10:45 Gram Stain - Final Hip - Right Wound Culture - Final Assessment and Plan (1) Infection of right prosthetic hip joint Narrative/Plan: She will continue with routine postop orthopedic protocol including pain management, wound care, PT, DVT prophylaxis, ID/medical management and IV antibiotics. She remains afebrile, normal WBC. Cultures are negative thus far. She may D/C to home when okay with ID and pending their antibiotic recommendations. Expect that she will transfer to home in next 1-2 days Current Visit: Yes Status: Acute Priority: Medium Code(s): T84.51XA - INFECT/INFLM REACTION DUE TO INTERNAL RIGHT HIP PROSTH, INIT SNOMED Code(s): 2 [id number] Time with Patient: Less than 30
[2023-01-04] MEDS: NYSTATIN 100,000 UNIT/GM POWD 15 GM TOPICAL SCH ×2 (11:23→20:59)
[2023-01-04 11:30] LABS: Glucose,Whole Blood 132 mg/dL (70-110)
--- NOTE | 2023-01-04 13:50 | P.DS ---
Providers Date of admission: 12/28/22 10:18 Expected date of discharge: 01/04/23 Attending physician: Brody Barcenas Consults: 12/26/22 13:56 Consult Physician Routine Consulting Provider: Luís Busby Consult Reason/Comments: medical management. infection of right hip Do you want consulting provider notified?: Yes 12/26/22 14:02 Consult Physician Routine Consulting Provider: Alice Pennington Consult Reason/Comments: infection of right total hip, s/p I&D Do you want consulting provider notified?: Yes Primary care physician: Sukumar White - Discharge Diagnosis(es) (1) Infection of right prosthetic hip joint Patient was admitted to the OR on 12/26/22 to undergo an I and D right hip and then again on 01/02/23 with poly exchange. She had failed conservative measures as an outpatient and desired to proceed with elective surgery after given informed consent. She underwent the above procedures which she tolerated well without complication. Postoperative hospital course has remained without complication. She has been on IV antibiotics per ID and to continue as an outpatient. On day of discharge she is afebrile, vital signs stable, labs within acceptable ranges, tolerating by mouth meds and diet, voiding without difficulty, positive flatus, denies abdominal pain or calf pain, pain is controlled on oral pain medication and has no new complaints. Wound is benign, neurovascular status is intact, calf is soft and nontender, abdomen soft and nontender. Review of systems is negative for numbness, tingling, fever, chills, chest pain, shortness of breath, nausea, vomiting, dizziness, headaches, slurred speech or other. Current Visit: Yes Status: Acute Priority: Medium Procedures: I and D right hip with poly exchange Patient Condition at Discharge: Good Plan - Discharge Summary New Discharge Prescriptions: New HYDROcodone/APAP 5-325MG [[place] 5-325] 1 - 2 tab PO Q6HR PRN #32 tab PRN Reason: Pain Sennosides [Senokot] 2 tab PO DAILY PRN #60 tablet PRN Reason: Constipation No Action Lisinopril-Hctz 10-12.5 mg [Zestoretic 10-12.5] 1 tab PO DAILY Cholecalciferol [Vitamin D3 (25 Mcg = 1000 Iu)] 2,000 unit PO DAILY Albuterol Sulfate [Proair Hfa] 2 puff INHALATION RT-Q6H PRN PRN Reason: Shortness Of Breath Omeprazole [PriLOSEC] 20 mg PO AC-BRKFST valACYclovir HCL [Valtrex] 2,000 mg PO Q12HR PRN PRN Reason: Cold Sores Multivit with Calcium,Iron,Min [Women's Multivitamin] 1 tab PO DAILY Doxycycline [Vibramycin] 100 mg PO DAILY Discharge Medication List Albuterol Sulfate [Proair Hfa] 2 puff INHALATION RT-Q6H PRN 10/16/16 [History] Cholecalciferol [Vitamin D3 (25 Mcg = 1000 Iu)] 2,000 unit PO DAILY 10/16/16 [History] Lisinopril-Hctz 10-12.5 mg [Zestoretic 10-12.5] 1 tab PO DAILY 10/16/16 [History] Omeprazole [PriLOSEC] 20 mg PO AC-BRKFST 03/26/17 [History] valACYclovir HCL [Valtrex] 2,000 mg PO Q12HR PRN 03/26/17 [History] Doxycycline [Vibramycin] 100 mg PO DAILY 12/26/22 [History] Multivit with Calcium,Iron,Min [Women's Multivitamin] 1 tab PO DAILY 12/26/22 [History] HYDROcodone/APAP 5-325MG [[place] 5-325] 1 - 2 tab PO Q6HR PRN #32 tab 12/28/22 [Rx] Sennosides [Senokot] 2 tab PO DAILY PRN #60 tablet 12/28/22 [Rx] Follow up Appointment(s)/Referral(s): Sukumar White DO [Primary Care Provider] - 1 Week Bela Barrios MD [STAFF PHYSICIAN] - 2 Weeks (gi doctor for your GERD) Brody Barcenas DO [Doctor of Osteopathic Medicine] - 01/10/23 1:20 pm Alice Pennington MD [STAFF PHYSICIAN] - 1 Week Activity/Diet/Wound Care/Special Instructions: Weightbearing as tolerated with walker. Leave dressing intact. Dressing may be removed by home care nurse or by patient in 7 days. Then change dressing twice daily until follow up. May shower with initial dressing intact and after removal. If dressing become saturated, please remove. Recommend use of compression stockings daily until follow up to help prevent sw elling and blood clots. May remove at night before sleeping. Please follow-up with [facility] in 2 weeks and call with any questions or concerns, . Discharge Disposition: HOME WITH HOME HEALTH SERVICES
--- NOTE | 2023-01-04 14:17 | P.PN ---
Subjective Patient is evaluated today on the medical floor. Patient is postoperative day #4 I & D of the right hip. Patient reports some spontaneous drainage of the right hip incision yesterday and since then the pain has improved today. There isn't much induration surrounding the incision. Patient has PICC line in place and plan for DC on IV antibitoics most likely pending finalized cultures. Kidney function has improved. 12/31/2022 Patient is evaluated today sitting up in bed. Patient is postoperative day #5 I and D of the right hip. patient reports had more purulent drainage from the right hip incision today. There is continued small area of induration. Wound cultures are negative so far. Vancomycin has been discontinued. Infectious disease following and patient continues on IV ceftriaxone and started on oral flagly TID. White count has normalized. Patient has PICC line in place. 01/01/2023 Patient is evaluated today sitting up in bed. Patient is postoperative day #6 I&D of the right hip. Patient had wound recultured today. She continues on same antibiotics. She does complain of some vaginal discharge feels that she may be developing a yeast infection and she was started on oral Diflucan. Fluids have been discontinued. Kidney function is normal today. 01/02/2023 Patient evaluate today ambulating in the room. Patient is postoperative day #7 I&D of the right hip and patient reports she will be going for a washout of the right hip today. Wound was recultured yesterday and pending. Antibiotics changed to IV ceftriaxone and oral flagyl. Patient reports continued vaginal discharge. Exam reveals some intertrigo the groin and also the abdominal fold more on the left. Nystatin powder to be used BID. patient reports worsening heartburn . 01/03/2023 patient status post repeat I&D for her right hip abscess and infected total arthroplasty yesterday. Today's postprocedure day #1. Wound VAC in place. Patient feels better Extremities on antibiotic ceftriaxone and Flagyl per ID team. She had vaginal discharge and to see Diflucan and she reports improvement today No dyspepsia today (patient states that she has history of GERD and she had EGD done [address] Leigh, I discussed with the patient the need for o utpatient follow-up with GI service and possible EGD, patient wants to talk and follow-up with her PCP Dr. Cindy velez). Contact information was provided and the discharge instructions She is on nystatin for groin fungal infection 01/04/2023 Today patient is doing well, she is awake and alert, she denies any symptoms new to her previous presentation. No chest pain or dyspnea. She thinks her right hip wound is healing, wound VAC is in place. She has no more dyspepsia and she tolerates diet well as she explained. Vaginal discharge still improving. And also the groin rash is improving as well Patient told me she thinks she can go home today. She is hemodynamically stable, blood pressure is low normal and patient is as symptomatic therefore recommended to lower her blood pressure medication lisinopril-hydrochlorothiazide 10-12.5 mg and lisinopril 10 mg by mouth daily and a prescription has sent to the pharmacy, this was discussed with the bedside nurse. Also it looks like patient is going to be discharged on IV antibiotics per ID team, we will defer this management to ID team and orthopedic team. Other than that she looks clinically stable. However she needs close outpatient follow-up, we recommend patient to follow-up with PCP Dr. White in 1 week after discharge and she was instructed with the same and she agrees. Also I recommended that she follow up with GI [facility] if she continued to have persistent epigastric upset and dyspepsia symptoms, she said she is going to talk to Dr. Cindy velez and her dyspepsia has resolved today Objective - Vital Signs Vital signs: Vital Signs Temp 98.8 F 01/04/23 07:49 Pulse 72 01/04/23 07:49 Resp 17 01/04/23 07:49 BP 119/69 01/04/23 07:49 Pulse Ox 96 01/04/23 07:49 FiO2 Intake & Output 01/03/23 01/04/23 01/04/23 18:59 06:59 18:59 Weight 99.3 kg Other: # Voids 3 2 - Exam GENERAL: The patient is alert and oriented x3, not in any acute distress. Well developed, well nourished. HEENT: Pupils are round and equally reacting to light. EOMI. No scleral icterus. No conjunctival pallor. Normocephalic, atraumatic. No pharyngeal erythema. No thyromegaly. CARDIOVASCULAR: S1 and S2 present. No murmurs, rubs, or gallops. PULMONARY: Chest is clear to auscultation, no wheezing or crackles. ABDOMEN: Soft, nontender, nondistended, normoactive bowel sounds. No palpable organomegaly. MUSCULOSKELETAL: No joint swelling or deformity. -EXTREMITIES: No cyanosis, clubbing, or pedal edema. Right hip wound, wound VAC in place, dressing is in place, rest of her exam is deferred to surgery team NEUROLOGICAL: Gross neurological examination did not reveal any focal deficits. SKIN: No rashes. no petechiae. - Labs CBC & Chem 7: 01/01/23 06:26 01/01/23 06:26 Labs: Abnormal Lab Results - Last 24 Hours (Table) 01/03/23 01/03/23 01/04/23 Range/Units 17:02 20:51 06:19 POC Glucose (mg/dL) 130 H 154 H 111 H (70-110) mg/dL 01/04/23 Range/Units 11:29 POC Glucose (mg/dL) 132 H (70-110) mg/dL Microbiology - Last 24 Hours (Table) 01/02/23 14:47 Gram Stain - Preliminary Hip - Right Wound Culture - Preliminary 01/02/23 14:46 Gram Stain - Preliminary Hip - Right Wound Culture - Preliminary 01/02/23 14:46 Anaerobic Culture - Preliminary Hip - Right 01/02/23 14:47 Anaerobic Culture - Preliminary Hip - Right 01/01/23 10:45 Anaerobic Culture - Preliminary Hip - Right 01/01/23 10:45 Gram Stain - Final Hip - Right Wound Culture - Final Assessment and Plan Assessment: -Infected right total hip arthroplasty, status post I&D (on 12/26) (repeated on 01/02), with wound VAC in place. -Bilateral groin intertrigo, improving -dyspepsia, improving -Vaginal discharge, improving -Intermittent asthma history of, with no acute exacerbation -Essential hypertension stable on home medication -GERD -Obesity BMI 37.6 Plan: Patient's continued with antibiotic provided team, start ceftriaxone and Flagyl Discharge antibiotics as per ID team surgery orthopedic team, primary team on the case Labs and medication were reviewed.. Continue same treatment. Continue with symptomatic treatment. Resume home medication. Monitor labs and vitals. DVT and GI prophylaxis. Further recommendations as per clinical course of the marquis ent DVT prophylaxis: Subcutaneous Lovenox GI Prophylaxis: Ppi Patient is medically stable We recommend patient follow up with PCP Dr. White in one week and Dr. Barrios from GI in 2 weeks, patient informed and she agrees but she wants to talk to Dr. middleton first We recommend to lower lisinopril-hydrochlorothiazide and lisinopril only and a prescription was sent to the pharmacy. Discussed with the bedside nurse Patient is medically stable and can be discharged but she needs outpatient follow-up Thank you for consulting us
[2023-01-04 17:18] LABS: Glucose,Whole Blood 174 mg/dL (70-110)
[2023-01-04] MEDS: SODIUM CHLORIDE 0.9% 500 ML 500 ML IV SCH (18:08)
[2023-01-04 19:12] LABS: Glucose,Whole Blood 154 mg/dL (70-110)
[2023-01-04] MEDS: SENNOSIDES-DOCUSATE SODIUM 1 EACH TAB PO SCH (20:59)
[2023-01-05 06:28] LABS: Glucose,Whole Blood 140 mg/dL (70-110)
[2023-01-05 08:28] VITALS: RESP 18
[2023-01-05] MEDS: ENOXAPARIN 40 MG/0.4 ML SYRINGE SQ SCH (08:48)
[2023-01-05] MEDS: CHOLECALCIFEROL 25 MCG (1000 IU) TABLET PO SCH (08:48)
[2023-01-05] MEDS: metroNIDAZOLE 500 MG TAB PO SCH ×2 (08:48→17:09)
[2023-01-05] MEDS: MULTIVITAMINS, THERA 1 EACH TAB PO SCH (08:48)
[2023-01-05] MEDS: PANTOPRAZOLE 40 MG/10 ML VIAL IVP SCH (08:49)
[2023-01-05] MEDS: LISINOPRIL-HCTZ 10-12.5 MG 1 EACH TAB PO SCH (08:52)
[2023-01-05 12:05] LABS: Glucose,Whole Blood 155 mg/dL (70-110)
[2023-01-05] MEDS: HYDROcodone/APAP 5-325MG 1 EACH TAB PO PRN (13:04)
[2023-01-05 14:40] VITALS: BP 109/64; PULSE 80; TEMP 98.2
--- NOTE | 2023-01-05 14:52 | P.PN ---
Progress Note - Text Progress Note Date: 01/05/23 Discharge was held yesterday due to arrangements for postoperative IV antibiotics. Per Shaji in social work, arrangements have been made for discharge today. Patient is examined bedside this morning. She states the pain in her right hip is well-controlled at this time. She has no complaints or concerns at this time. She feels comfortable discharging home today. She denies fevers, chills, chest pain, shortness of breath. On examination, the patient is sitting up in bed in no apparent distress. She is alert and oriented 3. On inspection of right hip, there is Prevena wound VAC in place that has a good seal at this time. Motor and sensory function is intact of the right lower extremity. Right lower extremity is warm and well-perfused. Calf is soft and nontender to palpation. Patient is discharged home with home healthcare today, pending medical clearance. She should follow-up at [facility] in 1 week. Please see med rec for accurate list of discharge medications.
--- NOTE | 2023-01-05 15:25 | P.PN ---
Subjective Progress Note Date: 01/04/23 Principal diagnosis: Right hip septic arthritis Patient is a 67 year female with a past medical history significant for right hip replacement in 2017 presented to hospital with right hip area swelling pain of 2 weeks patient did have abnormal CT of the right hip concern ing for abscess and the patient is status post drainage of the abscess which was extended on to the hardware and antibiotic bead placement along with deep culture, the patient did have a repeat I&D and polyethylene exchange on 01/02/2023 and application of Prevana wound VAC to the incision On today's evaluation had that is 01/04/2023, the patient remains to be afebrile, the patient pain to the right hip area has decreased in intensity , patient denies having any chest pain shortness with a cough no nausea no vomiting no abdominal pain or diarrhea Objective - Vital Signs Vital signs: Vital Signs Temp 98.8 F 01/04/23 07:49 Pulse 72 01/04/23 07:49 Resp 17 01/04/23 07:49 BP 119/69 01/04/23 07:49 Pulse Ox 96 01/04/23 07:49 FiO2 Intake & Output 01/03/23 01/04/23 01/04/23 18:59 06:59 18:59 Weight 99.3 kg Other: # Voids 3 2 - Exam GENERAL DESCRIPTION: An elderly female up in the chair in no distress RESPIRATORY SYSTEM: Unlabored breathing , decreased breath sounds at bases HEART: S1 S2 regular rate and rhythm , ABDOMEN: Soft , no tenderness EXTREMITIES: Right hip incision is covered with postop prevana wound VAC - Labs CBC & Chem 7: 01/01/23 06:26 01/01/23 06:26 Labs: Abnormal Lab Results - Last 24 Hours (Table) 01/03/23 01/03/23 01/03/23 Range/Units 11:27 17:02 20:51 POC Glucose (mg/dL) 187 H 130 H 154 H (70-110) mg/dL 01/04/23 Range/Units 06:19 POC Glucose (mg/dL) 111 H (70-110) mg/dL Microbiology - Last 24 Hours (Table) 01/02/23 14:47 Gram Stain - Preliminary Hip - Right Wound Culture - Preliminary 01/02/23 14:46 Gram Stain - Preliminary Hip - Right Wound Culture - Preliminary 01/02/23 14:46 Anaerobic Culture - Preliminary Hip - Right 01/02/23 14:47 Anaerobic Culture - Preliminary Hip - Right 01/01/23 10:45 Anaerobic Culture - Preliminary Hip - Right 01/01/23 10:45 Gram Stain - Final Hip - Right Wound Culture - Final Assessment and Plan (1) Infection of right prosthetic hip joint Current Visit: Yes Status: Acute Priority: Medium Code(s): T84.51XA - INFECT/INFLM REACTION DUE TO INTERNAL RIGHT HIP PROSTH, INIT SNOMED Code(s): 814064543 Plan: 1patient presented hospital with right hip pain swelling in this patient with abnormal CT concerning for right hip cellulitis and abscess patient is status post washout of the right hip area and placement of antibiotic beads with concern for possible infected hardware could be related to gram-positive skin emre such as strep and Staph aureus less likely gram-negative infection 2-patient culture has been negative so far , the patient did have a more drainage post surgery patient is status post repeat I&D and polyethylene exchange , Culture were done which are so for pending, we will continue the patient on Rocephin 2 g daily and oral Flagyl and a close patient follow-up Time with Patient: Less than 30
--- NOTE | 2023-01-05 15:30 | P.PN ---
Subjective Progress Note Date: 01/05/23 Principal diagnosis: Right hip septic arthritis Patient is a 67 year female with a past medical history significant for right hip replacement in 2017 presented to hospital with right hip area swelling pain of 2 weeks patient did have abnormal CT of the right hip concern ing for abscess and the patient is status post drainage of the abscess which was extended on to the hardware and antibiotic bead placement along with deep culture, the patient did have a repeat I&D and polyethylene exchange on 01/02/2023 and application of Prevana wound VAC to the incision On today's evaluation had that is 01/05/2023, the patient continues to be afebrile, the patient pain to the right hip area is controlled with pain medication, patient denies having any chest pain shortness with a cough no nausea no vomiting no abdominal pain or diarrhea Objective - Vital Signs Vital signs: Vital Signs Temp 98.4 F 01/05/23 07:38 Pulse 70 01/05/23 07:38 Resp 18 01/05/23 07:38 BP 105/60 01/05/23 07:38 Pulse Ox 93 L 01/05/23 07:38 FiO2 Intake & Output 01/04/23 01/05/23 01/05/23 18:59 06:59 18:59 Other: # Voids 4 # Bowel Movements 1 - Exam GENERAL DESCRIPTION: An elderly female up in the chair in no distress RESPIRATORY SYSTEM: Unlabored breathing , decreased breath sounds at bases HEART: S1 S2 regular rate and rhythm , ABDOMEN: Soft , no tenderness EXTREMITIES: Right hip incision is covered with postop prevana wound VAC - Labs CBC & Chem 7: 01/01/23 06:26 01/01/23 06:26 Labs: Abnormal Lab Results - Last 24 Hours (Table) 01/04/23 01/04/23 01/05/23 Range/Units 17:16 19:10 06:24 POC Glucose (mg/dL) 174 H 154 H 140 H (70-110) mg/dL 01/05/23 Range/Units 12:02 POC Glucose (mg/dL) 155 H (70-110) mg/dL Microbiology - Last 24 Hours (Table) 01/02/23 14:47 Gram Stain - Final Hip - Right Wound Culture - Final 01/02/23 14:46 Gram Stain - Final Hip - Right Wound Culture - Final Assessment and Plan (1) Infection of right prosthetic hip joint Current Visit: Yes Status: Acute Priority: Medium Code(s): T84.51XA - INFECT/INFLM REACTION DUE TO INTERNAL RIGHT HIP PROSTH, INIT SNOMED Code(s): 803765637 Plan: 1patient presented hospital with right hip pain swelling in this patient with abnormal CT concerning for right hip cellulitis and abscess patient is status post washout of the right hip area and placement of antibiotic beads with concern for possible infected hardware could be related to gram-positive skin emre such as strep and Staph aureus less likely gram-negative infection,the pat ient did have a more drainage post surgery patient is status post repeat I&D and polyethylene exchange 2-patient culture has been negative so far , plan is to continue the patient on Rocephin 2 g daily to finish a 6 week course of therapy and close patient follow-up with weekly monitoring of CRP and sed rate currently waiting for outpatient antibiotic arrangement Time with Patient: Less than 30
== END 2023-01-05 18:38 | disposition home health service (06) | DRG 467 ==
LOC: OR 12:03 → 4SSUR 13:59 → OR 12-28 10:18
PROVIDERS: ADMIT Orthopaedic Surgery; ATTEND Orthopaedic Surgery
PROC: 0S990ZZ Drainage of Right Hip Joint, Open Approach (ICD-10-PCS; 2022-12-26)
PROC: 3E0U029 Introduction of Other Anti-infective into Joints, Open Approach (ICD-10-PCS; 2022-12-26)
PROC: 02HV33Z Insertion of Infusion Device into Superior Vena Cava, Percutaneous Approach (ICD-10-PCS; 2022-12-29)
PROC: 0SP909Z Removal of Liner from Right Hip Joint, Open Approach (ICD-10-PCS; 2023-01-02)
PROC: 0SPR0JZ Removal of Synthetic Substitute from Right Hip Joint, Femoral Surface, Open Approach (ICD-10-PCS; 2023-01-02)
PROC: 0SUA09Z Supplement Right Hip Joint, Acetabular Surface with Liner, Open Approach (ICD-10-PCS; 2023-01-02)
PROC: 0SRR0JZ Replacement of Right Hip Joint, Femoral Surface with Synthetic Substitute, Open Approach (ICD-10-PCS; principal; 2023-01-02 10:10)
DX: T84.51XA Infection and inflammatory reaction due to internal right hip prosthesis, initial encounter (principal); L03.115 Cellulitis of right lower limb; I10 Essential (primary) hypertension; J45.20 Mild intermittent asthma, uncomplicated; E11.9 Type 2 diabetes mellitus without complications; E66.9 Obesity, unspecified; Y79.2 Prosthetic and other implants, materials and accessory orthopedic devices associated with adverse incidents; K21.9 Gastro-esophageal reflux disease without esophagitis; M19.90 Unspecified osteoarthritis, unspecified site; E78.5 Hyperlipidemia, unspecified; B37.31 Acute candidiasis of vulva and vagina; Z96.643 Presence of artificial hip joint, bilateral; Z68.37 Body mass index [BMI] 37.0-37.9, adult; Z88.5 Allergy status to narcotic agent; Z91.048 Other nonmedicinal substance allergy status; Z88.6 Allergy status to analgesic agent; Z88.8 Allergy status to other drugs, medicaments and biological substances
CPT/HCPCS: 36573; 80048; 80202; 82565; 84145; 85025; 85610; 85652; 86140; 87070; 87075; 87205

== ENCOUNTER → 2023-01-30 | Outpatient (CLI) | payer MEDICARE ==
[2023-01-30 16:20] LABS: Appearance,Urine Clear (Clear); Bilirubin,Urine Negative (Negative); Blood,Urine Negative (Negative); Color,Urine Yellow; Glucose,Urine (UA) Negative (Negative); Ketones,Urine Negative (Negative); Leukocyte Esterase,Urine Negative (Negative); Nitrite,Urine Negative (Negative); PH, Urine 5.5 (5.0-8.0); Protein,Urine Trace (Negative); Specific Gravity,Urine 1.024 (1.001-1.035); Urobilinogen,Urine <2.0 mg/dL (<2.0)
== END | disposition home or self-care (01) ==
LOC: LABWHC1 15:52
PROVIDERS: ATTEND Internal Medicine Infectious Disease
DX: R50.9 Fever, unspecified (principal)
CPT/HCPCS: 81003; 87086

== ENCOUNTER → 2023-03-27 | Outpatient (CLI) | payer MEDICARE ==
[2023-03-27 20:18] LABS: BUN/Creat Ratio 24.67 Ratio (12.00-20.00); Blood Urea Nitrogen 22.2 mg/dL (9.0-27.0); Calcium 9.6 mg/dL (8.7-10.3); Carbon Dioxide 24.1 mmol/L (21.6-31.8); Chloride 109 mmol/L (96-109); Glucose 144 mg/dL (70-110); Potassium 4.6 mmol/L (3.5-5.5); Sodium 143 mmol/L (135-145)
[2023-03-27 20:26] LABS: Basophils # (A) 0.03 X 10*3/uL (0.00-0.10); Basophils % (A) 0.4 %; Eosinophils # (A) 0.17 X 10*3/uL (0.04-0.35); Eosinophils % (A) 2.1 %; HCT 41.1 % (37.2-46.3); HGB 12.3 d/dL (12.0-15.0); Lymphocytes # (A) 2.35 X 10*3/uL (0.90-5.00); Lymphocytes % (A) 28.8 %; MCH 26.8 pg (27.0-32.0); MCHC 29.9 d/dL (32.0-37.0); MCV 89.5 FL (80.0-97.0); Mean Platelet Volume 11.4 FL (9.5-12.2); Monocytes # (A) 0.56 X 10*3/uL (0.20-1.00); Monocytes % (A) 6.9 %; NRBC Per 100 WBC 0 X 10*3/uL (0.00-0.01); Neutrophils # (A) 5.01 X 10*3/uL (1.80-7.70); Neutrophils % (A) 61.4 %; Platelet Count 395 X 10*3/uL (140-440); RBC 4.59 X 10*6/uL (4.10-5.20); RDW 15.9 % (11.5-14.5); WBC 8.15 X 10*3/uL (4.50-10.00)
[2023-03-27 21:38] LABS: Erythrocyte Sedimentation Rate 41 mm/Hr (0-30)
== END | disposition home or self-care (01) ==
LOC: LABWHC1 12:29
PROVIDERS: ATTEND Internal Medicine Infectious Disease
DX: M00.9 Pyogenic arthritis, unspecified (principal)
CPT/HCPCS: 36415; 80048; 85025; 85652; 86140

== ENCOUNTER → 2023-04-20 | Outpatient (CLI) | payer MEDICARE ==
[2023-04-20 20:07] LABS: Basophils # (A) 0.04 X 10*3/uL (0.00-0.10); Basophils % (A) 0.5 %; Eosinophils # (A) 0.12 X 10*3/uL (0.04-0.35); Eosinophils % (A) 1.4 %; HCT 42.2 % (37.2-46.3); HGB 12.8 d/dL (12.0-15.0); Lymphocytes # (A) 2.63 X 10*3/uL (0.90-5.00); Lymphocytes % (A) 31.8 %; MCH 27.1 pg (27.0-32.0); MCHC 30.3 d/dL (32.0-37.0); MCV 89.2 FL (80.0-97.0); Mean Platelet Volume 11.8 FL (9.5-12.2); Monocytes # (A) 0.44 X 10*3/uL (0.20-1.00); Monocytes % (A) 5.3 %; NRBC Per 100 WBC 0 X 10*3/uL (0.00-0.01); Neutrophils # (A) 5.02 X 10*3/uL (1.80-7.70); Neutrophils % (A) 60.6 %; Platelet Count 370 X 10*3/uL (140-440); RBC 4.73 X 10*6/uL (4.10-5.20); RDW 15.9 % (11.5-14.5); WBC 8.28 X 10*3/uL (4.50-10.00)
[2023-04-20 20:17] LABS: Calcium 10.1 mg/dL (8.7-10.3); Carbon Dioxide 24.7 mmol/L (21.6-31.8); Chloride 109 mmol/L (96-109); Glucose 120 mg/dL (70-110); Potassium 4.4 mmol/L (3.5-5.5); Sodium 144 mmol/L (135-145)
[2023-04-20 21:09] LABS: Erythrocyte Sedimentation Rate 38 mm/Hr (0-30)
== END | disposition home or self-care (01) ==
LOC: LABWHC1 13:07
PROVIDERS: ATTEND Internal Medicine Infectious Disease
DX: I10 Essential (primary) hypertension (principal); E11.65 Type 2 diabetes mellitus with hyperglycemia; M25.50 Pain in unspecified joint; R07.9 Chest pain, unspecified
CPT/HCPCS: 36415; 80048; 85025; 85652; 86140

== ENCOUNTER → 2023-05-22 | Outpatient (CLI) | payer MEDICARE ==
[2023-05-22 21:11] LABS: Blood Urea Nitrogen 18.1 mg/dL (9.0-27.0); Calcium 10.2 mg/dL (8.7-10.3); Chloride 107 mmol/L (96-109); Glucose 115 mg/dL (70-110); Potassium 4.8 mmol/L (3.5-5.5); Sodium 143 mmol/L (135-145)
[2023-05-22 21:25] LABS: HCT 43.1 % (37.2-46.3); HGB 13.6 d/dL (12.0-15.0); MCH 27.1 pg (27.0-32.0); MCHC 31.6 d/dL (32.0-37.0); Mean Platelet Volume 11.5 FL (9.5-12.2); NRBC Per 100 WBC 0 X 10*3/uL (0.00-0.01); Platelet Count 400 X 10*3/uL (140-440); RBC 5.01 X 10*6/uL (4.10-5.20); RDW 15.3 % (11.5-14.5); WBC 8.32 X 10*3/uL (4.50-10.00)
[2023-05-22 22:11] LABS: Erythrocyte Sedimentation Rate 24 mm/Hr (0-30)
== END | disposition home or self-care (01) ==
LOC: LABWHC1 13:31
PROVIDERS: ATTEND Internal Medicine Infectious Disease
DX: T84.51XA Infection and inflammatory reaction due to internal right hip prosthesis, initial encounter (principal); Y82.9 Unspecified medical devices associated with adverse incidents
CPT/HCPCS: 36415; 80048; 85027; 85652; 86140

== ENCOUNTER 2023-07-03 13:11 | Inpatient (IN) | payer MEDICARE ==
[~2023-07-03 13:11] MED LIST changes: +HYDROmorphone 0.5 MG/0.5 ML SYRINGE IVP PRN; +LIDOCAINE 1% (10MG/ML) FOR IV START INTRADERMA PRN; +MAGNESIUM HYDROXIDE 2,400 MG/30 ML CUP PO PRN; +NALOXONE 0.4 MG/ML 1 ML VIAL IV PRN; +ONDANSETRON 4 MG/2 ML VIAL IVP ONE; +ONDANSETRON 4 MG/2 ML VIAL IVP PRN; +hydrOXYzine pamoate 25 MG CAP PO PRN
[2023-07-03] MEDS: LACTATED RINGERS 1,000 ML IV SCH (13:59)
[2023-07-03] MEDS ORDERED: DEXAMETHASONE SOD PHOSPHATE 4 MG/ML 1 ML VIAL IVP ONE (14:01)
[2023-07-03] MEDS ORDERED: ONDANSETRON 4 MG/2 ML VIAL IVP ONE (14:01)
[2023-07-03 14:04] LABS: Glucose,Whole Blood 117 mg/dL (70-110)
[2023-07-03 14:05] LABS: Basophils % (A) 0 %; Eosinophils # (A) 0.2 k/uL (0-0.7); Eosinophils % (A) 2 %; HGB 13.8 gm/dL (11.4-16.0); Lymphocytes # (A) 2.9 k/uL (1.0-4.8); Lymphocytes % (A) 29 %; MCH 28.4 pg (25.0-35.0); MCHC 32.9 g/dL (31.0-37.0); MCV 86.2 fL (80.0-100.0); Mean Platelet Volume 8.8; Monocytes # (A) 0.4 k/uL (0-1.0); Monocytes % (A) 4 %; Neutrophils # (A) 6.3 k/uL (1.3-7.7); Neutrophils % (A) 64 %; Platelet Count 413 k/uL (150-450); RBC 4.87 m/uL (3.80-5.40); WBC 9.9 k/uL (3.8-10.6)
[2023-07-03 14:16] LABS: ALT 24 U/L (4-34); AST 23 U/L (14-36); African American GFR (CKD) 76 (>60 ml/min/1.73 sqM); Albumin 4.1 g/dL (3.5-5.0); Alkaline Phosphatase 121 U/L (38-126); Anion Gap 10 mmol/L; Blood Urea Nitrogen 21 mg/dL (7-17); Calcium 9.9 mg/dL (8.4-10.2); Carbon Dioxide 23 mmol/L (22-30); Chloride 107 mmol/L (98-107); Glucose 127 mg/dL (74-99); Non-African American GFR(CKD) 66 (>60 ml/min/1.73 sqM); Potassium 3.9 mmol/L (3.5-5.1); Sodium 140 mmol/L (137-145); Total Bilirubin 0.7 mg/dL (0.2-1.3); Total Protein 7.1 g/dL (6.3-8.2)
[2023-07-03] MEDS ORDERED: ceFAZolin 3,000 MG in SODIUM CHLORIDE 0.9% IRRIGATIO 3,000 ML IRRIGATION ONE (14:18)
[2023-07-03] MEDS ORDERED: SODIUM CHLORIDE 0.9% 100 ML with ceFAZolin 2,000 MG IV ONE ×2 (14:18)
--- NOTE | 2023-07-03 14:30 | P.OP ---
Date of Procedure: 07/03/23 Preoperative Diagnosis: Abscess right hip Postoperative Diagnosis: Abscess right hip Procedure(s) Performed: Incision and drainage abscess right hip Anesthesia: ARACELY Surgeon: Brody Barcenas [employer] Molder #1: Mary Anna Estimated Blood Loss (ml): 25 Pathology: other (Cultures 2) Condition: stable Disposition: PACU Indications for Procedure: This is a 67-year-old female that has had multiple infections of her right hip treated in the past. She was doing well with no apparent problems then started to have an area of redness and swelling approximately 2 weeks ago. She presented the office yesterday with an area of redness and induration the distal aspect of her right hip incision. She denies any fever or chills or increased pain. I discussed the treatment options and have recommended an incision and drainage of the area with cultures. I've also recommended admission to the hospital with the infectious disease consult. She is agreeable to this informed consent was obtained. Operative Findings: The operative findings are consistent with an abscess of the right thigh. The abscess demonstrated a large amount of purulent fluid which tracked down through the fascia to the tissue below the fascia. The tract did not appear to communicate with the bone or deep tissues. Description of Procedure: Patient was seen and evaluated in the preoperative area, the operative site was marked with a skin marker. The patient was then brought to the operating room. antibiotics were held until after the cultures were obtained. A general anesthetic was administered by the anesthesia department. the lower extremity was then prepped and draped in usual sterile fashion. A universal timeout was then performed confirming the patient's name, surgical site, ALLERGIES, and consent. the right thigh was then incised over the raised reddened area sharply with a knife. large amount of yellow purulent material was expressed which was cultured 2. the skin edges were debrided around the area as well. pulsatile lavage with antibiotic solution was then irrigated throughout the wound. the wound was then inspected and found to extend deep to the fascia but did not communicate to the bone or further deep tissues. there area was also irrigated with Betadine solution. the wound was closed with 0 Vicryl followed by jade for the skin. sterile dressing was applied patient was transferred recovery room stable condition. Asst. JUANCHO Sanchez was required due the complexity of surgery the need for skilled inventory control assistant.
[2023-07-03] MEDS: fentaNYL (PF) 50 MCG/ML 2 ML AMP IV PRN ×2 (14:50→15:16)
[2023-07-03 15:06] LABS: Glucose,Whole Blood 117 mg/dL (70-110)
[2023-07-03 15:17] LABS: Appearance,Urine Clear (Clear); Color,Urine Yellow; Glucose,Urine (UA) Negative (Negative); Ketones,Urine Negative (Negative); PH, Urine 5.5 (5.0-8.0); Protein,Urine Negative (Negative); Specific Gravity,Urine 1.015 (1.001-1.035)
[2023-07-03 15:18] LABS: Bilirubin,Urine Negative (Negative); Blood,Urine Negative (Negative); Leukocyte Esterase,Urine Negative (Negative); Nitrite,Urine Negative (Negative); Urobilinogen,Urine <2.0 mg/dL (<2.0)
[2023-07-03] MEDS ORDERED: ALBUTEROL HFA INHALER INHALATION PRN (16:50)
--- NOTE | 2023-07-03 17:24 | P.CONS ---
History of Present Illness - Reason for Consult Consult date: 07/03/23 Medical management Requesting physician: Brody Barcenas - Chief Complaint Right hip abscess. - History of Present Illness Hospital course: This is a pleasant 67-year-old patient follows with Dr. White. Chronic stable medical conditions include asthma, GERD, hypertension, hyperlipidemia, osteoarthritis. Diet controlled diabetes. Patient had right total hip arthroplasty - 2016. December 2022 - developed infected right hip incision with cellulitis and seroma and ID was carried out. Subsequently patient did well. For 2 weeks patient noticed some swelling on the same area. Subsequently she notices area of redness and increased warmth. Went down to her family doctor and was referred here. To get an ultrasound/CT scanner. January 02 underwent I&D of the right total hip arthroplasty. antibiotic beads were placed. See vancomycin and tobramycin.. Was discharged on doxycycline. Was seen by Dr. espinosa from ID. Wound culture back in December- unremarkable About 3 weeks ago on the right thigh patient noticed a small bump on the right thigh. Progressively became larger. Became tender. She initially thought it was a second bite. The last 7-10 days became bigger. More tender. Patient's had decrease appetite. Since December patient been having intermittent diarrhea. Denies any fever and chills. Today I&D was carried out and pus was removed from right thigh abscess.. Currently on IV Ancef. ID consulted. Review of systems: GEN.: Tired EYES: None HEENT: None NECK: None RESPIRATORY: None CARDIOVASCULAR: None GASTROINTESTINAL: None GENITOURINARY: None MUSCULOSKELETAL: As above LYMPHATICS: None HEMATOLOGICAL: None PSYCHIATRY: None NEUROLOGICAL: None Past medical history to include: Asthma, GERD, hypertension, hyperlipidemia,-controlled diabetes, osteoarthritis. Recurrent right hip infection including abscess Social history: Used to work before. No smoking or alcohol Physical examination: VITAL SIGNS: Afebrile, 65, 16, 149/65, 93% room air GENERAL: BMI 39.2, reclining in bed awake but in distress EYES: Pupils equal. Conjunctiva normal. HEENT: External appearance of nose and ears normal, oral cavity grossly normal. NECK: JVD not raised; masses not palpable. HEART: First and second heart sounds are normal; no edema. LUNGS: Respiratory rate normal; clear to auscultation. ABDOMEN: Soft, nontender, liver spleen not palpable, no masses palpable. PSYCH: Alert and oriented x3; mood and affect normal. MUSCULOSKELETAL:No Clubbing/cyanosis;muscles-grossly intact. OA. Dressing over the right hip abscess site NEUROLOGICAL: Cranial nerves grossly intact; no facial asymmetry, power and sensation grossly intact. LYMPHATICS: No lymph nodes palpable in the axilla and neck INVESTIGATIONS, reviewed in the clinical context: July 03: White count 9.19 globin 30.8 platelets 14 sodium 140 potassium 3.9 BUN 21 creatinine 0.9 to Assessment and plan: -Recurrent Infected thigh abscess, with previous hip arthroplasty infection. [Wound culture in December 2022: Unremarkable] IV Ancef. ID consulted. Check ESR, CRP, pro calcitonin. -Intermittent asthma Pro-air 2 puffs every 6 when necessary -Essential hypertension Lisinopril 10 mg a day -GERD Prilosec 20 mg daily -Primary osteoarthritis Pain control as needed -Obesity BMI 39.2 Weight loss measures Discussed with patient. Questions answered. Subcu Lovenox. IV Ancef. Thank you Dr. Barcenas Past Medical History Past Medical History: Asthma, Diabetes Mellitus, GERD/Reflux, Hyperlipidemia, Hypertension, Osteoarthritis (OA), Skin Disorder Additional Past Medical History / Comment(s): hx palpitations, diet controlled diabetic, reactive airway disease, hx pancreatitis, right hip abcess 01/02/23 & probable current infection right hip, incision is red & looks like pus underneath History of Any Multi-Drug Resistant Organisms: None Reported Past Surgical History: Section, Cholecystectomy, Hernia Repair, Joint Replacement Additional Past Surgical History / Comment(s): total left hip replacement December 2011, Right Hip 2016 Past Anesthesia/Blood Transfusion Reactions: Family History of Problems w/ Anesthesia, Postoperative Nausea & Vomiting (PONV) Additional Past Anesthesia/Blood Transfusion Reaction / Comm: dad-had CVA during back surgery & , sister-PONV Smoking Status: Never smoker - Past Family History Brother(s) Family Medical History: Cancer Medications and Allergies Home Medications Medication Instructions Recorded Confirmed Type Albuterol Sulfate [Proair Hfa] 2 puff INHALATION RT-Q6H PRN 10/16/16 07/02/23 History Cholecalciferol [Vitamin D3 (25 2,000 unit PO DAILY 10/16/16 07/02/23 History Mcg = 1000 Iu)] Omeprazole [PriLOSEC] 20 mg PO DAILY 03/26/17 07/02/23 History valACYclovir HCL [Valtrex] 2,000 mg PO Q12HR PRN 03/26/17 07/02/23 History Multivit with Calcium,Iron,Min 1 tab PO DAILY 12/26/22 07/02/23 History [Women's Multivitamin] HYDROcodone/APAP 5-325MG [[place] 1 - 2 tab PO Q6HR PRN #32 tab 12/28/22 07/02/23 Rx 5-325] lisinopriL [Prinivil] 10 mg PO DAILY #30 tab 01/04/23 07/02/23 Rx Allergies Allergy/AdvReac Type Severity Reaction Status Date / Time morphine Allergy Severe turn red, Verified 07/02/23 14:50 skin peels, SOB, feels like burning inside adhesive tape Allergy red welts, Verified 07/02/23 14:50 fitzgerald ibuprofen [From Advil] Allergy Itching Verified 07/02/23 14:50 meperidine [From Demerol] Allergy headaches Verified 07/02/23 14:50 gabapentin AdvReac Swelling Verified 07/02/23 14:50 artificial sweetener AdvReac Nausea & Uncoded 07/02/23 14:50 Vomiting Physical Exam Vitals: Vital Signs Temp Pulse Resp BP Pulse Ox 07/03/23 16:08 65 16 149/65 93 L 07/03/23 15:53 73 16 148/66 94 L 07/03/23 15:38 64 16 144/65 93 L 07/03/23 15:23 72 16 138/63 96 07/03/23 15:08 61 16 139/65 97 07/03/23 14:53 62 16 133/62 99 07/03/23 14:38 97.5 F L 82 18 113/61 94 L 07/03/23 13:25 98.4 F 86 18 164/74 96 Intake and Output 07/03/23 07/03/23 07/03/23 06:59 14:59 22:59 Intake Total 701 Output Total 25 Balance 676 Intake: IV 701 Output: Estimated Blood Loss 25 Other: Weight 103.6 kg 103.6 kg Results CBC & Chem 7: 07/03/23 13:37 07/03/23 13:37 Labs: Abnormal Lab Results - Last 24 Hours (Table) 07/03/23 07/03/2323 Range/Units 13:37 13:49 15:04 BUN 21 H (7-17) mg/dL Glucose 127 H (74-99) mg/dL POC Glucose (mg/dL) 117 H 117 H (70-110) mg/dL
[2023-07-03] MEDS: SODIUM CHLORIDE 0.9% 1,000 ML IV SCH (17:27)
[2023-07-03] MEDS: ENOXAPARIN 40 MG/0.4 ML SYRINGE SQ SCH (17:47)
[2023-07-03] MEDS: HYDROmorphone 0.5 MG/0.5 ML SYRINGE IVP PRN (20:15)
[2023-07-03] MEDS: SENNOSIDES-DOCUSATE SODIUM 1 EACH TAB PO SCH (20:15)
[2023-07-03] MEDS ORDERED: VANCOMYCIN IV PER PHARMACY 1 EACH MISC MISCELLANE PRN (20:27)
[2023-07-03] MEDS ORDERED: VANCOMYCIN 1,750 MG in SODIUM CHLORIDE 0.9% 500 ML 500 ML IVPB ONE (21:00)
[2023-07-03] MEDS: CEFEPIME 2 GM in SODIUM CHLORIDE 0.9% 100 ML IVPB SCH (22:14)
[2023-07-04] MEDS: SODIUM CHLORIDE 0.9% 1,000 ML IV SCH (05:00)
[2023-07-04] MEDS: LACTATED RINGERS 1,000 ML IV SCH (06:09)
[2023-07-04] MEDS: CEFEPIME 2 GM in SODIUM CHLORIDE 0.9% 100 ML IVPB SCH ×2 (06:14→14:16)
[2023-07-04] MEDS: ENOXAPARIN 40 MG/0.4 ML SYRINGE SQ SCH (09:03)
[2023-07-04] MEDS: MULTIVITAMINS, THERA 1 EACH TAB PO SCH (09:03)
[2023-07-04] MEDS: PANTOPRAZOLE 40 MG TABLET PO SCH (09:04)
[2023-07-04] MEDS: lisinopriL 10 MG TAB PO SCH (09:04)
[2023-07-04 11:01] LABS: ALT 16 U/L (8-44); AST 11 U/L (13-35); Albumin 3.5 d/dL (3.8-4.9); Albumin/Globulin Ratio 1.59 Ratio (1.60-3.17); Alkaline Phosphatase 95 U/L (41-126); Blood Urea Nitrogen 17.6 mg/dL (9.0-27.0); Calcium 9.4 mg/dL (8.7-10.3); Carbon Dioxide 27.1 mmol/L (21.6-31.8); Chloride 106 mmol/L (96-109); Globulin 2.2 d/dL (1.6-3.3); Glucose 125 mg/dL (70-110); Potassium 4.6 mmol/L (3.5-5.5); Sodium 143 mmol/L (135-145); Total Bilirubin 0.3 mg/dL (0.3-1.2); Total Protein 5.7 d/dL (6.2-8.2)
[2023-07-04 11:16] LABS: Basophils # (A) 0.03 X 10*3/uL (0.00-0.10); Basophils % (A) 0.3 %; Eosinophils # (A) 0.02 X 10*3/uL (0.04-0.35); Eosinophils % (A) 0.2 %; HCT 37.1 % (37.2-46.3); HGB 11.7 d/dL (12.0-15.0); Lymphocytes # (A) 2.15 X 10*3/uL (0.90-5.00); Lymphocytes % (A) 22.5 %; MCH 27.9 pg (27.0-32.0); MCHC 31.5 d/dL (32.0-37.0); MCV 88.5 FL (80.0-97.0); Mean Platelet Volume 11.5 FL (9.5-12.2); Monocytes # (A) 0.63 X 10*3/uL (0.20-1.00); Monocytes % (A) 6.6 %; NRBC Per 100 WBC 0 X 10*3/uL (0.00-0.01); Neutrophils # (A) 6.68 X 10*3/uL (1.80-7.70); Neutrophils % (A) 70.1 %; Platelet Count 343 X 10*3/uL (140-440); RBC 4.19 X 10*6/uL (4.10-5.20); RDW 14.5 % (11.5-14.5); WBC 9.54 X 10*3/uL (4.50-10.00)
[2023-07-04 11:43] LABS: Glucose,Whole Blood 114 mg/dL (70-110)
[2023-07-04] MEDS ORDERED: VANCOMYCIN 1,750 MG in SODIUM CHLORIDE 0.9% 500 ML 500 ML IVPB SCH (12:00)
--- NOTE | 2023-07-04 12:03 | P.PN ---
Subjective Progress Note Date: 07/04/23 This is a 67-year-old female who is status post incision and drainage of right hip abscess. This is postoperative day #1 and patient is seen and evaluated at bedside with Dr. Brody Barcenas. Patient states that she has not had any pain and she has been able to walk without difficulty. Patient denies any fever/chills, numbness, weakness, tingling, abdominal pain, shortness of breath or chest pain. Objective - Vital Signs Vital signs: Vital Signs Temp 96.5 F L 07/04/23 06:51 Pulse 42 L 07/04/23 06:51 Resp 16 07/04/23 06:51 BP 117/55 07/04/23 06:51 Pulse Ox 97 07/04/23 06:51 FiO2 Intake & Output 07/03/23 07/04/23 07/04/23 18:59 06:59 18:59 Intake Total 1181 Output Total 25 Balance 1156 Weight 103.6 kg Intake: IV 701 Oral 480 Output: Estimated Blood Loss 25 Other: Voiding Method Toilet # Voids 2 1 - Exam Vital signs are stable. Patient is in no acute distress and is alert and oriented 3. Calf is soft and nontender to palpation. Dressing is clean, dry, and intact. Patient ambulates without difficulty. Patient has full foot and ankle motion without pain or difficulty. Sensation intact. Neurovascular status and circulatory status are intact. - Labs CBC & Chem 7: 07/04/23 05:55 07/04/23 05:55 Labs: Abnormal Lab Results - Last 24 Hours (Table) 07/03/23 07/03/23 07/03/23 Range/Units 13:37 13:49 15:04 Hgb (12.0-15.0) d/dL Hct (37.2-46.3) % MCHC (32.0-37.0) d/dL Eosinophils # (0.04-0.35) X 10*3/uL ESR (0-30) mm/Hr BUN 21 H (7-17) mg/dL Glucose 127 H (74-99) mg/dL POC Glucose (mg/dL) 117 H 117 H (70-110) mg/dL AST (13-35) U/L C-Reactive Protein (<1.0) mg/dL Total Protein (6.2-8.2) d/dL Albumin (3.8-4.9) d/dL Albumin/Globulin Ratio (1.60-3.17) Ratio 07/03/23 07/03/23 07/04/23 Range/Units 17:19 17:19 05:55 Hgb 11.7 L (12.0-15.0) d/dL Hct 37.1 L (37.2-46.3) % MCHC 31.5 L (32.0-37.0) d/dL Eosinophils # 0.02 L (0.04-0.35) X 10*3/uL ESR 53 H (0-30) mm/Hr BUN (7-17) mg/dL Glucose (74-99) mg/dL POC Glucose (mg/dL) (70-110) mg/dL AST (13-35) U/L C-Reactive Protein 2.0 H (<1.0) mg/dL Total Protein (6.2-8.2) d/dL Albumin (3.8-4.9) d/dL Albumin/Globulin Ratio (1.60-3.17) Ratio 07/04/23 07/04/23 Range/Units 05:55 11:40 Hgb (12.0-15.0) d/dL Hct (37.2-46.3) % MCHC (32.0-37.0) d/dL Eosinophils # (0.04-0.35) X 10*3/uL ESR (0-30) mm/Hr BUN (7-17) mg/dL Glucose 125 H (74-99) mg/dL POC Glucose (mg/dL) 114 H (70-110) mg/dL AST 11 L (13-35) U/L C-Reactive Protein 1.30 H (<1.0) mg/dL Total Protein 5.7 L (6.2-8.2) d/dL Albumin 3.5 L (3.8-4.9) d/dL Albumin/Globulin Ratio 1.59 L (1.60-3.17) Ratio Assessment and Plan (1) History of right hip replacement Current Visit: Yes Status: Acute Code(s): Z96.641 - PRESENCE OF RIGHT ARTIFICIAL HIP JOINT SNOMED Code(s): 694728599 (2) Abscess of right hip Current Visit: Yes Status: Acute Code(s): L02.415 - CUTANEOUS ABSCESS OF RIGHT LOWER LIMB SNOMED Code(s): 573794 Plan: 1. Cultures are pending. Continue antibiotics per infectious disease. 2. Leave dressing intact. May change dressing if saturated. Will plan to do daily dressing changes starting tomorrow. [place] to stay in place for 10-14 days. 3. Continue routine postoperative care and pain control. 4. Appreciate input from internal medicine and infectious disease. 5. Anticipate discharge home in the next 48-72 hours once discharge antibiotics are determined from culture results.
[2023-07-04] MEDS: HYDROmorphone 0.5 MG/0.5 ML SYRINGE IVP PRN (18:51)
--- NOTE | 2023-07-04 19:14 | P.PN ---
Progress Note - Text Progress Note Date: 07/04/23 - Chief Complaint Right hip abscess. - History of Present Illness Hospital course: This is a pleasant 67-year-old patient follows with Dr. White. Chronic stable medical conditions include asthma, GERD, hypertension, hyperlipidemia, osteoarth ritis. Diet controlled diabetes. Patient had right total hip arthroplasty - 2016. December 2022 - developed infected right hip incision with cellulitis and seroma and ID was carried out. Subsequently patient did well. For 2 weeks patient noticed some swelling on the same area. Subsequently she notices area of redness and increased warmth. Went down to her family doctor and was referred here. To get an ultrasound/CT scanner. January 02 underwent I&D of the right total hip arthroplasty. antibiotic beads were placed. See vancomycin and tobramycin.. Was discharged on doxycycline. Was seen by Dr. espinosa from ID. Wound culture back in December- unremarkable About 3 weeks ago on the right thigh patient noticed a small bump on the right thigh. Progressively became larger. Became tender. She initially thought it was a second bite. The last 7-10 days became bigger. More tender. Patient's had decrease appetite. Since December patient been having intermittent diarrhea. Denies any fever and chills. Today I&D was carried out and pus was removed from right thigh abscess.. Currently on IV Ancef. ID consulted. July 04: Pain well controlled. No nausea vomiting. Tolerating diet. Some loose stools. C. diff was ordered came back negative. Metamucil added. Immunodeficiency panel ordered. Discussed with patient. Cultures pending. Active Medications Albuterol Sulfate (Albuterol Hfa Inhaler) 2 puff INHALATION RT-Q6H PRN PRN Reason: Shortness Of Breath Enoxaparin Sodium (Enoxaparin 40 Mg/0.4 Ml Syringe) 40 mg SQ DAILY [facility] Last Admin: 07/04/23 09:03 Dose: 40 mg Hydromorphone HCl (Hydromorphone 0.5 Mg/0.5 Ml Syringe) 0.125 mg IVP Q3HR PRN PRN Reason: Pain Scale 1 to 3 Stop: 08/02/23 13:05 Hydromorphone HCl (Hydromorphone 0.5 Mg/0.5 Ml Syringe) 0.5 mg IVP Q3HR PRN PRN Reason: Pain Scale 7 to 10 Stop: 08/02/23 13:05 Last Admin: 07/04/23 18:51 Dose: 0.5 mg Hydromorphone HCl (Hydromorphone 0.5 Mg/0.5 Ml Syringe) 0.25 mg IVP Q3HR PRN PRN Reason: Pain Scale 4 to 6 Stop: 08/02/23 13:05 Hydroxyzine Pamoate (Hydroxyzine Pamoate 25 Mg Cap) 25 mg PO Q4HR PRN PRN Reason: Nausea, Anxiety, Pain Control Stop: 08/02/23 13:05 Lactated Ringer's (Lactated Ringers) 1,000 mls @ 20 mls/hr IV .Q24H [facility] Stop: 08/02/23 06:05 Last Admin: 07/04/23 06:09 Dose: Not Given Sodium Chloride (Saline 0.9%) 1,000 mls @ 10 mls/hr IV .Q24H [facility] Stop: 08/02/23 13:16 Last Admin: 07/04/23 05:00 Dose: Not Given Vancomycin HCl 1,750 mg/ (Sodium Chloride) 500 mls @ 167 mls/hr IVPB Q24H [facility] Cefepime HCl 2 gm/ Sodium (Chloride) 100 mls @ 25 mls/hr IVPB Q12H [facility]; Protocol Lidocaine HCl (Lidocaine 1% (10mg/Ml) For Iv Start) 0.1 ml INTRADERMA PER PROTOCOL PRN PRN Reason: IV Start Stop: 08/02/23 06:05 Lisinopril (Lisinopril 10 Mg Tab) 10 mg PO DAILY [facility] Last Admin: 07/04/23 09:04 Dose: 10 mg Magnesium Hydroxide (Magnesium Hydroxide 2,400 Mg/30 Ml Cup) 2,400 mg PO DAILY PRN PRN Reason: Constipation Stop: 08/02/23 13:05 Multivitamins (Multivitamins, Thera 1 Each Tab) 1 each PO DAILY [facility] Last Admin: 07/04/23 09:03 Dose: 1 each Naloxone HCl (Naloxone 0.4 Mg/Ml 1 Ml Vial) 0.2 mg IV Q2M PRN PRN Reason: Opioid Reversal Stop: 08/02/23 13:05 Ondansetron HCl (Ondansetron 4 Mg/2 Ml Vial) 4 mg IVP Q8H PRN PRN Reason: Nausea And Vomiting Stop: 08/02/23 13:05 Pantoprazole Sodium (Pantoprazole 40 Mg Tablet) 40 mg PO DAILY [facility] Last Admin: 07/04/23 09:04 Dose: 40 mg Psyllium Hydrophilic Mucilloid (Psyllium Husk 100% 6 Gm Packet) 6 gm PO BID [facility] Senna/Docusate Sodium (Sennosides-Docusate Sodium 1 Each Tab) 2 each PO HS [facility] Stop: 08/02/23 21:01 Last Admin: 07/03/23 20:15 Dose: 2 each Past medical history to include: Asthma, GERD, hypertension, hyperlipidemia,-controlled diabetes, osteoarthritis. Recurrent right hip infection including abscess Social history: Used to work before. No smoking or alcohol Physical examination: VITAL SIGNS: 98.2, 61, 18, 120/70, 98% room air GENERAL: Laying in bed comfortable EYES: Pupils equal. Conjunctiva normal. HEENT: External appearance of nose and ears normal, oral cavity grossly normal. NECK: JVD not raised; masses not palpable. HEART: First and second heart sounds are normal; no edema. LUNGS: Respiratory rate normal; clear to auscultation. ABDOMEN: Soft, nontender, liver spleen not palpable, no masses palpable. PSYCH: Alert and oriented x3; mood and affect normal. MUSCULOSKELETAL:No Clubbing/cyanosis;muscles-grossly intact. OA. Dressing over the right hip abscess site INVESTIGATIONS, reviewed in the clinical context: June 2015: White count 9.5 hemoglobin 11.7 platelets 343 potassium 4.6 creatinine 1.0 C. diff: Not detected Procalcitonin 0.04 July 03: White count 9.19 globin 30.8 platelets 14 sodium 140 potassium 3.9 BUN 21 creatinine 0.9 to Assessment and plan: -Recurrent Infected thigh abscess, with previous hip arthroplasty infection. [Wound culture in December 2022: Unremarkable]: Abscess NOT communicating with the joint. IV cefepime. ID following Immunodeficiency panel ordered -Intermittent asthma Pro-air 2 puffs every 6 when necessary -Essential hypertension Lisinopril 10 mg a day -GERD Prilosec 20 mg daily -Primary osteoarthritis Pain control as needed -Obesity BMI 39.2 Weight loss measures C. diff negative. Add Metamucil. Immunodeficiency panel ordered. Discussed with patient. ID following. Thank you Dr. Barcenas
[2023-07-04] MEDS: PSYLLIUM HUSK 100% 6 GM PACKET PO SCH (20:33)
[2023-07-04] MEDS: SENNOSIDES-DOCUSATE SODIUM 1 EACH TAB PO SCH (20:33)
[2023-07-04] MEDS: VANCOMYCIN 1,750 MG in SODIUM CHLORIDE 0.9% 500 ML 500 ML IVPB SCH (20:36)
--- NOTE | 2023-07-04 22:02 | P.CONS ---
History of Present Illness - Reason for Consult Consult date: 07/04/23 Status post I&D right hip Requesting physician: Mary Anna - Chief Complaint Right hip pain and redness x few days - History of Present Illness Patient is a 67-year-old female with a past medical history significant for right hip replacement in 2016 patient was admitted to this facility in December 2022 with right hip swelling in this patient who is status po st drainage of the abscess which was extending to the hardware the patient is status post I&D and polyethylene exchange cultures were negative patient completed course of IV followed by oral antibiotic therapy and the patient was seen to be doing well until about a week or 2 ago when the patient develop small area of irritation, usually more of a pimple on the incision site with the patient was treated with triple antibiotic cream and mention to have some improvement initially however subsequently did not have increasing pain swelling redness and drainage patient was described the pain to be more of a dull aching to sharp mild to moderate intensity without radiation associated swelling redne ss and drainage denies high-grade fever with the same the patient was evaluated by orthopedics and the patient was taken to the OR yesterday afternoon with the patient was noticed to have a abscess of the right hip s/p I&D there was large amount of purulent fluid which tracked down through the fascia to the tissue below the fascia however did not appear to communicate with the bone or other deep tissue cultures were obtained patient was started on cefazolin antibiotic were adjusted to cefepime and vancomycin last done by myself pending evaluation with the patient has tolerated so far Review of Systems Positive point and negatives has been mentioned in the HPI, complete review of systems was performed and all other systems are negative Past Medical History Past Medical History: Asthma, Diabetes Mellitus, GERD/Reflux, Hyperlipidemia, Hypertension, Osteoarthritis (OA), Skin Disorder Additional Past Medical History / Comment(s): hx palpitations, diet controlled diabetic, reactive airway disease, hx pancreatitis, right hip abcess 01/02/23 & probable current infection right hip, incision is red & looks like pus underneath History of Any Multi-Drug Resistant Organisms: None Reported Past Surgical History: Section, Cholecystectomy, Hernia Repair, Joint Replacement Additional Past Surgical History / Comment(s): total left hip replacement December 2011, Right Hip 2017 Past Anesthesia/Blood Transfusion Reactions: Family History of Problems w/ Anesthesia, Postoperative Nausea & Vomiting (PONV) Additional Past Anesthesia/Blood Transfusion Reaction / Comm: dad-had CVA during back surgery & , sister-PONV Smoking Status: Never smoker - Past Family History Brother(s) Family Medical History: Cancer Medications and Allergies Home Medications Medication Instructions Recorded Confirmed Type Albuterol Sulfate [Proair Hfa] 2 puff INHALATION RT-Q6H PRN 10/16/16 07/02/23 History Cholecalciferol [Vitamin D3 (25 2,000 unit PO DAILY 10/16/16 07/02/23 History Mcg = 1000 Iu)] Omeprazole [PriLOSEC] 20 mg PO DAILY 03/26/17 07/02/23 History valACYclovir HCL [Valtrex] 2,000 mg PO Q12HR PRN 03/26/17 07/02/23 History Multivit with Calcium,Iron,Min 1 tab PO DAILY 12/26/22 07/02/23 History [Women's Multivitamin] HYDROcodone/APAP 5-325MG [[place] 1 - 2 tab PO Q6HR PRN #32 tab 12/28/22 07/02/23 Rx 5-325] lisinopriL [Prinivil] 10 mg PO DAILY #30 tab 01/04/23 07/02/23 Rx HYDROcodone/APAP 7.5-325MG [[place] 1 - 2 tab PO Q6H PRN #32 tab 07/05/23 Rx 7.5-325] Sennosides [Senokot] 2 tab PO DAILY PRN #60 tablet 07/05/23 Rx Amoxic-Pot Clav 875-125Mg 1 tab PO Q12HR 21 Days #42 tab 07/06/23 Rx [Augmentin 875-125] Doxycycline Hyclate 100 mg PO Q12H 21 Days #42 tab 07/06/23 Rx Allergies Allergy/AdvReac Type Severity Reaction Status Date / Time morphine Allergy Severe turn red, Verified 07/02/23 14:50 skin peels, SOB, feels like burning inside adhesive tape Allergy red welts, Verified 07/02/23 14:50 fitzgerald ibuprofen [From Advil] Allergy Itching Verified 07/02/23 14:50 meperidine [From Demerol] Allergy headaches Verified 07/02/23 14:50 gabapentin AdvReac Swelling Verified 07/02/23 14:50 artificial sweetener AdvReac Nausea & Uncoded 07/02/23 14:50 Vomiting Physical Exam Vitals: Vital Signs Temp Pulse Resp BP Pulse Ox 07/04/23 06:51 96.5 F L 42 L 16 117/55 97 07/04/23 02:00 97.7 F 57 L 116/55 95 07/03/23 20:00 98.2 F 66 145/62 96 07/03/23 16:49 97.6 F 64 18 158/70 96 07/03/23 16:08 65 16 149/65 93 L 07/03/23 15:53 73 16 148/66 94 L 07/03/23 15:38 64 16 144/65 93 L 07/03/23 15:23 72 16 138/63 96 07/03/23 15:08 61 16 139/65 97 07/03/23 14:53 62 16 133/62 99 07/03/23 14:38 97.5 F L 82 18 113/61 94 L 07/03/23 13:25 98.4 F 86 18 164/74 96 Intake and Output 07/03/23 07/04/23 07/04/23 22:59 06:59 14:59 Intake Total 480 Balance 480 Intake: Oral 480 Other: Voiding Method Toilet # Voids 2 1 Weight 103.6 kg GENERAL DESCRIPTION: Elderly female lying in bed, no distress. No tachypnea or accessory muscle of respiration use. HEENT: Shows Pallor , no scleral icterus. Oral mucous membrane is dry. No pharyngeal erythema or thrush NECK: Trachea central, no thyromegaly. LUNGS: Unlabored breathing. Clear to auscultation anteriorly. No wheeze or crackle. HEART: S1, S2, regular rate and rhythm. No loud murmur ABDOMEN: Soft, no tenderness , guarding or rigidity, no organomegaly EXTREMITIES: Right hip is currently dressed with or dressing SKIN: No rash, no masses palpable. NEUROLOGICAL: The patient is awake, alert, oriented x3, mood and affect normal. Results CBC & Chem 7: 07/06/23 06:19 07/06/23 06:19 Labs: Abnormal Lab Results - Last 24 Hours (Table) 07/03/23 07/03/23 07/03/23 Range/Units 13:37 13:49 15:04 ESR (0-30) mm/Hr BUN 21 H (7-17) mg/dL Glucose 127 H (74-99) mg/dL POC Glucose (mg/dL) 117 H 117 H (70-110) mg/dL C-Reactive Protein (<1.0) mg/dL 07/03/23 07/03/23 Range/Units 17:19 17:19 ESR 53 H (0-30) mm/Hr BUN (7-17) mg/dL Glucose (74-99) mg/dL POC Glucose (mg/dL) (70-110) mg/dL C-Reactive Protein 2.0 H (<1.0) mg/dL Assessment and Plan (1) Abscess of right hip Status: Acute Code(s): L02.415 - CUTANEOUS ABSCESS OF RIGHT LOWER LIMB SNOMED Code(s): 113712 Plan: 1patient [facility] with right hip pain in this patient has been diagnosed with recurrent right hip abscess with initial abscess back in December 2022 requiring I&D and polyethylene exchange now with the abscess however operative report mention no extension down to the bone or deeper tissue cultures obtained currently pending 2-we will continue patient vancomycin watching his kidney function closely as well as cefepime while waiting for the culture to finalize Depending upon the clinical sponsor culture may or may not need IV antibiotic on discharge Multiple questions concerns were answered We will follow on clinical condition and cultures to further adjust medication if needed Thank you for this consultation we will follow the patient along with you Dictation was produced using [employer] dictation software. please excuse any grammatical, word or spelling errors. Time with Patient: Greater than 30
[2023-07-05] MEDS: CEFEPIME 2 GM in SODIUM CHLORIDE 0.9% 100 ML IVPB SCH ×2 (01:47→13:12)
[2023-07-05] MEDS: SODIUM CHLORIDE 0.9% 1,000 ML IV SCH (03:59)
[2023-07-05] MEDS: LACTATED RINGERS 1,000 ML IV SCH (05:36)
[2023-07-05 08:33] LABS: African American GFR (CKD) 68 (>60 ml/min/1.73 sqM); Non-African American GFR(CKD) 59 (>60 ml/min/1.73 sqM)
[2023-07-05] MEDS: lisinopriL 10 MG TAB PO SCH (11:18)
[2023-07-05] MEDS: PSYLLIUM HUSK 100% 6 GM PACKET PO SCH ×2 (11:18→20:50)
[2023-07-05] MEDS: ENOXAPARIN 40 MG/0.4 ML SYRINGE SQ SCH (11:18)
[2023-07-05] MEDS: PANTOPRAZOLE 40 MG TABLET PO SCH (11:18)
[2023-07-05] MEDS: MULTIVITAMINS, THERA 1 EACH TAB PO SCH (11:18)
[2023-07-05 12:48] LABS: T4/T8 Ratio (CD4:CD8) 6.8 (1.0-3.7)
[2023-07-05] MEDS ORDERED: HYDROcodone/APAP 7.5-325MG 1 EACH TAB PO PRN ×2 (14:19)
--- NOTE | 2023-07-05 14:24 | P.PN ---
Subjective Progress Note Date: 07/05/23 This is a 67-year-old female who is status post incision and drainage of right hip abscess. This is postoperative day #2 and patient is seen and evaluated at bedside today. Patient states that her pain is well-controlled and she denies any new complaints today. Patient denies any fever/chills, numbness, weakness, tingling, abdominal pain, shortness of breath or chest pain. Objective - Vital Signs Vital signs: Vital Signs Temp 98.0 F 07/05/23 14:00 Pulse 63 07/05/23 14:16 Resp 16 07/05/23 14:16 BP 149/84 07/05/23 14:00 Pulse Ox 97 07/05/23 07:14 FiO2 Intake & Output 07/04/23 07/05/23 07/05/23 18:59 06:59 18:59 Intake Total 200 Balance 200 Intake: Oral 200 Other: Voiding Method Toilet # Voids 3 2 # Bowel Movements 1 - Exam Vital signs are stable. Patient is in no acute distress and is alert and oriented 3. Calf is soft and nontender to palpation. Dressing is removed and incision is intact. There is mild serosanguineous drainage present. Patient ambulates without difficulty. Patient has full foot and ankle motion without pain or difficulty. Sensation intact. Neurovascular status and circulatory status are intact. - Labs CBC & Chem 7: 07/04/23 05:55 07/05/23 06:57 Labs: Abnormal Lab Results - Last 24 Hours (Table) 07/04/23 Range/Units 11:47 Total T Cells 2732 H (704-2138) cell/ul Absolute CD4 [place] 2353 H (443-1471) cell/ul CD4/CD8 Ratio 6.8 H (1.0-3.7) Total CD19+ B Cells 588 H (100-524) cell/ul Microbiology - Last 24 Hours (Table) 07/03/23 14:18 Gram Stain - Preliminary Hip - Right Wound Culture - Preliminary 07/03/23 14:19 Gram Stain - Preliminary Hip - Right Wound Culture - Preliminary 07/03/23 20:36 Blood Culture - Preliminary Blood Assessment and Plan (1) History of right hip replacement Current Visit: Yes Status: Acute Code(s): Z96.641 - PRESENCE OF RIGHT ARTIFICIAL HIP JOINT SNOMED Code(s): 199936814 (2) Abscess of right hip Current Visit: Yes Status: Acute Code(s): L02.415 - CUTANEOUS ABSCESS OF RIGHT LOWER LIMB SNOMED Code(s): 661277 Plan: 1. Cultures are pending. Continue antibiotics per infectious disease. 2. Change dressing as needed to keep the incision clean and dry. [place] to stay in place for 10-14 days. 3. Continue routine postoperative care and pain control. 4. Appreciate input from internal medicine and infectious disease. 5. Anticipate discharge home in the next 48-72 hours once discharge antibiotics are determined from culture results.
[2023-07-05] MEDS: VANCOMYCIN 1,750 MG in SODIUM CHLORIDE 0.9% 500 ML 500 ML IVPB SCH (20:50)
[2023-07-05] MEDS: SENNOSIDES-DOCUSATE SODIUM 1 EACH TAB PO SCH (20:51)
--- NOTE | 2023-07-05 22:40 | P.PN ---
Subjective Progress Note Date: 07/05/23 Principal diagnosis: Right hip Abscess Patient is a 67-year-old female with a past medical history negative for right hip replacement recently admitted to the hospital he did have an abscess to the right hip in this patient status post I&D and polyethylene exchange patient completed a course of IV and oral antibiotic therapy with a readmission to the hospital with a right hip abscess status post drainage. On today's evaluation that is 07/05/2023 patient denies having any fever or any chills has been complaining of feeling more weak today denies any chest pain shortness of breath or cough no nausea vomiting no abdominal pain, did have some diarrhea stool for C. difficile is negative. No CBC was done today creatinine is 1.01 cultures are currently pending. Objective - Vital Signs Vital signs: Vital Signs Temp 97.5 F L 07/05/23 07:14 Pulse 71 07/05/23 07:14 Resp 17 07/05/23 07:14 BP 154/53 07/05/23 07:14 Pulse Ox 97 07/05/23 07:14 FiO2 Intake & Output 07/04/23 07/05/23 07/05/23 18:59 06:59 18:59 Other: # Voids 3 2 # Bowel Movements 1 - Exam GENERAL DESCRIPTION: Elderly female lying in bed in no distress RESPIRATORY SYSTEM: Unlabored breathing , decreased breath sounds at bases HEART: S1 S2 regular rate and rhythm ,no loud murmurs ABDOMEN: Soft , no tenderness EXTREMITIES: No edema feet - Labs CBC & Chem 7: 07/04/23 05:55 07/05/23 06:57 Labs: Abnormal Lab Results - Last 24 Hours (Table) 07/04/23 07/04/23 07/04/23 Range/Units 05:55 05:55 11:40 Hgb 11.7 L (12.0-15.0) d/dL Hct 37.1 L (37.2-46.3) % MCHC 31.5 L (32.0-37.0) d/dL Eosinophils # 0.02 L (0.04-0.35) X 10*3/uL Glucose 125 H (70-110) mg/dL POC Glucose (mg/dL) 114 H (70-110) mg/dL AST 11 L (13-35) U/L C-Reactive Protein 1.30 H (0.00-0.80) mg/dL Total Protein 5.7 L (6.2-8.2) d/dL Albumin 3.5 L (3.8-4.9) d/dL Albumin/Globulin Ratio 1.59 L (1.60-3.17) Ratio Microbiology - Last 24 Hours (Table) 07/03/23 14:19 Gram Stain - Preliminary Hip - Right Wound Culture - Preliminary 07/03/23 20:36 Blood Culture - Preliminary Blood 07/03/23 14:18 Gram Stain - Preliminary Hip - Right Assessment and Plan (1) Abscess of right hip Current Visit: Yes Status: Acute Code(s): L02.415 - CUTANEOUS ABSCESS OF RIGHT LOWER LIMB SNOMED Code(s): 221684 Plan: 1patient [facility] with right hip pain in this patient has been diagnosed with recurrent right hip abscess with initial abscess back in December 2022 requiring I&D and polyethylene exchange now with the abscess however operative report mention no extension down to the bone or deeper tissue cultures obtained currently pending 2-Pt to continue with vancomycin watching his kidney function closely and cefepime while waiting for the culture to finalize Dictation was produced using [employer] software. please excuse any grammatical, word or spelling errors.
--- NOTE | 2023-07-06 00:53 | PN ---
PROGRESS NOTE DATE OF SERVICE: 07/05/2023 SUBJECTIVE: This is a 67-year-old woman who was admitted with right hip and right thigh recurrent abscess, is being closely monitored. The patient is on empiric antibiotics. Cultures are pending at this time. No chest pain, no palpitation. The patient is also complaining of left upper abdominal pain. OBJECTIVE: VITAL SIGNS: Pulse is 63, blood pressure 114/84, respirations 16. CHEST: Clear to auscultation. CARDIOVASCULAR: S1, S2. ABDOMEN: Soft. LABORATORY DATA: Reviewed. ASSESSMENT: 1. Right thigh and hip abscess, recurrent with no communication with the joint apparently. 2. Asthma. 3. Diabetes mellitus, type 2. 4. Hypertension. 5. Hyperlipidemia. RECOMMENDATIONS: This is a 67-year-old woman who presented with multiple complex medical issues. We will monitor the patient closely. Continue the current management, continue symptomatic treatment, continue the empiric antibiotics. Await cultures. DVT prophylaxis. Symptomatic treatment. Closely follow with Infectious Disease and Orthopedic surgery. Further recommendations to follow. MMODL / IJN: [id number] /
[2023-07-06] MEDS: CEFEPIME 2 GM in SODIUM CHLORIDE 0.9% 100 ML IVPB SCH ×2 (01:58→12:32)
[2023-07-06] MEDS: SODIUM CHLORIDE 0.9% 1,000 ML IV SCH (04:03)
[2023-07-06] MEDS: LACTATED RINGERS 1,000 ML IV SCH (06:33)
[2023-07-06 07:40] VITALS: RESP 16
--- NOTE | 2023-07-06 08:52 | P.PN ---
Subjective Progress Note Date: 07/06/23 Principal diagnosis: Right hip infection. Status post I&D right hip. This is a 67-year-old female who is status post incision and drainage of right hip abscess. This is postoperative day #3 and patient is seen and evaluated at bedside today. Patient states that her pain is well-controlled and she denies any new complaints today. Patient denies any fever/chills, numbness, weakness, tingling, abdominal pain, shortness of breath or chest pain. Vital signs are stable. Objective - Vital Signs Vital signs: Vital Signs Temp 97.7 F 07/06/23 07:28 Pulse 61 07/06/23 07:28 Resp 16 07/06/23 07:28 BP 144/82 07/06/23 07:28 Pulse Ox 98 07/06/23 07:28 FiO2 Intake & Output 07/05/23 07/06/23 07/06/23 18:59 06:59 18:59 Intake Total 300 Balance 300 Intake: Oral 300 Other: Voiding Method Toilet # Voids 3 2 - Exam This is a pleasant 67-year-old female in no acute distress. She is alert and oriented 3. Exam of the right hip reveals that her dressing is clean, dry and intact. She has full foot and ankle motion occult tear pain. No calf pain or swelling. Neurovascular status to the lower extremity is intact. - Labs CBC & Chem 7: 07/04/23 05:55 07/05/23 06:57 Labs: Abnormal Lab Results - Last 24 Hours (Table) 07/04/23 Range/Units 11:47 Total T Cells 2732 H (704-2138) cell/ul Absolute CD4 [place] 2353 H (443-1471) cell/ul CD4/CD8 Ratio 6.8 H (1.0-3.7) Total CD19+ B Cells 588 H (100-524) cell/ul Microbiology - Last 24 Hours (Table) 07/03/23 14:19 Gram Stain - Final Hip - Right Wound Culture - Final 07/03/23 14:18 Gram Stain - Final Hip - Right Wound Culture - Final 07/03/23 20:36 Blood Culture - Preliminary Blood Assessment and Plan (1) Abscess of right hip Current Visit: Yes Status: Acute Code(s): L02.415 - CUTANEOUS ABSCESS OF RIGHT LOWER LIMB SNOMED Code(s): 744740 (2) History of right hip replacement Current Visit: Yes Status: Acute Code(s): Z96.641 - PRESENCE OF RIGHT ARTIFI CIAL HIP JOINT SNOMED Code(s): 211597801 Plan: The clinical findings are discussed with the patient. Cultures are final today with showing no growth and no organisms seen on Gram stain. She may be discharged from an orthopedic standpoint. Infectious disease will manage home antibiotics.
[2023-07-06] MEDS ORDERED: CHOLECALCIFEROL 25 MCG (1000 IU) TABLET PO SCH (09:00)
[2023-07-06] MEDS: PSYLLIUM HUSK 100% 6 GM PACKET PO SCH (10:44)
[2023-07-06] MEDS: PANTOPRAZOLE 40 MG TABLET PO SCH (10:44)
[2023-07-06] MEDS: lisinopriL 10 MG TAB PO SCH (10:45)
[2023-07-06] MEDS: MULTIVITAMINS, THERA 1 EACH TAB PO SCH (10:45)
[2023-07-06] MEDS: ENOXAPARIN 40 MG/0.4 ML SYRINGE SQ SCH (10:45)
[2023-07-06 11:05] LABS: Basophils # (A) 0.04 X 10*3/uL (0.00-0.10); Basophils % (A) 0.6 %; Eosinophils # (A) 0.25 X 10*3/uL (0.04-0.35); Eosinophils % (A) 3.9 %; HCT 35.2 % (37.2-46.3); Lymphocytes % (A) 35.9 %; MCH 27.5 pg (27.0-32.0); MCHC 31.3 d/dL (32.0-37.0); Monocytes # (A) 0.61 X 10*3/uL (0.20-1.00); Monocytes % (A) 9.5 %; NRBC Per 100 WBC 0 X 10*3/uL (0.00-0.01); Neutrophils # (A) 3.19 X 10*3/uL (1.80-7.70); Neutrophils % (A) 49.9 %; Platelet Count 327 X 10*3/uL (140-440); RDW 14.5 % (11.5-14.5)
[2023-07-06 11:26] LABS: Calcium 9.1 mg/dL (8.7-10.3); Carbon Dioxide 34.2 mmol/L (21.6-31.8); Chloride 109 mmol/L (96-109); Glucose 105 mg/dL (70-110); Potassium 4.5 mmol/L (3.5-5.5); Sodium 142 mmol/L (135-145)
[2023-07-06 12:35] VITALS: BP 139/81; PULSE 64; TEMP 98.4
--- NOTE | 2023-07-06 14:35 | P.PN ---
Subjective Progress Note Date: 07/06/23 Principal diagnosis: Right hip Abscess Patient is a 67-year-old female with a past medical history negative for right hip replacement recently admitted to the hospital he did have an abscess to the right hip in this patient status post I&D and polyethylene exchange patient completed a course of IV and oral antibiotic therapy with a readmission to the hospital with a right hip abscess status post drainage. On today's evaluation that is 07/06/2023, the patient denies any fever or any chills, the patient is breathing comfortably on room air and no need for supplemental oxygen, the patient denies any chest pain or cough, patient denies any nausea/vomiting or diarrhea and no abdominal pain, the patient right hip pain has decreased in intensity minimal drainage on the dressing , Patient did have white count 6.40, creatinine is 1.0 cultures are so far negative Objective - Vital Signs Vital signs: Vital Signs Temp 97.7 F 07/06/23 07:28 Pulse 61 07/06/23 08:56 Resp 16 07/06/23 08:56 BP 144/82 07/06/23 07:28 Pulse Ox 98 07/06/23 07:28 FiO2 Intake & Output 07/05/23 07/06/23 07/06/23 18:59 06:59 18:59 Intake Total 300 Balance 300 Intake: Oral 300 Other: Voiding Method Toilet Toilet # Voids 3 2 - Exam GENERAL DESCRIPTION: Elderly female lying in bed in no distress RESPIRATORY SYSTEM: Unlabored breathing , decreased breath sounds at bases HEART: S1 S2 regular rate and rhythm ,no loud murmurs ABDOMEN: Soft , no tenderness EXTREMITIES: Right hip incision is intact minimal drainage on the dressing no significant redness - Labs CBC & Chem 7: 07/06/23 06:19 07/06/23 06:19 Labs: Abnormal Lab Results - Last 24 Hours (Table) 07/04/23 Range/Units 11:47 Total T Cells 2732 H (704-2138) cell/ul Absolute CD4 [place] 2353 H (443-1471) cell/ul CD4/CD8 Ratio 6.8 H (1.0-3.7) Total CD19+ B Cells 588 H (100-524) cell/ul Microbiology - Last 24 Hours (Table) 07/03/23 14:19 Gram Stain - Final Hip - Right Wound Culture - Final 07/03/23 14:18 Gram Stain - Final Hip - Right Wound Culture - Final 07/03/23 20:36 Blood Culture - Preliminary Blood Assessment and Plan (1) Abscess of right hip Status: Acute Code(s): L02.415 - CUTANEOUS ABSCESS OF RIGHT LOWER LIMB SNOMED Code(s): 149307 Plan: 1patient presented hospital with right hip pain in this patient has been diagnosed with recurrent right hip abscess with initial abscess back in December 2022 requiring I&D and polyethylene exchange now with the abscess however operative report mention no extension down to the bone or deeper tissue cultures obtained which are so far negative 2-patient has shown clinical improvement culture had been negative for any r esistant pathogen and abscess was mostly superficial with no extension down to the bone as per orthopedic recommendation we will recommend a 3 week course of oral Augmentin and doxycycline and close outpatient follow-up, patient did have multiple questions and concerns were answered in Layman terms Dictation was produced using [employer] dictation software. please excuse any grammatical, word or spelling errors. Time with Patient: Less than 30
--- NOTE | 2023-07-06 14:53 | P.PN ---
Subjective Progress Note Date: 07/06/23 This is a pleasant 67-year-old patient follows with Dr. White. Chronic stable medical conditions include asthma, GERD, hypertension, hyperlipidemia, osteoarthritis. Diet controlled diabetes. Patient had right total hip arthroplasty - 2016. December 2022 - developed infected right hip incision with cellulitis and seroma and ID was carried out. Subsequently patient did well. For 2 weeks patient noticed some swelling on the same area. Subsequently she notices area of redness and increased warmth. Went down to her family doctor and was referred here. To get an ultrasound/CT scanner. January 02 underwent I&D of the right total hip arthroplasty. antibiotic beads were placed. See vancomycin and tobramycin.. Was discharged on doxycycline. Was seen by Dr. espinosa from ID. Wound culture back in December- unremarkable About 3 weeks ago on the right thigh patient noticed a small bump on the right t high. Progressively became larger. Became tender. She initially thought it was a second bite. The last 7-10 days became bigger. More tender. Patient's had decrease appetite. Since December patient been having intermittent diarrhea. Denies any fever and chills. Today I&D was carried out and pus was removed from right thigh abscess.. Currently on IV Ancef. ID consulted. July 04: Pain well controlled. No nausea vomiting. Tolerating diet. Some loose stools. C. diff was ordered came back negative. Metamucil added. Immunodeficiency panel ordered. Discussed with patient. Cultures pending. 07/06. Patient seen and examined . Patient sitting upright in the chair, denies any acute events overnight. Vital signs stable REVIEW OF SYSTEMS: CONSTITUTIONAL: No fever, no malaise,. CARDIOVASCULAR: No chest pain, no palpitations, no syncope. PULMONARY: No shortness of breath, no cough, GASTROINTESTINAL: No diarrhea, no nausea, no vomiting, no abdominal pain. NEUROLOGICAL: No headaches, no weakness, PHYSICAL EXAMINATION: GENERAL: The patient is alert and oriented x3, not in any acute distress. Well developed, well nourished. HEENT: Pupils are round and equally reacting to light. EOMI. No scleral icterus. No conjunctival pallor. Normocephalic, atraumatic. No pharyngeal erythema. No thyromegaly. CARDIOVASCULAR: S1 and S2 present. No murmurs, rubs, or gallops. PULMONARY: Chest is clear to auscultation, no wheezing or crackles. ABDOMEN: Soft, nontender, nondistended, normoactive bowel sounds. No palpable organomegaly. MUSCULOSKELETAL: No joint swelling or deformity. Right thigh incision seen EXTREMITIES: No cyanosis, clubbing, or pedal edema. NEUROLOGICAL: Gross neurological examination did not reveal any focal deficits. SKIN: No rashes. Assessment and plan -Recurrent Infected thigh abscess, with previous hip arthroplasty infection. Continue wound care IV cefepime. ID following -Intermittent asthma Pro-air 2 puffs every 6 when necessary -Essential hypertension Lisinopril 10 mg a day -GERD Prilosec 20 mg daily -Primary osteoarthritis Pain control as needed -Obesity BMI 39.2 Weight loss measures Patient medical stable for discharge. Labs and medication were reviewed.. Continue same treatment. Continue with symptomatic treatment. Resume home medication. Monitor labs and vitals. DVT and GI prophylaxis. Further recommendations as per clinical course of the patient Dictation was produced using [employer] dictation software. please excuse any grammatical, word or spelling errors. Objective - Vital Signs Vital signs: Vital Signs Temp 97.7 F 07/06/23 07:28 Pulse 61 07/06/23 08:56 Resp 16 07/06/23 08:56 BP 144/82 07/06/23 07:28 Pulse Ox 98 07/06/23 07:28 FiO2 Intake & Output 07/05/23 07/06/23 07/06/23 18:59 06:59 18:59 Intake Total 300 Balance 300 Intake: Oral 300 Other: Voiding Method Toilet Toilet # Voids 3 2 - Labs CBC & Chem 7: 07/06/23 06:19 07/06/23 06:19 Labs: Abnormal Lab Results - Last 24 Hours (Table) 07/04/23 Range/Units 11:47 Total T Cells 2732 H (704-2138) cell/ul Absolute CD4 [place] 2353 H (443-1471) cell/ul CD4/CD8 Ratio 6.8 H (1.0-3.7) Total CD19+ B Cells 588 H (100-524) cell/ul Microbiology - Last 24 Hours (Table) 07/03/23 14:19 Gram Stain - Final Hip - Right Wound Culture - Final 07/03/23 14:18 Gram Stain - Final Hip - Right Wound Culture - Final 07/03/23 20:36 Blood Culture - Preliminary Blood
[2023-07-07 00:30] LABS: Erythrocyte Sedimentation Rate 21 mm/Hr (0-30)
--- NOTE | 2023-07-10 19:33 | CDI ---
Documentation Clarification Form Date: 07/10/2023 06:34:57 PM From: Harleen Hopper RN, CCDS Email: [email or web address] Admit Date: 07/03/2023 01:12:00 PM Patient Name: Katiana Marcos Visit Number: [id number] Discharge Date: 07/06/2023 01:17:00 PM ATTENTION: The Clinical Documentation Specialists (CDI) and [facility] Coding Staff appreciate your assistance in clarifying documentation. Please respond to the clarification below the line at the bottom and electronically sign. The CDI & [facility] Coding staff will review the response and follow-up if needed. Please note: Queries are made part of the Legal Health Record. If you have any questions, please contact the author of this message via ITS. Dr. Brody Barcenas Right hip abscess is documented in the progress notes and procedure note. Please clarify the cause of the current abscess. History/Risk Factors: Diet controlled type 2 DM, HTN, right JADE in 2016, right hip I&D and placement of antibiotic beads in December 2022 followed by polyethylene exchange right total hip in February 2023. Presented with redness and what looked like pus under the incision per patient. Admitted with right hip abscess. Clinical Indicators: 07/03 Op note: "She presented to the office yesterday with an area of redness and induration to the distal aspect of her right hip incision. The operative findings are consistent with an abscess of the right thigh. The abscess demonstrated a large amount of purulent fluid which tracked down through the fascia to the tissue below the fascia. The tract did not appear to communicate with the bone or deep tissues." 07/06 IM: "Recurrent Infected thigh abscess, with previous hip arthroplasty infection." 07/06 ID: "patient presented hospital with right hip pain in this patient has been diagnosed with recurrent right hip abscess with initial abscess back in December 2022 requiring I D and polyethylene exchange." 07/03-07/06 Labs: glucose 127-125-105 Treatment: IV Cefepime 2gm Q8H 07/03-07/04 then Q12H 07/04-07/06; IV Vancomycin 1750mg 07/03-07/05; monitor labs and glucose levels Please clarify the relationship, if any, which is clinically appropriate for this patient: [ x ] Right hip abscess is due to recurrent right hip incision infection [ ] Right hip abscess is due to recurrent right JADE infection [ ] Right hip abscess is a complication of Type 2 DM [ ] Other explanation of clinical findings (please specify) [ ] Unable to determine (no explanation for clinical findings) MTDD
--- NOTE | 2023-07-10 19:43 | CDI ---
Documentation Clarification Form Date: 07/10/2023 07:33:26 PM From: Harleen Hopper RN, CCDS Email: [email or web address] Admit Date: 07/03/2023 01:12:00 PM Patient Name: Katiana Marcos Visit Number: [id number] Discharge Date: 07/06/2023 01:17:00 PM ATTENTION: The Clinical Documentation Specialists (CDI) and [facility] Coding Staff appreciate your assistance in clarifying documentation. Please respond to the clarification below the line at the bottom and electronically sign. The CDI & [facility] Coding staff will review the response and follow-up if needed. Please note: Queries are made part of the Legal Health Record. If you have any questions, please contact the author of this message via ITS. Dr. Brody Barcenas A debridement is documented in the Op note. Additional clarification regarding the procedure is requested. History/Risk Factors: Diet controlled type 2 DM, HTN, right JADE in 2016, right hip I&D and placement of antibiotic beads in December 2022 followed by polyethylene exchange right total hip in February 2023. Presented with redness and what looked like pus under the incision per patient. Admitted with right hip abscess. Clinical Indicators: Op note: " the right thigh was then incised over the raised reddened area sharply with a knife. Large amount of yellow purulent material was expressed which was cultured 2. The skin edges were debrided around the area as well. Pulsatile lavage with antibiotic solution was then irrigated throughout the wound. The wound was then inspected and found to extend deep to the fascia but did not communicate to the bone or further deep tissues. This area was also irrigated with Betadine solution." Treatment: S/P I&D and skin debridement followed by wound closure. Please clarify the type of procedure performed: [x ] Excisional debridement (the removal of necrotic, devitalized tissue or slough by means of cutting away of tissue) [ x ] Non-excisional debridement (the removal of necrotic, devitalized tissue or slough by means of flushing, brushing, or washing. (Irrigation) [ ] Other; please specify [ ] Unable to determine Five elements required for accurate and compliant documentation of a debridement: Technique used (e.g., excisional, excised, cutting, brushing, jet lavage etc.) Instrument(s) used (e.g., scalpel, curette, etc.) Nature of the tissue removed (e.g., necrotic, devitalized tissues, non-viable tissue, etc.) Appearance and size of the wound (e.g., down to fresh bleeding tissue, 7cm x 10cm, etc.) Depth of the debridement* (e.g., skin, subcutaneous tissue, fascia, muscle, bone, etc.) MTDD
== END 2023-07-06 13:17 | disposition home or self-care (01) | DRG 863 ==
LOC: OR 13:11 → 4SSUR 13:12
PROVIDERS: ADMIT Orthopaedic Surgery; ATTEND Orthopaedic Surgery
PROC: 0HDHXZZ Extraction of Right Upper Leg Skin, External Approach (ICD-10-PCS; principal; 2023-07-03 18:30)
PROC: 0HBHXZZ Excision of Right Upper Leg Skin, External Approach (ICD-10-PCS; principal; 2023-07-03 18:30)
DX: T81.41XA Infection following a procedure, superficial incisional surgical site, initial encounter (principal); L02.415 Cutaneous abscess of right lower limb; M01.X51 Direct infection of right hip in infectious and parasitic diseases classified elsewhere; D84.9 Immunodeficiency, unspecified; J45.20 Mild intermittent asthma, uncomplicated; K21.9 Gastro-esophageal reflux disease without esophagitis; K59.00 Constipation, unspecified; I10 Essential (primary) hypertension; F41.9 Anxiety disorder, unspecified; E78.5 Hyperlipidemia, unspecified; E66.9 Obesity, unspecified; Z96.643 Presence of artificial hip joint, bilateral; E11.9 Type 2 diabetes mellitus without complications; M19.91 Primary osteoarthritis, unspecified site; Z68.39 Body mass index [BMI] 39.0-39.9, adult; Z79.899 Other long term (current) drug therapy; Z82.3 Family history of stroke; Z88.5 Allergy status to narcotic agent; Z88.8 Allergy status to other drugs, medicaments and biological substances
CPT/HCPCS: 80048; 80053; 81003; 84145; 85025; 85652; 86140; 86355; 86357; 86359; 86360; 87040; 87070; 87075; 87205; 87324

== ENCOUNTER → 2023-07-23 | Outpatient (CLI) | payer MEDICARE ==
[2023-07-24 03:06] LABS: Blood Urea Nitrogen 13.8 mg/dL (9.0-27.0); Calcium 10.3 mg/dL (8.7-10.3); Carbon Dioxide 25.3 mmol/L (21.6-31.8); Chloride 106 mmol/L (96-109); Glucose 122 mg/dL (70-110); Sodium 143 mmol/L (135-145)
== END | disposition home or self-care (01) ==
LOC: LABWHC1 13:37
PROVIDERS: ATTEND Internal Medicine Infectious Disease
DX: M01.X51 Direct infection of right hip in infectious and parasitic diseases classified elsewhere (principal)
CPT/HCPCS: 36415; 80048

== ENCOUNTER → 2023-08-10 | Outpatient (CLI) | payer MEDICARE ==
[2023-08-10 19:10] LABS: Basophils # (A) 0.05 X 10*3/uL (0.00-0.10); Basophils % (A) 0.7 %; Eosinophils # (A) 0.14 X 10*3/uL (0.04-0.35); HGB 13.8 g/dL (12.0-15.0); Lymphocytes # (A) 2.48 X 10*3/uL (0.90-5.00); Lymphocytes % (A) 35.3 %; MCH 28.3 pg (27.0-32.0); MCHC 32.1 g/dL (32.0-37.0); MCV 88.3 FL (80.0-97.0); Mean Platelet Volume 11.2 FL (9.5-12.2); Monocytes # (A) 0.35 X 10*3/uL (0.20-1.00); NRBC Per 100 WBC 0 X 10*3/uL (0.00-0.01); Neutrophils # (A) 3.96 X 10*3/uL (1.80-7.70); Neutrophils % (A) 56.4 %; Platelet Count 410 X 10*3/uL (140-440); RBC 4.87 X 10*6/uL (4.10-5.20); RDW 15.4 % (11.5-14.5); WBC 7.02 X 10*3/uL (4.50-10.00)
[2023-08-10 19:23] LABS: Erythrocyte Sedimentation Rate 10 mm/Hr (0-30)
[2023-08-11 02:50] LABS: BUN/Creat Ratio 24.69 Ratio (12.00-20.00); Blood Urea Nitrogen 32.1 mg/dL (9.0-27.0); Calcium 10.4 mg/dL (8.7-10.3); Carbon Dioxide 24.9 mmol/L (21.6-31.8); Chloride 106 mmol/L (96-109); Glucose 124 mg/dL (70-110); Sodium 141 mmol/L (135-145)
== END | disposition home or self-care (01) ==
LOC: LABWHC1 13:59
PROVIDERS: ATTEND Internal Medicine Infectious Disease
DX: M71.051 Abscess of bursa, right hip (principal)
CPT/HCPCS: 36415; 80048; 85025; 85652; 86140

== ENCOUNTER → 2023-08-15 | Outpatient (CLI) | payer MEDICARE ==
[2023-08-15 20:03] LABS: ALT 27 U/L (8-44); AST 17 U/L (13-35); BUN/Creat Ratio 20.75 Ratio (12.00-20.00); Blood Urea Nitrogen 24.9 mg/dL (9.0-27.0); Calcium 10.1 mg/dL (8.7-10.3); Carbon Dioxide 24.4 mmol/L (21.6-31.8); Chloride 104 mmol/L (96-109); Glucose 116 mg/dL (70-110); Potassium 4.8 mmol/L (3.5-5.5); Sodium 139 mmol/L (135-145)
[2023-08-15 21:03] LABS: HGB 14.1 g/dL (12.0-15.0); MCH 28.2 pg (27.0-32.0); Mean Platelet Volume 11.4 FL (9.5-12.2); NRBC Per 100 WBC 0 X 10*3/uL (0.00-0.01); Platelet Count 422 X 10*3/uL (140-440); RDW 15.7 % (11.5-14.5); WBC 9.05 X 10*3/uL (4.50-10.00)
== END | disposition home or self-care (01) ==
LOC: LABWHC1 14:06
PROVIDERS: ATTEND Family Medicine
DX: I10 Essential (primary) hypertension (principal); E11.9 Type 2 diabetes mellitus without complications; E78.00 Pure hypercholesterolemia, unspecified; N28.9 Disorder of kidney and ureter, unspecified; E55.9 Vitamin D deficiency, unspecified; R53.83 Other fatigue
CPT/HCPCS: 36415; 80048; 82306; 82607; 83036; 84443; 84450; 84460; 85027

== ENCOUNTER → 2023-08-29 | Outpatient (CLI) | payer MEDICARE ==
[2023-08-29 18:32] LABS: Basophils # (A) 0.03 X 10*3/uL (0.00-0.10); Basophils % (A) 0.3 %; Eosinophils # (A) 0.08 X 10*3/uL (0.04-0.35); Eosinophils % (A) 0.9 %; HCT 43.7 % (37.2-46.3); HGB 13.8 g/dL (12.0-15.0); Lymphocytes # (A) 2.27 X 10*3/uL (0.90-5.00); Lymphocytes % (A) 25.5 %; MCH 27.7 pg (27.0-32.0); MCHC 31.6 g/dL (32.0-37.0); MCV 87.8 FL (80.0-97.0); Monocytes # (A) 0.47 X 10*3/uL (0.20-1.00); Monocytes % (A) 5.3 %; NRBC Per 100 WBC 0 X 10*3/uL (0.00-0.01); Neutrophils # (A) 6.02 X 10*3/uL (1.80-7.70); Neutrophils % (A) 67.8 %; Platelet Count 411 X 10*3/uL (140-440); RBC 4.98 X 10*6/uL (4.10-5.20); RDW 15.2 % (11.5-14.5); WBC 8.89 X 10*3/uL (4.50-10.00)
[2023-08-29 18:42] LABS: BUN/Creat Ratio 12.17 Ratio (12.00-20.00); Blood Urea Nitrogen 14.6 mg/dL (9.0-27.0); Carbon Dioxide 23.7 mmol/L (21.6-31.8); Chloride 105 mmol/L (96-109); Glucose 115 mg/dL (70-110); Sodium 142 mmol/L (135-145)
[2023-08-29 18:59] LABS: Erythrocyte Sedimentation Rate 26 mm/Hr (0-30)
== END | disposition home or self-care (01) ==
LOC: LABWHC1 13:47
PROVIDERS: ATTEND Internal Medicine Infectious Disease
DX: R94.4 Abnormal results of kidney function studies (principal)
CPT/HCPCS: 36415; 80048; 85025; 85652; 86140

== ENCOUNTER 2023-09-11 14:14 | Day surgery (SDC) | payer MEDICARE, OTHER, SELFPAY ==
[~2023-09-11 14:14] MED LIST changes: +DEXAMETHASONE SOD PHOSPHATE 4 MG/ML 1 ML VIAL IV ONE; -HYDROmorphone 0.5 MG/0.5 ML SYRINGE IVP PRN; -MAGNESIUM HYDROXIDE 2,400 MG/30 ML CUP PO PRN; +MIDAZOLAM 2 MG/2 ML VIAL IV PRN; -NALOXONE 0.4 MG/ML 1 ML VIAL IV PRN; -ONDANSETRON 4 MG/2 ML VIAL IVP PRN; +fentaNYL (PF) 50 MCG/ML 2 ML AMP IV PRN; -hydrOXYzine pamoate 25 MG CAP PO PRN
[2023-09-11] MEDS: LACTATED RINGERS 1,000 ML IV SCH ×2 (15:01→18:24)
[2023-09-11] MEDS ORDERED: ONDANSETRON 4 MG/2 ML VIAL ONE (15:05)
[2023-09-11] MEDS ORDERED: METOCLOPRAMIDE 5 MG/ML 2 ML VIAL ONE (15:05)
[2023-09-11] MEDS ORDERED: ONDANSETRON 4 MG/2 ML VIAL IVP ONE (15:07)
[2023-09-11] MEDS ORDERED: DEXAMETHASONE SOD PHOSPHATE 4 MG/ML 1 ML VIAL IVP ONE (15:08)
[2023-09-11] MEDS ORDERED: METOCLOPRAMIDE 5 MG/ML 2 ML VIAL IVP ONE (15:09)
[2023-09-11] MEDS ORDERED: SCOPOLAMINE 1 MG/72 HR PATCH TRANSDERM ONE (15:09)
[2023-09-11 15:13] LABS: Glucose,Whole Blood 105 mg/dL (70-110)
[2023-09-11] MEDS ORDERED: NALOXONE 0.4 MG/ML 1 ML VIAL IV PRN (15:45)
[2023-09-11] MEDS ORDERED: MAGNESIUM HYDROXIDE 2,400 MG/30 ML CUP PO PRN (15:45)
[2023-09-11] MEDS ORDERED: HYDROmorphone 0.5 MG/0.5 ML SYRINGE IVP PRN ×2 (15:45)
[2023-09-11] MEDS ORDERED: traMADol 50 MG TAB PO PRN (15:48)
[2023-09-11] MEDS ORDERED: fentaNYL (PF) 50 MCG/ML 2 ML AMP ONE (15:50)
[2023-09-11] MEDS ORDERED: SUCCINYLCHOLINE CHLORIDE 200 MG/10 ML VIAL IV ONE (15:50)
[2023-09-11] MEDS ORDERED: PROPOFOL 10 MG/ML 20 ML VIAL IV ONE (15:50)
[2023-09-11] MEDS ORDERED: MIDAZOLAM 2 MG/2 ML VIAL ONE (15:50)
[2023-09-11] MEDS ORDERED: SODIUM CHLORIDE 0.9% 50 ML with ceFAZolin 3,000 MG IV ONE ×2 (15:55)
[2023-09-11] MEDS ORDERED: GENTAMICIN 80 MG in SODIUM CHLORIDE 0.9% IRRIGATIO 3,000 ML IRRIGATION ONE (16:18)
--- NOTE | 2023-09-11 16:35 | P.OP ---
Date of Procedure: 09/11/23 Preoperative Diagnosis: Right hip draining wound Postoperative Diagnosis: Seroma right thigh Procedure(s) Performed: Incision and drainage right thigh Anesthesia: ARACELY Surgeon: Brody Barcenas Knockout Man #1: Mary Anna Estimated Blood Loss (ml): 10 Pathology: other (Cultures 2) Condition: stable Disposition: PACU Indications for Procedure: This is a 68-year-old female that has a history of multiple I&D's of her right hip. She presented to the office with continued clear drainage from her right thigh at the distal aspect of the incision. Her inflammatory markers have remained negative. After discussing the surgical and nonsurgical treatment options with her, she has elected to proceed with an incision and drainage of the right thigh and informed consent was obtained. Operative Findings: The operative findings did not show any collection of fluid or purulence. There was no communication deep to the fascia. It all appeared to be superficial and there was no collection of any fluid present. Cultures were obtained after the fascia was incised. Description of Procedure: Patient was seen in the preoperative area, the consent was reviewed, the operative site was marked with a skin marker. Patient was then brought to the operating room and placed supine on the operating room table. A general anesthetic was given by the anesthesia department. The right thigh was then prepped and draped in usual sterile fashion. A universal timeout was performed which confirmed the patient's name, surgical site, ALLERGIES, and consent. The area of the drainage was inspected and found to have no evidence of any significant erythema. The area was a small pinpoint hole the distal aspect of the right thigh incision. This was surgically opened both proximally and distally from this site and the sinus was excised. The incision was carried down to the fascia, but no purulence or pocket of fluid was encountered. Tissues appeared normal. The fascia was then inspected and found to be intact with no evidence of any deep communication. The fascia was then opened and the deep tissues were inspected and found to be intact. No purulent material was encountered. Deep cultures were then obtained. Next, using pulsatile lavage, the wound was irrigated with 3000 L of antibiotic solution. After thorough irrigation the fascia was closed with #1 Vicryl. Subcutaneous tissues were closed with 3-0 Vicryl, followed by 3-0 strata fix suture. A Prevena wound VAC was placed over the incision and a sterile dressing applied. The patient was then transferred recovery room stable condition. The pastoral assistant Mary Anna was required due the complexity of surgery the need for skilled surgical garment fitter
[2023-09-11] MEDS: HYDROmorphone 0.5 MG/0.5 ML SYRINGE IVP PRN ×5 (16:59→19:49)
[2023-09-11 17:08] LABS: Glucose,Whole Blood 121 mg/dL (70-110)
[2023-09-11] MEDS: SODIUM CHLORIDE 0.9% 1,000 ML IV SCH (18:24)
[2023-09-11] MEDS ORDERED: ALBUTEROL NEBULIZED 2.5 MG/3 ML INHALATION PRN (19:23)
[2023-09-11] MEDS: SENNOSIDES-DOCUSATE SODIUM 1 EACH TAB PO SCH (19:50)
--- NOTE | 2023-09-11 21:35 | P.CONS ---
History of Present Illness - Reason for Consult Consult date: 09/11/23 Medical management Requesting physician: Brody Barcenas - Chief Complaint Thigh wound - History of Present Illness Hospital course: This is a pleasant 68-year-old patient follows with Dr. White. Chronic stable medical conditions include asthma, GERD, hypertension, hyperlipidemia, osteoarthritis. Diet controlled diabetes. right total hip arthroplasty - 2016. December 2022 - developed infected right hip incision with cellulitis and seroma and ID was carried out. Subsequently patient did well. January 02 underwent I&D of the right total hip arthroplasty.antibiotic beads were placed. vancomycin and tobramycin.. Was discharged on doxycycline. Was seen by Dr. espinosa from ID. Wound culture back in December- unremarkable. June 2023 and again had abscess of the right thigh. ID was carried out. Arches showed coagulase-negative staph. Discharged on Augmentin and doxycycline for 21 days. Patient around mid August again started noticing swelling drainage in the right thigh. Went to see Dr. Barcenas. Put on Bactrim. Not much improvement. Went to see Dr. Espinosa from ID-he found some tunneling during culture... Cultures were done. Patient was then switched over to Keflex after cultures on August 29 grew Staphylococcus lugdunenisis. Patient been having sensations of not feeling well chills. Some nausea. For last few days. Treated otoscopic Narinder due to ID.-But is no significant infection was found. A Provena wound VAC was placed. Still having some nausea. Review of systems: GEN.: Tired, warm and chills EYES: None HEENT: None NECK: None RESPIRATORY: None CARDIOVASCULAR: None GASTROINTESTINAL: Nausea GENITOURINARY: None MUSCULOSKELETAL: As above LYMPHATICS: None HEMATOLOGICAL: None PSYCHIATRY: None NEUROLOGICAL: None Past medical history to include: Asthma, GERD, hypertension, hyperlipidemia,-controlled diabetes, osteoarthritis. Recurrent right hip infection including abscess Social history: Used to work before. No smoking or alcohol Physical examination: VITAL SIGNS: Afebrile, 68, 16, was in August, 93% on 2 L GENERAL: BMI 39.8, reclining in bed , but tired EYES: Pupils equal. Conjunctiva normal. HEENT: External appearance of nose and ears normal, oral cavity grossly normal. NECK: JVD not raised; masses not palpable. HEART: First and second heart sounds are normal; no edema. LUNGS: Respiratory rate normal; clear to auscultation. ABDOMEN: Soft, nontender, liver spleen not palpable, no masses palpable. PSYCH: Alert and oriented x3; mood and affect normal. MUSCULOSKELETAL:No Clubbing/cyanosis;muscles-grossly intact. OA. Wound VAC on the right thigh incision NEUROLOGICAL: Cranial nerves grossly intact; no facial asymmetry, power and sensation grossly intact. LYMPHATICS: No lymph nodes palpable in the axilla and neck INVESTIGATIONS, reviewed in the clinical context: July 03: White count 9.19 globin 30.8 platelets 14 sodium 140 potassium 3.9 BUN 21 creatinine 0.9 to Assessment and plan: -Recurrent Infected thigh localized., with previous hip arthroplasty infection. [Wound culture in August 29: Staphylococcus lugdunenisis] ID consulted. I&D today on September [address] Barcenas. Check, pro calcitonin. -Intermittent asthma Pro-air 2 puffs every 6 when necessary -Essential hypertension Lisinopril 10 mg a day -GERD Prilosec 20 mg daily -Primary osteoarthritis Pain control as needed -Obesity BMI 39.2 Weight loss measures Discussed with patient. Questions answered. Antibiotics per ID. Wound cultures have been sent. Thank you Dr. Barcenas Past Medical History Past Medical History: Asthma, Diabetes Mellitus, GERD/Reflux, Hyperlipidemia, Hypertension, Osteoarthritis (OA), Skin Disorder Additional Past Medical History / Comment(s): hx palpitations, diet controlled diabetic, reactive airway disease, hx pancreatitis, minimal redness right hip, pale yellow drng.-chgs drsg. daily, resolving cold sore lip History of Any Multi-Drug Resistant Organisms: None Reported Past Surgical History: Section, Cholecystectomy, Hernia Repair, Joint Replacement Additional Past Surgical History / Comment(s): total left hip replacement December 2011, Right Hip replaced 2016, I & D right hip December & 2022 Past Anesthesia/Blood Transfusion Reactions: Family History of Problems w/ Anesthesia, Postoperative Nausea & Vomiting (PONV) Additional Past Anesthesia/Blood Transfusion Reaction / Comm: dad-had CVA during back surgery & , sister-PONV, severe PONV Smoking Status: Never smoker - Past Family History Brother(s) Family Medical History: Cancer Medications and Allergies Home Medications Medication Instructions Recorded Confirmed Type Albuterol Sulfate [Proair Hfa] 2 puff INHALATION RT-Q6H PRN 10/16/16 09/06/23 History Cholecalciferol [Vitamin D3 (25 2,000 unit PO DAILY 10/16/16 09/06/23 History Mcg = 1000 Iu)] Omeprazole [PriLOSEC] 20 mg PO DAILY 03/26/17 09/06/23 History valACYclovir HCL [Valtrex] 2,000 mg PO Q12HR PRN 03/26/17 09/06/23 History Multivit with Calcium,Iron,Min 1 tab PO DAILY 12/26/22 09/06/23 History [Women's Multivitamin] HYDROcodone/APAP 5-325MG [[place] 1 - 2 tab PO Q6HR PRN #32 tab 12/28/22 09/06/23 Rx 5-325] lisinopriL [Prinivil] 10 mg PO DAILY #30 tab 01/04/23 09/06/23 Rx Keflex(Unknown Dose) 1 tab PO BID 09/06/23 09/06/23 History Sennosides [Senokot] 2 tab PO DAILY PRN #60 tablet 09/11/23 Rx traMADol HCl [Ultram] 50 mg PO Q6H PRN #28 tab 09/11/23 Rx Allergies Allergy/AdvReac Type Severity Reaction Status Date / Time morphine Allergy Severe turn red, Verified 09/11/23 14:27 skin peels, SOB, feels like burning inside adhesive tape Allergy red welts, Verified 09/11/23 14:27 fitzgerald ibuprofen [From Advil] Allergy Itching,hands Verified 09/11/23 14:27 burned,passed out meperidine [From Demerol] Allergy headaches Verified 09/11/23 14:27 gabapentin AdvReac Swelling Verified 09/11/23 14:27 artificial sweetener AdvReac Nausea & Uncoded 09/11/23 14:27 Vomiting Physical Exam Vitals: Vital Signs Temp Pulse Resp BP Pulse Ox 09/11/23 20:20 63 160/82 93 L 09/11/23 20:05 67 146/72 85 L 09/11/23 19:50 63 173/79 96 09/11/23 19:05 58 L 163/70 94 L 09/11/23 18:50 68 167/76 93 L 09/11/23 18:35 61 175/77 94 L 09/11/23 18:20 62 185/74 92 L 09/11/23 18:00 66 20 177/70 99 09/11/23 17:45 70 19 159/71 98 09/11/23 17:30 63 17 157/56 99 09/11/23 17:16 63 17 174/77 97 09/11/23 17:01 63 15 183/87 100 09/11/23 16:46 67 15 180/74 100 09/11/23 14:38 97.6 F 80 16 186/84 96 Intake and Output 09/11/23 09/11/23 09/11/23 06:59 14:59 22:59 Intake Total 1251 Output Total 10 Balance 1241 Intake: IV 1251 Output: Estimated Blood Loss 10 Other: Weight 105.2 kg Results Labs: Abnormal Lab Results - Last 24 Hours (Table) 09/11/23 Range/Units 17:07 POC Glucose (mg/dL) 121 H (70-110) mg/dL
[2023-09-11] MEDS: ENOXAPARIN 40 MG/0.4 ML SYRINGE SQ SCH (21:54)
[2023-09-11] MEDS: ONDANSETRON 4 MG/2 ML VIAL IVP PRN (21:54)
[2023-09-12] MEDS: HYDROmorphone 0.5 MG/0.5 ML SYRINGE IVP PRN ×4 (00:26→20:01)
[2023-09-12] MEDS: SODIUM CHLORIDE 0.9% 1,000 ML IV SCH ×2 (05:40→21:18)
[2023-09-12] MEDS: PANTOPRAZOLE 40 MG TABLET PO SCH (05:40)
[2023-09-12 07:02] LABS: ALT 34 U/L (4-34); AST 27 U/L (14-36); African American GFR (CKD) 75 (>60 ml/min/1.73 sqM); Albumin 3.5 g/dL (3.5-5.0); Albumin/Globulin Ratio 1.3; Alkaline Phosphatase 95 U/L (38-126); Anion Gap 8 mmol/L; Blood Urea Nitrogen 19 mg/dL (7-17); C Reactive Protein 1.1 mg/dL (<1.0); Calcium 9.1 mg/dL (8.4-10.2); Carbon Dioxide 25 mmol/L (22-30); Chloride 105 mmol/L (98-107); Globulin 2.7 g/dL; Glucose 125 mg/dL (74-99); Non-African American GFR(CKD) 65 (>60 ml/min/1.73 sqM); Potassium 4.5 mmol/L (3.5-5.1); Sodium 138 mmol/L (137-145); Total Bilirubin 0.5 mg/dL (0.2-1.3); Total Protein 6.2 g/dL (6.3-8.2)
[2023-09-12] MEDS: lisinopriL 10 MG TAB PO SCH (08:57)
[2023-09-12] MEDS: MULTIVITAMINS, THERA 1 EACH TAB PO SCH (08:57)
[2023-09-12] MEDS: CHOLECALCIFEROL 25 MCG (1000 IU) TABLET PO SCH (08:57)
[2023-09-12] MEDS: ENOXAPARIN 40 MG/0.4 ML SYRINGE SQ SCH (08:57)
[2023-09-12 09:15] LABS: Basophils # (A) 0.03 X 10*3/uL (0.00-0.10); Basophils % (A) 0.3 %; Eosinophils # (A) 0.02 X 10*3/uL (0.04-0.35); Eosinophils % (A) 0.2 %; HCT 36.8 % (37.2-46.3); HGB 11.8 g/dL (12.0-15.0); Lymphocytes # (A) 2.21 X 10*3/uL (0.90-5.00); Lymphocytes % (A) 23.7 %; MCH 28.2 pg (27.0-32.0); MCHC 32.1 g/dL (32.0-37.0); Mean Platelet Volume 10.3 FL (9.5-12.2); Monocytes # (A) 0.51 X 10*3/uL (0.20-1.00); Monocytes % (A) 5.5 %; NRBC Per 100 WBC 0 X 10*3/uL (0.00-0.01); Neutrophils # (A) 6.52 X 10*3/uL (1.80-7.70); Platelet Count 447 X 10*3/uL (140-440); RBC 4.18 X 10*6/uL (4.10-5.20); RDW 15.3 % (11.5-14.5); WBC 9.32 X 10*3/uL (4.50-10.00)
[2023-09-12] MEDS: ONDANSETRON 4 MG/2 ML VIAL IVP PRN (09:18)
--- NOTE | 2023-09-12 09:18 | P.PN ---
Subjective Progress Note Date: 09/12/23 Principal diagnosis: Status post right hip I&D This is a 68 year-old female post right hip I&D. This is post-op day 1. The patient was evaluated at the bedside today. The patient denies vomiting, abdominal pain, shortness of breath, and chest pain this morning. She is complaining of nausea, likely from the Dilaudid. She states her pain is moderately controlled at this time. The patient has not been up with physical therapy. Objective - Vital Signs Vital signs: Vital Signs Temp 98 F 09/12/23 07:07 Pulse 69 09/12/23 07:07 Resp 18 09/12/23 07:07 BP 145/74 09/12/23 07:07 Pulse Ox 91 L 09/12/23 07:07 FiO2 Intake & Output 09/11/23 09/12/23 09/12/23 18:59 06:59 18:59 Intake Total 1251 Output Total 10 Balance 1241 Weight 105.2 kg Intake: IV 1251 Output: Estimated Blood Loss 10 Other: Voiding Method Toilet # Voids 2 - Exam The patient does not appear in acute distress. Alert and orientated x3. Prevena wound vac in place. Calf is soft and nontender. Good foot and ankle motion without difficulty. Sensation and circulatory status is intact. - Labs CBC & Chem 7: 09/12/23 06:18 Labs: Abnormal Lab Results - Last 24 Hours (Table) 09/11/23 09/12/23 Range/Units 17:07 06:18 BUN 19 H (7-17) mg/dL Glucose 125 H (74-99) mg/dL POC Glucose (mg/dL) 121 H (70-110) mg/dL C-Reactive Protein 1.1 H (<1.0) mg/dL Total Protein 6.2 L (6.3-8.2) g/dL Assessment and Plan (1) Pain in right hip Current Visit: Yes Status: Acute Code(s): M25.551 - PAIN IN RIGHT HIP SNOMED Code(s): 49404343 (2) History of right hip replacement Current Visit: No Status: Acute Code(s): Z96.641 - PRESENCE OF RIGHT ARTIFICIAL HIP JOINT SNOMED Code(s): 810251477 Plan: 1. Continue pain control. wean off Dilaudid 2. Anticoagulation with Lovenox 3. Continue physical therapy and ambulation 4. Anticipate discharge home when cleared by infectious disease.
[2023-09-12 10:13] LABS: Erythrocyte Sedimentation Rate 43 mm/Hr (0-30)
[2023-09-12 13:18] VITALS: BMI 39.8
--- NOTE | 2023-09-12 15:18 | P.PN ---
Progress Note - Text Progress Note Date: 09/12/23 - Chief Complaint Thigh wound - History of Present Illness Hospital course: This is a pleasant 68-year-old patient follows with Dr. White. Chronic stable medical conditions include asthma, GERD, hypertension, hyperlipidemia, osteoarthritis. Diet controlled diabetes. right total hip arthroplasty - 2016. December 2022 - developed infected right hip incision with cellulitis and seroma and ID was carried out. Subsequently patient did well. January 02 underwent I&D of the right total hip arthroplasty.antibiotic beads were placed. vancomycin and tobramycin.. Was discharged on doxycycline. Was seen by Dr. pennington from ID. Wound culture back in December- unremarkable. June 2023 and again had abscess of the right thigh. ID was carried out. Arches showed coagulase-negative staph. Discharged on Augmentin and doxycycline for 21 days. Patient around mid August again started noticing swelling drainage in the right thigh. Went to see Dr. Barcenas. Put on Bactrim. Not much improvement. Went to see Dr. Pennington from ID-he found some tunneling during culture... Cultures were done. Patient was then switched over to Keflex after cultures on August 29 grew Staphylococcus lugdunenisis. Patient been having sensations of not feeling well chills. Some nausea. For last few days. Treated otoscopic Narinder due to ID.-But is no significant infection was found. A Provena wound VAC was placed. Still having some nausea. 09/12/2023:Better this morning. Nausea much better controlled. Provena wound VAC on the right thigh. Cultures pending. Started on IV Ancef by ID. Active Medications Albuterol Sulfate (Albuterol Nebulized 2.5 Mg/3 Ml) 2.5 mg INHALATION RT-Q6H PRN PRN Reason: Shortness Of Breath Cholecalciferol (Cholecalciferol 25 Mcg (1000 Iu) Tablet) 50 mcg PO DAILY [facility] Last Admin: 09/12/23 08:57 Dose: 50 mcg Enoxaparin Sodium (Enoxaparin 40 Mg/0.4 Ml Syringe) 40 mg SQ DAILY [facility] Last Admin: 09/12/23 08:57 Dose: 40 mg Hydromorphone HCl (Hydromorphone 0.5 Mg/0.5 Ml Syringe) 0.125 mg IVP Q3HR PRN PRN Reason: Pain Scale 1 to 3 Stop: 02/01/24 15:46 Hydromorphone HCl (Hydromorphone 0.5 Mg/0.5 Ml Syringe) 0.5 mg IVP Q3HR PRN PRN Reason: Pain Scale 7 to 10 Stop: 10/11/23 15:46 Last Admin: 09/12/23 09:19 Dose: 0.5 mg Hydromorphone HCl (Hydromorphone 0.5 Mg/0.5 Ml Syringe) 0.25 mg IVP Q3HR PRN PRN Reason: Pain Scale 4 to 6 Stop: 10/11/23 15:46 Lactated Ringer's (Lactated Ringers) 1,000 mls @ 20 mls/hr IV .Q24H [facility] Stop: 10/10/23 13:46 Last Admin: 09/11/23 18:24 Dose: Not Given Sodium Chloride (Saline 0.9%) 1,000 mls @ 70 mls/hr IV .[id number] [facility] Stop: 10/11/23 15:46 Last Admin: 09/12/23 05:40 Dose: 70 mls/hr Cefazolin Sodium 2 gm/ Sodium (Chloride) 50 mls @ 100 mls/hr IVPB Q8HR [facility]; Protocol Last Admin: 09/12/23 08:58 Dose: 100 mls/hr Lidocaine HCl (Lidocaine 1% (10mg/Ml) For Iv Start) 0.1 ml INTRADERMA PER PROTOCOL PRN PRN Reason: IV Start Stop: 10/10/23 13:37 Lisinopril (Lisinopril 10 Mg Tab) 10 mg PO DAILY [facility] Last Admin: 09/12/23 08:57 Dose: 10 mg Magnesium Hydroxide (Magnesium Hydroxide 2,400 Mg/30 Ml Cup) 2,400 mg PO DAILY PRN PRN Reason: Constipation Stop: 10/11/23 15:46 Multivitamins (Multivitamins, Thera 1 Each Tab) 1 each PO DAILY [facility] Last Admin: 09/12/23 08:57 Dose: 1 each Naloxone HCl (Naloxone 0.4 Mg/Ml 1 Ml Vial) 0.2 mg IV Q2M PRN PRN Reason: Opioid Reversal Stop: 10/11/23 15:46 Ondansetron HCl (Ondansetron 4 Mg/2 Ml Vial) 4 mg IVP Q8H PRN PRN Reason: Nausea And Vomiting Stop: 10/11/23 15:46 Last Admin: 09/12/23 09:18 Dose: 4 mg Pantoprazole Sodium (Pantoprazole 40 Mg Tablet) 40 mg PO AC-BRKFST [facility] Last Admin: 09/12/23 05:40 Dose: 40 mg Senna/Docusate Sodium (Sennosides-Docusate Sodium 1 Each Tab) 2 each PO HS [facility] Stop: 10/11/23 21:01 Last Admin: 09/11/23 19:50 Dose: 2 each Tramadol HCl (Tramadol 50 Mg Tab) 50 mg PO Q6H PRN PRN Reason: Pain Scale 1 to 5 Stop: 10/11/23 15:49 Tramadol HCl (Tramadol 50 Mg Tab) 100 mg PO QID PRN PRN Reason: Pain Scale 6 to 10 Stop: 10/11/23 15:49 Past medical history to include: Asthma, GERD, hypertension, hyperlipidemia,-controlled diabetes, osteoarthritis. Recurrent right hip infection including abscess Social history: Used to work before. No smoking or alcohol Physical examination: VITAL SIGNS: T.9, 69, 17, 1 45 x 69, 94% room air GENERAL:, reclining in bed , comfortable EYES: Pupils equal. Conjunctiva normal. HEENT: External appearance of nose and ears normal, oral cavity grossly normal. NECK: JVD not raised; masses not palpable. HEART: First and second heart sounds are normal; no edema. LUNGS: Respiratory rate normal; clear to auscultation. ABDOMEN: Soft, nontender, liver spleen not palpable, no masses palpable. PSYCH: Alert and oriented x3; mood and affect normal. MUSCULOSKELETAL:No Clubbing/cyanosis;muscles-grossly intact. OA. Wound VAC on the right thigh incision INVESTIGATIONS, reviewed in the clinical context: 09/12/2023: White count 9.3 hemoglobin 11.8 platelets 447 sodium 138 potassium 4.5 creatinine 0.93. Procalcitonin 0.04 July 03: White count 9.19 globin 30.8 platelets 14 sodium 140 potassium 3.9 BUN 21 creatinine 0.9 to Assessment and plan: -Recurrent Infected thigh localized., with previous hip arthroplasty infection. [Wound culture in August 29: Staphylococcus lugdunenisis] ID following I&D-September [address] Barcenas. IV Ancef -Intermittent asthma Pro-air 2 puffs every 6 when necessary -Essential hypertension Lisinopril 10 mg a day -GERD Prilosec 20 mg daily -Primary osteoarthritis Pain control as needed -Obesity BMI 39.2 Weight loss measures Discussed. Await cultures. Other medications to continue. Thank you Dr. Barcenas Past Medical History Past Medical History: Asthma, Diabetes Mellitus, GERD/Reflux, Hyperlipidemia, Hypertension, Osteoarthritis (OA), Skin Disorder Additional Past Medical History / Comment(s): hx palpitations, diet controlled diabetic, reactive airway disease, hx pancreatitis, minimal redness right hip, pale yellow drng.-chgs drsg. daily, resolving cold sore lip History of Any Multi-Drug Resistant Organisms: None Reported Past Surgical History: Section, Cholecystectomy, Hernia Repair, Joint Replacement Additional Past Surgical History / Comment(s): total left hip replacement December 2011, Right Hip replaced 2016, I & D right hip December & 2022 Past Anesthesia/Blood Transfusion Reactions: Family History of Problems w/ Anesthesia, Postoperative Nausea & Vomiting (PONV) Additional Past Anesthesia/Blood Transfusion Reaction / Comm: dad-had CVA during back surgery & , sister-PONV, severe PONV Smoking Status: Never smoker
[2023-09-12] MEDS: traMADol 50 MG TAB PO PRN (17:48)
[2023-09-12] MEDS: LACTATED RINGERS 1,000 ML IV SCH (18:09)
[2023-09-12] MEDS: SENNOSIDES-DOCUSATE SODIUM 1 EACH TAB PO SCH (20:01)
[2023-09-12 20:28] LABS: Glucose,Whole Blood 125 mg/dL (70-110)
--- NOTE | 2023-09-12 22:05 | P.CONS ---
History of Present Illness - Reason for Consult Consult date: 09/12/23 - History of Present Illness Patient is a 68-year-old female with a past medical history significant for diabetes mellitus hypertension hyperlipidemia osteomyelitis patient did have a history of recurrent right hip infection in this patient who did have multiple I&D's and the 1 polyethylene exchange on one of her visit patient cultures has been negative on 1024 she did grow COVID with a negative staph and on outpatient visit on 08/29/2023 patient did grow Staphylococcus lugdunenisis for the patient has been on oral Keflex patient has been electively brought into the ER for repeat I&D of the right hip area that was completed yesterday operative findings did not show any collection of fluid or purulence and no communication deep to the fascia it all appeared to be superficial and no collection of any fluid present culture obtained during patient was started on cefazolin infectious disease was consulted for further management of antibiotic therapy patient on admission to the hospital was afebrile at the time my evaluation the patient was complaining of rigors and chills however nursing staff took her temperature it was normal patient not tachycardic hypotensive or hypoxic patient did have a white count of 9.32 ESR is 43 creatinine 0.93 CRP 1.14 cultures currently pending, patient currently denies having any headache or URI symptoms no chest pain shortness of breath or cough no nausea no vomiting no abdominal pain or diarrhea patient pain to the right hip is currently controlled with pain medication has been moderate intensity without any radiation Past Medical History Past Medical History: Asthma, Diabetes Mellitus, GERD/Reflux, Hyperlipidemia, Hypertension, Osteoarthritis (OA), Skin Disorder Additional Past Medical History / Comment(s): hx palpitations, diet controlled diabetic, reactive airway disease, hx pancreatitis, minimal redness right hip, pale yellow drng.-chgs drsg. daily, resolving cold sore lip History of Any Multi-Drug Resistant Organisms: None Reported Past Surgical History: Section, Cholecystectomy, Hernia Repair, Joint Replacement Additional Past Surgical History / Comment(s): total left hip replacement December 2011, Right Hip replaced 2016, I & D right hip December & 2022 Past Anesthesia/Blood Transfusion Reactions: Family History of Problems w/ Anesthesia, Postoperative Nausea & Vomiting (PONV) Additional Past Anesthesia/Blood Transfusion Reaction / Comm: dad-had CVA during back surgery & , sister-PONV, severe PONV Smoking Status: Never smoker - Past Family History Brother(s) Family Medical History: Cancer Medications and Allergies Home Medications Medication Instructions Recorded Confirmed Type Albuterol Sulfate [Proair Hfa] 2 puff INHALATION RT-Q6H PRN 10/16/16 09/06/23 History Cholecalciferol [Vitamin D3 (25 2,000 unit PO DAILY 10/16/16 09/06/23 History Mcg = 1000 Iu)] Omeprazole [PriLOSEC] 20 mg PO DAILY 03/26/17 09/06/23 History valACYclovir HCL [Valtrex] 2,000 mg PO Q12HR PRN 03/26/17 09/06/23 History Multivit with Calcium,Iron,Min 1 tab PO DAILY 12/26/22 09/06/23 History [Women's Multivitamin] HYDROcodone/APAP 5-325MG [[place] 1 - 2 tab PO Q6HR PRN #32 tab 12/28/22 09/06/23 Rx 5-325] lisinopriL [Prinivil] 10 mg PO DAILY #30 tab 01/04/23 09/06/23 Rx Keflex(Unknown Dose) 1 tab PO BID 09/06/23 09/06/23 History Sennosides [Senokot] 2 tab PO DAILY PRN #60 tablet 09/11/23 Rx traMADol HCl [Ultram] 50 mg PO Q6H PRN #28 tab 09/11/23 Rx Allergies Allergy/AdvReac Type Severity Reaction Status Date / Time morphine Allergy Severe turn red, Verified 09/11/23 14:27 skin peels, SOB, feels like burning inside adhesive tape Allergy red welts, Verified 09/11/23 14:27 fitzgerald ibuprofen [From Advil] Allergy Itching,hands Verified 09/11/23 14:27 burned,passed out meperidine [From Demerol] Allergy headaches Verified 09/11/23 14:27 gabapentin AdvReac Swelling Verified 09/11/23 14:27 artificial sweetener AdvReac Nausea & Uncoded 09/11/23 14:27 Vomiting Physical Exam Vitals: Vital Signs Temp Pulse Resp BP Pulse Ox 09/12/23 07:07 98 F 69 18 145/74 91 L 09/12/23 01:05 98.4 F 66 163/72 92 L 09/11/23 20:20 63 160/82 93 L 09/11/23 20:05 67 146/72 85 L 09/11/23 19:50 63 173/79 96 09/11/23 19:05 58 L 163/70 94 L 09/11/23 18:50 68 167/76 93 L 09/11/23 18:35 61 175/77 94 L 09/11/23 18:20 62 185/74 92 L 09/11/23 18:00 66 20 177/70 99 09/11/23 17:45 70 19 159/71 98 09/11/23 17:30 63 17 157/56 99 09/11/23 17:16 63 17 174/77 97 09/11/23 17:01 63 15 183/87 100 09/11/23 16:46 67 15 180/74 100 09/11/23 14:38 97.6 F 80 16 186/84 96 Intake and Output 09/11/23 09/12/23 09/12/23 22:59 06:59 14:59 Intake Total 1251 Output Total 10 Balance 1241 Intake: IV 1251 Output: Estimated Blood Loss 10 Other: Voiding Method Toilet # Voids 1 2 Weight 105.2 kg Results CBC & Chem 7: 09/12/23 06:18 09/12/23 06:18 Labs: Abnormal Lab Results - Last 24 Hours (Table) 09/11/23 09/12/23 09/12/23 Range/Units 17:07 06:18 06:18 Hgb 11.8 L (12.0-15.0) g/dL Hct 36.8 L (37.2-46.3) % RDW 15.3 H (11.5-14.5) % Plt Count 447 H (140-440) X 10*3/uL Eosinophils # 0.02 L (0.04-0.35) X 10*3/uL BUN 19 H (7-17) mg/dL Glucose 125 H (74-99) mg/dL POC Glucose (mg/dL) 121 H (70-110) mg/dL C-Reactive Protein 1.1 H (<1.0) mg/dL Total Protein 6.2 L (6.3-8.2) g/dL Assessment and Plan Plan: 1patient with a history of recurrent right hip abscess in this patient who did have multiple I&D's and has been treated with multiple courses of antibiotic usually patient did have a flareup once her antibiotics are stopped there is a concern for possible deep infection or any infected stitch while her hardware however operative report did not mention any evidence of purulence or any deep infection cultures obtained which are currently pending. 2patient was complaining of some rigors and chills blood culture has been obtained she did have mild elevated inflammatory markers 3recurrent patient cefazolin 2 g every 8 hours while waiting for the culture to finalize Multiple question Answered We will follow on clinical condition and cultures to further adjust medication if needed Thank you for this consultation we will follow the patient along with you Dictation was produced using [employer] dictation software. please excuse any grammatical, word or spelling errors. Time with Patient: Greater than 30
[2023-09-13] MEDS: HYDROmorphone 0.5 MG/0.5 ML SYRINGE IVP PRN ×2 (04:31→13:58)
[2023-09-13 05:45] LABS: Glucose,Whole Blood 99 mg/dL (70-110)
[2023-09-13] MEDS: PANTOPRAZOLE 40 MG TABLET PO SCH (06:39)
[2023-09-13] MEDS: lisinopriL 10 MG TAB PO SCH (08:03)
[2023-09-13] MEDS: ENOXAPARIN 40 MG/0.4 ML SYRINGE SQ SCH (08:03)
[2023-09-13] MEDS: CHOLECALCIFEROL 25 MCG (1000 IU) TABLET PO SCH (08:03)
[2023-09-13] MEDS: MULTIVITAMINS, THERA 1 EACH TAB PO SCH (08:03)
[2023-09-13] MEDS: traMADol 50 MG TAB PO PRN (08:09)
[2023-09-13 11:16] LABS: Glucose,Whole Blood 139 mg/dL (70-110)
--- NOTE | 2023-09-13 11:16 | P.PN ---
Progress Note - Text Progress Note Date: 09/13/23 - Chief Complaint Thigh wound - History of Present Illness Hospital course: This is a pleasant 68-year-old patient follows with Dr. White. Chronic stable medical conditions include asthma, GERD, hypertension, hyperlipidemia, osteoarthritis. Diet controlled diabetes. right total hip arthroplasty - 2016. December 2022 - developed infected right hip incision with cellulitis and seroma and ID was carried out. Subsequently patient did well. January 02 underwent I&D of the right total hip arthroplasty.antibiotic beads were placed. vancomycin and tobramycin.. Was discharged on doxycycline. Was seen by Dr. espinosa from ID. Wound culture back in December- unremarkable. June 2023 and again had abscess of the right thigh. ID was carried out. Arches showed coagulase-negative staph. Discharged on Augmentin and doxycycline for 21 days. Patient around mid August again started noticing swelling drainage in the right thigh. Went to see Dr. Barcenas. Put on Bactrim. Not much improvement. Went to see Dr. Espinosa from ID-he found some tunneling during culture... Cultures were done. Patient was then switched over to Keflex after cultures on August 29 grew Staphylococcus lugdunenisis. Patient been having sensations of not feeling well chills. Some nausea. For last few days. Treated otoscopic Narinder due to ID.-But is no significant infection was found. A Provena wound VAC was placed. Still having some nausea. 09/12/2023:Better this morning. Nausea much better controlled. Provena wound VAC on the right thigh. Cultures pending. Started on IV Ancef by ID. 09/13/2023: Overall feeling better. No fever. Cultures pending. On IV Ancef. Some surrounding the right leg. BISI stockings ordered for the same. We will order Doppler ultrasound to rule out DVT. Low-fat less likely. Discussed with patient. Active Medications Albuterol Sulfate (Albuterol Nebulized 2.5 Mg/3 Ml) 2.5 mg INHALATION RT-Q6H PRN PRN Reason: Shortness Of Breath Cholecalciferol (Cholecalciferol 25 Mcg (1000 Iu) Tablet) 50 mcg PO DAILY [facility] Last Admin: 09/13/23 08:03 Dose: 50 mcg Enoxaparin Sodium (Enoxaparin 40 Mg/0.4 Ml Syringe) 40 mg SQ DAILY [facility] Last Admin: 09/13/23 08:03 Dose: 40 mg Hydromorphone HCl (Hydromorphone 0.5 Mg/0.5 Ml Syringe) 0.125 mg IVP Q3HR PRN PRN Reason: Pain Scale 1 to 3 Stop: 10/11/23 15:46 Hydromorphone HCl (Hydromorphone 0.5 Mg/0.5 Ml Syringe) 0.5 mg IVP Q3HR PRN PRN Reason: Pain Scale 7 to 10 Stop: 10/11/23 15:46 Last Admin: 09/13/23 04:31 Dose: 0.5 mg Hydromorphone HCl (Hydromorphone 0.5 Mg/0.5 Ml Syringe) 0.25 mg IVP Q3HR PRN PRN Reason: Pain Scale 4 to 6 Stop: 10/11/23 15:46 Sodium Chloride (Saline 0.9%) 1,000 mls @ 70 mls/hr IV .[id number] [facility] Stop: 10/11/23 15:46 Last Admin: 09/12/23 21:18 Dose: Not Given Cefazolin Sodium 2 gm/ Sodium (Chloride) 50 mls @ 100 mls/hr IVPB Q8HR [facility]; Protocol Last Admin: 09/13/23 08:03 Dose: 100 mls/hr Lidocaine HCl (Lidocaine 1% (10mg/Ml) For Iv Start) 0.1 ml INTRADERMA PER PROTOCOL PRN PRN Reason: IV Start Stop: 10/10/23 13:37 Lisinopril (Lisinopril 10 Mg Tab) 10 mg PO DAILY [facility] Last Admin: 09/13/23 08:03 Dose: 10 mg Magnesium Hydroxide (Magnesium Hydroxide 2,400 Mg/30 Ml Cup) 2,400 mg PO DAILY PRN PRN Reason: Constipation Stop: 10/11/23 15:46 Multivitamins (Multivitamins, Thera 1 Each Tab) 1 each PO DAILY [facility] Last Admin: 09/13/23 08:03 Dose: 1 each Naloxone HCl (Naloxone 0.4 Mg/Ml 1 Ml Vial) 0.2 mg IV Q2M PRN PRN Reason: Opioid Reversal Stop: 10/11/23 15:46 Ondansetron HCl (Ondansetron 4 Mg/2 Ml Vial) 4 mg IVP Q8H PRN PRN Reason: Nausea And Vomiting Stop: 10/11/23 15:46 Last Admin: 09/12/23 09:18 Dose: 4 mg Pantoprazole Sodium (Pantoprazole 40 Mg Tablet) 40 mg PO [id number] [facility] Last Admin: 09/13/23 06:39 Dose: 40 mg Senna/Docusate Sodium (Sennosides-Docusate Sodium 1 Each Tab) 2 each PO HS [facility] Stop: 10/11/23 21:01 Last Admin: 09/12/23 20:01 Dose: 2 each Tramadol HCl (Tramadol 50 Mg Tab) 50 mg PO Q6H PRN PRN Reason: Pain Scale 1 to 5 Stop: 10/11/23 15:49 Tramadol HCl (Tramadol 50 Mg Tab) 100 mg PO QID PRN PRN Reason: Pain Scale 6 to 10 Stop: 10/11/23 15:49 Last Admin: 09/13/23 08:09 Dose: 100 mg Past medical history to include: Asthma, GERD, hypertension, hyperlipidemia,-controlled diabetes, osteoarthritis. Recurrent right hip infection including abscess Social history: Used to work before. No smoking or alcohol Physical examination: VITAL SIGNS: 98.1, 57, 19, 147/78, 93% room air GENERAL:, reclining in bed , comfortable EYES: Pupils equal. Conjunctiva normal. HEENT: External appearance of nose and ears normal, oral cavity grossly normal. NECK: JVD not raised; masses not palpable. HEART: First and second heart sounds are normal; no edema. LUNGS: Respiratory rate normal; clear to auscultation. ABDOMEN: Soft, nontender, liver spleen not palpable, no masses palpable. PSYCH: Alert and oriented x3; mood and affect normal. MUSCULOSKELETAL:No Clubbing/cyanosis;muscles-grossly intact. OA. Wound VAC on the right thigh incision: Right leg more swollen than the left especially the thigh INVESTIGATIONS, reviewed in the clinical context: 09/12/2023: White count 9.3 hemoglobin 11.8 platelets 447 sodium 138 potassium 4.5 creatinine 0.93. Procalcitonin 0.04 July 03: White count 9.19 globin 30.8 platelets 14 sodium 140 potassium 3.9 BUN 21 creatinine 0.9 to Assessment and plan: -Recurrent Infected thigh localized., with previous hip arthroplasty infection. [Wound culture in August 29: Staphylococcus lugdunenisis] ID following I&D-September [address] Barcenas. IV Ancef -Right thigh was swollen compared to the left likely from fluid. Rule out DVT -Intermittent asthma Pro-air 2 puffs every 6 when necessary -Essential hypertension Lisinopril 10 mg a day -GERD Prilosec 20 mg daily -Primary osteoarthritis Pain control as needed -Obesity BMI 39.2 Weight loss measures Doppler ultrasound to rule out DVT right leg. bisi zhong. Thank you Dr. Barcenas Past Medical History Past Medical History: Asthma, Diabetes Mellitus, GERD/Reflux, Hyperlipidemia, Hypertension, Osteoarthritis (OA), Skin Disorder Additional Past Medical History / Comment(s): hx palpitations, diet controlled diabetic, reactive airway disease, hx pancreatitis, minimal redness right hip, pale yellow drng.-chgs drsg. daily, resolving cold sore lip History of Any Multi-Drug Resistant Organisms: None Reported Past Surgical History: Section, Cholecystectomy, Hernia Repair, Joint Replacement Additional Past Surgical History / Comment(s): total left hip replacement December 2011, Right Hip replaced 2016, I & D right hip December & 2022 Past Anesthesia/Blood Transfusion Reactions: Family History of Problems w/ Anesthesia, Postoperative Nausea & Vomiting (PONV) Additional Past Anesthesia/Blood Transfusion Reaction / Comm: dad-had CVA during back surgery & , sister-PONV, severe PONV Smoking Status: Never smoker
--- NOTE | 2023-09-13 12:12 | P.PN ---
Subjective Progress Note Date: 09/13/23 This is a 68-year-old female who is status post incision and drainage of the right thigh. This is postoperative day #1 and patient is seen and evaluated at bedside today. Patient states that she has not had any pain and she has been up and walking. Patient does report swelling in the right thigh. Otherwise, patient denies any new complaints today. Objective - Vital Signs Vital signs: Vital Signs Temp 98.1 F 09/13/23 07:05 Pulse 57 L 09/13/23 07:05 Resp 19 09/13/23 07:05 BP 147/78 09/13/23 07:05 Pulse Ox 93 L 09/13/23 07:05 FiO2 Intake & Output 09/12/23 09/13/23 09/13/23 18:59 06:59 18:59 Weight 105.2 kg Other: Voiding Method Toilet # Voids 3 - Exam Vital signs are stable. Patient is in no acute distress and is alert and oriented 3. Calf is soft and nontender to palpation. Prevena wound vac is clean, dry, and intact. Patient has full foot and ankle motion without pain or difficulty. Sensation intact. Neurovascular status and circulatory status are intact. - Labs CBC & Chem 7: 09/12/23 06:18 09/12/23 06:18 Labs: Abnormal Lab Results - Last 24 Hours (Table) 09/12/23 09/13/23 Range/Units 20:26 11:15 POC Glucose (mg/dL) 125 H 139 H (70-110) mg/dL Microbiology - Last 24 Hours (Table) 09/11/23 16:30 Gram Stain - Preliminary Thigh - Right Wound Culture - Preliminary 09/11/23 16:30 Gram Stain - Preliminary Thigh - Right Wound Culture - Preliminary Assessment and Plan Assessment: Status post incision and drainage of right thigh (1) Seroma Current Visit: Yes Status: Acute Code(s): AAK7244 - SNOMED Code(s): 571434714 Plan: 1. Prevena wound vac to stay in place for 7 days. 2. Cultures are pending. 3. Antibiotics per infectious disease. 4. Continue routine postoperative care and pain control. 5. Anticipate discharge home in the next 24-48 hours.
[2023-09-13] MEDS ORDERED: HYDROcodone/APAP 7.5-325MG 1 EACH TAB PO PRN (14:38)
[2023-09-13] MEDS: HYDROcodone/APAP 7.5-325MG 1 EACH TAB PO PRN ×2 (15:04→23:03)
--- NOTE | 2023-09-13 15:27 | P.PN ---
Subjective Progress Note Date: 09/13/23 Principal diagnosis: Reason for follow-up right hip recurrent abscess Patient is a 68-year female with multiple comorbidity did have a history of recurrent right hip abscess requiring multiple surgeries at 1 point she grew coagulase-negative staph and recently has grown oxacillin sensitive Staphylococcus Lugdunenisis, in this patient who did have a repeat I&D of the right hip on 09/11/2023 operative report did not mention any deep abscess below the fascia or extension to the prosthetic joint. On today's evaluation that is 09/13/2023, patient remains to be afebrile, the is breathing comfortably on room air did have some chills but no fever no chest pain shortness of breath or cough no nausea no vomiting no abdominal pain has been complaining of swelling to the right lower extremity Patient white count of 9.32, creatinine 0.93 cultures currently pending Objective - Vital Signs Vital signs: Vital Signs Temp 98.1 F 09/13/23 07:05 Pulse 57 L 09/13/23 07:05 Resp 19 09/13/23 07:05 BP 147/78 09/13/23 07:05 Pulse Ox 93 L 09/13/23 07:05 FiO2 Intake & Output 09/12/23 09/13/23 09/13/23 18:59 06:59 18:59 Weight 105.2 kg Other: Voiding Method Toilet # Voids 3 - Exam GENERAL DESCRIPTION: An elderly female lying in bed in no distress RESPIRATORY SYSTEM: Unlabored breathing , decreased breath sounds at bases HEART: S1 S2 regular rate and rhythm , ABDOMEN: Soft , distention but no tenderness EXTREMITIES: Right hip incision is currently intact did have swelling to the leg no redness - Labs CBC & Chem 7: 09/12/23 06:18 09/12/23 06:18 Labs: Abnormal Lab Results - Last 24 Hours (Table) 09/12/23 09/13/23 Range/Units 20:26 11:15 POC Glucose (mg/dL) 125 H 139 H (70-110) mg/dL Microbiology - Last 24 Hours (Table) 09/11/23 16:30 Gram Stain - Preliminary Thigh - Right Wound Culture - Preliminary 09/11/23 16:30 Gram Stain - Preliminary Thigh - Right Wound Culture - Preliminary Assessment and Plan (1) Abscess of right hip Current Visit: No Status: Acute Code(s): L02.415 - CUTANEOUS ABSCESS OF RIGHT LOWER LIMB SNOMED Code(s): 538315 Plan: 1patient with a history of recurrent right hip abscess in this patient who did have multiple I&D's and has been treated with multiple courses of antibiotic usually patient did have a flareup once her antibiotics are stopped there is a concern for possible deep infection or any infected stitch while her hardware however operative report did not mention any evidence of purulence or any deep infection cultures obtained which are currently pending. 2blood culture has been pending or cultures currently pending did have mild elevated inflammatory markers. 3we will continue the patient on cefazolin 2 g every 8 hours if the culture remained to be negative by tomorrow plan of discharging on oral Keflex and outpatient follow-up Dictation was produced using [employer] dictation software. please excuse any grammatical, word or spelling errors.
[2023-09-13 16:28] LABS: Glucose,Whole Blood 121 mg/dL (70-110)
[2023-09-13 19:36] LABS: Glucose,Whole Blood 113 mg/dL (70-110)
[2023-09-13] MEDS: SENNOSIDES-DOCUSATE SODIUM 1 EACH TAB PO SCH (20:43)
[2023-09-14 06:09] LABS: Glucose,Whole Blood 104 mg/dL (70-110)
[2023-09-14] MEDS: SODIUM CHLORIDE 0.9% 1,000 ML IV SCH ×2 (06:52→06:53)
[2023-09-14] MEDS: HYDROcodone/APAP 7.5-325MG 1 EACH TAB PO PRN ×2 (08:05→14:58)
[2023-09-14] MEDS: CHOLECALCIFEROL 25 MCG (1000 IU) TABLET PO SCH (08:05)
[2023-09-14] MEDS: PANTOPRAZOLE 40 MG TABLET PO SCH (08:06)
[2023-09-14] MEDS: MULTIVITAMINS, THERA 1 EACH TAB PO SCH (08:06)
[2023-09-14] MEDS: ENOXAPARIN 40 MG/0.4 ML SYRINGE SQ SCH (08:06)
[2023-09-14] MEDS: lisinopriL 10 MG TAB PO SCH (08:06)
[2023-09-14 08:40] LABS: Basophils # (A) 0.04 X 10*3/uL (0.00-0.10); Basophils % (A) 0.5 %; Eosinophils % (A) 3.4 %; HCT 32.5 % (37.2-46.3); HGB 9.9 g/dL (12.0-15.0); Lymphocytes # (A) 3.82 X 10*3/uL (0.90-5.00); Lymphocytes % (A) 43.6 %; MCH 27.9 pg (27.0-32.0); MCHC 30.5 g/dL (32.0-37.0); MCV 91.5 FL (80.0-97.0); Mean Platelet Volume 10.6 FL (9.5-12.2); Monocytes # (A) 0.65 X 10*3/uL (0.20-1.00); Monocytes % (A) 7.4 %; NRBC Per 100 WBC 0 X 10*3/uL (0.00-0.01); Neutrophils # (A) 3.93 X 10*3/uL (1.80-7.70); Neutrophils % (A) 44.9 %; Platelet Count 367 X 10*3/uL (140-440); RBC 3.55 X 10*6/uL (4.10-5.20); RDW 15.3 % (11.5-14.5); WBC 8.76 X 10*3/uL (4.50-10.00)
--- NOTE | 2023-09-14 09:26 | US ---
EXAMINATION TYPE: US venous doppler duplex LE RT DATE OF EXAM: 09/13/2023 11:04 AM COMPARISON: NONE CLINICAL INDICATION: Female, 68 years old with history of Rule out DVT; Recent surgery right hip with new onset swelling. SIDE PERFORMED: TECHNIQUE: The lower extremity deep venous system is examined utilizing real time linear array sonog mckenna with graded compression, doppler sonography and color-flow sonography. VESSELS IMAGED: Common Femoral Vein Deep Femoral Vein Greater Saphenous Vein * Femoral Vein Popliteal Vein Small Saphenous Vein * Proximal Calf Veins (* superficial vessels) Right Leg: Negative for DVT Left Leg: NA IMPRESSION: 1. Right lower extremity ultrasound negative for deep venous thrombosis.
[2023-09-14 11:18] LABS: Glucose,Whole Blood 128 mg/dL (70-110)
[2023-09-14 13:34] VITALS: BP 175/78; PULSE 78; RESP 20; TEMP 98
--- NOTE | 2023-09-14 14:02 | P.DS ---
Providers Expected date of discharge: 09/14/23 Attending physician: Brody Barcenas Consults: 09/11/23 15:45 Consult Physician Routine Consulting Provider: Alice Pennington Consult Reason/Comments: I&d right thigh Do you want consulting provider notified?: Yes 09/11/23 15:49 Consult Physician Routine Consulting Provider: Luís Busby Consult Reason/Comments: medical management Do you want consulting provider notified?: Yes Primary care physician: Sukumar White - Discharge Diagnosis(es) (1) Seroma Current Visit: Yes Status: Acute Hospital Course: This is a 68-year-old female who has a known history of a draining wound of the right thigh. The patient presented for evaluation as an outpatient. After discussion and consideration patient elects to proceed with incision and drainage of the right thigh. The patient is seen preoperatively by Dr. Barcenas . Patient is admitted to [facility] on 09/11/2023 for incision and drainage of the right thigh. The procedure is performed without complication or sequelae. The patient is doing well postoperatively. Labs and vital signs are stable on day of discharge. Cultures are negative thus far. Infectious disease has managed antibiotics. A doppler ultrasound was done during this admission and was negative for DVT. On day of discharge patient's hip incision is healing with a Prevena wound vac intact. There is minimal erythema. There is minimal soft tissue swelling to the hip and thigh. Patient has full foot and ankle motion without difficulty or pain. Calf is soft and nontender to palpation. Neurovascular status to the right lower extremity is intact. Patient is discharged home in good condition. Please see med rec for accurate list of home medications. Plan - Discharge Summary Discharge Rx Participant: No New Discharge Prescriptions: New Sennosides [Senokot] 2 tab PO DAILY PRN #60 tablet PRN Reason: Constipation HYDROcodone/APAP 7.5-325MG [[place] 7.5-325] 1 - 2 tab PO Q6H PRN #32 tab PRN Reason: Pain Continue Cholecalciferol [Vitamin D3 (25 Mcg = 1000 Iu)] 2,000 unit PO DAILY Albuterol Sulfate [Proair Hfa] 2 puff INHALATION RT-Q6H PRN PRN Reason: Shortness Of Breath Omeprazole [PriLOSEC] 20 mg PO DAILY valACYclovir HCL [Valtrex] 2,000 mg PO Q12HR PRN PRN Reason: Cold Sores Multivit with Calcium,Iron,Min [Women's Multivitamin] 1 tab PO DAILY lisinopriL [Prinivil] 10 mg PO DAILY #30 tab HYDROcodone/APAP 5-325MG [[place] 5-325] 1 - 2 tab PO Q6HR PRN #32 tab PRN Reason: Pain Discontinued Keflex(Unknown Dose) 1 tab PO BID Discharge Medication List Albuterol Sulfate [Proair Hfa] 2 puff INHALATION RT-Q6H PRN 10/16/16 [History] Cholecalciferol [Vitamin D3 (25 Mcg = 1000 Iu)] 2,000 unit PO DAILY 10/16/16 [History] Omeprazole [PriLOSEC] 20 mg PO DAILY 03/26/17 [History] valACYclovir HCL [Valtrex] 2,000 mg PO Q12HR PRN 03/26/17 [History] Multivit with Calcium,Iron,Min [Women's Multivitamin] 1 tab PO DAILY 12/26/22 [History] HYDROcodone/APAP 5-325MG [[place] 5-325] 1 - 2 tab PO Q6HR PRN #32 tab 12/28/22 [Rx] lisinopriL [Prinivil] 10 mg PO DAILY #30 tab 01/04/23 [Rx] Sennosides [Senokot] 2 tab PO DAILY PRN #60 tablet 09/11/23 [Rx] HYDROcodone/APAP 7.5-325MG [[place] 7.5-325] 1 - 2 tab PO Q6H PRN #32 tab 09/13/23 [Rx] Follow up Appointment(s)/Referral(s): Sukumar White DO [Primary Care Provider] - 1 Week (Office stated they will call patient with appointment time and date.) Brody Barcenas DO [Doctor of Osteopathic Medicine] - 09/21/23 1:00 pm Alice Pennington MD [STAFF PHYSICIAN] - 2 Weeks Patient Instructions/Handouts: Joint Incision and Drainage (DC), Abscess Incision and Drainage (DC), Incision and Drainage (DC) Activity/Diet/Wound Care/Special Instructions: Leave Prevena intact for 7 days. Please take medications as prescribed. Please follow-up with [facility] in 10-14 days and call with any questions or concerns, . Discharge Disposition: HOME WITH HOME HEALTH SERVICES
--- NOTE | 2023-09-14 17:17 | P.PN ---
Progress Note - Text Progress Note Date: 09/14/23 - Chief Complaint Thigh wound - History of Present Illness Hospital course: This is a pleasant 68-year-old patient follows with Dr. White. Chronic stable medical conditions include asthma, GERD, hypertension, hyperlipidemia, osteoarthritis. Diet controlled diabetes. right total hip arthroplasty - 2016. December 2022 - developed infected right hip incision with cellulitis and seroma and ID was carried out. Subsequently patient did well. January 02 underwent I&D of the right total hip arthroplasty.antibiotic beads were placed. vancomycin and tobramycin.. Was discharged on doxycycline. Was seen by Dr. espinosa from ID. Wound culture back in December- unremarkable. June 2023 and again had abscess of the right thigh. ID was carried out. Arches showed coagulase-negative staph. Discharged on Augmentin and doxycycline for 21 days. Patient around mid August again started noticing swelling drainage in the right thigh. Went to see Dr. Barcenas. Put on Bactrim. Not much improvement. Went to see Dr. Espinosa from ID-he found some tunneling during culture... Cultures were done. Patient was then switched over to Keflex after cultures on August 29 grew Staphylococcus lugdunenisis. Patient been having sensations of not feeling well chills. Some nausea. For last few days. Treated otamy Barcenas due to ID.-But is no significant infection was found. A Provena wound VAC was placed. Still having some nausea. 09/12/2023:Better this morning. Nausea much better controlled. Provena wound VAC on the right thigh. Cultures pending. Started on IV Ancef by ID. 09/13/2023: Overall feeling better. No fever. Cultures pending. On IV Ancef. Some surrounding the right leg. BISI stockings ordered for the same. We will order Doppler ultrasound to rule out DVT. Low-fat less likely. Discussed with patient. 09/14/2023: Patient doing well. No fever. Seen by Dr. Webster from ID. Being discharged on Keflex. BISI stockings given for right leg. No DVT. Discussed with the patient-per Dr. Barcenas surgical outpatient incision I&D looked rather clean. Some discussion was had about long-term antibiotic. She'll further discuss this with Dr. David in the office. Wound culture came back to be negative Current medications reviewed Past medical history to include: Asthma, GERD, hypertension, hyperlipidemia,-controlled diabetes, osteoarthritis. Recurrent right hip infection including abscess Social history: Used to work before. No smoking or alcohol Physical examination: VITAL SIGNS: 98, 78, 20, 126/68, 94% room air GENERAL:, reclining in bed , comfortable EYES: Pupils equal. Conjunctiva normal. HEENT: External appearance of nose and ears normal, oral cavity grossly normal. NECK: JVD not raised; masses not palpable. HEART: First and second heart sounds are normal; no edema. LUNGS: Respiratory rate normal; clear to auscultation. ABDOMEN: Soft, nontender, liver spleen not palpable, no masses palpable. PSYCH: Alert and oriented x3; mood and affect normal. MUSCULOSKELETAL:No Clubbing/cyanosis;muscles-grossly intact. OA. Wound VAC on the right thigh incision: Right leg more swollen than the left especially the thigh INVESTIGATIONS, reviewed in the clinical context: Right leg Doppler: Negative for DVT 09/12/2023: White count 9.3 hemoglobin 11.8 platelets 447 sodium 138 potassium 4.5 creatinine 0.93. Procalcitonin 0.04 July 03: White count 9.19 globin 30.8 platelets 14 sodium 140 potassium 3.9 BUN 21 creatinine 0.9 to Assessment and plan: -Recurrent Infected thigh localized., with previous hip arthroplasty infection. [Wound culture in August 29: Staphylococcus lugdunenisis] ID following I&D-September [address] Barceans. IV Ancef-wound K came back to be negative Patient to continue on Keflex per ID. -Right thigh was swollen compared to the left likely from fluid. DVT ruled out. BISI stockings -Intermittent asthma Pro-air 2 puffs every 6 when necessary -Essential hypertension Lisinopril 10 mg a day -GERD Prilosec 20 mg daily -Primary osteoarthritis Pain control as needed -Obesity BMI 39.2 Weight loss measures Discussed that with the patient. Questions answered. Thank you Dr. Barcenas Past Medical History Past Medical History: Asthma, Diabetes Mellitus, GERD/Reflux, Hyperlipidemia, Hypertension, Osteoarthritis (OA), Skin Disorder Additional Past Medical History / Comment(s): hx palpitations, diet controlled diabetic, reactive airway disease, hx pancreatitis, minimal redness right hip, pale yellow drng.-chgs drsg. daily, resolving cold sore lip History of Any Multi-Drug Resistant Organisms: None Reported Past Surgical History: Section, Cholecystectomy, Hernia Repair, Joint Replacement Additional Past Surgical History / Comment(s): total left hip replacement December 2011, Right Hip replaced 2016, I & D right hip December & 2022 Past Anesthesia/Blood Transfusion Reactions: Family History of Problems w/ Anesthesia, Postoperative Nausea & Vomiting (PONV) Additional Past Anesthesia/Blood Transfusion Reaction / Comm: dad-had CVA during back surgery & , sister-PONV, severe PONV Smoking Status: Never smoker
== END 2023-09-14 15:09 | disposition home health service (06) ==
LOC: OR 14:14 → 4SSUR 17:29 → OR 09-14 15:09
PROVIDERS: ATTEND Orthopaedic Surgery
DX: S71.001A Unspecified open wound, right hip, initial encounter (principal); E11.9 Type 2 diabetes mellitus without complications; E66.9 Obesity, unspecified; E78.5 Hyperlipidemia, unspecified; I10 Essential (primary) hypertension; J45.20 Mild intermittent asthma, uncomplicated; K21.9 Gastro-esophageal reflux disease without esophagitis; M19.90 Unspecified osteoarthritis, unspecified site; Z68.39 Body mass index [BMI] 39.0-39.9, adult; Z79.01 Long term (current) use of anticoagulants; Z79.899 Other long term (current) drug therapy; Z88.5 Allergy status to narcotic agent; Z88.6 Allergy status to analgesic agent; Z96.641 Presence of right artificial hip joint; Z88.8 Allergy status to other drugs, medicaments and biological substances; X58.XXXA Exposure to other specified factors, initial encounter
CPT/HCPCS: 10140; 97161; 97165; 80053; 85652; 85025 ×2; 86140; 87040; 87070; 87205; 87075; 84145; J1580; J1100; J2765; J0690 ×3; J2405 ×2; J1650 ×3; J1170 ×2

== ENCOUNTER → 2023-10-12 | Outpatient (CLI) | payer MEDICARE, OTHER, SELFPAY ==
[2023-10-12 21:02] LABS: ALT 17 U/L (8-44); AST 14 U/L (13-35); Alkaline Phosphatase 106 U/L (41-126); Blood Urea Nitrogen 21.3 mg/dL (9.0-27.0); Calcium 9.9 mg/dL (8.7-10.3); Chloride 105 mmol/L (96-109); Globulin 2.5 g/dL (1.6-3.3); Glucose 127 mg/dL (70-110); Potassium 4.2 mmol/L (3.5-5.5); Sodium 142 mmol/L (135-145); Total Bilirubin 0.4 mg/dL (0.3-1.2); Total Protein 6.5 g/dL (6.2-8.2)
[2023-10-12 21:04] LABS: Basophils # (A) 0.03 X 10*3/uL (0.00-0.10); Basophils % (A) 0.4 %; Eosinophils # (A) 0.14 X 10*3/uL (0.04-0.35); Eosinophils % (A) 1.7 %; HCT 42.8 % (37.2-46.3); HGB 13.3 g/dL (12.0-15.0); Lymphocytes # (A) 2.33 X 10*3/uL (0.90-5.00); Lymphocytes % (A) 28.9 %; MCH 27.8 pg (27.0-32.0); MCHC 31.1 g/dL (32.0-37.0); MCV 89.5 FL (80.0-97.0); Mean Platelet Volume 10.9 FL (9.5-12.2); Monocytes # (A) 0.42 X 10*3/uL (0.20-1.00); Monocytes % (A) 5.2 %; NRBC Per 100 WBC 0 X 10*3/uL (0.00-0.01); Neutrophils # (A) 5.13 X 10*3/uL (1.80-7.70); Neutrophils % (A) 63.6 %; Platelet Count 460 X 10*3/uL (140-440); RBC 4.78 X 10*6/uL (4.10-5.20); RDW 14.1 % (11.5-14.5); WBC 8.07 X 10*3/uL (4.50-10.00)
[2023-10-12 21:16] LABS: Erythrocyte Sedimentation Rate 34 mm/Hr (0-30)
== END | disposition home or self-care (01) ==
LOC: LABWHC1 14:35
PROVIDERS: ATTEND Internal Medicine Infectious Disease
DX: T84.51XA Infection and inflammatory reaction due to internal right hip prosthesis, initial encounter (principal); Y82.9 Unspecified medical devices associated with adverse incidents
CPT/HCPCS: 36415; 80053; 85025; 85652; 86140

== ENCOUNTER → 2024-02-20 | Outpatient (CLI) | payer MEDICARE ==
[2024-02-20 18:05] LABS: Basophils # (A) 0.05 X 10*3/uL (0.00-0.10); Basophils % (A) 0.6 %; Eosinophils # (A) 0.19 X 10*3/uL (0.04-0.35); Eosinophils % (A) 2.4 %; HCT 44.1 % (37.2-46.3); HGB 13.7 g/dL (12.0-15.0); Lymphocytes # (A) 2.42 X 10*3/uL (0.90-5.00); Lymphocytes % (A) 30.7 %; MCHC 31.1 g/dL (32.0-37.0); MCV 90.2 FL (80.0-97.0); Mean Platelet Volume 11.3 FL (9.5-12.2); Monocytes # (A) 0.46 X 10*3/uL (0.20-1.00); Monocytes % (A) 5.8 %; NRBC Per 100 WBC 0 X 10*3/uL (0.00-0.01); Neutrophils # (A) 4.73 X 10*3/uL (1.80-7.70); Neutrophils % (A) 60.1 %; Platelet Count 395 X 10*3/uL (140-440); RBC 4.89 X 10*6/uL (4.10-5.20); RDW 14.3 % (11.5-14.5); WBC 7.88 X 10*3/uL (4.50-10.00)
[2024-02-20 18:30] LABS: Erythrocyte Sedimentation Rate 17 mm/Hr (0-30)
[2024-02-20 18:52] LABS: ALT 21 U/L (8-44); AST 16 U/L (13-35); Albumin 4.1 g/dL (3.8-4.9); Albumin/Globulin Ratio 1.71 Ratio (1.60-3.17); Alkaline Phosphatase 114 U/L (41-126); Blood Urea Nitrogen 33.4 mg/dL (9.0-27.0); Calcium 9.5 mg/dL (8.7-10.3); Carbon Dioxide 23.6 mmol/L (21.6-31.8); Chloride 108 mmol/L (96-109); Chol/HDL Ratio 3.75 Ratio; Globulin 2.4 g/dL (1.6-3.3); Glucose 117 mg/dL (70-110); LDL Cholesterol,Calculated 182.2 mg/dL (0.0-131.0); Potassium 4.5 mmol/L (3.5-5.5); Sodium 143 mmol/L (135-145); Total Bilirubin 0.3 mg/dL (0.3-1.2); Total Protein 6.5 g/dL (6.2-8.2); VLDL Calculation 15.08 mg/dL (5.00-40.00)
[2024-02-20 19:21] LABS: Microalbumin Creatinine Ratio <15 mg/g Cr (0-30); Urine Creatinine 79.8 mg/dL (28.0-217.0)
== END | disposition home or self-care (01) ==
LOC: LABWHC1 11:29
PROVIDERS: ATTEND Family Medicine
DX: I10 Essential (primary) hypertension (principal); E78.00 Pure hypercholesterolemia, unspecified; E11.9 Type 2 diabetes mellitus without complications; E55.9 Vitamin D deficiency, unspecified; M00.9 Pyogenic arthritis, unspecified
CPT/HCPCS: 36415; 80053; 80061; 82043; 82306; 82570; 83036; 85025; 85652; 86140

== ENCOUNTER → 2024-02-20 | Outpatient (CLI) | payer MEDICARE ==
--- NOTE | 2024-02-26 11:51 | MM ---
Reason for Exam: Screening (asymptomatic). Last mammogram was performed 5 year(s) and 7 month(s) ago. Patient History: Menarche at age 14. First Full-Term at age 32. Late child-bearing (after 30). Postmenopausal. Risk Values: Saira 5 year model risk: 2.3%. NCI Lifetime model risk: 8.2%. Prior Study Comparison: 07/23/2017 Bilateral Screening Mammogram, [facility]. 07/26/2017 Left Diagnostic Mammogram, [facility]. 08/05/2018 Bilateral Screening Mammogram, [facility]. Tissue Density: The breasts are almost entirely fatty. Findings: Analyzed By CAD. Right breast: There is no suspicious group of microcalcifications or new suspicious mass. Left breast: There is no suspicious group of microcalcifications or new suspicious mass. Overall Assessment: Negative, BI-RAD 1 Management: Screening Mammogram of both breasts in [address] [facility] will attempt to contact patient to return for supplemental views and ultrasound if indicated. Patient should continue monthly self-breast exams. A clinical breast exam by your physician is recommended on an annual basis. This exam should not preclude additional follow-up of suspicious palpable abnormalities. Note on Saira scores and lifetime risk: 1. A Saira score greater than 3% is considered moderate risk. If this is the case, consider specialist referral to assess eligibility for a risk reducing agent. 2. If overall lifetime risk for the development of breast cancer is 20% or higher, the patient may qualify for future screening with alternating mammogram and breast MRI. Electronically signed and approved by: Sam Jefferson DO
== END | disposition home or self-care (01) ==
LOC: RADMAMWWP 11:23
PROVIDERS: ATTEND Family Medicine
DX: Z12.31 Encounter for screening mammogram for malignant neoplasm of breast (principal); Z78.0 Asymptomatic menopausal state
CPT/HCPCS: 77063; 77067

== ENCOUNTER → 2024-05-30 | Outpatient (CLI) | payer MEDICARE ==
[2024-05-30 20:07] LABS: Basophils # (A) 0.04 X 10*3/uL (0.00-0.10); Basophils % (A) 0.5 %; Eosinophils % (A) 2.3 %; HCT 42.1 % (37.2-46.3); HGB 13.3 g/dL (12.0-15.0); Lymphocytes # (A) 2.83 X 10*3/uL (0.90-5.00); Lymphocytes % (A) 33.1 %; MCH 28.5 pg (27.0-32.0); MCHC 31.6 g/dL (32.0-37.0); MCV 90.1 FL (80.0-97.0); Mean Platelet Volume 11.6 FL (9.5-12.2); Monocytes # (A) 0.45 X 10*3/uL (0.20-1.00); Monocytes % (A) 5.3 %; NRBC Per 100 WBC 0 X 10*3/uL (0.00-0.01); Neutrophils # (A) 4.99 X 10*3/uL (1.80-7.70); Neutrophils % (A) 58.4 %; Platelet Count 371 X 10*3/uL (140-440); RBC 4.67 X 10*6/uL (4.10-5.20); RDW 14.6 % (11.5-14.5); WBC 8.54 X 10*3/uL (4.50-10.00)
[2024-05-30 20:15] LABS: ALT 16 U/L (8-44); AST 14 U/L (13-35); Albumin/Globulin Ratio 1.67 Ratio (1.60-3.17); Alkaline Phosphatase 107 U/L (41-126); BUN/Creat Ratio 27.55 Ratio (12.00-20.00); Blood Urea Nitrogen 30.3 mg/dL (9.0-27.0); Calcium 9.5 mg/dL (8.7-10.3); Carbon Dioxide 24.8 mmol/L (21.6-31.8); Chloride 110 mmol/L (96-109); Globulin 2.4 g/dL (1.6-3.3); Glucose 100 mg/dL (70-110); Potassium 4.5 mmol/L (3.5-5.5); Sodium 144 mmol/L (135-145); Total Bilirubin 0.4 mg/dL (0.3-1.2); Total Protein 6.4 g/dL (6.2-8.2)
[2024-05-30 20:56] LABS: Erythrocyte Sedimentation Rate 18 mm/Hr (0-30)
== END | disposition home or self-care (01) ==
LOC: LABWHC1 14:00
PROVIDERS: ATTEND Internal Medicine Infectious Disease
DX: M25.551 Pain in right hip (principal)
CPT/HCPCS: 36415; 80053; 85025; 85652; 86140

== ENCOUNTER → 2024-08-18 | Outpatient (CLI) | payer MEDICARE ==
[2024-08-18 17:27] LABS: Hyaline Casts,Urine 1 /lpf (0-2); Mucus,Urine Rare /hpf; RBC,Urine 3 /hpf (0-5); Squamous Epithelial Cell,Urine 10 /hpf (0-4); WBC,Urine 16 /hpf (0-5)
[2024-08-18 17:52] LABS: Appearance,Urine Clear (Clear); Bilirubin,Urine Negative (Negative); Blood,Urine Negative (Negative); Color,Urine Light Yellow; Glucose,Urine (UA) Negative (Negative); Ketones,Urine Negative (Negative); Leukocyte Esterase,Urine Negative (Negative); Nitrite,Urine Negative (Negative); Protein,Urine Negative (Negative); Specific Gravity,Urine 1.025 (1.001-1.035); Urobilinogen,Urine <2.0 mg/dL (<2.0)
[2024-08-18 19:39] LABS: HCT 43.5 % (37.2-46.3); HGB 13.6 g/dL (12.0-15.0); MCH 27.5 pg (27.0-32.0); MCHC 31.3 g/dL (32.0-37.0); MCV 87.9 FL (80.0-97.0); Mean Platelet Volume 11.4 FL (9.5-12.2); NRBC Per 100 WBC 0 X 10*3/uL (0.00-0.01); Platelet Count 383 X 10*3/uL (140-440); RBC 4.95 X 10*6/uL (4.10-5.20); RDW 14.4 % (11.5-14.5); WBC 8.68 X 10*3/uL (4.50-10.00)
[2024-08-18 19:49] LABS: ALT 16 U/L (8-44); AST 16 U/L (13-35); Blood Urea Nitrogen 20.6 mg/dL (9.0-27.0); Carbon Dioxide 25.4 mmol/L (21.6-31.8); Chloride 108 mmol/L (96-109); Glucose 106 mg/dL (70-110); Potassium 4.3 mmol/L (3.5-5.5); Sodium 143 mmol/L (135-145)
== END | disposition home or self-care (01) ==
LOC: LABWHC1 14:16
PROVIDERS: ATTEND Family Medicine
DX: I10 Essential (primary) hypertension (principal); E11.9 Type 2 diabetes mellitus without complications; N39.41 Urge incontinence; E78.00 Pure hypercholesterolemia, unspecified; E55.9 Vitamin D deficiency, unspecified
CPT/HCPCS: 36415; 80048; 81003; 82306; 83036; 84450; 84460; 85027

== ENCOUNTER → 2024-11-03 | Outpatient (CLI) | payer MEDICARE ==
[2024-11-03 21:02] LABS: Basophils # (A) 0.05 X 10*3/uL (0.00-0.10); Basophils % (A) 0.5 %; Eosinophils # (A) 0.11 X 10*3/uL (0.04-0.35); Eosinophils % (A) 1.2 %; HCT 41.9 % (37.2-46.3); HGB 13.1 g/dL (12.0-15.0); Lymphocytes # (A) 2.44 X 10*3/uL (0.90-5.00); Lymphocytes % (A) 25.9 %; MCH 27.5 pg (27.0-32.0); MCHC 31.3 g/dL (32.0-37.0); MCV 87.8 FL (80.0-97.0); Mean Platelet Volume 11.4 FL (9.5-12.2); Monocytes # (A) 0.52 X 10*3/uL (0.20-1.00); Monocytes % (A) 5.5 %; NRBC Per 100 WBC 0 X 10*3/uL (0.00-0.01); Neutrophils # (A) 6.26 X 10*3/uL (1.80-7.70); Neutrophils % (A) 66.5 %; Platelet Count 520 X 10*3/uL (140-440); RBC 4.77 X 10*6/uL (4.10-5.20); RDW 13.6 % (11.5-14.5); WBC 9.42 X 10*3/uL (4.50-10.00)
[2024-11-03 21:42] LABS: Erythrocyte Sedimentation Rate 49 mm/Hr (0-30)
== END | disposition home or self-care (01) ==
LOC: LABWHC1 15:58
PROVIDERS: ATTEND Orthopaedic Surgery
DX: M25.551 Pain in right hip (principal); M00.9 Pyogenic arthritis, unspecified
CPT/HCPCS: 36415; 85025; 85652; 86140

== ENCOUNTER 2024-11-11 11:01 | Day surgery (SDC) | payer MEDICARE, OTHER ==
[2024-11-10 08:56] VITALS: BMI 42.5
[~2024-11-11 11:01] MED LIST changes: -DEXAMETHASONE SOD PHOSPHATE 4 MG/ML 1 ML VIAL IV ONE; -ONDANSETRON 4 MG/2 ML VIAL IVP ONE; -Pre Op ABX Message 1 EACH MISC MISCELLANE ONE; -fentaNYL (PF) 50 MCG/ML 2 ML AMP IV PRN; +fentaNYL (PF) 50 MCG/ML 2 ML AMP IVP PRN
[2024-11-11 11:52] LABS: Glucose,Whole Blood 124 mg/dL (70-110)
[2024-11-11] MEDS: DEXAMETHASONE SOD PHOSPHATE 4 MG/ML 1 ML VIAL IV ONE (11:53)
[2024-11-11] MEDS: ONDANSETRON 4 MG/2 ML VIAL IVP ONE (11:53)
[2024-11-11] MEDS: LACTATED RINGERS 1,000 ML IV SCH (12:03)
[2024-11-11] MEDS: IV FLUID CONTINUATION 1,000 ML IV ONE (12:04)
[2024-11-11 12:58] LABS: ALT 17 U/L (4-34); AST 16 U/L (14-36); African American GFR (CKD) 73 (>60 ml/min/1.73 sqM); Albumin 3.7 g/dL (3.5-5.0); Alkaline Phosphatase 108 U/L (38-126); Anion Gap 5 mmol/L; Blood Urea Nitrogen 23 mg/dL (7-17); Calcium 9.5 mg/dL (8.4-10.2); Carbon Dioxide 28 mmol/L (22-30); Chloride 105 mmol/L (98-107); Glucose 114 mg/dL (74-99); Non-African American GFR(CKD) 63 (>60 ml/min/1.73 sqM); Potassium 4.1 mmol/L (3.5-5.1); Sodium 138 mmol/L (137-145); Total Bilirubin 0.7 mg/dL (0.2-1.3); Total Protein 6.5 g/dL (6.3-8.2)
[2024-11-11] MEDS ORDERED: ONDANSETRON 4 MG/2 ML VIAL IVP PRN (13:02)
[2024-11-11] MEDS ORDERED: HYDROmorphone 0.5 MG/0.5 ML SYRINGE IVP PRN ×2 (13:02)
[2024-11-11] MEDS ORDERED: NALOXONE 0.4 MG/ML 1 ML VIAL IV PRN (13:02)
[2024-11-11] MEDS ORDERED: MAGNESIUM HYDROXIDE 2,400 MG/30 ML CUP PO PRN (13:02)
[2024-11-11] MEDS ORDERED: HYDROcodone/APAP 5-325MG 1 EACH TAB PO PRN (13:02)
[2024-11-11] MEDS ORDERED: ACETAMINOPHEN TAB 500 MG TAB PO PRN (13:05)
[2024-11-11] MEDS ORDERED: PROPOFOL 10 MG/ML 20 ML VIAL IV ONE (13:12)
[2024-11-11] MEDS ORDERED: fentaNYL (PF) 50 MCG/ML 2 ML AMP ONE (13:12)
[2024-11-11] MEDS: SODIUM CHLORIDE 0.9% 50 ML with ceFAZolin 2,000 MG IV ONE ×2 (13:12→13:45)
[2024-11-11] MEDS ORDERED: MIDAZOLAM 2 MG/2 ML VIAL ONE (13:12)
[2024-11-11] MEDS ORDERED: LIDOCAINE 1% INJ 10MG/ML (20 ML MDV) ONE (13:12)
[2024-11-11] MEDS: ceFAZolin 3,000 MG in SODIUM CHLORIDE 0.9% IRRIGATIO 3,000 ML IRRIGATION ONE (13:38)
--- NOTE | 2024-11-11 13:51 | P.OP ---
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 She has had multiple incision and drainage procedures in the past and typically responds well with antibiotic treatment. She presented at the end of last week with increased redness and swelling. The distal aspect of her incision. After discussing the surgical nonsurgical treatment options with her at length recommended a formal incision and drainage of the right hip. Informed consent was obtained. 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 Patient was then brought to the operating room and placed supine on the operating room table. A general anesthetic was given by the anesthesia department. The right thigh was then prepped and draped in usual sterile fashion. A universal timeout was performed which confirmed the patient's name, surgical site, ALLERGIES, and consent. The area of the drainage was inspected and found to have moderate erythema. The area was at the mid-distal aspect of the right thigh incision. There was a rais ed area approximately 2 cm x 3 cm with purulent material just below the surface. This was surgically opened both proximally and distally from this site and the sinus was excised. There was a moderate amount of purulent material which was encountered, which was then cultured 2. The incision was carried down to the fascia, there is found to be a defect in the fascia. This was explored digitally and there appeared to be a tract going to the hip joint. This was thoroughly irrigated and debrided sharply with a knife and also a Rominger, deep to the fascia. After all the suspicious tissue was excised, the area was again inspected. Next, using pulsatile lavage, the wound was irrigated with 3000 L of antibiotic solution. After thorough irrigation the fascia was closed with 0 Vicryl. Subcutaneous tissues were closed with 3-0 Vicryl, followed by jade for the skin. A sterile dressing applied. The patient was then transferred recovery room stable condition. The welder assistant Mary Anna was required due the complexity of surgery the need for skilled surgical supervisor
[2024-11-11 14:07] LABS: Glucose,Whole Blood 111 mg/dL (70-110)
[2024-11-11] MEDS: HYDROmorphone 0.5 MG/0.5 ML SYRINGE IVP PRN ×2 (14:14→21:53)
[2024-11-11] MEDS: hydrOXYzine pamoate 25 MG CAP PO PRN (15:51)
[2024-11-11] MEDS: HYDROcodone/APAP 5-325MG 1 EACH TAB PO PRN (15:52)
[2024-11-11] MEDS: SODIUM CHLORIDE 0.9% 1,000 ML IV SCH (16:10)
[2024-11-11] MEDS: Pre Op ABX Message 1 EACH MISC MISCELLANE ONE (16:10)
[2024-11-11] MEDS: SENNOSIDES-DOCUSATE SODIUM 1 EACH TAB PO SCH (20:25)
--- NOTE | 2024-11-12 09:46 | P.PN ---
Subjective Progress Note Date: 11/12/24 Principal diagnosis: Infection right hip. Status post I&D right hip. History of total right hip arthroplasty. This is a 69-year-old female who is postop day #1 status post I&D of the right hip. Perioperative cultures are showing no organisms on Gram stain. No growth at 24 hours. The patient has no new complaints or concerns today. Vital signs and labs are stable. She did have saturation of her dressing which has been reinforced. Objective - Vital Signs Vital signs: Vital Signs Temp 98.2 F 11/12/24 06:45 Pulse 67 11/12/24 06:45 Resp 17 11/12/24 06:45 BP 130/69 11/12/24 06:45 Pulse Ox 97 11/12/24 06:45 FiO2 Intake & Output 11/11/24 11/12/24 11/12/24 18:59 06:59 18:59 Intake Total 1002 100 200 Output Total 130 Balance 872 100 200 Weight 105.3 kg Intake: IV 802 Oral 200 100 200 Output: Urine 100 Estimated Blood Loss 30 Other: Voiding Method Toilet # Voids 2 2 1 - Exam This is a pleasant 69-year-old female in no acute distress. She is alert and oriented x 3. Exam of the right hip reveals that her reinforce dressing is clean with no drainage on the dressing. She has full foot and ankle motion without difficulty or pain. Neurovascular status to the lower extremity is intact. - Labs CBC & Chem 7: 11/11/24 12:23 Labs: Abnormal Lab Results - Last 24 Hours (Table) 11/11/24 11/11/24 11/11/24 Range/Units 11:51 12:23 14:07 BUN 23 H (7-17) mg/dL Glucose 114 H (74-99) mg/dL POC Glucose (mg/dL) 124 H 111 H (70-110) mg/dL Microbiology - Last 24 Hours (Table) 11/11/24 13:34 Gram Stain - Preliminary Hip - Right Wound Culture - Preliminary 11/11/24 13:34 Gram Stain - Preliminary Hip - Right Wound Culture - Preliminary Assessment and Plan (1) Abscess of right hip Current Visit: No Status: Acute Code(s): L02.415 - CUTANEOUS ABSCESS OF RIGHT LOWER LIMB SNOMED Code(s): 515450 (2) Cellulitis Current Visit: No Status: Acute Code(s): L03.90 - CELLULITIS, UNSPECIFIED SNOMED Code(s): 275243424 (3) Pain in right hip Current Visit: No Status: Acute Code(s): M25.551 - PAIN IN RIGHT HIP SNOMED Code(s): 23964336 Plan: The clinical findings are discussed with the patient. We will continue care and await culture results as well as antibiotics recommendations from infectious disease. We are planning possible discharge to home with oral antibiotics tomorrow.
[2024-11-12] MEDS ORDERED: PANTOPRAZOLE 40 MG TABLET PO PRN (10:11)
[2024-11-12 10:45] LABS: Basophils # (A) 0.02 X 10*3/uL (0.00-0.10); Basophils % (A) 0.2 %; Eosinophils # (A) 0.05 X 10*3/uL (0.04-0.35); Eosinophils % (A) 0.5 %; HCT 39.6 % (37.2-46.3); HGB 12.2 g/dL (12.0-15.0); Lymphocytes # (A) 2.76 X 10*3/uL (0.90-5.00); Lymphocytes % (A) 25.6 %; MCH 27.4 pg (27.0-32.0); MCHC 30.8 g/dL (32.0-37.0); MCV 88.8 FL (80.0-97.0); Mean Platelet Volume 11.1 FL (9.5-12.2); Monocytes # (A) 0.62 X 10*3/uL (0.20-1.00); Monocytes % (A) 5.8 %; NRBC Per 100 WBC 0 X 10*3/uL (0.00-0.01); Neutrophils # (A) 7.29 X 10*3/uL (1.80-7.70); Neutrophils % (A) 67.6 %; Platelet Count 475 X 10*3/uL (140-440); RBC 4.46 X 10*6/uL (4.10-5.20); RDW 13.8 % (11.5-14.5); WBC 10.77 X 10*3/uL (4.50-10.00)
[2024-11-12] MEDS: MULTIVITAMINS, THERA 1 EACH TAB PO SCH (10:53)
[2024-11-12] MEDS: lisinopriL 10 MG TAB PO SCH (10:53)
[2024-11-12] MEDS ORDERED: VANCOMYCIN IV PER PHARMACY 1 EACH MISC MISCELLANE PRN ×2 (10:54→14:09)
--- NOTE | 2024-11-12 14:24 | P.CONS ---
History of Present Illness - Reason for Consult Consult date: 11/12/24 - History of Present Illness History of present illness: 69-year-old female with past medical history significant for hypertension, status post right hip arthroplasty, history of right hip chronic infection requiring multiple incision and drainage and antibiotics in the past and typically responded well with antibiotics who was following orthopedic as outpatient. Patient noticed increased redness and swelling around right hip about a week ago from the distal aspect of her incision. Patient admitted for formal incision and drainage of the right hip. Internal medicine consulted for medical management. Patient denied any fever, chills, sore throat shortness of breath chest pain palpitations nausea vomiting diarrhea constipation abdominal pain dysuria urgency frequency weakness or numbness of extremities. Patient is afebrile, heart rate 67, respiratory rate 17, blood pressure 130/69, saturating 97% on room air. WBC 10.7, hemoglobin 12.2, platelet 475. Sodium 138 potassium 4.1 chloride 105 CO2 28 BUN 23 creatinine 0.94. Liver profile unremarkable. Assessment and plan: Right hip infection: History of chronic right hip infection History of right total hip arthroplasty: Patient has history of right total hip arthroplasty, chronic right hip infection, requiring multiple I&D's and antibiotics in the past Follows orthopedic and infectious disease outpatient. Status post incision and drainage Cultures pending Vancomycin Hypertension: Resume lisinopril GERD: Omeprazole Diabetes mellitus: Not on any medication currently, diet controlled. DVT prophylaxis Per orthopedics Monitor vital signs and labs Labs and medication were reviewed. Continue same treatment. Further recommendations as per clinical course of the patient PHYSICAL EXAMINATION: GENERAL: The patient is A&O x3, NAD HEENT: EOMI, Sclerae anicteric, Moist Mucous membranes Neck: Supple, Non tender, No JVD PULMONARY: Equal breath souds B/L, No wheezing, No crackles. CARDIOVASCULAR: S1, S2 present. No murmurs, rubs, or gallops. ABDOMEN: Soft, nontender, nondistended, normoactive bowel sounds. No guarding or rebound tenderness. MUSCULOSKELETAL: No edema, No cyanosis. No clubbing. Normal ROM. Intact peripheral pulses. Right hipdressing clean dry intact. NEUROLOGICAL: CN 2-12 grossly intact. No FND REVIEW OF SYSTEMS: CONSTITUTIONAL: No fever, no malaise, no fatigue. HEENT: No recent visual problems or hearing problems. Denied any sore throat. CARDIOVASCULAR: No chest pain, orthopnea, PND, no palpitations, no syncope. PULMONARY: No shortness of breath, no cough, no hemoptysis. GASTROINTESTINAL: No diarrhea, no nausea, no vomiting, no abdominal pain. NEUROLOGICAL: No headaches, no weakness, no numbness. HEMATOLOGICAL: Denies any bleeding or petechiae. GENITOURINARY: Denies any burning micturition, frequency, or urgency. MUSCULOSKELETAL/RHEUMATOLOGICAL: Denies any joint pain, swelling, or any muscle pain. ENDOCRINE: Denies any polyuria or polydipsia. The rest of the 14-point review of systems is negative. Dictation was produced using [employer] dictation software. please excuse any grammatical, word or spelling errors. Past Medical History Past Medical History: Asthma, Diabetes Mellitus, GERD/Reflux, Hyperlipidemia, Hypertension, Osteoarthritis (OA) Additional Past Medical History / Comment(s): redness,swelling and warm to touch right hip-draining from swelling-treating w/ Keflex,hx palpitations, diet controlled diabetic, reactive airway disease, hx pancreatitis History of Any Multi-Drug Resistant Organisms: None Reported Past Surgical History: Section, Cholecystectomy, Hernia Repair, Joint Replacement Additional Past Surgical History / Comment(s): total left hip replacement December 2011, Right Hip replaced 2016, I & D right hip ( December & 2022,Sep 2023),incisional hernia Past Anesthesia/Blood Transfusion Reactions: Family History of Problems w/ Anesthesia, Postoperative Nausea & Vomiting (PONV) Additional Past Anesthesia/Blood Transfusion Reaction / Comm: dad-had CVA during back surgery & , sister-PONV, severe PONV. No hx blood transfusion Past Psychological History: Anxiety Additional Psychological History / Comment(s): for 10 years. Continues to work for a [employer]. No tobacco use. No recreational drug use. No international travel. No animal exposures. Does have exposure to her 2 grandchildren. Smoking Status: Never smoker Past Alcohol Use History: Rare Past Drug Use History: None Reported - Past Family History Brother(s) Family Medical History: Cancer Additional Family Medical History / Comment(s): brain CA- 65 Medications and Allergies Home Medications Medication Instructions Recorded Confirmed Type Omeprazole [PriLOSEC] 20 mg PO BID PRN 03/26/17 11/11/24 History Multivit with Calcium,Iron,Min 1 tab PO DAILY 12/26/22 11/10/24 History [Women's Multivitamin] Acetaminophen Tab [Tylenol Tab] 500 - 1,000 mg PO Q4H PRN 11/10/24 11/11/24 Hi story Cephalexin [Keflex] 500 mg PO Q6HR 11/10/24 11/11/24 History Cholecalciferol [Vitamin D3 (25 50 mcg PO DAILY 11/10/24 11/10/24 History Mcg = 1000 Iu)] lisinopriL [Prinivil] 10 mg PO QAM 11/10/24 11/11/24 History Cephalexin [Keflex] 500 mg PO Q6HR 10 Days #40 cap 11/11/24 Rx HYDROcodone/APAP 5-325MG [Malone 1 tab PO Q6HR PRN #28 tab 11/11/24 Rx 5-325] Sennosides [Senokot] 2 tab PO DAILY PRN #60 tablet 11/11/24 Rx Allergies Allergy/AdvReac Type Severity Reaction Status Date / Time morphine Allergy Severe turn red, Verified 11/11/24 11:18 skin peels, SOB, feels like burning inside adhesive tape Allergy red welts, Verified 11/11/24 11:18 fitzgerald ibuprofen [From Advil] Allergy Itching,hands Verified 11/11/24 11:18 burned,passed out meperidine [From Demerol] Allergy headaches Verified 11/11/24 11:18 gabapentin AdvReac Swelling,LIP Verified 11/11/24 11:18 NUMBNESS/TINGLING artificial sweetener AdvReac Nausea & Uncoded 11/11/24 11:18 Vomiting Physical Exam Vitals: Vital Signs Temp Pulse Resp BP Pulse Ox 11/12/24 06:45 98.2 F 67 17 130/69 97 11/12/24 01:24 97.8 F 76 17 124/52 93 L 11/11/24 19:26 98.0 F 69 17 183/74 93 L 11/11/24 16:34 68 152/71 95 11/11/24 16:18 71 179/91 96 11/11/24 16:03 65 187/83 94 L 11/11/24 15:48 61 175/83 95 11/11/24 15:33 97.6 F 68 17 189/72 95 11/11/24 15:00 70 16 156/70 96 11/11/24 14:45 68 16 163/70 94 L 11/11/24 14:30 67 16 157/70 95 Intake and Output 11/11/24 11/12/24 11/12/24 22:59 06:59 14:59 Intake Total 300 400 Balance 300 400 Intake: Oral 300 400 Other: Voiding Method Toilet # Voids 2 2 1 Weight 105.3 kg Results CBC & Chem 7: 11/12/24 06:38 11/11/24 12:23 Labs: Abnormal Lab Results - Last 24 Hours (Table) 11/12/24 Range/Units 06:38 WBC 10.77 H (4.50-10.00) X 10*3/uL MCHC 30.8 L (32.0-37.0) g/dL Plt Count 475 H (140-440) X 10*3/uL Microbiology - Last 24 Hours (Table) 11/11/24 13:34 Gram Stain - Preliminary Hip - Right Wound Culture - Preliminary 11/11/24 13:34 Gram Stain - Preliminary Hip - Right Wound Culture - Preliminary
[2024-11-12] MEDS: VANCOMYCIN 1,750 MG in SODIUM CHLORIDE 0.9% 500 ML 500 ML IVPB SCH ×2 (15:02→15:46)
[2024-11-12 20:27] LABS: Glucose,Whole Blood 115 mg/dL (70-110)
[2024-11-13 06:35] LABS: Glucose,Whole Blood 103 mg/dL (70-110)
[2024-11-13 07:13] LABS: African American GFR (CKD) 54 (>60 ml/min/1.73 sqM); Non-African American GFR(CKD) 47 (>60 ml/min/1.73 sqM)
[2024-11-13] MEDS: CHOLECALCIFEROL 25 MCG (1000 IU) TABLET PO SCH (07:46)
--- NOTE | 2024-11-13 11:04 | P.PN ---
Subjective Progress Note Date: 11/13/24 This is a 69-year-old female who is status post incision and drainage of the right hip. This is postoperative day #2 and patient is seen and evaluated at bedside today. Patient states that the right hip is sore this morning, but she has been up and walking. Objective - Vital Signs Vital signs: Vital Signs Temp 97.3 F L 11/13/24 07:10 Pulse 65 11/13/24 07:10 Resp 17 11/13/24 07:10 BP 158/71 11/13/24 07:10 Pulse Ox 98 11/13/24 07:10 FiO2 Intake & Output 11/12/24 11/13/24 11/13/24 18:59 06:59 18:59 Intake Total 600 540 120 Balance 600 540 120 Intake: Oral 600 540 120 Other: Voiding Method Toilet # Voids 3 2 # Bowel Movements 1 - Exam Vital signs are stable. Patient is in no acute distress and is alert and oriented 3. Calf is soft and nontender to palpation. Dressing is intact with mild amount of serosanguineous drainage present. Patient has full foot and ankle motion without pain or difficulty. Sensation intact. Neurovascular status and circulatory status are intact. - Labs CBC & Chem 7: 11/12/24 06:38 11/13/24 06:31 Labs: Abnormal Lab Results - Last 24 Hours (Table) 11/12/24 11/12/24 11/12/24 Range/Units 10:59 10:59 20:26 ESR 41 H (0-30) mm/Hr Creatinine (0.52-1.04) mg/dL POC Glucose (mg/dL) 115 H (70-110) mg/dL C-Reactive Protein 2.20 H (0.00-0.80) mg/dL 11/13/24 Range/Units 06:31 ESR (0-30) mm/Hr Creatinine 1.21 H (0.52-1.04) mg/dL POC Glucose (mg/dL) (70-110) mg/dL C-Reactive Protein (0.00-0.80) mg/dL Microbiology - Last 24 Hours (Table) 11/11/24 13:34 Gram Stain - Final Hip - Right Wound Culture - Final 11/11/24 13:34 Gram Stain - Preliminary Hip - Right Wound Culture - Preliminary Assessment and Plan (1) History of right hip replacement Current Visit: No Status: Acute Code(s): Z96.641 - PRESENCE OF RIGHT ARTIFICIAL HIP JOINT SNOMED Code(s): 962439961 (2) Infection of right prosthetic hip joint Current Visit: No Status: Acute Priority: Medium Code(s): T84.51XA - INFECT/INFLM REACTION DUE TO INTERNAL RIGHT HIP PROSTH, INIT SNOMED Code(s): 45414699833452080 (3) Pain in right hip Current Visit: No Status: Acute Code(s): M25.551 - PAIN IN RIGHT HIP SNOMED Code(s): 79025125 Plan: Continue routine postop care and pain control. Continue IV vancomycin. Cultures are negative. Weightbearing as tolerated with a walker. Daily dressing changes. Appreciate input from internal medicine. Anticipate discharge home tomorrow on oral antibiotics. Patient plans to continue outpatient follow-up with the wound care center upon discharge.
[2024-11-13 11:49] LABS: Glucose,Whole Blood 105 mg/dL (70-110)
--- NOTE | 2024-11-13 15:01 | P.PN ---
Subjective Progress Note Date: 11/13/24 Interval History: 69-year-old female with past medical history significant for hypertension, status post right hip arthroplasty, history of right hip chronic infection requiring multiple incision and drainage and antibiotics in the past and typically responded well with antibiotics who was following orthopedic as outpatient. Patient noticed increased redness and swelling around right hip about a week ago from the distal aspect of her incision. Patient admitted for formal incision and drainage of the right hip. Internal medicine consulted for medical management. Patient denied any fever, chills, sore throat shortness of breath chest pain palpitations nausea vomiting diarrhea constipation abdominal pain dysuria urgency frequency weakness or numbness of extremities. Patient is afebrile, heart rate 67, respiratory rate 17, blood pressure 130/69, saturating 97% on room air. WBC 10.7, hemoglobin 12.2, platelet 475. Sodium 138 potassium 4.1 chloride 105 CO2 28 BUN 23 creatinine 0.94. Liver profile unremarkable. 11/13--patient was seen and examined today. Remained afebrile, heart rate 70, r espiratory rate 17, blood pressure 158/73, saturating 96% on room air. Wound culture remain negative so far. Currently on vancomycin. Assessment and plan: Right hip infection: History of chronic right hip infection History of right total hip arthroplasty: Patient has history of right total hip arthroplasty, chronic right hip infection, requiring multiple I&D's and antibiotics in the past Follows orthopedic and infectious disease outpatient. Status post incision and drainage Cultures pending Vancomycin Hypertension: Resume lisinopril GERD: Omeprazole Diabetes mellitus: Not on any medication currently, diet controlled. DVT prophylaxis Per orthopedics Monitor vital signs and labs Labs and medication were reviewed. Continue same treatment. Further recommendations as per clinical course of the patient PHYSICAL EXAMINATION: GENERAL: The patient is A&O x3, NAD HEENT: EOMI, Sclerae anicteric, Moist Mucous membranes Neck: Supple, Non tender, No JVD PULMONARY: Equal breath souds B/L, No wheezing, No crackles. CARDIOVASCULAR: S1, S2 present. No murmurs, rubs, or gallops. ABDOMEN: Soft, nontender, nondistended, normoactive bowel sounds. No guarding or rebound tenderness. MUSCULOSKELETAL: No edema, No cyanosis. No clubbi REVIEW OF SYSTEMS: CONSTITUTIONAL: No fever or chills. CARDIOVASCULAR: No chest pain, palpitations or syncope. PULMONARY: No shortness of breath, no cough, sore throat. GASTROINTESTINAL: No nausea, vomiting, diarrhea, abdominal pain. : No Dysuria, urgency, frequency. Extremities: No edema. NEUROLOGICAL: No headaches, no weakness, or numbness Dictation was produced using [email or web address] dictation software. please excuse any grammatical, word or spelling errors. Objective - Vital Signs Vital signs: Vital Signs Temp 97.7 F 11/13/24 14:00 Pulse 70 11/13/24 14:00 Resp 17 11/13/24 14:00 BP 158/73 11/13/24 14:00 Pulse Ox 96 11/13/24 14:00 FiO2 Intake & Output 11/12/24 11/13/24 11/13/24 18:59 06:59 18:59 Intake Total 600 540 240 Balance 600 540 240 Intake: Oral 600 540 240 Other: Voiding Method Toilet # Voids 3 2 # Bowel Movements 1 - Labs CBC & Chem 7: 11/12/24 06:38 11/13/24 06:31 Labs: Abnormal Lab Results - Last 24 Hours (Table) 11/12/24 11/12/24 11/12/24 Range/Units 10:59 10:59 20:26 ESR 41 H (0-30) mm/Hr Creatinine (0.52-1.04) mg/dL POC Glucose (mg/dL) 115 H (70-110) mg/dL C-Reactive Protein 2.20 H (0.00-0.80) mg/dL 11/13/24 Range/Units 06:31 ESR (0-30) mm/Hr Creatinine 1.21 H (0.52-1.04) mg/dL POC Glucose (mg/dL) (70-110) mg/dL C-Reactive Protein (0.00-0.80) mg/dL Microbiology - Last 24 Hours (Table) 11/11/24 13:34 Anaerobic Culture - Preliminary Hip - Right 11/11/24 13:34 Anaerobic Culture - Preliminary Hip - Right 11/11/24 13:34 Gram Stain - Final Hip - Right Wound Culture - Final
[2024-11-13 17:03] LABS: Glucose,Whole Blood 98 mg/dL (70-110)
[2024-11-13 20:25] LABS: Glucose,Whole Blood 116 mg/dL (70-110)
[2024-11-14 01:24] VITALS: RESP 17
[2024-11-14] MEDS: VANCOMYCIN 1,750 MG in SODIUM CHLORIDE 0.9% 500 ML 500 ML IVPB SCH (06:03)
[2024-11-14 06:13] LABS: Glucose,Whole Blood 109 mg/dL (70-110)
[2024-11-14 06:42] LABS: African American GFR (CKD) 68 (>60 ml/min/1.73 sqM); Non-African American GFR(CKD) 59 (>60 ml/min/1.73 sqM)
[2024-11-14 07:51] VITALS: BP 147/68; PULSE 63; TEMP 97.8
[2024-11-14 08:29] LABS: Basophils # (A) 0.08 X 10*3/uL (0.00-0.10); Eosinophils # (A) 0.36 X 10*3/uL (0.04-0.35); Eosinophils % (A) 4.3 %; HCT 36.8 % (37.2-46.3); HGB 11.4 g/dL (12.0-15.0); Lymphocytes # (A) 3.81 X 10*3/uL (0.90-5.00); Lymphocytes % (A) 45.2 %; MCH 27.9 pg (27.0-32.0); Mean Platelet Volume 10.8 FL (9.5-12.2); Monocytes # (A) 0.54 X 10*3/uL (0.20-1.00); Monocytes % (A) 6.4 %; NRBC Per 100 WBC 0 X 10*3/uL (0.00-0.01); Neutrophils % (A) 42.7 %; Platelet Count 415 X 10*3/uL (140-440); RBC 4.09 X 10*6/uL (4.10-5.20); WBC 8.42 X 10*3/uL (4.50-10.00)
[2024-11-14 11:56] LABS: Glucose,Whole Blood 148 mg/dL (70-110)
--- NOTE | 2024-11-14 13:20 | P.PN ---
Subjective Interval History: 69-year-old female with past medical history significant for hypertension, status post right hip arthroplasty, history of right hip chronic infection requiring multiple incision and drainage and antibiotics in the past and typically responded well with antibiotics who was following orthopedic as outpatient. Patient noticed increased redness and swelling around right hip about a week ago from the distal aspect of her incision. Patient admitted for formal incision and drainage of the right hip. Internal medicine consulted for medical management. Patient denied any fever, chills, sore throat shortness of breath chest pain palpitations nausea vomiting diarrhea constipation abdominal pain dysuria urgency frequency weakness or numbness of extremities. Patient is afebrile, heart rate 67, respiratory rate 17, blood pressure 130/69, saturating 97% on room air. WBC 10.7, hemoglobin 12.2, platelet 475. Sodium 138 potassium 4.1 chloride 105 CO2 28 BUN 23 creatinine 0.94. Liver profile unremarkable. 11/13--patient was seen and examined today. Remained afebrile, heart rate 70, respiratory rate 17, blood pressure 158/73, saturating 96% on room air. Wound culture remain negative so far. Currently on vancomycin. 11/14--patient was seen and examined today. Remained afebrile, heart rate 63, respiratory rate 17, blood pressure 147/68, saturating 98% on room air. Current on vancomycin, orthopedic planning for antibiotic at discharge, patient also follow-up with her infectious disease specialist at discharge. WBCs 8.4, hemoglobin 11.4, platelet 415. Assessment and plan: Right hip infection: History of chronic right hip infection History of right total hip arthroplasty: Patient has history of right total hip arthroplasty, chronic right hip infection, requiring multiple I&D's and antibiotics in the past Follows orthopedic and infectious disease outpatient. Status post incision and drainage Cultures negative so far Currently on vancomycin. per orthopedic plan for oral antibiotics at discharge. Outpatient follow-up with infectious disease. Hypertension: Resume lisinopril GERD: Omeprazole Diabetes mellitus: Not on any medication currently, diet controlled. DVT prophylaxis Per orthopedics Monitor vital signs and labs Labs and medication were reviewed. Continue same treatment. Further recommendations as per clinical course of the patient PHYSICAL EXAMINATION: GENERAL: The patient is A&O x3, NAD HEENT: EOMI, Sclerae anicteric, Moist Mucous membranes Neck: Supple, Non tender, No JVD PULMONARY: Equal breath souds B/L, No wheezing, No crackles. CARDIOVASCULAR: S1, S2 present. No murmurs, rubs, or gallops. ABDOMEN: Soft, nontender, nondistended, normoactive bowel sounds. No guarding or rebound tenderness. MUSCULOSKELETAL: No edema, No cyanosis. No clubbi REVIEW OF SYSTEMS: CONSTITUTIONAL: No fever or chills. CARDIOVASCULAR: No chest pain, palpitations or syncope. PULMONARY: No shortness of breath, no cough, sore throat. GASTROINTESTINAL: No nausea, vomiting, diarrhea, abdominal pain. : No Dysuria, urgency, frequency. Extremities: No edema. NEUROLOGICAL: No headaches, no weakness, or numbness Dictation was produced using [email or web address] software. please excuse any grammatical, word or spelling errors. Objective - Vital Signs Vital signs: Vital Signs Temp 97.8 F 11/14/24 07:07 Pulse 63 11/14/24 07:07 Resp 17 11/14/24 07:07 BP 147/68 11/14/24 07:07 Pulse Ox 98 11/14/24 07:07 FiO2 Intake & Output 11/13/24 11/14/24 11/14/24 18:59 06:59 18:59 Intake Total 490 Balance 490 Intake: Oral 490 Other: Voiding Method Toilet # Voids 4 3 3 - Labs CBC & Chem 7: 11/14/24 05:35 11/14/24 05:35 Labs: Abnormal Lab Results - Last 24 Hours (Table) 11/13/24 11/14/24 11/14/24 Range/Units 20:24 05:35 11:54 RBC 4.09 L (4.10-5.20) X 10*6/uL Hgb 11.4 L (12.0-15.0) g/dL Hct 36.8 L (37.2-46.3) % MCHC 31.0 L (32.0-37.0) g/dL Eosinophils # 0.36 H (0.04-0.35) X 10*3/uL POC Glucose (mg/dL) 116 H 148 H (70-110) mg/dL Microbiology - Last 24 Hours (Table) 11/12/24 10:59 Blood Culture - Preliminary Blood 11/11/24 13:34 Anaerobic Culture - Preliminary Hip - Right 11/11/24 13:34 Anaerobic Culture - Preliminary Hip - Right
--- NOTE | 2024-11-14 13:28 | P.DS ---
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 The patient presented for evaluation as an outpatient after experiencing an increase in swelling and redness. After discussion and consideration patient consents to proceed with incision and drainage of the right hip. The patient is seen preoperatively by Dr. Barcenas. Patient is admitted to [facility] on 11/11/2024 for incision and drainage of the right hip. The procedure is performed without complication or sequelae. The patient is doing well postoperatively. Labs and vital signs are stable on day of discharge. Final cultures were negative. On day of discharge patient's hip incision is healing well. There is minimal erythema. There is mild drainage noted at this time. There is minimal soft tissue swelling to the hip and thigh. Patient has full foot and ankle motion without difficulty or pain. Calf is soft and nontender to palpation. Neurovascular status to the right lower extremity is intact. Patient is discharged home in good condition. Please see med rec for accurate list of home medications. Plan - Discharge Summary Discharge Rx Participant: No New Discharge Prescriptions: New HYDROcodone/APAP 5-325MG [[place] 5-325] 1 tab PO Q6HR PRN #28 tab PRN Reason: Pain Cephalexin [Keflex] 500 mg PO Q6HR 10 Days #40 cap Sennosides [Senokot] 2 tab PO DAILY PRN #60 tablet PRN Reason: Constipation Continue Omeprazole [PriLOSEC] 20 mg PO BID PRN PRN Reason: gerd Multivit with Calcium,Iron,Min [Women's Multivitamin] 1 tab PO DAILY lisinopriL [Prinivil] 10 mg PO QAM Cholecalciferol [Vitamin D3 (25 Mcg = 1000 Iu)] 50 mcg PO DAILY Acetaminophen Tab [Tylenol] 500 - 1,000 mg PO Q4H PRN PRN Reason: Pain No Action Cephalexin [Keflex] 500 mg PO Q6HR Discharge Medication List Omeprazole [PriLOSEC] 20 mg PO BID PRN 03/26/17 [History] Multivit with Calcium,Iron,Min [Women's Multivitamin] 1 tab PO DAILY 12/26/22 [History] Acetaminophen Tab [Tylenol] 500 - 1,000 mg PO Q4H PRN 11/10/24 [History] Cephalexin [Keflex] 500 mg PO Q6HR 11/10/24 [History] Cholecalciferol [Vitamin D3 (25 Mcg = 1000 Iu)] 50 mcg PO DAILY 11/10/24 [History] lisinopriL [Prinivil] 10 mg PO QAM 11/10/24 [History] Cephalexin [Keflex] 500 mg PO Q6HR 10 Days #40 cap 11/14/24 [Rx] HYDROcodone/APAP 5-325MG [[place] 5-325] 1 tab PO Q6HR PRN #28 tab 11/14/24 [Rx] Sennosides [Senokot] 2 tab PO DAILY PRN #60 tablet 11/14/24 [Rx] Follow up Appointment(s)/Referral(s): Brody Barcenas DO [Doctor of Osteopathic Medicine] - 11/24/24 1:10 pm Activity/Diet/Wound Care/Special Instructions: Daily dressing changes. May shower in 48-72 hours if no drainage. Otherwise, cover incision in the shower. [place] to be removed in 10-14 days. Please take medications as prescribed. Please follow up with the wound care center and [facility]. Call with any questions or concerns, . Discharge Disposition: HOME SELF-CARE
[2024-11-16] MEDS ORDERED: VANCOMYCIN TROUGH DUE 1 EACH MISC MISCELLANE ONE (05:00)
== END 2024-11-14 14:53 | disposition home or self-care (01) ==
LOC: OR 11:01 → 4SSUR 14:00 → OR 11-14 14:53
PROVIDERS: ATTEND Orthopaedic Surgery
DX: T84.51XA Infection and inflammatory reaction due to internal right hip prosthesis, initial encounter (principal); Z96.642 Presence of left artificial hip joint; I10 Essential (primary) hypertension; E11.9 Type 2 diabetes mellitus without complications; J45.909 Unspecified asthma, uncomplicated; E78.5 Hyperlipidemia, unspecified; Z88.5 Allergy status to narcotic agent; Z88.6 Allergy status to analgesic agent; Z88.8 Allergy status to other drugs, medicaments and biological substances
CPT/HCPCS: 97161; 97165; 80053; 85652; 82565; 85025 ×2; 86140; 87040; 87070; 87205; 87075; 10180; 11043; J2250; J3370 ×3; J1100; J0690 ×3; J2405; J2003; J3010; J2704; J1171 ×2

== ENCOUNTER → 2024-11-18 | Outpatient (CLI) | payer MEDICARE ==
[2024-11-18 14:53] LABS: Basophils # (A) 0.05 X 10*3/uL (0.00-0.10); Basophils % (A) 0.6 %; Eosinophils % (A) 2.5 %; HGB 12.6 g/dL (12.0-15.0); Lymphocytes # (A) 2.37 X 10*3/uL (0.90-5.00); Lymphocytes % (A) 29.8 %; MCHC 30.7 g/dL (32.0-37.0); MCV 87.8 FL (80.0-97.0); Monocytes # (A) 0.47 X 10*3/uL (0.20-1.00); Monocytes % (A) 5.9 %; NRBC Per 100 WBC 0 X 10*3/uL (0.00-0.01); Neutrophils # (A) 4.82 X 10*3/uL (1.80-7.70); Neutrophils % (A) 60.8 %; Platelet Count 485 X 10*3/uL (140-440); RBC 4.67 X 10*6/uL (4.10-5.20); RDW 14.1 % (11.5-14.5); WBC 7.94 X 10*3/uL (4.50-10.00)
[2024-11-18 15:17] LABS: ALT 19 U/L (8-44); AST 18 U/L (13-35); Albumin/Globulin Ratio 1.48 Ratio (1.60-3.17); Alkaline Phosphatase 116 U/L (41-126); Blood Urea Nitrogen 21.1 mg/dL (9.0-27.0); Calcium 9.9 mg/dL (8.7-10.3); Carbon Dioxide 27.3 mmol/L (21.6-31.8); Chloride 106 mmol/L (96-109); Globulin 2.7 g/dL (1.6-3.3); Glucose 133 mg/dL (70-110); Potassium 4.6 mmol/L (3.5-5.5); Sodium 143 mmol/L (135-145); Total Bilirubin 0.3 mg/dL (0.3-1.2); Total Protein 6.7 g/dL (6.2-8.2)
[2024-11-18 15:52] LABS: Erythrocyte Sedimentation Rate 59 mm/Hr (0-30)
== END | disposition home or self-care (01) ==
LOC: LABWHC1 09:23
PROVIDERS: ATTEND Thoracic Surgery (Cardiothoracic Vascular Surgery)
DX: T84.51XD Infection and inflammatory reaction due to internal right hip prosthesis, subsequent encounter (principal); L97.114 Non-pressure chronic ulcer of right thigh with necrosis of bone
CPT/HCPCS: 36415; 80053; 85025; 85652; 86140

== ENCOUNTER 2024-11-26 07:15 | Day surgery (SDC) | payer MEDICARE, OTHER ==
[2024-11-26 07:52] LABS: Glucose,Whole Blood 161 mg/dL (70-110)
[2024-11-26 08:28] VITALS: BP 196/89; PULSE 88; RESP 16; TEMP 96.9
[2024-11-26] MEDS: DAPTOmycin 500 MG in SODIUM CHLORIDE 0.9% 50 ML IVPB ONE (09:41)
== END 2024-11-26 10:12 | disposition home or self-care (01) ==
LOC: CATHCVL 07:15
PROVIDERS: ATTEND Internal Medicine Infectious Disease
DX: T84.51XD Infection and inflammatory reaction due to internal right hip prosthesis, subsequent encounter (principal); L97.114 Non-pressure chronic ulcer of right thigh with necrosis of bone; I10 Essential (primary) hypertension; E11.9 Type 2 diabetes mellitus without complications; Z96.643 Presence of artificial hip joint, bilateral; Z88.5 Allergy status to narcotic agent; Z88.8 Allergy status to other drugs, medicaments and biological substances; Z88.6 Allergy status to analgesic agent; Z91.02 Food additives allergy status
CPT/HCPCS: 36573; C1751; J0878

== ENCOUNTER 2024-12-17 21:03 | Emergency (ER) | payer MEDICARE, OTHER ==
[2024-12-17 21:07] VITALS: TEMP 97.9
--- NOTE | 2024-12-17 21:56 | XR ---
EXAMINATION TYPE: XR chest 2V DATE OF EXAM: 12/17/2024 9:37 PM COMPARISON: Chest radiographs from 10/09/2016 CLINICAL INDICATION: Female, 69 years old with history of Chest Pain; [facility] TECHNIQUE: XR chest 2V Frontal and lateral views of the chest. FINDINGS: Lungs/Pleura: There is no evidence of pleural effusion, focal consolidation, or pneumothorax. Pulmonary vascularity: Unremarkable. Heart/mediastinum: Cardiomediastinal silhouette is unremarkable. Musculoskeletal: No acute osseous pathology. IMPRESSION: No acute cardiopulmonary disease/process. [facility], , 12/17/2024 9:54 PM
[2024-12-17] MEDS: lisinopriL 20 MG TAB PO STA (22:08)
[2024-12-17 22:12] LABS: Basophils # (A) 0.06 10*3/uL (0.00-0.10); Basophils % (A) 0.6 %; Eosinophils # (A) 0.55 10*3/uL (0.04-0.35); Eosinophils % (A) 5.2 %; HCT 37.5 % (37.2-46.3); Lymphocytes # (A) 3.81 10*3/uL (0.90-5.00); Lymphocytes % (A) 36.1 %; MCH 27.5 pg (27.0-32.0); MCV 85.8 fL (80.0-97.0); Mean Platelet Volume 10.2 fL (9.5-12.2); Monocytes # (A) 0.64 10*3/uL (0.20-1.00); Monocytes % (A) 6.1 %; Neutrophils # (A) 5.47 10*3/uL (1.80-7.70); Neutrophils % (A) 51.8 %; Platelet Count 439 10*3/uL (140-440); RBC 4.37 10*6/uL (4.10-5.20); RDW 14.3 % (11.5-14.5); WBC 10.55 10*3/uL (4.50-10.00)
--- NOTE | 2024-12-17 22:16 | ED ---
General Adult HPI - General Source: patient Mode of arrival: ambulatory Limitations: no limitations <Chandler Yi - Last Filed: 12/17/24 22:15> <Willian Thorne - Last Filed: 12/29/24 06:10> - General Chief complaint: Recheck/Abnormal Lab/Rx Stated complaint: headache, high blood pressure Time Seen by Provider: 12/17/24 22:16 - History of Present Illness Initial comments: 69-year-old female presenting with chief complaint of high blood pressure and headache. Patient states that symptoms started today when she woke up. She took a double dose of her blood pressure medication at home and reports that symptoms have still persisted. No chest pain or difficulty breathing. (Chandler Yi) - Related Data Home Medications Medication Instructions Recorded Confirmed Omeprazole [PriLOSEC] 20 mg PO BID PRN 03/26/17 12/26/24 Multivit with Calcium,Iron,Min 1 tab PO DAILY 12/26/22 12/26/24 [Women's Multivitamin] Acetaminophen Tab [Tylenol] 500 - 1,000 mg PO Q4H PRN 11/10/24 12/26/24 Cholecalciferol [Vitamin D3 (25 50 mcg PO DAILY 11/10/24 12/26/24 Mcg = 1000 Iu)] lisinopriL [Prinivil] 20 mg PO BID 11/10/24 12/26/24 Ondansetron [Zofran] 4 mg PO DIRECTED PRN 11/25/24 12/26/24 Metoprolol Tartrate [Lopressor] 1 tab PO BID 12/18/24 12/26/24 Previous Rx's Medication Instructions Recorded HYDROcodone/APAP 5-325MG [[place] 1 tab PO Q6HR PRN #28 tab 11/14/24 5-325] Sennosides [Senokot] 2 tab PO DAILY PRN #60 tablet 11/14/24 Metoprolol Tartrate 25 mg PO BID #40 tab 12/18/24 amLODIPine [Norvasc] 5 mg PO DAILY #30 tab 12/22/24 Allergies Allergy/AdvReac Type Severity Reaction Status Date / Time morphine Allergy Severe turn red, Verified 12/26/24 13:46 skin peels, SOB, feels like burning inside adhesive tape Allergy red welts, Verified 12/26/24 13:46 fitzgerald ibuprofen [From Advil] Allergy Itching,hands Verified 12/26/24 13:46 burned,passed out meperidine [From Demerol] Allergy headaches Verified 12/26/24 13:46 gabapentin AdvReac Swelling,LIP Verified 12/26/24 13:46 NUMBNESS/TINGLING Review of Systems ROS Other: All systems not noted in ROS Statement are negative. <Chandler Yi - Last Filed: 12/17/24 22:15> ROS Other: All systems not noted in ROS Statement are negative. <Willian Thorne - Last Filed: 12/29/24 06:10> ROS Statement: Those systems with pertinent positive or pertinent negative responses have been documented in the HPI. Past Medical History Past Medical History: Asthma, Diabetes Mellitus, GERD/Reflux, Hyperlipidemia, Hypertension, Osteoarthritis (OA), Skin Disorder Additional Past Medical History / Comment(s): redness,swelling and warm to touch right hip-draining from swelling-treating w/ Keflex, going to Wound Center, hx palpitations, diet controlled diabetic, reactive airway disease, hx pancreatitis History of Any Multi-Drug Resistant Organisms: None Reported Past Surgical History: Section, Cholecystectomy, Hernia Repair, Joint Replacement Additional Past Surgical History / Comment(s): total left hip replacement December 2011, Right Hip replaced 2016, I & D right hip x5-most recent November 2024, incisional hernia Past Anesthesia/Blood Transfusion Reactions: Family History of Problems w/ Anesthesia, Postoperative Nausea & Vomiting (PONV) Additional Past Anesthesia/Blood Transfusion Reaction / Comment(s): dad-had CVA during back surgery & , sister-PONV, severe PONV. No hx blood transfusion Past Psychological History: Anxiety Smoking Status: Never smoker Past Alcohol Use History: None Reported Past Drug Use History: None Reported - Past Family History Brother(s) Family Medical History: Cancer Additional Family Medical History / Comment(s): brain CA- 65 <Chandler Yi - Last Filed: 12/17/24 22:15> General Exam Limitations: no limitations <Chandler Yi - Last Filed: 12/17/24 22:15> General appearance: alert, in no apparent distress Head exam: Present: atraumatic, normocephalic Eye exam: Present: normal appearance. Absent: scleral icterus, conjunctival injection ENT exam: Present: normal oropharynx Neck exam: Present: normal inspection Respiratory exam: Present: normal lung sounds bilaterally. Absent: respiratory distress, wheezes, rales, rhonchi, stridor, accessory muscle use Cardiovascular Exam: Present: regular rate, normal rhythm, normal heart sounds. Absent: systolic murmur, diastolic murmur, rubs, gallop GI/Abdominal exam: Present: soft. Absent: distended, tenderness, guarding, rebound, rigid, mass Extremities exam: Present: normal inspection, normal capillary refill. Absent: pedal edema, calf tenderness Back exam: Present: normal inspection Neurological exam: Present: alert Skin exam: Present: warm, dry, intact, normal color. Absent: rash <Willian Thorne - Last Filed: 12/29/24 06:10> - General Exam Comments Initial Comments: Visual Physical Exam Vital signs reviewed General: Well-appearing, nontoxic, no acute distress. Head: Normocephalic, atraumatic Eyes: PERRLA, EOMI ENT: Airway patent Chest: Nonlabored breathing Skin: No visual rash, normal skin tone Neuro: Alert and oriented 3 Musculoskeletal: No gross abnormalities (Chandler Yi) Course Vital Signs 12/17/24 12/17/24 12/17/24 21:04 22:06 23:17 Temperature 97.9 F Pulse Rate 89 75 69 Respiratory 18 19 18 Rate Blood Pressure 203/100 183/94 195/113 O2 Sat by Pulse 98 98 Oximetry 12/18/24 12/18/24 00:34 01:31 Temperature Pulse Rate 83 73 Respiratory 18 18 Rate Blood Pressure 190/90 125/75 O2 Sat by Pulse 98 98 Oximetry EKG Findings - EKG Results: EKG: interpreted by ERMD, sinus rhythm (Rate 76 bpm), normal axis, normal QRS, normal ST/T, no acute changes <Willian Thorne - Last Filed: 12/29/24 06:10> Medical Decision Making - Lab Data Result diagrams: 12/17/24 21:58 <Chandler Yi - Last Filed: 12/17/24 22:15> - Lab Data Result diagrams: 12/17/24 21:58 12/17/24 21:58 <Willian Thorne - Last Filed: 12/29/24 06:10> - Medical Decision Making I performed the quick note portion of this visit, electronically signed Chandler Yi PA-C (Chandler Yi) The patient had chest x-ray that I interpreted as negative for acute infiltrate, pneumothorax, congestive heart failure. The patient has CT scan of the brain that I interpreted as negative for acute intracranial hemorrhage, mass effect or midline shift. The patient had duplex Doppler study of the legs that I interpreted as negative for DVT. Was pt. sent in by a medical professional or institution (, [facility]AN[facility], STATION ENGINEER, urgent care, hospital, or long term...) When possible be specific @ -[No] Did you speak to anyone other than the patient for history (EMS, parent, family, police, friend...)? What history was obtained from this source @ -[No] Did you review nursing and triage notes (agree or disagree)? Why? @ -[I reviewed and agree with nursing and triage notes] Were old charts reviewed (outside hosp., previous admission, EMS record, old EKG, old radiological studies, urgent care reports/EKG's, long term records)? Report findings @ -[No old charts were reviewed] Differential Diagnosis (chest pain, altered mental status, abdominal pain women, abdominal pain men, vaginal bleeding, weakness, fever, dyspnea, syncope, headache, dizziness, GI bleed, back pain, seizure, CVA, palpatations, mental health, musculoskeletal)? @ -[Amphetamine Toxicity Anxiety Disorders Apnea, Sleep Cocaine-Related Cardiomyopathy Heart Failure Hyperthyroidism, Thyroid Storm, and Graves Disease Hypertrophic Cardiomyopathy Myocardial Infarction Phencyclidine Toxicity Primary Aldosteronism Stroke, Hemorrhagic Stroke, Ischemic EKG interpreted by me (3pts min.). @ -[I interpreted as above] X-rays interpreted by me (1pt min.). @ -[I interpreted as above CT interpreted by me (1pt min.). @ -[I interpreted as above U/S interpreted by me (1pt. min.). @ -[I interpreted as above What testing was considered but not performed or refused? (CT, X-rays, U/S, labs)? Why? @ -[None] What meds were considered but not given or refused? Why? @ -[None] Did you discuss the management of the patient with other professionals (professionals i.e. , [facility]ANCHO, STATION ENGINEER, lab, RT, psych nurse, social welfare research worker, soubrette, teacher, geospatial program management officer, family independence case manager)? Give summary @ -[No] Was smoking cessation discussed for >3mins.? @ -[No] Was critical care preformed (if so, how long)? @ -[No] Were there social determinants of health that impacted care today? How? (Homelessness, low income, unemployed, alcoholism, drug addiction, transportation, low edu. Level, literacy, decrease access to med. care, retirement, rehab)? @ -[No] Was there de-escalation of care discussed even if they declined (Discuss DNR or withdrawal of care, Hospice)? DNR status @ -[No] What co-morbidities impacted this encounter? (DM, HTN, Smoking, COPD, CAD, Cancer, CVA, ARF, Chemo, Hep., AIDS, mental health diagnosis, sleep apnea, morbid obesity)? @ -Hypertension Was patient admitted / discharged? Hospital course, mention meds given and route, prescriptions, significant lab abnormalities, going to OR and other pertinent info. @ -This patient is 69-year-old woman presenting with recent elevation of her blood pressure not controlled with her usual medication and also with worst headache of life. The patient had workup including imaging studies that were unremarkable. She did have improvement of her blood pressure with treatment here. At this point stable to continue as outpatient. Discussed appropriate further care and follow-up as well as return parameters. Undiagnosed new problem with uncertain prognosis? @ -[No] Drug Therapy requiring intensive monitoring for toxicity (Heparin, Nitro, Insulin, Cardizem)? @ -[No] Were any procedures done? @ -[No] Diagnosis/symptom? @ -[Acute on chronic hypertension Acute headache Elevated D-dimer Acute, or Chronic, or Acute on Chronic? @ -[default] Uncomplicated (without systemic symptoms) or Complicated (systemic symptoms)? @ -[Uncomplicated Side effects of treatment? @ -[No] Exacerbation, Progression, or Severe Exacerbation? @ -[No] Poses a threat to life or bodily function? How? (Chest pain, USA, NM, pneumonia, PE, COPD, DKA, ARF, appy, cholecystitis, CVA, Diverticulitis, Homicidal, Suicidal, threat to staff... and all critical care pts) @ -[No] All treatments are based on ideal body weight as in ED triage (Willian Thorne) - Lab Data Lab Results 12/17/24 12/17/24 12/17/24 Range/Units 21:58 21:58 21:58 WBC 10.55 H (4.50-10.00) 10*3/uL RBC 4.37 (4.10-5.20) 10*6/uL Hgb 12.0 (12.0-15.0) g/dL Hct 37.5 (37.2-46.3) % MCV 85.8 (80.0-97.0) fL MCH 27.5 (27.0-32.0) pg MCHC 32.0 (32.0-37.0) g/dL Plt Count 439 (140-440) 10*3/uL MPV 10.2 (9.5-12.2) fL Immature Gran % (Auto) 0.2 % Neutrophils % 51.8 % Lymphocytes % 36.1 % Monocytes % 6.1 % Eosinophils % 5.2 % Basophils % 0.6 % Immature Gran # 0.02 (0.00-0.04) 10*3/uL Neutrophils # 5.47 (1.80-7.70) 10*3/uL Lymphocytes # 3.81 (0.90-5.00) 10*3/uL Monocytes # 0.64 (0.20-1.00) 10*3/uL Eosinophils # 0.55 H (0.04-0.35) 10*3/uL Basophils # 0.06 (0.00-0.10) 10*3/uL PT 9.9 L (10.0-12.5) sec INR 0.9 (<1.2) APTT 23.0 (22.0-30.0) sec D-Dimer 1.17 H (<0.60) mg/L FEU Sodium 139 (137-145) mmol/L Potassium 4.3 (3.5-5.1) mmol/L Chloride 104 (98-107) mmol/L Carbon Dioxide 31 H (22-30) mmol/L Anion Gap 4 mmol/L BUN 22 H (7-17) mg/dL Creatinine 0.96 (0.52-1.04) mg/dL Est GFR (CKD-EPI)AfAm 71 (>60 ml/min/1.73 sqM) Est GFR (CKD-EPI)NonAf 61 (>60 ml/min/1.73 sqM) Glucose 131 H (74-99) mg/dL Calcium 9.7 (8.4-10.2) mg/dL Magnesium 1.8 (1.6-2.3) mg/dL Total Bilirubin 0.4 (0.2-1.3) mg/dL AST 20 (14-36) U/L ALT 24 (4-34) U/L Alkaline Phosphatase 109 (38-126) U/L Troponin I (0.000-0.034) ng/mL NT-Pro-B Natriuret Pep 189 pg/mL Total Protein 6.6 (6.3-8.2) g/dL Albumin 3.7 (3.5-5.0) g/dL 12/17/24 Range/Units 21:58 WBC (4.50-10.00) 10*3/uL RBC (4.10-5.20) 10*6/uL Hgb (12.0-15.0) g/dL Hct (37.2-46.3) % MCV (80.0-97.0) fL MCH (27.0-32.0) pg MCHC (32.0-37.0) g/dL Plt Count (140-440) 10*3/uL MPV (9.5-12.2) fL Immature Gran % (Auto) % Neutrophils % % Lymphocytes % % Monocytes % % Eosinophils % % Basophils % % Immature Gran # (0.00-0.04) 10*3/uL Neutrophils # (1.80-7.70) 10*3/uL Lymphocytes # (0.90-5.00) 10*3/uL Monocytes # (0.20-1.00) 10*3/uL Eosinophils # (0.04-0.35) 10*3/uL Basophils # (0.00-0.10) 10*3/uL PT (10.0-12.5) sec INR (<1.2) APTT (22.0-30.0) sec D-Dimer (<0.60) mg/L FEU Sodium (137-145) mmol/L Potassium (3.5-5.1) mmol/L Chloride (98-107) mmol/L Carbon Dioxide (22-30) mmol/L Anion Gap mmol/L BUN (7-17) mg/dL Creatinine (0.52-1.04) mg/dL Est GFR (CKD-EPI)AfAm (>60 ml/min/1.73 sqM) Est GFR (CKD-EPI)NonAf (>60 ml/min/1.73 sqM) Glucose (74-99) mg/dL Calcium (8.4-10.2) mg/dL Magnesium (1.6-2.3) mg/dL Total Bilirubin (0.2-1.3) mg/dL AST (14-36) U/L ALT (4-34) U/L Alkaline Phosphatase (38-126) U/L Troponin I <0.012 (0.000-0.034) ng/mL NT-Pro-B Natriuret Pep pg/mL Total Protein (6.3-8.2) g/dL Albumin (3.5-5.0) g/dL Disposition <Chandler Yi - Last Filed: 12/17/24 22:15> Is patient prescribed a controlled substance at d/c from ED?: No <Willian Thorne - Last Filed: 12/29/24 06:10> Clinical Impression: Hypertension, Headache Disposition: HOME SELF-CARE Condition: Good Instructions (If sedation given, give patient instructions): Acute Headache (ED), Hypertension (ED) Prescriptions: Metoprolol Tartrate 25 mg PO BID #40 tab Referrals: None,Stated [REFERRING] - 1-2 days
[2024-12-17 22:24] LABS: ALT 24 U/L (4-34); AST 20 U/L (14-36); African American GFR (CKD) 71 (>60 ml/min/1.73 sqM); Albumin 3.7 g/dL (3.5-5.0); Alkaline Phosphatase 109 U/L (38-126); Anion Gap 4 mmol/L; Blood Urea Nitrogen 22 mg/dL (7-17); Calcium 9.7 mg/dL (8.4-10.2); Carbon Dioxide 31 mmol/L (22-30); Chloride 104 mmol/L (98-107); Glucose 131 mg/dL (74-99); Magnesium 1.8 mg/dL (1.6-2.3); Non-African American GFR(CKD) 61 (>60 ml/min/1.73 sqM); Potassium 4.3 mmol/L (3.5-5.1); Sodium 139 mmol/L (137-145); Total Bilirubin 0.4 mg/dL (0.2-1.3); Total Protein 6.6 g/dL (6.3-8.2)
[2024-12-17 22:30] LABS: INR 0.9 (<1.2); Prothrombin Time 9.9 sec (10.0-12.5)
[2024-12-17 22:33] LABS: NT-Pro-B-Type Natriuretic Pept 189 pg/mL
[2024-12-17] MEDS: cloNIDine HCL 0.2 MG TAB PO STA (23:13)
[2024-12-17 23:18] VITALS: RESP 18
--- NOTE | 2024-12-18 00:17 | CT ---
EXAMINATION TYPE: CT brain wo con DATE OF EXAM: 12/17/2024 11:36 PM COMPARISON: 08/05/2018 CLINICAL INDICATION: Female, 69 years old with history of headache, WHOL, Pt presents to ED for c/o h eadache and elevated blood pressure at home. Pt states was seen by PCP today and increased BP meds. P t states BP still elevated after double dose. TECHNIQUE: Brain: Axial CT images of the brain were obtained with coronal and sagittal reformats created and rev iewed. Contrast used: None. Oral contrast used: None. CT DLP: 1171 mGycm, Automated exposure control for dose reduction was used. FINDINGS: Brain: Extra-axial spaces: No abnormal extra-axial fluid collections. Ventricular system: Within normal limits Cerebral parenchyma: No acute intraparenchymal hemorrhage or mass effect. The hilliard-white junction is well differentiated. Cerebellum: The cerebellar tonsils extend below the foramen magnum up to 5 mm. Mass effect: No evidence of midline shift. Intracranial vasculature: unremarkable Soft tissues: Normal. Calvarium/osseous structures: No depressed skull fracture. Paranasal sinuses and mastoid air cells: Mild scattered paranasal sinus disease. Visualized orbits: Orbital contents are intact. IMPRESSION: 1. No acute intracranial process. 2. Mild cerebellar tonsillar ectopia. 08/05/2018 [facility], , 12/18/2024 12:15 AM
--- NOTE | 2024-12-18 00:34 | US ---
EXAMINATION TYPE: US venous doppler duplex LE RT DATE OF EXAM: 12/18/2024 12:27 AM COMPARISON: . CLINICAL INDICATION: Female, 69 years old with history of Possible DVT; elevated d dimer. no swelling or redness, Pain TECHNIQUE: The lower extremity deep venous system is examined utilizing real time linear array sonog mckenna with graded compression, color doppler sonography, and spectral doppler. SIDE PERFORMED: Right FINDINGS: VESSELS IMAGED: Common Femoral Vein Deep Femoral Vein Greater Saphenous Vein * Femoral Vein Popliteal Vein Small Saphenous Vein * Proximal Calf Veins (* superficial vessels) Right Leg: appears negative for dvt. distal femoral vein comp deferred due to pain with pressure , C olor Doppler imaging shows patency of the vessels. Spectral waveforms are within normal limits. IMPRESSION: No ultrasound evidence for deep venous thrombosis. [facility], , 12/18/2024 12:32 AM
[2024-12-18] MEDS: METOPROLOL TARTRATE 25 MG TAB PO STA (01:29)
[2024-12-18] MEDS: ACETAMINOPHEN TAB 325 MG TAB PO STA (01:29)
[2024-12-18 01:32] VITALS: BP 125/75; PULSE 73
== END 2024-12-18 02:12 | disposition home or self-care (01) ==
LOC: EC 21:03
DX: I10 Essential (primary) hypertension (principal); Z88.5 Allergy status to narcotic agent; Z88.6 Allergy status to analgesic agent; Z88.8 Allergy status to other drugs, medicaments and biological substances; Z91.09 Other allergy status, other than to drugs and biological substances
CPT/HCPCS: 36415; 70450; 71046; 80053; 83735; 83880; 84484; 85025; 85379; 85610; 85730; 93005; 99285

== ENCOUNTER 2024-12-22 19:46 | Emergency (ER) | payer MEDICARE ==
[2024-12-22 19:54] VITALS: RESP 18; TEMP 97.8
[2024-12-22 21:23] LABS: Basophils # (A) 0.08 10*3/uL (0.00-0.10); Basophils % (A) 0.8 %; Eosinophils # (A) 0.54 10*3/uL (0.04-0.35); Eosinophils % (A) 5.3 %; HCT 36.6 % (37.2-46.3); HGB 11.8 g/dL (12.0-15.0); Lymphocytes # (A) 3.78 10*3/uL (0.90-5.00); Lymphocytes % (A) 36.8 %; MCH 27.8 pg (27.0-32.0); MCHC 32.2 g/dL (32.0-37.0); MCV 86.1 fL (80.0-97.0); Mean Platelet Volume 10.2 fL (9.5-12.2); Monocytes # (A) 0.58 10*3/uL (0.20-1.00); Monocytes % (A) 5.6 %; Neutrophils # (A) 5.24 10*3/uL (1.80-7.70); Platelet Count 381 10*3/uL (140-440); RBC 4.25 10*6/uL (4.10-5.20); RDW 14.7 % (11.5-14.5); WBC 10.27 10*3/uL (4.50-10.00)
[2024-12-22 21:28] LABS: Appearance,Urine Clear (Clear); Bilirubin,Urine Negative (Negative); Blood,Urine Negative (Negative); Color,Urine Light Yellow; Glucose,Urine (UA) Negative (Negative); Ketones,Urine Negative (Negative); Leukocyte Esterase,Urine Small (Negative); Mucus,Urine Rare /hpf; Nitrite,Urine Negative (Negative); PH, Urine 5.5 (5.0-8.0); Protein,Urine Negative (Negative); RBC,Urine 1 /hpf (0-5); Specific Gravity,Urine 1.026 (1.001-1.035); Squamous Epithelial Cell,Urine 1 /hpf (0-4); Urobilinogen,Urine <2.0 mg/dL (<2.0); WBC,Urine 12 /hpf (0-5)
--- NOTE | 2024-12-22 21:29 | ED ---
Headache HPI - General Chief Complaint: Headache Stated Complaint: Headache Time Seen by Provider: 12/22/24 20:33 Source: patient, RN notes reviewed Mode of arrival: ambulatory Limitations: no limitations - History of Present Illness Initial Comments: This is a 69-year-old female who presents to the emergency department for elevated blood pressure and a headache. Patient has a history of hypertension. Currently takes lisinopril and metoprolol. States that the metoprolol was just added a few days ago. Reports being compliant with her medication. States that around 4 to 5 PM this evening she started to feel unwell with a headache. She had shortness of breath initially that has since resolved. She does however continue to have a headache. Denies any nausea or vomiting. Denies any visual changes. She has monitored her blood pressure throughout the day and it has ranged from the 150s systolically to 200s. MD Complaint: headache - Related Data Home Medications Medication Instructions Recorded Confirmed Omeprazole [PriLOSEC] 20 mg PO BID PRN 03/26/17 12/22/24 Multivit with Calcium,Iron,Min 1 tab PO DAILY 12/26/22 12/22/24 [Women's Multivitamin] Acetaminophen Tab [Tylenol] 500 - 1,000 mg PO Q4H PRN 11/10/24 12/22/24 Cholecalciferol [Vitamin D3 (25 50 mcg PO DAILY 11/10/24 12/22/24 Mcg = 1000 Iu)] lisinopriL [Prinivil] 20 mg PO BID 11/10/24 12/22/24 Ondansetron [Zofran] 4 mg PO DIRECTED PRN 11/25/24 12/22/24 Metoprolol Tartrate [Lopressor] 1 tab PO BID 12/18/24 12/22/24 Previous Rx's Medication Instructions Recorded HYDROcodone/APAP 5-325MG [Dustin 1 tab PO Q6HR PRN #28 tab 11/14/24 5-325] Sennosides [Senokot] 2 tab PO DAILY PRN #60 tablet 11/14/24 Metoprolol Tartrate 25 mg PO BID #40 tab 12/18/24 amLODIPine [Norvasc] 5 mg PO DAILY #30 tab 12/22/24 Allergies Allergy/AdvReac Type Severity Reaction Status Date / Time morphine Allergy Severe turn red, Verified 12/22/24 19:54 skin peels, SOB, feels like burning inside adhesive tape Allergy red welts, Verified 12/22/24 19:54 fitzgerald ibuprofen [From Advil] Allergy Itching,hands Verified 12/22/24 19:54 burned,passed out meperidine [From Demerol] Allergy headaches Verified 12/22/24 19:54 gabapentin AdvReac Swelling,LIP Verified 12/22/24 19:54 NUMBNESS/TINGLING Review of Systems ROS Statement: Those systems with pertinent positive or pertinent negative responses have been documented in the HPI. ROS Other: All systems not noted in ROS Statement are negative. Past Medical History Past Medical History: Asthma, Diabetes Mellitus, GERD/Reflux, Hyperlipidemia, Hypertension, Osteoarthritis (OA), Skin Disorder Additional Past Medical History / Comment(s): redness,swelling and warm to touch right hip-draining from swelling-treating w/ Keflex, going to [facility], hx palpitations, diet controlled diabetic, reactive airway disease, hx pancreatitis History of Any Multi-Drug Resistant Organisms: None Reported Past Surgical History: Section, Cholecystectomy, Hernia Repair, Joint Replacement Additional Past Surgical History / Comment(s): total left hip replacement December 2011, Right Hip replaced 2016, I & D right hip x5-most recent November 2024, incisional hernia Past Anesthesia/Blood Transfusion Reactions: Family History of Problems w/ Anesthesia, Postoperative Nausea & Vomiting (PONV) Additional Past Anesthesia/Blood Transfusion Reaction / Comment(s): dad-had CVA during back surgery & , sister-PONV, severe PONV. No hx blood transfusion Past Psychological History: Anxiety Smoking Status: Never smoker - Past Family History Brother(s) Family Medical History: Cancer Additional Family Medical History / Comment(s): brain CA- 65 General Exam Limitations: no limitations General appearance: alert, in no apparent distress Head exam: Present: atraumatic, normocephalic, normal inspection Eye exam: Present: normal appearance, PERRL, EOMI. Absent: scleral icterus, conjunctival injection, periorbital swelling Respiratory exam: Present: normal lung sounds bilaterally. Absent: respiratory distress, wheezes, rales, rhonchi, stridor Cardiovascular Exam: Present: regular rate, normal rhythm Neurological exam: Present: alert, oriented X3, CN II-XII intact Psychiatric exam: Present: normal affect, normal mood Skin exam: Present: warm, dry, intact, normal color. Absent: rash Course Vital Signs 12/22/24 12/22/24 12/22/24 19:51 20:45 21:00 Temperature 97.8 F Pulse Rate 87 72 70 Respiratory 18 18 18 Rate Blood Pressure 201/103 163/78 162/72 O2 Sat by Pulse 96 97 97 Oximetry 12/22/24 12/22/24 12/23/24 22:08 23:45 01:14 Temperature Pulse Rate 70 92 66 Respiratory 18 18 18 Rate Blood Pressure 163/97 179/82 144/99 O2 Sat by Pulse 97 96 96 Oximetry Medical Decision Making - Medical Decision Making This is a 69 year old female who presents to the emergency department for a headache. Was pt. sent in by a medical professional or institution? @ -No Did you speak to anyone other than the patient for history? @ -No Did you review nursing and triage notes? @ -Yes, and I agree, it is accurate with regards to the patient's symptoms. Were old charts reviewed? @ -No Differential Diagnosis? @ -Differential Headache: Migraine, tension, cluster, carbon monoxide, central venous thrombosis, pension karma temporal arteritis, acute closure glaucoma, intercranial hemorrhage, mastoiditis, sinusitis, head injury, this is not meant to be an all-inclusive list. EKG interpreted by me (3pts min.)? @ -EKG interpreted by me demonstrating the following: Sinus rhythm. Ventricular rate 78 bpm, MA interval 140 ms, QRS duration 89 ms, QTc 397 ms. X-rays interpreted by me (1pt min.)? @ -Chest x-ray obtained, my interpretation identifies no localized consolidations or infiltrates. CT interpreted by me (1pt min.)? @ -CT scan of the brain obtained. My interpretation identifies no acute intracranial hemorrhage. U/S interpreted by me (1pt. min.)? @ -Not obtained What testing was considered but not performed? (CT, X-rays, U/S, labs)? Why? @ -None What meds were considered but not given? Why? @ -None Did you discuss the management of the patient with other professionals? @ -No Did you reconcile home meds? @ -No Was smoking cessation discussed for >3mins.? @ -No Was critical care preformed (if so, how long)? @ -No Were there social determinants of health that impacted care today? How? (Homelessness, low income, unemployed, alcoholism, drug addiction, transportation, low edu. Level, literacy, decrease access to med. care, half-way, rehab)? @ -No Was there de-escalation of care discussed even if they declined? (Discuss DNR or withdrawal of care, Hospice)? @ -No What co-morbidities impacted this encounter? (DM, HTN, Smoking, COPD, CAD, Cancer, CVA, Hep., AIDS, mental health diagnosis, sleep apnea, morbid obesity)? @ -HTN Was patient admitted / discharged? @ -Discharged. Lab work demonstrates mild leukocytosis with a white blood cell count of 10.27 and signs of mild dehydration. Urinalysis negative for signs of infection. Chest x-ray reveals no acute process. CT scan of the brain obtained revealing no acute findings. Patient was hypertensive on arrival with a BP of 201/103. This started to improve on its own into the 160s systolically without any intervention. Discussed with the patient that this is adequate and the important part is it is coming down. She was still very concerned about this level and the fact that it went back up if she was active. Discussed with the patient that it is expected to elevate when she is active and then come back down when she is sedentary. She requested to add an additional medication. Given that she still considered hypertensive I was in agreement with this and amlodipine was prescribed. Initial dose administered in the emergency department. She did request admission, however her BP continued to improve into the 140s systolically and I advised that there was no need for admission and she did not meet admission criteria. Advised she continue monitoring her BP at home and if she finds it to be elevated, to sit and rest and check it again several minutes later. She will continue taking her blood pressure medication as prescribed in addition to the amlodipine and follow-up with her primary care provider for reevaluation. Patient discharged home in stable condition. Case discussed with ED attending, Dr. Burrell. Return precautions reviewed in depth, the patient is instructed to return to the emergency department with any new, worsening, or concerning symptoms. Patient verbalized understanding. Undiagnosed new problem with uncertain prognosis? @ -None Drug Therapy requiring intensive monitoring for toxicity (Heparin, Nitro, Insulin, Cardizem)? @ -None Were any procedures done? @ -None Diagnosis/symptom? @ -Headache, hypertension Acute, or Chronic, or Acute on Chronic? @ -Acute Uncomplicated (without systemic symptoms) or Complicated (systemic symptoms)? @ -Uncomplicated Side effects of treatment? @ -None Exacerbation, Progression, or Severe Exacerbation] @ -Not applicable Poses a threat to life or bodily function? @ -No - Lab Data Result diagrams: 12/22/24 21:05 12/22/24 21:05 Lab Results 12/22/24 12/22/24 12/22/24 Range/Units 21:05 21:05 21:05 WBC 10.27 H (4.50-10.00) 10*3/uL RBC 4.25 (4.10-5.20) 10*6/uL Hgb 11.8 L (12.0-15.0) g/dL Hct 36.6 L (37.2-46.3) % MCV 86.1 (80.0-97.0) fL MCH 27.8 (27.0-32.0) pg MCHC 32.2 (32.0-37.0) g/dL Plt Count 381 (140-440) 10*3/uL MPV 10.2 (9.5-12.2) fL Immature Gran % (Auto) 0.5 % Neutrophils % 51.0 % Lymphocytes % 36.8 % Monocytes % 5.6 % Eosinophils % 5.3 % Basophils % 0.8 % Immature Gran # 0.05 H (0.00-0.04) 10*3/uL Neutrophils # 5.24 (1.80-7.70) 10*3/uL Lymphocytes # 3.78 (0.90-5.00) 10*3/uL Monocytes # 0.58 (0.20-1.00) 10*3/uL Eosinophils # 0.54 H (0.04-0.35) 10*3/uL Basophils # 0.08 (0.00-0.10) 10*3/uL PT 9.8 L (10.0-12.5) sec INR 0.9 (<1.2) APTT 22.1 (22.0-30.0) sec Sodium 140 (137-145) mmol/L Potassium 4.2 (3.5-5.1) mmol/L Chloride 106 (98-107) mmol/L Carbon Dioxide 27 (22-30) mmol/L Anion Gap 7 mmol/L BUN 32 H (7-17) mg/dL Creatinine 1.10 H (0.52-1.04) mg/dL Est GFR (CKD-EPI)AfAm 60 (>60 ml/min/1.73 sqM) Est GFR (CKD-EPI)NonAf 52 (>60 ml/min/1.73 sqM) Glucose 140 H (74-99) mg/dL Calcium 9.7 (8.4-10.2) mg/dL Magnesium 1.7 (1.6-2.3) mg/dL Total Bilirubin 0.3 (0.2-1.3) mg/dL AST 19 (14-36) U/L ALT 23 (4-34) U/L Alkaline Phosphatase 106 (38-126) U/L Total Protein 6.5 (6.3-8.2) g/dL Albumin 3.7 (3.5-5.0) g/dL Urine Color Urine Appearance (Clear) Urine pH (5.0-8.0) Ur Specific [place] (1.001-1.035) Urine Protein (Negative) Urine Glucose (UA) (Negative) Urine Ketones (Negative) Urine Blood (Negative) Urine Nitrite (Negative) Urine Bilirubin (Negative) Urine Urobilinogen (<2.0) mg/dL Ur Leukocyte Esterase (Negative) Urine RBC (0-5) /hpf Urine WBC (0-5) /hpf Ur Squamous Epith Cells (0-4) /hpf Urine Mucus (None) /hpf 12/22/24 Range/Units 21:05 WBC (4.50-10.00) 10*3/uL RBC (4.10-5.20) 10*6/uL Hgb (12.0-15.0) g/dL Hct (37.2-46.3) % MCV (80.0-97.0) fL MCH (27.0-32.0) pg MCHC (32.0-37.0) g/dL Plt Count (140-440) 10*3/uL MPV (9.5-12.2) fL Immature Gran % (Auto) % Neutrophils % % Lymphocytes % % Monocytes % % Eosinophils % % Basophils % % Immature Gran # (0.00-0.04) 10*3/uL Neutrophils # (1.80-7.70) 10*3/uL Lymphocytes # (0.90-5.00) 10*3/uL Monocytes # (0.20-1.00) 10*3/uL Eosinophils # (0.04-0.35) 10*3/uL Basophils # (0.00-0.10) 10*3/uL PT (10.0-12.5) sec INR (<1.2) APTT (22.0-30.0) sec Sodium (137-145) mmol/L Potassium (3.5-5.1) mmol/L Chloride (98-107) mmol/L Carbon Dioxide (22-30) mmol/L Anion Gap mmol/L BUN (7-17) mg/dL Creatinine (0.52-1.04) mg/dL Est GFR (CKD-EPI)AfAm (>60 ml/min/1.73 sqM) Est GFR (CKD-EPI)NonAf (>60 ml/min/1.73 sqM) Glucose (74-99) mg/dL Calcium (8.4-10.2) mg/dL Magnesium (1.6-2.3) mg/dL Total Bilirubin (0.2-1.3) mg/dL AST (14-36) U/L ALT (4-34) U/L Alkaline Phosphatase (38-126) U/L Total Protein (6.3-8.2) g/dL Albumin (3.5-5.0) g/dL Urine Color Light Yellow Urine Appearance Clear (Clear) Urine pH 5.5 (5.0-8.0) Ur Specific [place] 1.026 (1.001-1.035) Urine Protein Negative (Negative) Urine Glucose (UA) Negative (Negative) Urine Ketones Negative (Negative) Urine Blood Negative (Negative) Urine Nitrite Negative (Negative) Urine Bilirubin Negative (Negative) Urine Urobilinogen <2.0 (<2.0) mg/dL Ur Leukocyte Esterase Small H (Negative) Urine RBC 1 (0-5) /hpf Urine WBC 12 H (0-5) /hpf Ur Squamous Epith Cells 1 (0-4) /hpf Urine Mucus Rare H (None) /hpf - Radiology Data Radiology results: report reviewed, image reviewed Disposition Clinical Impression: Hypertension, Headache Disposition: HOME SELF-CARE Instructions (If sedation given, give patient instructions): Acute Headache (ED), Hypertension (ED) Additional Instructions: Return to the emergency department with any new, worsening, or concerning symptoms. Begin taking the amlodipine once daily. Continue to keep a log of your blood pressure. If you check it and find it to be elevated, recheck it again in 5 to 10 minutes. Make sure you check it when you are seated and have been resting, not when you get up or have been moving around. The important part is that it comes back down. Even if it is temporarily elevated, as long as it comes back down it is okay. Follow-up with your primary care provider in the next couple of days. Prescriptions: amLODIPine [Norvasc] 5 mg PO DAILY #30 tab Is patient prescribed a controlled substance at d/c from ED?: No Referrals: Sukumar White DO [Primary Care Provider] - 1-2 days
[2024-12-22 21:35] LABS: ALT 23 U/L (4-34); AST 19 U/L (14-36); African American GFR (CKD) 60 (>60 ml/min/1.73 sqM); Albumin 3.7 g/dL (3.5-5.0); Alkaline Phosphatase 106 U/L (38-126); Anion Gap 7 mmol/L; Blood Urea Nitrogen 32 mg/dL (7-17); Calcium 9.7 mg/dL (8.4-10.2); Carbon Dioxide 27 mmol/L (22-30); Chloride 106 mmol/L (98-107); Glucose 140 mg/dL (74-99); Magnesium 1.7 mg/dL (1.6-2.3); Non-African American GFR(CKD) 52 (>60 ml/min/1.73 sqM); Potassium 4.2 mmol/L (3.5-5.1); Sodium 140 mmol/L (137-145); Total Bilirubin 0.3 mg/dL (0.2-1.3); Total Protein 6.5 g/dL (6.3-8.2)
--- NOTE | 2024-12-22 21:36 | XR ---
EXAMINATION TYPE: XR chest 2V DATE OF EXAM: 12/22/2024 9:22 PM COMPARISON: Chest radiographs from 12/17/2024. CLINICAL INDICATION: Female, 69 years old with history of THEODORE; TECHNIQUE: XR chest 2V Frontal and lateral views of the chest. FINDINGS: Lungs/Pleura: There is no evidence of pleural effusion, focal consolidation, or pneumothorax. Pulmonary vascularity: Unremarkable. Heart/mediastinum: Cardiomediastinal silhouette is unremarkable. Musculoskeletal: No acute osseous pathology. IMPRESSION: No acute cardiopulmonary disease/process. [facility], , 12/22/2024 9:34 PM
--- NOTE | 2024-12-22 21:43 | CT ---
EXAMINATION TYPE: CT brain wo con DATE OF EXAM: 12/22/2024 9:29 PM COMPARISON: None. CLINICAL INDICATION: Female, 69 years old with history of HTN, headache, Headache, hypertension TECHNIQUE: Brain: Axial CT images of the brain were obtained with coronal and sagittal reformats created and rev iewed. Contrast used: None. Oral contrast used: None. CT DLP: 1105.4 mGycm, Automated exposure control for dose reduction was used. FINDINGS: Brain: Extra-axial spaces: No abnormal extra-axial fluid collections. Ventricular system: Within normal limits Cerebral parenchyma: No acute intraparenchymal hemorrhage or mass effect. The hilliard-white junction is well differentiated. Cerebellum: Unremarkable. Mass effect: No evidence of midline shift. Intracranial vasculature: unremarkable Soft tissues: Normal. Calvarium/osseous structures: No depressed skull fracture. Paranasal sinuses and mastoid air cells: Mild scattered paranasal sinus disease. Visualized orbits: Orbital contents are intact. IMPRESSION: No acute intracranial process. [facility], , 12/22/2024 9:41 PM
[2024-12-22 21:49] LABS: INR 0.9 (<1.2); Partial Thromboplastin Time 22.1 sec (22.0-30.0); Prothrombin Time 9.8 sec (10.0-12.5)
[2024-12-22] MEDS: ACETAMINOPHEN TAB 500 MG TAB PO STA (22:03)
[2024-12-22] MEDS: SODIUM CHLORIDE 0.9% 500 ML 500 ML IV ONE (22:03)
[2024-12-22] MEDS: HYDROmorphone 1 MG/ML 1 ML SYRINGE IVP STA (22:04)
[2024-12-22] MEDS: diphenhydrAMINE 50 MG/ML 1 ML VIAL IVP STA (22:47)
[2024-12-22] MEDS: BUTALB/APAP/CAFF 50-325-40MG TAB PO STA (23:23)
[2024-12-23] MEDS: amLODIPine 5 MG TAB PO STA (00:12)
[2024-12-23 01:15] VITALS: BP 144/99; PULSE 66
== END 2024-12-23 01:29 | disposition home or self-care (01) ==
LOC: EC 19:46
DX: I10 Essential (primary) hypertension (principal); R51.9 Headache, unspecified; Z88.5 Allergy status to narcotic agent; Z88.8 Allergy status to other drugs, medicaments and biological substances; Z88.6 Allergy status to analgesic agent
CPT/HCPCS: 36415; 93005; 80053; 83735; 85025; 85610; 85730; 81001; 87086; 87077; 87186; 71046; 70450; 99284; 96374; 96375; J1200; J1171

== ENCOUNTER → 2025-01-13 | Outpatient (CLI) | payer MEDICARE ==
--- NOTE | 2025-01-13 16:14 | US ---
EXAMINATION TYPE: US pelvis complete transvag DATE OF EXAM: 01/13/2025 COMPARISON: NONE CLINICAL INDICATION: Female, 69 years old with history of N95.0 POST MENOPAUSAL BLEEDING; Hx 1 C sect ion. Patient had post menopausal bleeding that started on 12-26-24 and lasted a couple weeks. G 1 P1 TECHNIQUE: Transvaginal (TV) and Transabdominal (TA) . Transabdominal grayscale sonographic images of the pelvis were acquired. Transvaginal sonographic im ages were medically necessary to better assess the following anatomy: Endometrium, ovaries Doppler imaging: Not performed. FINDINGS: Date of LMP: Unknown, post menopausal EXAM MEASUREMENTS: Uterus: 8.5 x 4.2 x 3.2 cm Endometrial Stripe: 1.49 cm Right Ovary: Obscured Left Ovary: 2.7 x 1.7 x 1.8 cm 1. Uterus: Anteverted. The myometrium is heterogeneous, slightly limited. *Oval hypoechoic area seen in cervix: 3.4 x 1.3 cm. *Some anechoic appearance of fluid seen in lower cervix = 1.1 cm. Some additional punctate calcifications in the cervix which can be seen with sequela of prior infecti on or instrumentation. 2. Endometrium: *Thickened, heterogeneous, complex appearance. 3. Right Ovary: Obscured 4. Left Ovary: wnl 5. Bilateral Adnexa: wnl 6. Posterior cul-de-sac: wnl IMPRESSION: 1. Thickened endometrium at 1.5 cm. Abnormal in a postmenopausal female. Endometrial hyperplasia, end ometrial polyps, endometrial carcinoma are differential considerations. Further [employer]ICAL [employer] evaluation rec ommended. 2. Unable to exclude an oval 3.4 cm mass within the endocervical canal. Small amount of adjacent flui d noted. Some possibilities include a prolapsed fibroid or extension of mucosal neoplasm from the end ometrium. 3. Unable to visualize the right ovary. [facility], , 01/13/2025 4:11 PM
== END | disposition home or self-care (01) ==
LOC: RADUSWWP 14:54
PROVIDERS: ATTEND Family Medicine
DX: C54.1 Malignant neoplasm of endometrium (principal); N95.0 Postmenopausal bleeding; R93.89 Abnormal findings on diagnostic imaging of other specified body structures
CPT/HCPCS: 76830; 76856

== ENCOUNTER → 2025-01-26 | Outpatient (CLI) | payer MEDICARE ==
[2025-01-26 11:11] LABS: INR 0.9 (<1.2); Partial Thromboplastin Time 22.2 sec (22.0-30.0); Prothrombin Time 10.5 sec (10.0-12.5)
[2025-01-26 16:49] LABS: BUN/Creat Ratio 23.23 Ratio (12.00-20.00); Basophils # (A) 0.06 X 10*3/uL (0.00-0.10); Basophils % (A) 0.8 %; Blood Urea Nitrogen 30.2 mg/dL (9.0-27.0); Calcium 9.5 mg/dL (8.7-10.3); Carbon Dioxide 22.6 mmol/L (21.6-31.8); Chloride 107 mmol/L (96-109); Eosinophils # (A) 0.16 X 10*3/uL (0.04-0.35); Glucose 131 mg/dL (70-110); HCT 45.4 % (37.2-46.3); Lymphocytes # (A) 2.45 X 10*3/uL (0.90-5.00); MCH 27.5 pg (27.0-32.0); MCHC 30.8 g/dL (32.0-37.0); MCV 89.2 FL (80.0-97.0); Mean Platelet Volume 11.2 FL (9.5-12.2); Monocytes # (A) 0.43 X 10*3/uL (0.20-1.00); Monocytes % (A) 5.4 %; NRBC Per 100 WBC 0 X 10*3/uL (0.00-0.01); Neutrophils # (A) 4.78 X 10*3/uL (1.80-7.70); Neutrophils % (A) 60.4 %; Platelet Count 387 X 10*3/uL (140-440); Potassium 4.5 mmol/L (3.5-5.5); RBC 5.09 X 10*6/uL (4.10-5.20); RDW 15.3 % (11.5-14.5); Sodium 140 mmol/L (135-145); WBC 7.91 X 10*3/uL (4.50-10.00)
[2025-01-26 17:04] LABS: Appearance,Urine Clear (Clear); Bilirubin,Urine Negative (Negative); Blood,Urine Negative (Negative); Color,Urine Yellow (Yellow); Ketones,Urine Negative (Negative); Nitrite,Urine Negative (Negative); Specific Gravity,Urine 1.018 (1.001-1.030); Urobilinogen,Urine 0.2 E.U./DL
[2025-01-26 17:06] LABS: Bacteria,Urine None Seen (None Seen)
== END | disposition home or self-care (01) ==
LOC: LABWHC1 10:20
PROVIDERS: ATTEND Family Medicine
DX: Z01.812 Encounter for preprocedural laboratory examination (principal); E11.9 Type 2 diabetes mellitus without complications; R35.0 Frequency of micturition
CPT/HCPCS: 36415; 80048; 81001; 83036; 85025; 85610; 85730; 87086

== ENCOUNTER → 2025-02-02 | Outpatient (CLI) | payer MEDICARE | LOC: 6NCLINIC 12:43 | PROVIDERS: ATTEND Family Medicine | DX: Z53.9 Procedure and treatment not carried out, unspecified reason (principal) ==

== ENCOUNTER → 2025-03-04 | Outpatient (CLI) | payer MEDICARE, OTHER ==
--- NOTE | 2025-03-04 15:51 | MM ---
Reason for Exam: Screening (asymptomatic). Last screening mammogram was performed 12 month(s) ago. Patient History: Menarche at age 14. First Full-Term at age 32. Late child-bearing (after 32). Postmenopausal. Risk Values: Saira 5 year model risk: 2.3%. NCI Lifetime model risk: 7.9%. Prior Study Comparison: 07/26/2017 Left Diagnostic Mammogram, [facility]. 08/05/2018 Bilateral Screening Mammogram, [facility]. 02/20/2024 Bilateral MG 3D screening mammo w/cad, [facility]. Tissue Density: The breasts are almost entirely fatty. Findings: Analyzed By CAD. Right breast: There is no suspicious group of microcalcifications or new suspicious mass. Left breast: There is no suspicious group of microcalcifications or new suspicious mass. Overall Assessment: Negative, BI-RAD 1 Management: Screening Mammogram of both breasts in [address] [facility] will attempt to contact patient to return for supplemental views and ultrasound if indicated. Patient should continue monthly self-breast exams. A clinical breast exam by your physician is recommended on an annual basis. This exam should not preclude additional follow-up of suspicious palpable abnormalities. Note on Saira scores and lifetime risk: 1. A Saira score greater than 3% is considered moderate risk. If this is the case, consider specialist referral to assess eligibility for a risk reducing agent. 2. If overall lifetime risk for the development of breast cancer is 20% or higher, the patient may qualify for future screening with alternating mammogram and breast MRI. [facility], , 03/04/2025 3:49 PM. Electronically signed and approved by: Sam Jefferson DO
[2025-03-04 19:31] LABS: Basophils # (A) 0.04 X 10*3/uL (0.00-0.10); Basophils % (A) 0.5 %; Eosinophils # (A) 0.27 X 10*3/uL (0.04-0.35); Eosinophils % (A) 3.4 %; HCT 37.7 % (37.2-46.3); HGB 11.9 g/dL (12.0-15.0); Lymphocytes # (A) 2.64 X 10*3/uL (0.90-5.00); Lymphocytes % (A) 33.4 %; MCH 27.9 pg (27.0-32.0); MCHC 31.6 g/dL (32.0-37.0); MCV 88.5 FL (80.0-97.0); Mean Platelet Volume 11.2 FL (9.5-12.2); Monocytes # (A) 0.57 X 10*3/uL (0.20-1.00); Monocytes % (A) 7.2 %; NRBC Per 100 WBC 0 X 10*3/uL (0.00-0.01); Neutrophils # (A) 4.37 X 10*3/uL (1.80-7.70); Neutrophils % (A) 55.4 %; Platelet Count 367 X 10*3/uL (140-440); RBC 4.26 X 10*6/uL (4.10-5.20); RDW 14.9 % (11.5-14.5)
[2025-03-04 19:53] LABS: ALT 18 U/L (8-44); AST 15 U/L (13-35); Albumin 3.9 g/dL (3.8-4.9); Alkaline Phosphatase 100 U/L (41-126); BUN/Creat Ratio 16.85 Ratio (12.00-20.00); Blood Urea Nitrogen 21.9 mg/dL (9.0-27.0); Calcium 9.1 mg/dL (8.7-10.3); Carbon Dioxide 23.9 mmol/L (21.6-31.8); Chloride 106 mmol/L (96-109); Chol/HDL Ratio 4.36 Ratio; Globulin 2.3 g/dL (1.6-3.3); Glucose 100 mg/dL (70-110); LDL Cholesterol,Calculated 188.4 mg/dL (0.0-131.0); Potassium 4.2 mmol/L (3.5-5.5); Sodium 140 mmol/L (135-145); Total Bilirubin 0.3 mg/dL (0.3-1.2); Total Protein 6.2 g/dL (6.2-8.2); VLDL Calculation 18.94 mg/dL (5.00-40.00)
[2025-03-05 02:52] LABS: Microalbumin Creatinine Ratio <41 mg/g Cr (0-30); Urine Creatinine 29.6 mg/dL (28.0-217.0)
== END | disposition home or self-care (01) ==
LOC: RADMAMWWP 15:19
PROVIDERS: ATTEND Family Medicine
DX: Z12.31 Encounter for screening mammogram for malignant neoplasm of breast (principal); R92.313 Mammographic fatty tissue density, bilateral breasts; I10 Essential (primary) hypertension; E78.00 Pure hypercholesterolemia, unspecified; E66.9 Obesity, unspecified; E55.9 Vitamin D deficiency, unspecified
CPT/HCPCS: 77063; 77067; 80053; 80061; 82043; 82306; 82570; 83036; 84443; 85025

== ENCOUNTER → 2025-03-18 | Outpatient (CLI) | payer MEDICARE ==
[2025-03-18 15:49] LABS: Anion Gap 10.70 mmol/L (4.00-12.00); BUN/Creat Ratio 18.50 Ratio (12.00-20.00); Blood Urea Nitrogen 22.2 mg/dL (9.0-27.0); Calcium 9.5 mg/dL (8.7-10.3); Carbon Dioxide 22.3 mmol/L (21.6-31.8); Chloride 106 mmol/L (96-109); Glucose 109 mg/dL (70-110); Potassium 4.7 mmol/L (3.5-5.5); Sodium 139 mmol/L (135-145)
== END | disposition home or self-care (01) ==
LOC: LABWHC1 12:39
PROVIDERS: ATTEND Internal Medicine Infectious Disease
DX: I10 Essential (primary) hypertension (principal)
CPT/HCPCS: 36415; 80048; 86140